=== PATIENT | male | born 1940 | race Caucasian/White ===

== ENCOUNTER 2020-11-14 11:09 | Inpatient (IN) | payer MEDICARE ==
[~2020-11-14] VITALS: Ht 170 cm; Wt 80.2 kg
[~2020-11-14 11:09] MED LIST: ACET-2 PO; ACETAMINOPHEN 325 MG TABLET PO PRN; ALPRAZolam 0.25 MG (XANAX) TAB PO PRN; AMIO200T6 PO; ASCO-262 PO; ASPI-1238 PO; ATOR40TA70 PO; BIMA2.5D4 OU; BISACODYL 10 MG SUPP (DULCOLAX) PR PRN; CALCIUM CARBONATE 500 MG (TUMS) TAB.CHEW PO PRN; CHOL100048 PO; CYCL10TA9 PO; DOCU100T2 PO; DOCUSATE SODIUM 100 MG (COLACE) CAP PO PRN; FLEET ENEMA ADULT 1 EA BTL PR PRN; LACTULOSE SYRUP 10GM/15ML (ENULOSE) 30ML UDC PO PRN; LEVO75TA6 PO; LOPERAMIDE 2 MG (IMODIUM) TABLET PO PRN; METF-397 PO; MTP25TSR PO; ONDA4TAB11 PO; ONDANSETRON 4 MG (ZOFRAN) ORAL DISSOLVE TAB PO PRN; PANT40TA52 PO; POTA-53 PO; SACU1TAB7 PO; SEMA0.25 SQ; SERT-413 PO; SPIR25TA5 PO; TRAM50TA3 PO; diphenhydrAMINE 25 MG TAB (BENADRYL) PO PRN; guaiFENesin/CODEINE (ROBITUSSIN AC) 10ML UDC PO PRN
[2020-11-14] MEDS ORDERED: SEMA0.25 SQ (11:34)
[2020-11-14 13:20] VITALS: BP 139/67
--- NOTE | 2020-11-14 14:59 | PM&R Post Admission Assessment ---
PM&R Date of Visit: November 14, 2020 Time of Visit: 15:00 History of Present Illness CC: Debility following colon cancer surgery HPI: This is an 80yoWM clinic patient of Dr P[facility] and Dr Horta Cardiology at who presents from following colon cancer surgery on 11/08/20. He has a long hx of cardiac issues including PPM and AF and CHF so Cardiology will be consulted. He has had urinary retention requiring adkins cath to be replaced so Dr Ibarra will be consulted. Currently he is doing better since a nap after arrival. I have reviewed records. 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 PLOF is independent. He is for 53 years. Assessment: Assessment: 80M w/ HFrEF (EF 40%), A.fib, SSS (pacemaker) HTN, DM, CAD, pHTN, newly diagnosted rectal cancer s/p robot assisted lap LAR (11/08) Past Ceddtbc-Orgmip-Yixbdb Hx Past Med/Social Hx: Reviewed Nursing Past Med/Soc Hx, Reviewed and Corrections made Patient Social History Marrital Status: Employed/Student: retired Alcohol Use: Denies Use Smoking Status: Never a Smoker Past Medical History Surgeries: Pacemaker Respiratory: Pneumonia Cardiac: Atrial Fibrillation, Cardiomyopathy, Chronic Edema/Swelling, Coronary Artery Disease, High Cholesterol, Hypertension Genitourinary: Benign Prostatic Hyperpl Musculoskeletal: Arthritis Endocrine: Hypothyroidsim, Diabetes, Non-Insulin dep Cancer: Colon Did You Recieve Any Treatments: Yes What Type of Treatment Did You: Surgical Intervention PM&R Allergy/Meds/Data Review Allergies Coded Allergies: lisinopril (Verified Allergy, Unknown, 11/14/20) zolpidem (Verified Allergy, Unknown, 11/14/20) Home Medications Scheduled Amiodarone HCl (Amiodarone HCl), 100 MG PO MO,E,WE,KEITH, (Reported) Amiodarone HCl (Amiodarone HCl), 200 MG PO SUN,FRI,SAT, (Reported) Ascorbate Calcium (Vitamin C), 500 MG PO DAILY, (Reported) Aspirin (Aspirin EC), 81 MG PO HS W/FOOD, (Reported) Atorvastatin Calcium (Atorvastatin Calcium), 20 MG PO DAILY, (Reported) Bimatoprost (Lumigan), 1 DROP OU HS, (Reported) Cholecalciferol (Vitamin D3) (Vitamin D3), 25 MCG PO DAILY, (Reported) Cyclobenzaprine HCl (Cyclobenzaprine HCl), 10 MG PO BID, (Reported) Docusate Sodium (Docusate Sodium), 100 MG PO BID, (Reported) Levothyroxine Sodium (Levothyroxine Sodium), 75 MCG PO DAILY, (Reported) Metformin HCl (Metformin HCl), 500 MG PO BID, (Reported) Metoprolol Succinate (Metoprolol Succinate), 12.5 MG PO HS, (Reported) Pantoprazole Sodium (Pantoprazole Sodium), 40 MG PO BID, (Reported) Potassium Chloride (K-Tab ER), 20 MEQ PO DAILY W/MEAL, (Reported) Sacubitril/Valsartan (Entresto 49 mg-51 mg Tablet), 1 TAB PO DAILY, (Reported) Sacubitril/Valsartan (Entresto 49 mg-51 mg Tablet), 2 TAB PO 1800, (Reported) Semaglutide (Ozempic), 0.25 MG SQ WEEKLY, (Reported) Sertraline HCl (Sertraline HCl), 50 MG PO HS, (Reported) Spironolactone (Spironolactone), 25 MG PO DAILY W/FOOD, (Reported) Scheduled PRN Acetaminophen/Diphenhydramine (Acetaminophen Pm Geltab), 1 EACH PO HS PRN for SLEEP, (Reported) Ondansetron (Ondansetron Odt), 4 MG PO Q4H PRN for NAUSEA/VOMITING-1ST LINE, (Reported) Tramadol HCl (Tramadol HCl), 50 MG PO Q6H PRN for PAIN-MODERATE (5-7), (Reported) Current Medications Current Medications Reviewed Review of Systems Constitutional: see HPI, malaise, weakness EENTM: no symptoms reported Respiratory: no symptoms reported Cardiovascular: no symptoms reported Gastrointestinal: abdominal pain, loss of appetite Genitourinary: other (retention) Musculoskeletal: back pain Skin: no symptoms reported Psychiatric/Neurological: Depressed All Other Systems Reviewed Negative Unless Noted: Yes Physical Exam Physical Exam Vital Signs Capillary Refill : Height, Weight, BMI Height: '" Weight: lbs. oz. kg; BMI Method: General Appearance: No Apparent Distress, WD/WN, Chronically ill, Obese Eyes: Bilateral Eye Normal Inspection, Bilateral Eye PERRL HEENT: PERRL/EOMI, Normal ENT Inspection, Pharynx Normal Neck: Full Range of Motion, Normal Inspection, Non Tender, Supple, Carotid Bruit Respiratory: Chest Non Tender, Lungs Clear, Normal Breath Sounds, No Accessory Muscle Use, No Respiratory Distress Cardiovascular: Regular Rate, Rhythm, No Edema, No Gallop, No JVD, No Murmur, Normal Peripheral Pulses Gastrointestinal: Normal Bowel Sounds, No Organomegaly, No Pulsatile Mass, Soft, Tenderness Back: Normal Inspection, No CVA Tenderness, No Vertebral Tenderness Extremity: Normal Capillary Refill, Normal Inspection, Normal Range of Motion, Non Tender, No Calf Tenderness, No Pedal Edema Neurologic/Psychiatric: Alert, Oriented x3, No Motor/Sensory Deficits, 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 as 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, Abnormal Gait, Depressed Affect, Motor Weakness (generalized) Skin: Normal Color, Warm/Dry Lymphatic: No Adenopathy PM&R Medical Assessment & Plan REHAB/MEDICAL ASSESSMENT AND PLAN: REHAB IMPAIRMENT GROUP: Debility ETIOLOGIC DIAGNOSIS: Debility The comorbidities that impact the patients function and/or functional outcome by: recent colon cancer dx, CHF, AF, PPM, advanced age REHAB PLAN: The patient is being admitted to our comprehensive inpatient rehabilitation facility and can tolerate the intensity of service consisting of at least: 180 minutes of therapy a day, 5 out of 7 days a week Rehab treatment will consist of: PT OT will help patient regain function of severe debility in order to ambulate with AD and increase ADL independence in order to return home The patient/family has a good understanding of our discharge process and will benefit from an interdisciplinary inpatient rehabilitation program. The patient has potential to make improvement and is in need of at least two of the following multidisciplinary therapies including but not limited to physical, occupational, speech, and prosthetics and orthotics. Additionally the patient will need services from respiratory, nutritional services, wound care, psychology, etc. (Customize this to each patient). Given the patients complex condition and risk of further medical complications, rehabilitation services cannot be safely or effectively provided at a lower level of care such as a snf facility. BARRIERS TO DISCHARGE: Advanced age ESTIMATED LOS: 10 days DISPOSITION: Home RELEVANT CHANGES SINCE PREADMISSION SCREENING: I have compared the patients medical and functional status at the time of the preadmission screening and there are: no changes PROGNOSIS: Good REHABILITATION GOALS: 1. PT OT will help patient regain function of severe debility in order to ambulate with AD and increase ADL independence in order to return home All the above goals were reviewed with the patient and he/she is in agreement. By signing this document, I acknowledge that I have personally performed a full physical examination on this patient within 24 hours of admission to this inpatient rehabilitation facility and have determined the patient to be able to tolerate the above course of treatment at an intensive level for a reasonable period of time. I will be completing a detailed individualized Plan of Care for this patient by day #4 of the patients stay based upon the Preadmission Screen, the Post-Admission Evaluation, and the therapy evaluations. Admission Dx/Comorbidities: (1) Colon cancer ICD Codes: C18.9 - Malignant neoplasm of colon, unspecified (2) Pacemaker ICD Codes: Z95.0 - Presence of cardiac pacemaker (3) CAD (coronary artery disease) ICD Codes: I25.10 - Atherosclerotic heart disease of [place] coronary artery without angina pectoris (4) A-fib ICD Codes: I48.91 - Unspecified atrial fibrillation (5) CHF (congestive heart failure) ICD Codes: I50.9 - Heart failure, unspecified Assessment/Plan Assessment and Plan Assess & Plan/Chief Complaint Assessment: Debility Colon cancer s/p resection 11/08/20 Urinary retention adkins cath in place CHF AF PPM HTN HLP DM Hypothyroidism Plan: IRF protocol Home meds Pain control Urology consult RIO HAWTHORNE DO November 14, 2020 14:59
[2020-11-14] MEDS ORDERED: NON-FORMULARY MEDICATION 1 EA EA (Potassium Chloride (K-Tab ER) 20 MEQ) PO SCH (15:00)
[2020-11-14] MEDS ORDERED: NON-FORMULARY MEDICATION 1 EA EA (Semaglutide (Ozempic) 0.25 MG) SQ SCH (15:00)
[2020-11-14] MEDS ORDERED: ONDANSETRON 4 MG (ZOFRAN) ORAL DISSOLVE TAB PO PRN (15:00)
--- NOTE | 2020-11-14 15:14 | Occupational Therapy Eval ---
OT Evaluation-General/PLF Medical Diagnosis Admission Date November 14, 2020 at 13:30 Medical Diagnosis: Colon resection/Colon CA Onset Date: November 08, 2020 Therapy Diagnosis Therapy Diagnosis: Weakness, Decreased ADL skills Precautions Precautions/Isolations: Fall Prevention, Standard Precautions, Pressure Ulcer Weight Bear Status Weight Bearing Restriction: Weight Bearing/Tolerated Referral Physician: Dr. Askew Referral Reason: Activity Tolerance, Self Care, Evaluation/Treatment, Strengthening/ROM Medical History Pertinent Medical History: Atrial Fib, CAD, HTN Additional Medical History Chronic systolic heart failure, HLD Current History Pt. diagnosed with rectal CA. Underwent colon resection with colostomy. Reviewed History: Yes Social History Home: Single Level Current Living Status: Spouse Entry Into Home: Stairs With Railing Steps Into Home: 2 ADL-Prior Level of Function SCALE: Activities may be completed with or without assistive devices. 8-Pmmofomcgr-hfqcrbd completes the activity by him/herself with no assistance from a helper. 5-Set-up or Clean-up Assistance-helper sets up or cleans up; patient completes activity. [place] assists only prior to or following the activity. 4-Supervision or Touching Assistance-helper provides verbal cues and/or touching/steadying and/or contact guard assistance as patient completes activity. Assistance may be provided throughout the activity or intermittently. 3-Partial/Moderate Assistance-helper does LESS THAN HALF the effort. [place] lifts, holds or supports trunk or limbs, but provides less than half the effort. 2-Substantial/Maximal Assistance-helper does MORE THAN HALF the effort. [place] lifts or holds trunk or limbs and provides more than half the effort. 6-[place]-cgkmsw does ALL the effort. Patient does none of the effort to complete the activity. Or, the assistance of 2 or more helpers is required for the patient to complete the activity. If activity was not attempted, code reason: 7-Patient Refused. 9-Not Applicable-not attempted and the patient did not perform the activity before the current illness, exacerbation or injury. 10-Not Attempted due to Environmental Limitations-(lack of equipment, weather restraints, etc.). 88-Not Attempted due to Medical Conditions or Safety Concerns. ADL PLOF Comments Pt. states that he was independent with daily tasks prior to this hospitalization. He did not use a walker even though he owns one. 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 Appearance Pt. up in wheelchair. Agrees to work with therapy. Mental Status/Objective Patient Orientation: Person Current Upper Extremity ROM Limited in left shoulder. Pt. is able to flex right shoulder WFL. ADL-Treatment Eating (QC): 4 (SBA and cues to sequence. Pt. verbalizes that he has no appetite.) Oral Hygiene (QC): 88 (Pt. already completed.) Shower/Bathe Self (QC): 88 (Already completed.) Upper Body Dressing (QC): 88 Lower Body Dressing (QC): 88 On/Off Footwear (QC): 2 (Max assist overall with shoes and socks.) Toileting Hygiene (QC): 1 (Dependent assistance with catheter and colostomy.) Other Treatments Pt. seen this date for evaluation with PT for co-treatment due to poor endurance overall. Pt. able to stand with CGA, but does fatigue during treatment, the more he ambulates. Please see PT note for distance ambulated. Pt. attempts to doff/don socks and shoes. Pt. able to doff shoes with effort, and is able to doff socks with max effort and increased time. Max assist to don them. OT introduces AE. As treatment progresses, pt. becomes more shaky and has difficulty following cues. Forgets his catheter while ambulating and transferring. BP fine, (please see nursing notes.) Pt. transferred back to bed at end of session with CGA/min assist. Pt. immediately falls asleep. All needs are met. Education OT Patient Education: Correct positioning, Modified ADL techniques, Progress toward Goal/Update tx plan, Purpose of tx/functional activities, Reviewed precautions, Rehab process, Transfer techniques Teaching Recipient: Patient Teaching Methods: Demonstration, Discussion Response to Teaching: Verbalize Understanding, Return Demonstration, Reinforcement Needed OT Short Term Goals Short Term Goals Time Frame: November 21, 2020 Eatin Oral hygiene: 4 Toileting hygiene: 3 Shower/bathe self: 3 Upper body dressin Lower body dressin Putting on/taking off footwear: 3 OT Customer Service Advocate Goals Mcfp Goals Time Frame: Nov 28, 2020 Eating (QC): 6 Oral Hygiene (QC): 5 Toileting Hygiene (QC): 6 Shower/Bathe Self (QC): 4 Upper Body Dressing (QC): 5 Lower Body Dressing (QC): 4 On/Off Footwear (QC): 4 Additional Goals: 1-Demonstrate ADL Tasks, 2-Verbalize Understanding, 3- ImproveStrength/Misha 1=Demonstrate adherence to instructed precautions during ADL tasks. 2=Patient will verbalize/demonstrate understanding of assistive devices/modifications for ADL. 3=Patient will improve strength/tolerance for activity to enable patient to perform ADL's. OT Education/Plan Problem List/Assessment Assessment: Decreased Activ Tolerance, Decreased UE Strength, Dependent Transfers, Impaired Bed Mobility, Impaired Cognition, Impaired Funct Balance, Impaired I ADL's, Impaired Self-Care Skills, Restricted Funct UE ROM Discharge Recommendations Plan/Recommendations: Continue POC Therapy Discharge Recommendati: Home & Family, Post Acute OT Treatment Plan/Plan of Care Treatment,Training & Education: Yes Patient would benefit from OT for education, treatment and training to promote independence in ADL's, mobility, safety and/or upper extremity function for ADL's. Plan of Care: ADL Retraining, Functional Mobility, Group Exercise/Act as Ind, UE Funct Exercise/Act, UE Neuromus Re-Ed/Coord Treatment Duration: Nov 28, 2020 Frequency: At least 5 of 7 days/Wk (IRF) Estimated Hrs Per Day: 1.5 hours per day Agreement: Yes Rehab Potential: Good Time/GCodes Start Time: 13:40 Stop Time: 15:10 Total Time Billed (hr/min): 90 Billed Treatment Time 3386-2280- 1, EVH x 10minutes [id number]- ADL x 30minutes, FA x 50minutes- Co-treatment with PT ALLEY EMERY OT November 14, 2020 15:14
--- NOTE | 2020-11-14 15:37 | Physical Therapy Evaluation ---
PT Evaluation-General Medical Diagnosis Admission Date November 14, 2020 at 13:30 Medical Diagnosis: Colon resection/Colon CA Onset Date: November 08, 2020 Therapy Diagnosis Therapy Diagnosis: impaired mobility, strength, endurance Precautions Precautions/Isolations: Fall Prevention, Standard Precautions, Pressure Ulcer Referral Physician: Dr. Askew Reason for Referral: Evaluation/Treatment Medical History Pertinent Medical History: Atrial Fib, CAD, HTN Reviewed History: Yes Social History Home: Single Level Current Living Status: Spouse Entry Into Home: Stairs With Railing PT Steps Into Home: 2 Prior Prior Level of Function SCALE: Activities may be completed with or without assistive devices. 2-Wstshpvstt-reopcbi completes the activity by him/herself with no assistance from a helper. 5-Set-up or Clean-up Assistance-helper sets up or cleans up; patient completes activity. [place] assists only prior to or following the activity. 4-Supervision or Touching Assistance-helper provides verbal cues and/or touching/steadying and/or contact guard assistance as patient completes activity. Assistance may be provided throughout the activity or intermittently. 3-Partial/Moderate Assistance-helper does LESS THAN HALF the effort. [place] lifts, holds or supports trunk or limbs, but provides less than half the effort. 2-Substantial/Maximal Assistance-helper does MORE THAN HALF the effort. [place] lifts or holds trunk or limbs and provides more than half the effort. 4-Gizqgybdh-hwlwye does ALL the effort. Patient does none of the effort to complete the activity. Or, the assistance of 2 or more helpers is required for the patient to complete the activity. If activity was not attempted, code reason: 7-Patient Refused. 9-Not Applicable-not attempted and the patient did not perform the activity before the current illness, exacerbation or injury. 10-Not Attempted due to Environmental Limitations-(lack of equipment, weather restraints, etc.). 88-Not Attempted due to Medical Conditions or Safety Concerns. Bed Mobility: 6 Transfers (B,C,W/C): 6 Gait: 6 Stairs: 6 Indoor Mobility (Ambulation): Independent Stairs: Independent Prior Devices Use: Walker PT Evaluation-Current Subjective Patient comes by family transport, agrees to PT, has no complaints of pain. Pt/Family Goals to be independent at home Objective Patient Orientation: Person, Place, Situation Attachments: Colostomy/Ileostomy ROM/Strength ROM Lower Extremities WNL Strength Lower Extremities LLE (hip flexion 4/5, knee flexion 4/5, knee extension 4/5, dorsiflexion 4/5), RLE (hip flexion 4/5, knee flexion 4/5, knee extension 4/5, dorsiflexion 4/5) Sensory Vision: Wears Glasses Hearing: Functional Sensation Right Lower Extremit: Intact Sensation Left Lower Extremity: Intact Transfers Roll Left & Right (QC): 6 Sit to Lying (QC): 3 Lying to Sitting/Side of Bed(Q: 3 Sit to Stand (QC): 3 Chair/Fpk-qe-Kmqeu Xfer(QC): 3 Toilet Transfer (QC): 3 Car Transfer (QC): 3 Patient performs bed mobility with independence, supine <-> sit mod assist, sit <-> stand min assist, transfers min assist, car transfer mod assist. Patient needs cues for hand placement and positioning with every transfer. During the car transfer patient was almost frozen in place, had a very difficult time seemingly to initiate movement Gait Does the Patient Walk?: Yes Mode of Locomotion: Walk Anticipated Mode of Locomotion: Walk Walk 10 feet (QC): 3 Walk 50 ft with 2 Turns(QC): 3 Walk 150 ft (QC): 88 Walking 10ft/uneven surface-QC: 3 Distance: 50'x2, 20' Gait Assistive Device: FWW Comments/Gait Description Patient can ambulate 50' with a rolling walker with min assist (including 50' with at least 2 turns of 90 degrees but needs mod assist to ambulate 10' over an uneven surface). Patient often has a festinating gait, loses balance backward when ambulating over the uneven surface, fatigues quickly, very narrow BC Wheelchair Training Does the Pt Use a Wheelchair?: No Wheel 50 ft with 2 turns (QC): 9 Wheel 150 ft (QC): 9 Stairs 1 Step (curb) (QC): 3 4 Steps (QC): 88 12 Steps (QC): 88 Walking Assistive Device: Walker Patient can go up and down 1 step using a rolling walker with min assist, patient tends to lose balance backward the whole time he is on the step and then regains it once he steps off and takes a couple of steps. Balance Sitting Static: Normal Sitting Dynamic: Normal Standing Static: Fair Standing Dynamic: Fair Picking up an Object (QC): 88 Treatment PT performed bed mobility and transfer training, ambulation, balance and positioning assistance during ADL's, OT worked on ADL's and UE positioning and safety during activity. Assessment/Needs Patient in bed post tx with nurse call, phone, tray, all needs met. Patient needs min assist with transfers and ambulation but more assist with balance during more difficult tasks. Rehab Potential: Fair PT Short Term Goals Short Term Goals Time Frame: November 21, 2020 Roll Left & Right: 6 Sit to lyin Lying to sitting on side of be: 3 Sit to stand: 4 Chair/ina-xz-ajlgs transfer: 4 Walk 10 feet: 4 Walk 50 feet with two turns: 4 Walk 150 feet: 4 PT Author'S Agent Goals Shelter Goals PT Author'S Agent Goals Time Frame: Dec 05, 2020 Roll Left & Right (QC): 6 Sit to Lying (QC): 6 Lying-Sitting on Side/Bed(QC): 6 Sit to Stand (QC): 5 Chair/Ixm-cp-Skwid Xfer(QC): 5 Toilet Transfer (QC): 5 Car Transfer (QC): 4 Does the Patient Walk: Yes Walk 10 feet (QC): 5 Walk 50ft with 2 Turns (QC): 5 Walk 150 ft (QC): 5 Walking 10ft on Uneven Surface: 4 1 Step (curb) (QC): 4 4 Steps (QC): 4 12 Steps (QC): 88 Picking up an Object (QC): 4 Wheel 50 feet with 2 turns (QC: 9 Wheel 150 feet: 9 PT Plan Problem List Problem List: Activity Tolerance, Functional Strength, Safety, Balance, Gait, Transfer, Bed Mobility, ROM Treatment/Plan Treatment Plan: Continue Plan of Care Treatment Plan: Bed Mobility, Education, Functional Activity Misha, Functional Strength, Group Therapy, Gait, Safety, Therapeutic Exercise, Transfers Treatment Duration: Dec 05, 2020 Frequency: At least 5 of 7 days/Wk (IRF) Estimated Hrs Per Day: 1.5 hours per day Patient and/or Family Agrees t: Yes Safety Risks/Education Patient Education: Gait Training, Transfer Techniques, Steps, Correct Positioning, Safety Issues Teaching Recipient: Patient Teaching Methods: Demonstration, Discussion Response to Teaching: Reinforcement Needed Discharge Recommendations Plan Patient will perform bed mobility and transfer training, balance and endurance training ,functional strengthening, stair training, gait training, and edu cation, to improve functional mobility and independence at home. Therapy Discharge Recommendati: Scheduled Assistance, Home & Family, Post Acute PT Time/GCodes Time In: 1330 Time Out: 1510 Total Billed Treatment Time: 90 Total Billed Treatment 1 visit EVM 10' FA 80' PT eval from [id number], OT eval from [id number], co-treat from [id number] VIRGEN DAVIS PT November 14, 2020 15:37
[2020-11-14] MEDS: DOCUSATE SODIUM 100 MG (COLACE) CAP PO SCH ×2 (17:17→20:44)
[2020-11-14] MEDS: polyethylene glycoL POWDER 17 GM (MIRALAX) PACK PO SCH ×2 (17:18→20:44)
[2020-11-14] MEDS: SENNA W/DOCUSATE (SENOKOT S) TABLET PO SCH ×2 (17:18→20:44)
[2020-11-14] MEDS: metFORMIN 500 MG (GLUCOPHAGE) TAB PO SCH (17:40)
[2020-11-14] MEDS: KCL 20 MEQ TAB (K-DUR) PO SCH (17:40)
[2020-11-14] MEDS ORDERED: VALSARTAN PO SCH (18:00)
[2020-11-14] MEDS ORDERED: [UNRECOGNIZED DRUG - OTHER] PO SCH (18:00)
[2020-11-14] MEDS ORDERED: SACUBITRIL PO SCH (18:00)
[2020-11-14] MEDS: SACUBITRIL/VALSARTAN 24/26 MG (ENTRESTO) TABLET PO SCH (18:33)
--- NOTE | 2020-11-14 18:48 | Consultation-Cardiology ---
HPI-Cardiology Cardiology Consultation: Date of Consultation 11/14/20 Time Seen by a Provider: 18:00 Date of Admission Attending Physician Katt Askew DO Admitting Physician Nicola Pace DO Consulting Physician ARSENIO BROOKE MD, MA, FACP, FACC, [facility] [place], [facility] Physician requesting consult: Dr Askew HPI: Chief Complaint: Reason for consultation: Pt has cardiac history HPI 80 yo man who has had robot-assisted anterior resection of rectum and colon for rectal cancer and who has been admitted by Dr Askew to her service for rehab. She has asked to see him because of a h/o cardiac problems. Pt denies any cp or palp or syncope or shortness of breath or leg swelling. Reports gen malaise and weakness. Denies focal weakness. Denies nausea or vomiting Review of Systems-Cardiology Review of Systems Constitutional: As described under HPI Eyes: No vision change Ears/Nose/Throat: No ear discharge, No nasal drainage, No recent hearing loss Respiratory: As described under HPI Cardiovascular: As described under HPI Gastrointestinal: As described under HPI Genitourinary: No dysuria, No hematuria, No urine frequency changes Skin: No rash, No ulcerations Psychiatric/Neurological: No seizure, No focal weakness, No syncope Hematologic: No bleeding abnormalities NYQ-Clemrz-Vlpasb Hx Patient Social History Have you traveled recently?: No Alcohol Use?: No Pt feels they are or have been: No Past Medical History PMH As described under Assessment. Family Medical History Family Medical History: He does not report fam h/o early CAD or SCD Allergies and Home Medications Allergies Coded Allergies: lisinopril (Verified Allergy, Unknown, 11/14/20) zolpidem (Verified Allergy, Unknown, 11/14/20) Home Medications Acetaminophen/Diphenhydramine 1 Each Tablet, 1 EACH PO HS PRN for SLEEP, (Reported) Last Action: Converted Amiodarone HCl 200 Mg Tablet, 100 MG PO MO,THU,,KEITH, (Reported) TAKE WITH FOOD TAKES OF A 200MG TAB Last Action: Reviewed Amiodarone HCl 200 Mg Tablet, 200 MG PO SUN,FRI,SAT, (Reported) TAKE WITH FOOD Last Action: Continued Ascorbate Calcium 500 Mg Tablet, 500 MG PO DAILY, (Reported) Last Action: Converted Aspirin 81 Mg Tablet., 81 MG PO HS W/FOOD, (Reported) Last Action: Continued Atorvastatin Calcium 40 Mg Tablet, 20 MG PO DAILY, (Reported) TAKES OF A 40MG TAB Last Action: Continued Bimatoprost 2.5 Ml Drops, 1 DROP OU HS, (Reported) Last Action: Converted Cholecalciferol (Vitamin D3) 25 Mcg Capsule, 25 MCG PO DAILY, (Reported) Last Action: Converted Cyclobenzaprine HCl 10 Mg Tablet, 10 MG PO BID, (Reported) Last Action: Continued Docusate Sodium 100 Mg Tablet, 100 MG PO BID, (Reported) Last Action: Converted Levothyroxine Sodium 75 Mcg Tablet, 75 MCG PO DAILY, (Reported) Last Action: Continued Metformin HCl 500 Mg Tablet, 500 MG PO BID, (Reported) Last Action: Continued Metoprolol Succinate 25 Mg Tab.er.24h, 12.5 MG PO HS, (Reported) TAKES OF A 25MG HOLD FOR SYSTOLIC BLOOD PRESSURE LESS THAN 90 Last Action: Continued Ondansetron 4 Mg Tab.rapdis, 4 MG PO Q4H PRN for NAUSEA/VOMITING-1ST LINE, (Reported) Last Action: Continued Pantoprazole Sodium 40 Mg Tablet.dr, 40 MG PO BID, (Reported) Last Action: Continued Potassium Chloride 20 Meq Tablet.er, 20 MEQ PO DAILY W/MEAL, (Reported) Last Action: Converted Sacubitril/Valsartan 1 Each Tablet, 1 TAB PO DAILY, (Reported) Last Action: Converted Sacubitril/Valsartan 1 Each Tablet, 2 TAB PO 1800, (Reported) TAKES 2 (49/51MG) TABS Last Action: Converted Semaglutide 0.25 Mg/0.2 Ml Pen.injctr, 0.25 MG SQ WEEKLY, (Reported) Last Action: Converted Sertraline HCl 50 Mg Tablet, 50 MG PO HS, (Reported) Last Action: Continued Spironolactone 25 Mg Tablet, 25 MG PO DAILY W/FOOD, (Reported) Last Action: Continued Tramadol HCl 50 Mg Tablet, 50 MG PO Q6H PRN for PAIN-MODERATE (5-7), (Reported) Last Action: Continued Patient Home Medication List Home Medication List Reviewed: Yes Physical Exam-Cardiology Physical Exam Vital Signs/I&O 11/14/20 11/14/20 13:20 16:05 Temp 36.4 Pulse 64 Resp 18 B/P (MAP) 139/67 (91) Pulse Ox 97 98 O2 Delivery Room Air Capillary Refill : Constitutional: AAO x 3, well-developed, well-nourished HEENT: EOMI, hearing is well preserved; No xanthelasmas are seen Neck: carotid pulses are 2 + bilaterally Respiratory: No accessory muscle use; other (good bilateral air entry) Cardiovascular: regular rate-rhythm, S1 and S2 Gastrointestinal: No tender; audible bowel sounds, other (colostomy present to the L of the umbilicus) Extremities: No clubbing, No cyanosis, No significant edema Neurologic/Psychiatric: oriented x 3, other (moves all limbs equally) Skin: No rash on exposed areas, No ulcerations on exposed areas Data Review Labs Laboratory Tests 11/14/20 16:49: Glucometer 131H A/P-Cardiology Assessment/Admission Diagnosis S/p robot-assisted anterior resection for rectal CA (early October 2020 at [facility]) SSS - s/p pacemaker, managed by his third rigger Dr Kam in - treated chronically with amiodarone (apparently for maintenance of sinus rhythm) - stroke prophylaxis has only been with ASA (per his third rigger, according to the patient) CAD - h/o a single cor stent in or around 2014 (details unknown to pt) DM II HL HTN H/o cardiomyopathy (details unknown to pt) - his records from [facility] state an EF of 40% Discussion and Recomendations * Tele for now * Monitor labs * Echo * Continue ASA and amio and sacubitril/valsartan ARSENIO BROOKE MD FACP [facility] November 14, 2020 18:48
[2020-11-14 20:26] VITALS: BP 126/62
[2020-11-14] MEDS: SERTRALINE 50 MG (ZOLOFT) TABLET PO SCH (20:32)
[2020-11-14] MEDS: CYCLOBENZAPRINE 10 MG (FLEXERIL) TAB PO SCH (20:32)
[2020-11-14] MEDS: PANTOPRAZOLE 40 MG (PROTONIX) TAB PO SCH (20:32)
[2020-11-14] MEDS: LATANOPROST 0.005% (XALATAN) OPHTH SOLN 2.5 ML OU SCH (20:41)
[2020-11-14] MEDS: ASPIRIN E.C. 81 MG (ECOTRIN) TAB PO SCH (20:44)
[2020-11-14] MEDS ORDERED: NON-FORMULARY MEDICATION 1 EA EA (Docusate Sodium 100 MG) PO SCH (21:00)
[2020-11-14] MEDS ORDERED: NON-FORMULARY MEDICATION 1 EA EA (Bimatoprost (Lumigan) 1 DROP) OU SCH (21:00)
[2020-11-14] MEDS ORDERED: RX-CYCLOBENZAPRINE 10 MG (FLEXERIL) TAB PPK#3 PO SCH (21:00)
[2020-11-15] MEDS: LEVOTHYROXINE 75 MCG (LEVOTHROID) TABLET PO SCH (05:24)
[2020-11-15 05:44] LABS: BASOPHILS % (AUTO) 0 % (0-10); EOSINOPHILS # (AUTO) 0.3 10^3/uL (0.0-0.3); EOSINOPHILS % (AUTO) 3 % (0-10); HEMATOCRIT 35 % (40-54); HEMOGLOBIN 11.1 g/dL (13.3-17.7); LYMPHOCYTES # (AUTO) 0.6 10^3/uL (1.0-4.0); LYMPHOCYTES % (AUTO) 7 % (12-44); MEAN CORPUSCULAR HEMOGLOBIN 28 pg (25-34); MEAN CORPUSCULAR HGB CONC 32 g/dL (32-36); MEAN CORPUSCULAR VOLUME 86 fL (80-99); MEAN PLATELET VOLUME 9.1 fL (9.0-12.2); MONOCYTES # (AUTO) 0.9 10^3/uL (0.0-1.0); MONOCYTES % (AUTO) 11 % (0-12); NEUTROPHILS # (AUTO) 6.3 10^3/uL (1.8-7.8); NEUTROPHILS % (AUTO) 77 % (42-75); PLATELET COUNT 312 10^3/uL (130-400); WHITE BLOOD COUNT 8.2 10^3/uL (4.3-11.0)
[2020-11-15 06:05] LABS: CHLORIDE 103 MMOL/L (98-107); POTASSIUM 4.1 MMOL/L (3.6-5.0); SODIUM 137 MMOL/L (135-145)
[2020-11-15 06:06] LABS: CALCIUM 8.9 MG/DL (8.5-10.1)
[2020-11-15 06:07] LABS: GLUCOSE 131 MG/DL (70-105); TOTAL PROTEIN 6.1 GM/DL (6.4-8.2)
[2020-11-15 06:08] LABS: CARBON DIOXIDE 27 MMOL/L (21-32)
[2020-11-15 06:09] LABS: BILIRUBIN,TOTAL 0.4 MG/DL (0.1-1.0)
[2020-11-15 06:10] LABS: ALKALINE PHOSPHATASE 31 U/L (40-136)
[2020-11-15 06:11] LABS: CREATININE SERUM 0.85 MG/DL (0.60-1.30); GFR ESTIMATED > 60
[2020-11-15 06:12] LABS: BUN/CREATININE RATIO 15
[2020-11-15 06:14] LABS: ALANINE AMINOTRANSFERASE 33 U/L (0-55)
[2020-11-15 06:16] LABS: BAND NEUTROPHILS 1 %; EOSINOPHILS % (MANUAL) 2 %; LYMPHOCYTES % (MANUAL) 7 %; MONOCYTES % (MANUAL) 8 %; NEUTROPHILS % (MANUAL) 82 %; RBC MORPH NORMAL
--- NOTE | 2020-11-15 06:21 | PM&R Progress Note ---
Subjective HPI/CC On Admission Date Seen by Provider: November 15, 2020 Time Seen by Provider: 10:00 Subjective/Events-last exam 11/15/20: Will hold Flexeril because it makes him drowsy Echocardiogram will be done today Pt doing very well and walking around pretty well Incision looks good Review of Systems General: Fatigue, Malaise Gastrointestinal: Abdominal Pain Neurological: Weakness Objective Exam Vital Signs Vital Signs Date Time Temp Pulse Resp B/P (MAP) Pulse Ox O2 Delivery O2 Flow Rate FiO2 11/15/20 20:32 Room Air 11/15/20 19:00 60 11/15/20 08:00 37.0 18 131/62 (85) 92 Capillary Refill : General Appearance: No Apparent Distress, WD/WN, Chronically ill, Obese HEENT: PERRL/EOMI, Normal ENT Inspection, Pharynx Normal Neck: Full Range of Motion, Normal Inspection, Non Tender, Supple, Carotid Bruit Respiratory: Chest Non Tender, Lungs Clear, Normal Breath Sounds, No Accessory Muscle Use, No Respiratory Distress Cardiovascular: Regular Rate, Rhythm, No Edema, No Gallop, No JVD, No Murmur, Normal Peripheral Pulses Gastrointestinal: Normal Bowel Sounds, No Organomegaly, No Pulsatile Mass, Soft, Tenderness Back: Normal Inspection, No CVA Tenderness, No Vertebral Tenderness Extremity: Normal Capillary Refill, Normal Inspection, Normal Range of Motion, Non Tender, No Calf Tenderness, No Pedal Edema Neurologic/Psychiatric: Alert, Oriented x3, No Motor/Sensory Deficits, carpenter mate II- XII Norm as Tested, Abnormal Gait, Depressed Affect, Motor Weakness (generalized) Skin: Normal Color, Warm/Dry Lymphatic: No Adenopathy Results/Procedures Lab Laboratory Tests 11/15/20 05:16 Patient resulted labs reviewed. FIM Transfers Therapy Code Descriptions/Definitions Functional [place] Measure: 0=Not Assessed/NA 4=Minimal Assistance 1=Total Assistance 5=Supervision or Setup 2=Maximal Assistance 6=Modified [place] 3=Moderate Assistance 7=Complete IndependenceSCALE: Activities may be completed with or without assistive devices. 6-[place]-jujxtpu completes the activity by him/herself with no assistance from a helper. 5-Set-up or Clean-up Assistance-helper sets up or cleans up; patient completes activity. [place] assists only prior to or following the activity. 4-Supervision or Touching Assistance-helper provides verbal cues and/or touching/steadying and/or contact guard assistance as patient completes activity. Assistance may be provided throughout the activity or intermittently. 3-Partial/Moderate Assistance-helper does LESS THAN HALF the effort. [place] lifts, holds or supports trunk or limbs, but provides less than half the effort. 2-Substantial/Maximal Assistance-helper does MORE THAN HALF the effort. [place] lifts or holds trunk or limbs and provides more than half the effort. 9-Sghbmbuvy-oavgof does ALL the effort. Patient does none of the effort to complete the activity. Or, the assistance of 2 or more helpers is required for the patient to complete the activity. If activity was not attempted, code reason: 7-Patient Refused. 9-Not Applicable-not attempted and the patient did not perform the activity before the current illness, exacerbation or injury. 10-Not Attempted due to Environmental Limitations-(lack of equipment, weather restraints, etc.). 88-Not Attempted due to Medical Conditions or Safety Concerns. Roll Left to Right (QC): 6 Sit to Lying (QC): 3 Sit to Stand (QC): 3 Chair/Fyv-um-Pcbyf Xfer(QC): 3 Car Transfer (QC): 3 Gait Training Does the Patient Walk?: Yes Walk 10 feet (QC): 3 Walk 50 ft with 2 Turns(QC): 3 Walk 150 ft (QC): 88 Walking 10ft/uneven surface-QC: 3 Gait Assistive Device: FWW Wheelchair Training Does the Pt Use a Wheelchair?: No Wheel 50 ft with 2 turns (QC): 9 Wheel 150 ft (QC): 9 Stair Training 1 Step (curb) (QC): 3 4 Steps (QC): 88 12 Steps (QC): 88 Balance Picking up an Object (QC): 88 ADL-Treatment Eating (QC): 4 (SBA and cues to sequence. Pt. verbalizes that he has no appetite.) Oral Hygiene (QC): 88 (Pt. already completed.) Shower/Bathe Self (QC): 88 (Already completed.) Upper Body Dressing (QC): 88 Lower Body Dressing (QC): 88 On/Off Footwear (QC): 2 (Max assist overall with shoes and socks.) Toileting Hygiene (QC): 1 (Dependent assistance with catheter and colostomy.) Assessment/Plan Assessment and Plan Assess & Plan/Chief Complaint Assessment: Debility Colon cancer s/p resection 11/08/20 Urinary retention adkins cath in place CHF AF PPM HTN HLP DM Hypothyroidism Plan: IRF protocol Home meds Pain control Urology consult 11/15/20: Dr Ibarra appreciated Sleeps a lot (1) Colon cancer (2) Pacemaker (3) CAD (coronary artery disease) (4) A-fib (5) CHF (congestive heart failure) RIO HAWTHORNE DO November 15, 2020 06:21
[2020-11-15 08:00] VITALS: BP 131/62
[2020-11-15] MEDS ORDERED: AMIODARONE 200 MG (CORDARONE) TAB PO SCH (08:00)
--- NOTE | 2020-11-15 08:59 | Physical Therapy Daily Note ---
PT Daily Note-Current Subjective Patient in bed pre tx, agrees to PT, has no complaints of pain. Will be co- treating with OT for part of tx due to poor patient mobility, strength, endurance, safety and reduce risk of falls, coordinate UE and LE during activity. Appearance Patient in recliner post tx with nurse call, phone, tray, all needs met, will continue with OT Mental Status Patient Orientation: Person, Place, Situation Attachments: [place] Catheter Transfers SCALE: Activities may be completed with or without assistive devices. 6-Ldnwedcvji-hqyewtd completes the activity by him/herself with no assistance from a helper. 5-Set-up or Clean-up Assistance-helper sets up or cleans up; patient completes activity. [place] assists only prior to or following the activity. 4-Supervision or Touching Assistance-helper provides verbal cues and/or touching/steadying and/or contact guard assistance as patient completes activity. Assistance may be provided throughout the activity or intermittently. 3-Partial/Moderate Assistance-helper does LESS THAN HALF the effort. [place] lifts, holds or supports trunk or limbs, but provides less than half the effort. 2-Substantial/Maximal Assistance-helper does MORE THAN HALF the effort. [place] lifts or holds trunk or limbs and provides more than half the effort. 1-Anhjywrsr-ogprol does ALL the effort. Patient does none of the effort to complete the activity. Or, the assistance of 2 or more helpers is required for the patient to complete the activity. If activity was not attempted, code reason: 7-Patient Refused. 9-Not Applicable-not attempted and the patient did not perform the activity before the current illness, exacerbation or injury. 10-Not Attempted due to Environmental Limitations-(lack of equipment, weather restraints, etc.). 88-Not Attempted due to Medical Conditions or Safety Concerns. Roll Left & Right (QC): 6 Lying to Sitting/Side of Bed(Q: 4 Sit to Stand (QC): 4 Chair/Ehy-cq-Twput Xfer(QC): 4 Gait Training Distance: 150'x2 Walk 10 feet (QC): 4 Walk 50 ft with 2 Turns(QC): 4 Walk 150 ft (QC): 4 Gait Persons Needed: 1 Gait Assistive Device: FWW CGA, occasional standing rest breaks, slow ambulation Exercises Standing: Hip Abduction, Heel/toe raises, Marching, Mini squats Standing Reps: 15 LAQ alternating for 5 min, also co-treating exercise standing working on LE endurance while performing UE strengthening and reaching activity. Treatments PT worked on bed mobility and transfers, ambulation, LE strengthening, OT worked on UE strengthening and reaching, UE positioning and safety during activity Assessment Current Status: Fair Progress less festinating gait PT Short Term Goals Short Term Goals Time Frame: November 21, 2020 Roll Left & Right: 6 Sit to lyin Lying to sitting on side of be: 3 Sit to stand: 4 Chair/mmf-br-cqaxb transfer: 4 Walk 10 feet: 4 Walk 50 feet with two turns: 4 Walk 150 feet: 4 PT Chcf Goals Chcf Goals PT Speech Language Specialist Goals Time Frame: Dec 05, 2020 Roll Left & Right (QC): 6 Sit to Lying (QC): 6 Lying-Sitting on Side/Bed(QC): 6 Sit to Stand (QC): 5 Chair/Ihp-hk-Zqrck Xfer(QC): 5 Toilet Transfer (QC): 5 Car Transfer (QC): 4 Does the Patient Walk: Yes Walk 10 feet (QC): 5 Walk 50ft with 2 Turns (QC): 5 Walk 150 ft (QC): 5 Walking 10ft on Uneven Surface: 4 1 Step (curb) (QC): 4 4 Steps (QC): 4 12 Steps (QC): 88 Picking up an Object (QC): 4 Wheel 50 feet with 2 turns (QC: 9 Wheel 150 feet: 9 PT Plan Problem List Problem List: Activity Tolerance, Functional Strength, Safety, Balance, Gait, Transfer, Bed Mobility, ROM Treatment/Plan Treatment Plan: Continue Plan of Care Treatment Plan: Bed Mobility, Education, Functional Activity Misha, Functional Strength, Group Therapy, Gait, Safety, Therapeutic Exercise, Transfers Treatment Duration: Dec 05, 2020 Frequency: At least 5 of 7 days/Wk (IRF) Estimated Hrs Per Day: 1.5 hours per day Patient and/or Family Agrees t: Yes Safety Risks/Education Patient Education: Gait Training, Transfer Techniques, Correct Positioning, Safety Issues Teaching Recipient: Patient Teaching Methods: Demonstration, Discussion Response to Teaching: Reinforcement Needed Time/GCodes Time In: 0800 Time Out: 0900 Total Billed Treatment Time: 60 Total Billed Treatment 1 visit EX 30' FA 30' co-treat with OT from [id number] VIRGEN DAVIS PT November 15, 2020 08:59
[2020-11-15] MEDS ORDERED: NON-FORMULARY MEDICATION 1 EA EA (Ascorbate Calcium (Vitamin C) 500 MG) PO SCH (09:00)
[2020-11-15] MEDS ORDERED: NON-FORMULARY MEDICATION 1 EA EA (Sacubitril/Valsartan (Entresto 49 mg-51 mg Tablet) 1 TAB PO SCH (09:00)
[2020-11-15] MEDS ORDERED: NON-FORMULARY MEDICATION 1 EA EA (Cholecalciferol (Vitamin D3) (Vitamin D3) 25 MCG) PO SCH (09:00)
[2020-11-15] MEDS: ASCORBIC ACID (VIT C) 500 MG TABLET PO SCH (09:04)
[2020-11-15] MEDS: CYCLOBENZAPRINE 10 MG (FLEXERIL) TAB PO SCH (09:04)
[2020-11-15] MEDS: SPIRONOLACTONE 25 MG (ALDACTONE) TAB PO SCH (09:04)
[2020-11-15] MEDS: VITAMIN D3 25 MCG (1,000 UNITS) TABLET PO SCH (09:04)
[2020-11-15] MEDS: SENNA W/DOCUSATE (SENOKOT S) TABLET PO SCH ×2 (09:04→20:22)
[2020-11-15] MEDS: SACUBITRIL/VALSARTAN 24/26 MG (ENTRESTO) TABLET PO SCH ×2 (09:05→17:39)
[2020-11-15] MEDS: PANTOPRAZOLE 40 MG (PROTONIX) TAB PO SCH ×2 (09:05→20:37)
[2020-11-15] MEDS: metFORMIN 500 MG (GLUCOPHAGE) TAB PO SCH ×2 (09:05→17:37)
[2020-11-15] MEDS: DOCUSATE SODIUM 100 MG (COLACE) CAP PO SCH ×4 (09:06→20:37)
[2020-11-15] MEDS: polyethylene glycoL POWDER 17 GM (MIRALAX) PACK PO SCH ×2 (09:06→19:31)
--- NOTE | 2020-11-15 09:17 | Progress Note - Cardiology ---
Cardiology SOAP Progress Note Objective: I&O/Vital Signs 11/19/20 11/19/20 11/19/20 11/19/20 01:00 06:48 08:15 09:00 Temp 36.8 Pulse 62 63 63 Resp 18 B/P (MAP) 138/63 (88) Pulse Ox 95 O2 Delivery Nasal Cannula Nasal Cannula O2 Flow Rate 2.00 2.00 11/19/20 10:22 O2 Flow Rate 2.00 Constitutional: AAO x 3, well-developed, well-nourished Respiratory: No accessory muscle use; other (good bilateral air entry) Cardiovascular: regular rate-rhythm, S1 and S2 Gastrointestional: No tender; audible bowel sounds, other (colostomy present to the L of the umbilicus) Extremities: No clubbing, No cyanosis, No significant edema Neurologic/Psychiatric: oriented x 3, other (moves all limbs equally) Skin: No rash on exposed areas, No ulcerations on exposed areas Results/Procedures: Labs Laboratory Tests 11/18/20 15:24: Glucometer 123H 11/18/20 20:12: Glucometer 129H 11/19/20 05:30: White Blood Count 10.9, Red Blood Count 3.97L, Hemoglobin 10.8L, Hematocrit 35L, Mean Corpuscular Volume 87, Mean Corpuscular Hemoglobin 27, Mean Corpuscular Hemoglobin Concent 31L, Red Cell Distribution Width 14.8H, Platelet Count 478H, Mean Platelet Volume 8.8L, Immature Granulocyte % (Auto) 1, Neutrophils (%) (Auto) 82H, Lymphocytes (%) (Auto) 6L, Monocytes (%) (Auto) 7, Eosinophils (%) (Auto) 4, Basophils (%) (Auto) 1, Neutrophils # (Auto) 8.9H, Lymphocytes # (Auto) 0.6L, Monocytes # (Auto) 0.8, Eosinophils # (Auto) 0.4H, Basophils # (Auto) 0.1, Immature Granulocyte # (Auto) 0.2H, Sodium Level 139, Potassium Level 4.5, Chloride Level 107, Carbon Dioxide Level 24, Anion Gap 8, Blood Urea Nitrogen 11, Creatinine 0.84, Estimat Glomerular Filtration Rate > 60, BUN/Creatinine Ratio 13, Glucose Level 129H, Calcium Level 8.5, Corrected Calciu m 9.4, Total Bilirubin 0.3, Aspartate Amino Transf (AST/SGOT) 29, Alanine Aminotransferase (ALT/SGPT) 40, Alkaline Phosphatase 40, B-Type Natriuretic Peptide 42.8, Total Protein 5.9L, Albumin 2.9L 11/19/20 11:04: Glucometer 120H Microbiology 11/17/20 Blood Culture - Preliminary, Resulted No growth A/P: Assessment: S/p robot-assisted anterior resection for rectal CA (early October 2020 at [facility]) SSS - s/p pacemaker, managed by his rod hanger Dr Kam in - treated chronically with amiodarone (apparently for maintenance of sinus r hythm) - stroke prophylaxis has only been with ASA (per his rod hanger, according to the patient) CAD - h/o a single cor stent in or around 2014 (details unknown to pt) DM II HL HTN H/o cardiomyopathy (details unknown to pt) - his records from [facility] state an EF of 40% Plan: * Continue tele * Monitor labs * Echo today * Continue ASA and amio and sacubitril/valsartan * Request records from [facility] JOSE GONZALEZ November 15, 2020 09:17
--- NOTE | 2020-11-15 09:47 | Physical Therapy Daily Note ---
PT Daily Note-Current Subjective Patient in restroom pre tx, agrees to PT, has no complaints of pain. Will continue to co-treat with OT for ADL's due to poor patient endurance, strength, mobility, safety and reduce risk of falls, coordinate UE and LE during activity Appearance Patient in room post tx to continue for a while with OT. Mental Status Patient Orientation: Person, Place, Situation Transfers SCALE: Activities may be completed with or without assistive devices. 6-Ykrpbpdhdu-pisdrxq completes the activity by him/herself with no assistance from a helper. 5-Set-up or Clean-up Assistance-helper sets up or cleans up; patient completes activity. [place] assists only prior to or following the activity. 4-Supervision or Touching Assistance-helper provides verbal cues and/or touching/steadying and/or contact guard assistance as patient completes activity. Assistance may be provided throughout the activity or intermittently. 3-Partial/Moderate Assistance-helper does LESS THAN HALF the effort. [place] li fts, holds or supports trunk or limbs, but provides less than half the effort. 2-Substantial/Maximal Assistance-helper does MORE THAN HALF the effort. [place] lifts or holds trunk or limbs and provides more than half the effort. 4-Xcxzacolr-rftmdn does ALL the effort. Patient does none of the effort to complete the activity. Or, the assistance of 2 or more helpers is required for the patient to complete the activity. If activity was not attempted, code reason: 7-Patient Refused. 9-Not Applicable-not attempted and the patient did not perform the activity before the current illness, exacerbation or injury. 10-Not Attempted due to Environmental Limitations-(lack of equipment, weather restraints, etc.). 88-Not Attempted due to Medical Conditions or Safety Concerns. Treatments Patient in restroom for bathing and dressing and ADL's. PT worked on standing balance and endurance and safety positioning, cues for positioning, OT worked on ADL's. Assessment Current Status: Fair Progress Patient very fatigued after tx. PT Short Term Goals Short Term Goals Time Frame: November 21, 2020 Roll Left & Right: 6 Sit to lyin Lying to sitting on side of be: 3 Sit to stand: 4 Chair/ugq-zl-ovyfc transfer: 4 Walk 10 feet: 4 Walk 50 feet with two turns: 4 Walk 150 feet: 4 PT Alf Goals Non Destructive Evaluation Specialist Goals PT Non Destructive Evaluation Specialist Goals Time Frame: Dec 05, 2020 Roll Left & Right (QC): 6 Sit to Lying (QC): 6 Lying-Sitting on Side/Bed(QC): 6 Sit to Stand (QC): 5 Chair/Lzk-cp-Zzzqb Xfer(QC): 5 Toilet Transfer (QC): 5 Car Transfer (QC): 4 Does the Patient Walk: Yes Walk 10 feet (QC): 5 Walk 50ft with 2 Turns (QC): 5 Walk 150 ft (QC): 5 Walking 10ft on Uneven Surface: 4 1 Step (curb) (QC): 4 4 Steps (QC): 4 12 Steps (QC): 88 Picking up an Object (QC): 4 Wheel 50 feet with 2 turns (QC: 9 Wheel 150 feet: 9 PT Plan Problem List Problem List: Activity Tolerance, Functional Strength, Safety, Balance, Gait, Transfer, Bed Mobility, ROM Treatment/Plan Treatment Plan: Continue Plan of Care Treatment Plan: Bed Mobility, Education, Functional Activity Misha, Functional Strength, Group Therapy, Gait, Safety, Therapeutic Exercise, Transfers Treatment Duration: Dec 05, 2020 Frequency: At least 5 of 7 days/Wk (IRF) Estimated Hrs Per Day: 1.5 hours per day Patient and/or Family Agrees t: Yes Safety Risks/Education Patient Education: Transfer Techniques, Correct Positioning, Safety Issues Teaching Recipient: Patient Teaching Methods: Demonstration, Discussion Response to Teaching: Reinforcement Needed Time/GCodes Time In: 0900 Time Out: 929 Total Billed Treatment Time: 30 Total Billed Treatment 1 visit FA 30' co-treated with OT for 30' VIRGEN DAVIS PT November 15, 2020 09:47
--- NOTE | 2020-11-15 10:00 | Occupational Ther Daily Note ---
OT Current Status-Daily Note Subjective Pt alert, working with PT in therapy gym. Co-treat with PT([id number]), skills of 2 clinicians required due to poor patient endurance, strength, mobility, safety and reduce risk of falls. Pt c/o fatigue and overall pain. Nrsg in room to give meds. Mental Status/Objective Patient Orientation: Person, Place, Time, Situation Attachments: Colostomy/Ileostomy, Horton Catheter, IV ADL-Treatment Pt agrees to sponge bath. Pt fatigues quickly and requires multiple and lengthy recovery break. Pt will fall asleep during tasks. Pt requires cues to stay awake and complete sponge bath. Pt able to complete upper body dressing and bathing by self after set up. SBA in standing to cleanse buttocks and angeline area, SBA to hike pants over hips. Pt sits to doff lower body clothing and footwear by self, increased time. Pt requires assist to thread feet into pants due to Horton catheter and assist to don socks/shoes. Pt introduced to lower body dressing equipment. Pt verbalized understanding though did not attempt due to fatigue. Pt able to go from sitting EOB to supine independent. After therapy, pt lying in bed with call light/phone in reach. All needs met in room. Therapy Code Descriptions/Definitions Functional Scott Measure: 0=Not Assessed/NA 4=Minimal Assistance 1=Total Assistance 5=Supervision or Setup 2=Maximal Assistance 6=Modified Scott 3=Moderate Assistance 7=Complete IndependenceSCALE: Activities may be completed with or without assistive devices. 3-Qzusvxfnio-tpgmqet completes the activity by him/herself with no assistance from a helper. 5-Set-up or Clean-up Assistance-helper sets up or cleans up; patient completes activity. [place] assists only prior to or following the activity. 4-Supervision or Touching Assistance-helper provides verbal cues and/or touching/steadying and/or contact guard assistance as patient completes activity. Assistance may be provided throughout the activity or intermittently. 3-Partial/Moderate Assistance-helper does LESS THAN HALF the effort. [place] lifts, holds or supports trunk or limbs, but provides less than half the effort. 2-Substantial/Maximal Assistance-helper does MORE THAN HALF the effort. [place] lifts or holds trunk or limbs and provides more than half the effort. 3-Socaevhez-xiihak does ALL the effort. Patient does none of the effort to complete the activity. Or, the assistance of 2 or more helpers is required for the patient to complete the activity. If activity was not attempted, code reason: 7-Patient Refused. 9-Not Applicable-not attempted and the patient did not perform the activity before the current illness, exacerbation or injury. 10-Not Attempted due to Environmental Limitations-(lack of equipment, weather restraints, etc.). 88-Not Attempted due to Medical Conditions or Safety Concerns. Oral Hygiene (QC): 4 (SBA in standing while pt completed oral care by self.) Shower/Bathe Self (QC): 4 Upper Body Dressing (QC): 5 Lower Body Dressing (QC): 3 On/Off Footwear: 3 Other Treatment PT focusing on transfers, standing endurance and ambulation while OT focusing on B UE strengthening in standing for endurance, functional transfers and ADLs. Pt able to stand for short periods of time in parallel bars to reach, grasp and place items against gravity and fine motor resistance. Pt required multiple and lengthy recovery breaks. See PT notes for ambulation progress. OT Short Term Goals Short Term Goals Time Frame: November 21, 2020 Eatin Oral hygiene: 4 Toileting hygiene: 3 Shower/bathe self: 3 Upper body dressin Lower body dressin Putting on/taking off footwear: 3 OT Long-Term Goals Long-Term Goals Time Frame: Nov 28, 2020 Eating (QC): 6 Oral Hygiene (QC): 5 Toileting Hygiene (QC): 6 Shower/Bathe Self (QC): 4 Upper Body Dressing (QC): 5 Lower Body Dressing (QC): 4 On/Off Footwear (QC): 4 Additional Goals: 1-Demonstrate ADL Tasks, 2-Verbalize Understanding, 3- ImproveStrength/Misha 1=Demonstrate adherence to instructed precautions during ADL tasks. 2=Patient will verbalize/demonstrate understanding of assistive d evices/modifications for ADL. 3=Patient will improve strength/tolerance for activity to enable patient to perform ADL's. OT Education/Plan Problem List/Assessment Assessment: Decreased Activ Tolerance, Decreased UE Strength, Impaired Self- Care Skills Discharge Recommendations Plan/Recommendations: Continue POC Treatment Plan/Plan of Care Patient would benefit from OT for education, treatment and training to promote independence in ADL's, mobility, safety and/or upper extremity function for ADL's. Plan of Care: ADL Retraining, Functional Mobility, Group Exercise/Act as Ind, UE Funct Exercise/Act, UE Neuromus Re-Ed/Coord Treatment Duration: Nov 28, 2020 Frequency: At least 5 of 7 days/Wk (IRF) Estimated Hrs Per Day: 1.5 hours per day Agreement: Yes Rehab Potential: Fair Time/GCodes Start Time: 08:30 Stop Time: 10:00 Total Time Billed (hr/min): 90 Billed Treatment Time 1 visit-ADL 4 (60 min) FA 2 (30 min) co-treat with PT [id number], individual [id number] ELKIN ESTRADA November 15, 2020 09:59
--- NOTE | 2020-11-15 13:19 | ST Cognitive Linguistic Eval ---
Speech Evaluation-General Medical Diagnosis Colon resection/Colon CA Onset Date: November 08, 2020 Therapy Diagnosis Therapy Diagnosis: Cognitive-communication Referral Referring Physician: Dr. Askew Medical History Pertinent Medical History: Atrial Fib, CAD, HTN Reviewed History: Yes Social History Current Living Status: Spouse Speech PLF-Current Status Prior Level of Function Patient lives in his own home with his . They have four children who are very involved with assisting with daily needs. Subjective Patient was pleasant and cooperative with the cognitive assessment. Language Eval: Auditory Comprehends Simple Yes/No Ques: Functional Indent/Objects Multiple Frias: Functional Ident/Pics in Multiple Frias: Functional Follows 1-Step Commands: Functional Follows Complex Directions: Functional Follows General Conversations: Functional Language Eval: Verbal Language Completes Spontaneous Greeting: Functional Produces Auto, Serial Info: Functional Imitates Simple Words/Phrases: Functional Word Finding: Functional Requests Basic Needs: Functional States Basic Personal Info: Functional Expresses Complex Ideas: Functional Objective Cognitive Domain Attention: WNL Memory: WNL Problem Solving: Functional Executive Functions: WNL Visuospatial Skills: WNL Composite Severity Rating: WNL Clock Drawing Severity Rating: Mild Objective Formal/Standardized Tests [facility] Mental Status ([facility]) Results 27/30, within normal range of function Oral Motor/Speech Production Within Normal Limits Impression Patient is a pleasant 80 y/o man who was admitted to the ARU s/p colon resection/colon CA. The patient was given the SLUMS at bedside with a score of 27/30 obtained. This score is within the normal range of function and does not indicate the need for further ST services. Speech Patient Assess Expression of Ideas/Wants: Expression (4) Understanding Verbal Content: Understands (4) Brief Interview-Mental Status: Yes Repetition of Three Words: Three (3) Temporal Orientation: Year: Correct (3) Temporal Orientation: Month: Accurate within 5 days(2) Temporal Orientation: Day: Correct (1) Recall : Wear to say "Sock": Yes, no cue required (2) Recall : Color: Yes, after cueing (1) Recall : Bed: Yes, no cue required (2) Memory/Recall Ability: Current season, That he or she is in a hsp/hsp unit Speech-Plan Patient/Family Goals Patient/Family Goals: Patient plans on returning to his home where he lives with his . He has four children who are involved with his care and daily needs. Treatment Plan Speech Therapy Treatment Plan: Discontinue ST Treatment Duration: November 15, 2020 Frequency: 1 time per week Estimated Hrs Per Day: .5 hour per day Rehab Potential: Fair Barriers to Learning: None identified Pt/Family Agrees to Plan: Yes Safety Risks/Education Teaching Recipient: Patient Teaching Methods: Discussion Response to Teaching: Verbalize Understanding Education Topics Provided: Safety within his room and communication of wants/needs Time Speech Therapy Time In: 12:45 Speech Therapy Time Out: 15:15 Total Billed Time: 30 Billed Treatment Time 1, SPSNDCOMP ALPHONSE Parker November 15, 2020 13:18
[2020-11-15] MEDS: KCL 20 MEQ TAB (K-DUR) PO SCH (17:38)
[2020-11-15] MEDS: TAMSULOSIN 0.4 MG (FLOMAX) CAP PO SCH (17:50)
[2020-11-15 20:30] VITALS: BP 131/60
[2020-11-15] MEDS: ASPIRIN E.C. 81 MG (ECOTRIN) TAB PO SCH (20:36)
[2020-11-15] MEDS: SERTRALINE 50 MG (ZOLOFT) TABLET PO SCH (20:37)
[2020-11-15] MEDS: LATANOPROST 0.005% (XALATAN) OPHTH SOLN 2.5 ML OU SCH (20:39)
[2020-11-16] MEDS: LEVOTHYROXINE 75 MCG (LEVOTHROID) TABLET PO SCH (05:36)
--- NOTE | 2020-11-16 05:50 | Individualized Plan of Care ---
Individualized Plan of Care Rehab Nursing IPOC Order Admission Date November 14, 2020 at 13:30 Current Orders Orders Admission Order(Inpt,Obs,Sdc) (11/14/20 05:50) Vital Signs: Per Unit Policy ( ,16,00 (11/14/20 05:50) Don Carlyjulio (11/14/20 05:50) Sequential Compression Device .admit (11/14/20 05:50) School Childcare Attendant-Inpt Rehab Con (11/14/20 05:50) Rehab Nursing Orders-Ipoc (11/14/20 05:50) Physical Therapy Rehab Orders (11/14/20 05:50) Occupational Therapy Rehab Ord (11/14/20 05:50) Speech Therapy Rehab Orders (11/14/20 05:50) Cbc With Automated Diff (11/15/20 06:00) Comprehensive Metabolic Panel (11/15/20 06:00) Precautions (Aru) (11/14/20 05:50) Rehab-Intensity Of Therapy (11/14/20 05:50) Initiate Admission Nursing Pro .admission (11/14/20 05:50) Acetaminophen Tablet/Caplet (Tylenol T (11/14/20 06:00) Alprazolam Tablet (Xanax Tablet) (11/14/20 06:00) Calcium Carbonate Chew Tablet (Antacid C (11/14/20 06:00) Diphenhydramine Tablet (Benadryl Tablet) (11/14/20 06:00) Docusate Sodium Capsule (Colace Capsule) (11/14/20 09:00) Docusate Sodium Capsule (Colace Capsule) (11/14/20 06:00) Bisacodyl Suppository (Dulcolax Supposit (11/14/20 06:00) Lactulose Oral Solution (Enulose Oral So (11/14/20 06:00) Na Phos/Na Biphos Enema (Fleet Enema Richard (11/14/20 06:00) Guaifenesin/Codeine Syrup (Robitussin Ac (11/14/20 06:00) Loperamide Tablet (Imodium Tablet) (11/14/20 06:00) Melatonin Tablet (Melatonin Tablet) (11/14/20 06:00) Polyethylene Glycol Powder Pkt (Miralax (11/14/20 09:00) Ondansetron Oral Dissolve Tab (Zofran (11/14/20 06:00) Senna S Tablet (Senokot S Tablet) (11/14/20 09:00) Initiate Admission Nursing Pro .admission (11/14/20 05:50) Accucheck Achs ACHS (11/14/20 13:49) General/Regular (11/14/20 Lunch) Patient Education (11/14/20 13:49) Consult Physician (11/14/20 14:19) Transfer - Bed/Room/Location (11/14/20 14:43) Aspirin Enteric Coated Tablet (Ecotrin T (11/14/20 21:00) Atorvastatin Tablet (Lipitor) (11/15/20 09:00) Rx-Cyclobenzaprine Tablet (Rx-Flexeril T (11/14/20 21:00) Levothyroxine Tablet (Synthroid Tablet) (11/15/20 06:30) Metformin Tablet (Glucophage Tablet) (11/14/20 18:00) Metoprolol Succinate (Xl) Tab (Toprol Xl (11/14/20 21:00) Ondansetron Oral Dissolve Tab (Zofran (11/14/20 15:00) Pantoprazole Tablet (Protonix Tablet) (11/14/20 21:00) Sertraline Tablet (Zoloft Tablet) (11/14/20 21:00) Spironolactone Tablet (Aldactone Tablet) (11/15/20 09:00) Rx-Tramadol Hcl (Rx-Ultram) (11/14/20 15:00) (Nf) Acetaminophen/Diphenhydramine (Acet (11/14/20 15:00) (Nf) Ascorbate Calcium (Vitamin C) (11/15/20 09:00) (Nf) Bimatoprost (Lumigan) (11/14/20 21:00) (Nf) Cholecalciferol (Vitamin D3) (Vitam (11/15/20 09:00) (Nf) Docusate Sodium (11/14/20 21:00) (Nf) Potassium Chloride (K-Tab Er) (11/14/20 15:00) (Nf) Sacubitril/Valsartan (Entresto 49 M (11/15/20 09:00) (Nf) Sacubitril/Valsartan (Entresto 49 M (11/14/20 18:00) (Nf) Semaglutide (Ozempic) (11/14/20 15:00) Consult Cardiology (11/14/20 15:02) Atorvastatin Tablet (Lipitor Tablet) (11/15/20 09:00) Ascorbic Acid Tablet (Vitamin C Tablet) (11/15/20 08:00) Cholecalciferol Capsule/Tablet (Vitamin (11/15/20 09:00) Potassium Chloride (Tablet) (K Dur Table (11/14/20 17:00) Tramadol Tablet (Ultram Tablet) (11/14/20 15:30) Cyclobenzaprine Tablet (Flexeril Tablet) (11/14/20 21:00) Amiodarone Tablet (Cordarone Tablet) (11/15/20 08:00) Amiodarone Tablet (Cordarone Tablet) (11/16/20 08:00) Acetaminophen Tablet (Tylenol Tablet) (11/14/20 15:45) Diphenhydramine Tablet (Benadryl Tablet) (11/14/20 15:45) Patient Visit (11/14/20 ) Pt Eval Moderate Complexity (11/14/20 ) Functional Activities, Ea 15 (11/14/20 ) Sacubitril/Valsartan 24/26 Mg (Entresto (11/14/20 18:00) Sacubitril/Valsartan 24/26 Mg (Entresto (11/15/20 09:00) Latanoprost 0.005% Ophth Soln (Xalatan 0 (11/14/20 21:00) Telemetry (11/14/20 18:20) Telemetry Nursing Assessment ( (11/14/20 18:20) Echo W Doppler/Color Flow (11/15/20 06:00) Ekg Tracing (11/15/20 06:00) Manual Differential (11/15/20 05:16) Obtain Records From (Order) (11/15/20 08:47) Cyclobenzaprine Tablet (Flexeril Tablet) (11/15/20 10:15) Tamsulosin Capsule (Flomax Capsule) (11/15/20 18:00) Patient Visit (11/15/20 ) Speech Sound Lang Comp (11/15/20 ) Patient Visit (11/15/20 ) Functional Activities, Ea 15 (11/15/20 ) Exercise Therap, Ea 15 Min (11/15/20 ) Patient Visit (11/16/20 ) Exercise Therap, Ea 15 Min (11/16/20 ) Functional Activities, Ea 15 (11/16/20 ) Patient Visit (11/16/20 ) Rehab Nursing Orders: Ongoing Assess. of Cognitive Status, Ongoing Assess. of Function Status, Bladder Management, Bladder Scan, Bladder Training, Bowel Management, Bowel Training, Disease Management & Educaiton, DVT Prophylaxis, Fall Prevention, Fluid/Electrolyte/Nutrition Mgmt, Infection Prevention, Medication Management & Education, Management of Risks & Complications, Management of Skin Intergrity, Nutrition Management, Pain Management, Anh ent/Family Support, Safety Management Intensity of Therapy to be met Patient to be seen: Min.3h per day/5 of 7d PT IPOC Problem List: Activity Tolerance, Functional Strength, Safety, Balance, Gait, Transfer, Bed Mobility, ROM Treatment Plan: Continue Plan of Care Bed Mobility, Education, Functional Activity Misha, Functional Strength, Group Therapy, Gait, Safety, Therapeutic Exercise, Transfers Treatment Duration: Dec 05, 2020 Frequency: At least 5 of 7 days/Wk (IRF) Estimated Hrs Per Day: 1.5 hours per day OT IPOC Problems: Decreased Activ Tolerance, Decreased UE Strength, Impaired Self-Care Skills OT Treatment, Training and Edu: Yes Plan of Care: ADL Retraining, Functional Mobility, Group Exercise/Act as Ind, UE Funct Exercise/Act, UE Neuromus Re-Ed/Coord Treatment Duration: Nov 28, 2020 Frequency: At least 5 of 7 days/Wk (IRF) Estimated Hrs Per Day: 1.[address] IPOC Speech Therapy Treatment Plan: Discontinue ST Treatment Duration: November 15, 2020 Frequency: 1 time per week Estimated Hrs Per Day: .5 hour per day School Childcare Attendant/Case Mgmt School Childcare Attendant/Case Managemen: Discharge Planning Dietitian/Enterprise Architect Manager Dietitian/Enterprise Architect Manager to monitor nutritional status and make changes and/or recommendations as needed and work with speech pathology on dietary upgrades as the occur. Physician IPOC Medical Issues being managed closely and that require the 24 hour availability of a physician: Recent colon cancer resection surgery and advanced age will increase risk for declined status and will be monitored closely Medical Issues: Bowel/Bladder Function, DVT Prophylaxis, Falls Precautions, Fluid/Electrolyte/Nutrition Balance, Infection Protection, Pain Management Brief Synthesis of Preadmission Screen, Post-Admission Evaluation, and Therapy Evaluations: PT OT will focus on regaining safe ambulation with fall risk prevention along with increasing ADL independence Medical Prognosis: Fair Anticipated Length of Stay: 7 days RIO HAWTHORNE DO November 16, 2020 05:50
--- NOTE | 2020-11-16 05:50 | PM&R Progress Note ---
Subjective HPI/CC On Admission Date Seen by Provider: November 16, 2020 Time Seen by Provider: 11:00 Subjective/Events-last exam 11/16/20: Pt doing pretty well A little bit woozy today and BP systolic was 100 Will reach out to cardiology for BP medication changes Eating and drinking well Zofran given for nausea 11/15/20: Will hold Flexeril because it makes him drowsy Echocardiogram will be done today Pt doing very well and walking around pretty well Incision looks good Review of Systems General: Fatigue, Malaise Objective Exam Vital Signs Vital Signs Date Time Temp Pulse Resp B/P (MAP) Pulse Ox O2 Delivery O2 Flow Rate FiO2 11/17/20 01:00 64 11/16/20 22:08 2.00 11/16/20 20:15 Room Air 11/16/20 20:00 36.7 16 126/60 (82) 94 Capillary Refill : General Appearance: No Apparent Distress, WD/WN, Chronically ill, Obese HEENT: PERRL/EOMI, Normal ENT Inspection, Pharynx Normal Neck: Full Range of Motion, Normal Inspection, Non Tender, Supple, Carotid Bruit Respiratory: Chest Non Tender, Lungs Clear, Normal Breath Sounds, No Accessory Muscle Use, No Respiratory Distress Cardiovascular: Regular Rate, Rhythm, No Edema, No Gallop, No JVD, No Murmur, Normal Peripheral Pulses Gastrointestinal: Normal Bowel Sounds, No Organomegaly, No Pulsatile Mass, Soft, Tenderness Back: Normal Inspection, No CVA Tenderness, No Vertebral Tenderness Extremity: Normal Capillary Refill, Normal Inspection, Normal Range of Motion, Non Tender, No Calf Tenderness, No Pedal Edema Neurologic/Psychiatric: Alert, Oriented x3, No Motor/Sensory Deficits, medical leader II- XII Norm as 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 FIM Transfers Therapy Code Descriptions/Definitions Functional [place] Measure: 0=Not Assessed/NA 4=Minimal Assistance 1=Total Assistance 5=Supervision or Setup 2=Maximal Assistance 6=Modified [place] 3=Moderate Assistance 7=Complete IndependenceSCALE: Activities may be completed with or without assistive devices. 7-Vdzelmaqga-emkyeju completes the activity by him/herself with no assistance from a helper. 5-Set-up or Clean-up Assistance-helper sets up or cleans up; patient completes activity. [place] assists only prior to or following the activity. 4-Supervision or Touching Assistance-helper provides verbal cues and/or touching/steadying and/or contact guard assistance as patient completes activity. Assistance may be provided throughout the activity or intermittently. 3-Partial/Moderate Assistance-helper does LESS THAN HALF the effort. [place] lifts, holds or supports trunk or limbs, but provides less than half the effort. 2-Substantial/Maximal Assistance-helper does MORE THAN HALF the effort. [place] lifts or holds trunk or limbs and provides more than half the effort. 0-Cwwzyjubz-ycezih does ALL the effort. Patient does none of the effort to complete the activity. Or, the assistance of 2 or more helpers is required for the patient to complete the activity. If activity was not attempted, code reason: 7-Patient Refused. 9-Not Applicable-not attempted and the patient did not perform the activity before the current illness, exacerbation or injury. 10-Not Attempted due to Environmental Limitations-(lack of equipment, weather restraints, etc.). 88-Not Attempted due to Medical Conditions or Safety Concerns. Roll Left to Right (QC): 6 Sit to Lying (QC): 3 Sit to Stand (QC): 4 Chair/Rhf-rv-Uuocw Xfer(QC): 4 Car Transfer (QC): 3 Gait Training Does the Patient Walk?: Yes Distance: 150'x2 Walk 10 feet (QC): 4 Walk 50 ft with 2 Turns(QC): 4 Walk 150 ft (QC): 4 Walking 10ft/uneven surface-QC: 3 Gait Persons Needed: 1 Gait Assistive Device: FWW Wheelchair Training Does the Pt Use a Wheelchair?: No Wheel 50 ft with 2 turns (QC): 9 Wheel 150 ft (QC): 9 Stair Training 1 Step (curb) (QC): 3 4 Steps (QC): 88 12 Steps (QC): 88 Balance Picking up an Object (QC): 88 ADL-Treatment Eating (QC): 4 (SBA and cues to sequence. Pt. verbalizes that he has no appetite.) Oral Hygiene (QC): 4 (SBA in standing while pt completed oral care by self.) Shower/Bathe Self (QC): 4 Upper Body Dressing (QC): 5 Lower Body Dressing (QC): 3 On/Off Footwear (QC): 3 Toileting Hygiene (QC): 1 (Dependent assistance with catheter and colostomy.) Assessment/Plan Assessment and Plan Assess & Plan/Chief Complaint Assessment: Debility Colon cancer s/p resection 11/08/20 Urinary retention adkins cath in place CHF AF PPM HTN HLP DM Hypothyroidism Plan: IRF protocol Home meds Pain control Urology consult 11/15/20: Dr Ibarra appreciated Sleeps a lot 11/16/20: Cath DC Thursday for trial Sleeps a lot (1) Colon cancer (2) Pacemaker (3) CAD (coronary artery disease) (4) A-fib (5) CHF (congestive heart failure) RIO HAWTHORNE DO November 16, 2020 05:50
[2020-11-16 08:06] VITALS: BP 100/50
[2020-11-16] MEDS: polyethylene glycoL POWDER 17 GM (MIRALAX) PACK PO SCH ×2 (08:18→21:00)
[2020-11-16] MEDS: SACUBITRIL/VALSARTAN 24/26 MG (ENTRESTO) TABLET PO SCH ×2 (09:17→17:41)
[2020-11-16] MEDS: VITAMIN D3 25 MCG (1,000 UNITS) TABLET PO SCH (09:17)
[2020-11-16] MEDS: metFORMIN 500 MG (GLUCOPHAGE) TAB PO SCH ×2 (09:18→17:41)
[2020-11-16] MEDS: SENNA W/DOCUSATE (SENOKOT S) TABLET PO SCH ×2 (09:18→21:01)
[2020-11-16] MEDS: ASCORBIC ACID (VIT C) 500 MG TABLET PO SCH (09:18)
[2020-11-16] MEDS: AMIODARONE 200 MG (CORDARONE) TAB PO SCH ×2 (09:18→10:18)
[2020-11-16] MEDS: PANTOPRAZOLE 40 MG (PROTONIX) TAB PO SCH ×2 (09:18→21:01)
[2020-11-16] MEDS: SPIRONOLACTONE 25 MG (ALDACTONE) TAB PO SCH ×2 (09:18→10:18)
[2020-11-16] MEDS: DOCUSATE SODIUM 100 MG (COLACE) CAP PO SCH ×2 (09:18→21:02)
--- NOTE | 2020-11-16 09:55 | Physical Therapy Daily Note ---
PT Daily Note-Current Subjective Patient in recliner pre tx, agrees to PT, has no complaints of pain. Appearance Patient in recliner post tx with nurse call, phone, tray, all needs met. Mental Status Patient Orientation: Person, Place, Situation Attachments: Horton Catheter Transfers SCALE: Activities may be completed with or without assistive devices. 8-Dxawitasby-cnqrzqv completes the activity by him/herself with no assistance from a helper. 5-Set-up or Clean-up Assistance-helper sets up or cleans up; patient completes activity. [place] assists only prior to or following the activity. 4-Supervision or Touching Assistance-helper provides verbal cues and/or touching/steadying and/or contact guard assistance as patient completes activity. Assistance may be provided throughout the activity or intermittently. 3-Partial/Moderate Assistance-helper does LESS THAN HALF the effort. [place] lifts, holds or supports trunk or limbs, but provides less than half the effort. 2-Substantial/Maximal Assistance-helper does MORE THAN HALF the effort. [place] lifts or holds trunk or limbs and provides more than half the effort. 1-Gxnhmcjhx-wqxwkv does ALL the effort. Patient does none of the effort to complete the activity. Or, the assistance of 2 or more helpers is required for the patient to complete the activity. If activity was not attempted, code reason: 7-Patient Refused. 9-Not Applicable-not attempted and the patient did not perform the activity before the current illness, exacerbation or injury. 10-Not Attempted due to Environmental Limitations-(lack of equipment, weather restraints, etc.). 88-Not Attempted due to Medical Conditions or Safety Concerns. Sit to Stand (QC): 3 Chair/Jkr-cg-Ixnxq Xfer(QC): 3 Patient needs occasional cues for hand placement and safety, min assist for balance, patient can be retropulsive when turning to sit Gait Training Distance: 120'x2 Walk 10 feet (QC): 3 Walk 50 ft with 2 Turns(QC): 3 Gait Persons Needed: 1 Gait Assistive Device: FWW retropulsive, patient loses balance backward and often needs assist pushing the walker forward at the same time and pushing his trunk forward to maintain balance, patient takes frequent standing rest breaks, festinating gait Exercises Standing: Hip Abduction, Heel/toe raises, Marching, Mini squats Standing Reps: 15 LAQ alternating for 5 min NuStep Minutes: 15 (frequent rest breaks) NuStep Workload: 4 Treatments transfers, ambulation, functional strengthening Assessment Current Status: Poor Progress Patient seemed clear mentally at the beginning of tx, seemed to decline at treatment went on, patient has movement similar to Parkinson's, retropulsive with turning to sit and ambulation, high fall risk PT Short Term Goals Short Term Goals Time Frame: November 21, 2020 Roll Left & Right: 6 Sit to lyin Lying to sitting on side of be: 3 Sit to stand: 4 Chair/rlk-qq-mypfc transfer: 4 Walk 10 feet: 4 Walk 50 feet with two turns: 4 Walk 150 feet: 4 PT Bowling Ball Engraver Goals Jail Goals PT Bowling Ball Engraver Goals Time Frame: Dec 05, 2020 Roll Left & Right (QC): 6 Sit to Lying (QC): 6 Lying-Sitting on Side/Bed(QC): 6 Sit to Stand (QC): 5 Chair/Zje-af-Omjbm Xfer(QC): 5 Toilet Transfer (QC): 5 Car Transfer (QC): 4 Does the Patient Walk: Yes Walk 10 feet (QC): 5 Walk 50ft with 2 Turns (QC): 5 Walk 150 ft (QC): 5 Walking 10ft on Uneven Surface: 4 1 Step (curb) (QC): 4 4 Steps (QC): 4 12 Steps (QC): 88 Picking up an Object (QC): 4 Wheel 50 feet with 2 turns (QC: 9 Wheel 150 feet: 9 PT Plan Problem List Problem List: Activity Tolerance, Functional Strength, Safety, Balance, Gait, Transfer, Bed Mobility, ROM Treatment/Plan Treatment Plan: Continue Plan of Care Treatment Plan: Bed Mobility, Education, Functional Activity Misha, Functional Strength, Group Therapy, Gait, Safety, Therapeutic Exercise, Transfers Treatment Duration: Dec 05, 2020 Frequency: At least 5 of 7 days/Wk (IRF) Estimated Hrs Per Day: 1.5 hours per day Patient and/or Family Agrees t: Yes Safety Risks/Education Patient Education: Gait Training, Transfer Techniques, Correct Positioning, Safety Issues Teaching Recipient: Patient Teaching Methods: Demonstration, Discussion Response to Teaching: Reinforcement Needed Time/GCodes Time In: 0900 Time Out: 1000 Total Billed Treatment Time: 60 Total Billed Treatment 1 visit EX 30' FA 30' VIRGEN DAVIS PT November 16, 2020 09:55
--- NOTE | 2020-11-16 12:38 | Occupational Ther Daily Note ---
OT Current Status-Daily Note Subjective Pt alert, lying in bed. Pt agrees to therapy. No c/o pain at this time. During session, pt fatigued quickly and was dizzy. Reported to nrsg, BP 100/60. Dizziness from orthostatic BP Mental Status/Objective Patient Orientation: Person, Place, Time, Situation Attachments: Colostomy/Ileostomy, Horton Catheter ADL-Treatment Initially pt wanted shower. Pt became dizzy and quickly fatigued while ambulating to shower. Pt sat and recovered from dizziness. Pt wanting to complete sponge bath instead. Pt required verbal cues to initiate bathing at sink. Due to weakness assist to doff shirt then adjusted shirt when donning. Pt bathed upper body by self. Pt pulled to stand and manipulated clothing over hips and cleansed buttocks/angeline area with CGA for safety. Sitting at sink, completed oral care independently. Due to fatigue, assist to thread feet out of and into pant legs then assist to don/doff shoes. Pt took increased time to complete all tasks due to increased fatigue. After session, pt sitting in recliner with call light/phone in reach. All needs met in room. Therapy Code Descriptions/Definitions Functional [place] Measure: 0=Not Assessed/NA 4=Minimal Assistance 1=Total Assistance 5=Supervision or Setup 2=Maximal Assistance 6=Modified [place] 3=Moderate Assistance 7=Complete IndependenceSCALE: Activities may be completed with or without assistive devices. 1-Coiyuadfcp-gqqlqhz completes the activity by him/herself with no assistance from a helper. 5-Set-up or Clean-up Assistance-helper sets up or cleans up; patient completes activity. [place] assists only prior to or following the activity. 4-Supervision or Touching Assistance-helper provides verbal cues and/or touching/steadying and/or contact guard assistance as patient completes activity. Assistance may be provided throughout the activity or intermittently. 3-Partial/Moderate Assistance-helper does LESS THAN HALF the effort. [place] lifts, holds or supports trunk or limbs, but provides less than half the effort. 2-Substantial/Maximal Assistance-helper does MORE THAN HALF the effort. [place] lifts or holds trunk or limbs and provides more than half the effort. 2-Glvyuhkhf-muiafl does ALL the effort. Patient does none of the effort to complete the activity. Or, the assistance of 2 or more helpers is required for the patient to complete the activity. If activity was not attempted, code reason: 7-Patient Refused. 9-Not Applicable-not attempted and the patient did not perform the activity before the current illness, exacerbation or injury. 10-Not Attempted due to Environmental Limitations-(lack of equipment, weather restraints, etc.). 88-Not Attempted due to Medical Conditions or Safety Concerns. Eating (QC): 6 Oral Hygiene (QC): 6 Shower/Bathe Self (QC): 2 Upper Body Dressing (QC): 3 Lower Body Dressing (QC): 2 On/Off Footwear: 2 OT Short Term Goals Short Term Goals Time Frame: November 21, 2020 Eatin Oral hygiene: 4 Toileting hygiene: 3 Shower/bathe self: 3 Upper body dressin Lower body dressin Putting on/taking off footwear: 3 OT Asset Protection Assistant Goals Asset Protection Assistant Goals Time Frame: Nov 28, 2020 Eating (QC): 6 Oral Hygiene (QC): 5 Toileting Hygiene (QC): 6 Shower/Bathe Self (QC): 4 Upper Body Dressing (QC): 5 Lower Body Dressing (QC): 4 On/Off Footwear (QC): 4 Additional Goals: 1-Demonstrate ADL Tasks, 2-Verbalize Understanding, 3- ImproveStrength/Misha 1=Demonstrate adherence to instructed precautions during ADL tasks. 2=Patient will verbalize/demonstrate understanding of assistive devices/modifications for ADL. 3=Patient will improve strength/tolerance for activity to enable patient to perform ADL's. OT Education/Plan Problem List/Assessment Assessment: Decreased Activ Tolerance, Decreased UE Strength, Impaired Bed Mobility, Impaired Funct Balance, Impaired Self-Care Skills, Restricted Funct UE ROM Discharge Recommendations Plan/Recommendations: Continue POC Treatment Plan/Plan of Care Patient would benefit from OT for education, treatment and training to promote independence in ADL's, mobility, safety and/or upper extremity function for ADL's. Plan of Care: ADL Retraining, Functional Mobility, Group Exercise/Act as Ind, UE Funct Exercise/Act, UE Neuromus Re-Ed/Coord Treatment Duration: Nov 28, 2020 Frequency: At least 5 of 7 days/Wk (IRF) Estimated Hrs Per Day: 1.5 hours per day Agreement: Yes Rehab Potential: Fair Time/GCodes Start Time: 07:00 Stop Time: 08:30 Total Time Billed (hr/min): 90 Billed Treatment Time 1 visit-ADL 6 (90 min) ELKIN ESTRADA November 16, 2020 12:38
--- NOTE | 2020-11-16 12:50 | CONSULTATION REPORT ---
DATE OF SERVICE: 11/16/2020 ATTENDING PHYSICIAN: Dr. Askew. SUMMARY: An 80-year-old white man recovering from surgery in the rehabilitation unit came from [facility] postoperative after he failed trial of voiding and a catheter was left indwelling. The patient used to see Dr. Day a long time ago for yearly exam or prostate. He has no voiding symptoms. He is on no medication and had no surgery on his prostate. I started him yesterday on Flomax 0.4 mg daily. IMPRESSION: Urinary retention, benign prostatic hyperplasia and/or neurogenic bladder. PLAN: We will give at least 3 days on the Flomax and probably on Thursday, we will give him a trial of voiding and manage accordingly. Plan was fully explained to the patient and his questions were answered. Job ID: [id number] DocumentID: [id number] Dictated Date: 11/16/2020 12:42:14 Child And Family Services Worker Date: 11/16/2020 12:50:03 Dictated By: DAVID VANG MD
--- NOTE | 2020-11-16 14:27 | Therapy Group Daily Note ---
Therapy Daily Group Note Patient Education Topic Home Safety, Exercises, Other List Below (ARU expectations/description) Exercises LE Seated Exercise, UE Exercise Session Ratio (pt:therapist): 4:1 Goal of Session: Education on ARU Expectations, Home Safety Strategies, UE/LE Strengthing Goal Met for this Session: Yes Pt Benefit of Group: Contributions to Others, F/U Use of Strategies @Home, Increased Functional Safety, Increased Functional Strength, Improved Cognition, Recognition of Peers, Socialization Other/Notes Using FWW pt ambulated to OT/PT group. Group consisted of introductions (name,place living, earned first dollar?), socialization, seated B UE/LE exercises, educational topics of ARU description/expectations, benefits of exercise and home safety. Pt introduced self appropriately and actively listened to peers. Pt participated in group and gave own personal stories that corresponded with educational topics to acknowledge understanding. Pt left grou p early for colostomy education. Pt sitting in recliner with call light/phone in reach. Nrsg in room. Start Time: 13:00 Stop Time: 14:00 Total Billed Treatment Time: 60 Total Billed Treatment 1-GRP ELKIN ESTRADA November 16, 2020 14:27
[2020-11-16] MEDS: KCL 20 MEQ TAB (K-DUR) PO SCH (17:41)
[2020-11-16] MEDS: TAMSULOSIN 0.4 MG (FLOMAX) CAP PO SCH (17:41)
[2020-11-16 20:00] VITALS: BP 126/60
[2020-11-16] MEDS: ASPIRIN E.C. 81 MG (ECOTRIN) TAB PO SCH (21:01)
[2020-11-16] MEDS: LATANOPROST 0.005% (XALATAN) OPHTH SOLN 2.5 ML OU SCH (21:36)
[2020-11-16] MEDS: SERTRALINE 50 MG (ZOLOFT) TABLET PO SCH (21:37)
[2020-11-17 06:15] VITALS: BP 132/60
[2020-11-17] MEDS: LEVOTHYROXINE 75 MCG (LEVOTHROID) TABLET PO SCH (06:18)
--- NOTE | 2020-11-17 06:46 | PM&R Progress Note ---
Subjective HPI/CC On Admission Date Seen by Provider: November 17, 2020 Time Seen by Provider: 11:00 Subjective/Events-last exam 11/17/20: Patient doing well Hallucinated last night prompting septic w/u today and all was normal Met his and daughter at bedside today They report he had this issue at and I explained delirium and hospital stays can cause that Zyprexa ordered to try tonight Walked with PT and did well 11/16/20: Pt doing pretty well A little bit woozy today and BP systolic was 100 Will reach out to cardiology for BP medication changes Eating and drinking well Zofran given for nausea 11/15/20: Will hold Flexeril because it makes him drowsy Echocardiogram will be done today Pt doing very well and walking around pretty well Incision looks good Review of Systems General: Fatigue, Malaise Gastrointestinal: Abdominal Pain Neurological: Confusion Focused Exam Lactate Level 11/17/20 07:07: Lactic Acid Level 1.13 Objective Exam Vital Signs Vital Signs Date Time Temp Pulse Resp B/P (MAP) Pulse Ox O2 Delivery O2 Flow Rate FiO2 11/18/20 01:00 60 11/17/20 20:15 37.2 18 135/63 (87) 95 Nasal Cannula 2.00 Capillary Refill : General Appearance: No Apparent Distress, WD/WN, Chronically ill, Obese HEENT: PERRL/EOMI, Normal ENT Inspection, Pharynx Normal Neck: Full Range of Motion, Normal Inspection, Non Tender, Supple, Carotid Bruit Respiratory: Chest Non Tender, Lungs Clear, Normal Breath Sounds, No Accessory Muscle Use, No Respiratory Distress Cardiovascular: Regular Rate, Rhythm, No Edema, No Gallop, No JVD, No Murmur, Normal Peripheral Pulses Gastrointestinal: Normal Bowel Sounds, No Organomegaly, No Pulsatile Mass, Soft, Tenderness Back: Normal Inspection, No CVA Tenderness, No Vertebral Tenderness Extremity: Normal Capillary Refill, Normal Inspection, Normal Range of Motion, Non Tender, No Calf Tenderness, No Pedal Edema Neurologic/Psychiatric: Alert, Oriented x3, No Motor/Sensory Deficits, textile machine mechanic II- XII Norm as Tested, Abnormal Gait, Depressed Affect, Motor Weakness (generalized) Skin: Normal Color, Warm/Dry Lymphatic: No Adenopathy Results/Procedures Lab Laboratory Tests 11/17/20 07:07 Patient resulted labs reviewed. FIM Transfers Therapy Code Descriptions/Definitions Functional [place] Measure: 0=Not Assessed/NA 4=Minimal Assistance 1=Total Assistance 5=Supervision or Setup 2=Maximal Assistance 6=Modified [place] 3=Moderate Assistance 7=Complete IndependenceSCALE: Activities may be completed with or without assistive devices. 0-Qnrmjbysjb-vmwydwq completes the activity by him/herself with no assistance from a helper. 5-Set-up or Clean-up Assistance-helper sets up or cleans up; patient completes activity. [place] assists only prior to or following the activity. 4-Supervision or Touching Assistance-helper provides verbal cues and/or touching/steadying and/or contact guard assistance as patient completes activity. Assistance may be provided throughout the activity or intermittently. 3-Partial/Moderate Assistance-helper does LESS THAN HALF the effort. [place] lifts, holds or supports trunk or limbs, but provides less than half the effort. 2-Substantial/Maximal Assistance-helper does MORE THAN HALF the effort. [place] lifts or holds trunk or limbs and provides more than half the effort. 8-Ddwkebjgs-nzfydj does ALL the effort. Patient does none of the effort to complete the activity. Or, the assistance of 2 or more helpers is required for the patient to complete the activity. If activity was not attempted, code reason: 7-Patient Refused. 9-Not Applicable-not attempted and the patient did not perform the activity before the current illness, exacerbation or injury. 10-Not Attempted due to Environmental Limitations-(lack of equipment, weather restraints, etc.). 88-Not Attempted due to Medical Conditions or Safety Concerns. Roll Left to Right (QC): 6 Sit to Lying (QC): 3 Sit to Stand (QC): 3 Chair/Jmn-gd-Hyjcc Xfer(QC): 3 Car Transfer (QC): 3 Gait Training Does the Patient Walk?: Yes Distance: 120'x2 Walk 10 feet (QC): 3 Walk 50 ft with 2 Turns(QC): 3 Walk 150 ft (QC): 4 Walking 10ft/uneven surface-QC: 3 Gait Persons Needed: 1 Gait Assistive Device: FWW Wheelchair Training Does the Pt Use a Wheelchair?: No Wheel 50 ft with 2 turns (QC): 9 Wheel 150 ft (QC): 9 Stair Training 1 Step (curb) (QC): 3 4 Steps (QC): 88 12 Steps (QC): 88 Balance Picking up an Object (QC): 88 ADL-Treatment Eating (QC): 6 Oral Hygiene (QC): 6 Shower/Bathe Self (QC): 2 Upper Body Dressing (QC): 3 Lower Body Dressing (QC): 2 On/Off Footwear (QC): 2 Toileting Hygiene (QC): 1 (Dependent assistance with catheter and colostomy.) Assessment/Plan Assessment and Plan Assess & Plan/Chief Complaint Assessment: Debility Colon cancer s/p resection 11/08/20 Urinary retention adkins cath in place CHF AF PPM HTN HLP DM Hypothyroidism Delirium with hallucinations 11/16/20 night Plan: IRF protocol Home meds Pain control Urology consult 11/15/20: Dr Ibarra appreciated Sleeps a lot 11/16/20: Cath DC Thursday for trial Sleeps a lot 11/17/20: Hallucinations noted Septic w/u negative (1) Colon cancer (2) Pacemaker (3) CAD (coronary artery disease) (4) A-fib (5) CHF (congestive heart failure) RIO HAWTHORNE DO November 17, 2020 06:46
[2020-11-17 07:17] VITALS: BP 126/62
[2020-11-17 07:27] LABS: BASOPHILS # (AUTO) 0.1 10^3/uL (0.0-0.1); BASOPHILS % (AUTO) 1 % (0-10); EOSINOPHILS # (AUTO) 0.3 10^3/uL (0.0-0.3); EOSINOPHILS % (AUTO) 3 % (0-10); HEMATOCRIT 37 % (40-54); HEMOGLOBIN 11.6 g/dL (13.3-17.7); LYMPHOCYTES # (AUTO) 0.6 10^3/uL (1.0-4.0); LYMPHOCYTES % (AUTO) 7 % (12-44); MEAN CORPUSCULAR HEMOGLOBIN 28 pg (25-34); MEAN CORPUSCULAR HGB CONC 32 g/dL (32-36); MEAN CORPUSCULAR VOLUME 87 fL (80-99); MEAN PLATELET VOLUME 8.9 fL (9.0-12.2); MONOCYTES # (AUTO) 0.8 10^3/uL (0.0-1.0); MONOCYTES % (AUTO) 8 % (0-12); NEUTROPHILS # (AUTO) 7.6 10^3/uL (1.8-7.8); NEUTROPHILS % (AUTO) 80 % (42-75); PLATELET COUNT 416 10^3/uL (130-400); WHITE BLOOD COUNT 9.5 10^3/uL (4.3-11.0)
[2020-11-17 08:02] LABS: ALBUMIN 3.2 GM/DL (3.2-4.5); CHLORIDE 102 MMOL/L (98-107); POTASSIUM 4.4 MMOL/L (3.6-5.0); SODIUM 138 MMOL/L (135-145)
[2020-11-17 08:03] LABS: CALCIUM 9.5 MG/DL (8.5-10.1)
[2020-11-17 08:04] LABS: GLUCOSE 129 MG/DL (70-105)
[2020-11-17 08:05] LABS: TOTAL PROTEIN 6.4 GM/DL (6.4-8.2)
[2020-11-17 08:06] LABS: BILIRUBIN,TOTAL 0.4 MG/DL (0.1-1.0); CARBON DIOXIDE 27 MMOL/L (21-32)
[2020-11-17 08:08] LABS: ALKALINE PHOSPHATASE 45 U/L (40-136); CREATININE SERUM 1.04 MG/DL (0.60-1.30); GFR ESTIMATED > 60
[2020-11-17 08:09] LABS: BUN/CREATININE RATIO 12
[2020-11-17 08:11] LABS: ALANINE AMINOTRANSFERASE 52 U/L (0-55)
[2020-11-17] MEDS: ASCORBIC ACID (VIT C) 500 MG TABLET PO SCH (08:45)
[2020-11-17] MEDS: VITAMIN D3 25 MCG (1,000 UNITS) TABLET PO SCH (08:47)
[2020-11-17] MEDS: SACUBITRIL/VALSARTAN 24/26 MG (ENTRESTO) TABLET PO SCH ×2 (08:47→18:00)
[2020-11-17] MEDS: metFORMIN 500 MG (GLUCOPHAGE) TAB PO SCH ×2 (08:47→18:00)
[2020-11-17] MEDS: DOCUSATE SODIUM 100 MG (COLACE) CAP PO SCH ×2 (08:48→21:13)
[2020-11-17] MEDS: PANTOPRAZOLE 40 MG (PROTONIX) TAB PO SCH ×2 (08:48→21:14)
[2020-11-17] MEDS: SENNA W/DOCUSATE (SENOKOT S) TABLET PO SCH ×2 (08:48→21:13)
[2020-11-17] MEDS: polyethylene glycoL POWDER 17 GM (MIRALAX) PACK PO SCH ×2 (08:54→21:15)
--- NOTE | 2020-11-17 08:55 | Diagnostic Imaging Report ---
EXAMINATION: Chest radiograph, portable AP view. DATE: 11/17/2020 7:08 AM INDICATION: 80-year-old male, fever. COMPARISON: None. FINDINGS: There is a left-sided cardiac assist device with leads. Heart size and mediastinal contours are unremarkable. There is no identified pneumothorax. There are streaky opacities in the right lung base. There are streaky left perihilar opacities. IMPRESSION: 1. Streaky opacities in the right lung base and streaky left perihilar opacities which may relate to atelectasis and/or infiltrate. Edema would also be considered. Dictated by: Dictated on workstation # [id number]
--- NOTE | 2020-11-17 10:56 | Physical Therapy Daily Note ---
PT Daily Note-Current Subjective Patient agrees to PT. Mental Status Patient Orientation: Normal For Age Attachments: Oxygen, Horton Catheter Transfers SCALE: Activities may be completed with or without assistive devices. 8-Ixmqalrngy-lcnwlsa completes the activity by him/herself with no assistance from a helper. 5-Set-up or Clean-up Assistance-helper sets up or cleans up; patient completes activity. [place] assists only prior to or following the activity. 4-Supervision or Touching Assistance-helper provides verbal cues and/or touching/steadying and/or contact guard assistance as patient completes activity. Assistance may be provided throughout the activity or intermittently. 3-Partial/Moderate Assistance-helper does LESS THAN HALF the effort. [place] l ifts, holds or supports trunk or limbs, but provides less than half the effort. 2-Substantial/Maximal Assistance-helper does MORE THAN HALF the effort. [place] lifts or holds trunk or limbs and provides more than half the effort. 1-Dvnwdsdwm-vqftrv does ALL the effort. Patient does none of the effort to complete the activity. Or, the assistance of 2 or more helpers is required for t he patient to complete the activity. If activity was not attempted, code reason: 7-Patient Refused. 9-Not Applicable-not attempted and the patient did not perform the activity before the current illness, exacerbation or injury. 10-Not Attempted due to Environmental Limitations-(lack of equipment, weather restraints, etc.). 88-Not Attempted due to Medical Conditions or Safety Concerns. Sit to Stand (QC): 3 Chair/Gum-ir-Jiobd Xfer(QC): 3 (retropulsive to perform sit from stand to chair) Gait Training Does the Patient Walk?: Yes Distance: 150' x 1/75' x 2 Walk 10 feet (QC): 3 Walk 50 ft with 2 Turns(QC): 3 Walk 150 ft (QC): 3 Gait Assistive Device: FWW shuffle gait sequence/VC for body placement in FWW Assessment Patient displays retropulsion with stand to sit transfers. VC's to perform this task safely. PT Short Term Goals Short Term Goals Time Frame: November 21, 2020 Roll Left & Right: 6 Sit to lyin Lying to sitting on side of be: 3 Sit to stand: 4 Chair/hda-ou-pcbrn transfer: 4 Walk 10 feet: 4 Walk 50 feet with two turns: 4 Walk 150 feet: 4 PT Straw Hat Machine Operator Goals Straw Hat Machine Operator Goals PT Straw Hat Machine Operator Goals Time Frame: Dec 05, 2020 Roll Left & Right (QC): 6 Sit to Lying (QC): 6 Lying-Sitting on Side/Bed(QC): 6 Sit to Stand (QC): 5 Chair/Pxn-uz-Amnet Xfer(QC): 5 Toilet Transfer (QC): 5 Car Transfer (QC): 4 Does the Patient Walk: Yes Walk 10 feet (QC): 5 Walk 50ft with 2 Turns (QC): 5 Walk 150 ft (QC): 5 Walking 10ft on Uneven Surface: 4 1 Step (curb) (QC): 4 4 Steps (QC): 4 12 Steps (QC): 88 Picking up an Object (QC): 4 Wheel 50 feet with 2 turns (QC: 9 Wheel 150 feet: 9 PT Plan Treatment/Plan Treatment Plan: Continue Plan of Care Treatment Plan: Bed Mobility, Education, Functional Activity Misha, Functional Strength, Group Therapy, Gait, Safety, Therapeutic Exercise, Transfers Treatment Duration: Dec 05, 2020 Frequency: At least 5 of 7 days/Wk (IRF) Estimated Hrs Per Day: 1.5 hours per day Patient and/or Family Agrees t: Yes Time/GCodes Time In: 1035 Time Out: 1050 Total Billed Treatment Time: 15 Total Billed Treatment 1 visit GT 15 min STANTON AGUIRRE PT November 17, 2020 10:56
[2020-11-17 14:11] LABS: BILIRUBIN,URINE NEGATIVE (NEGATIVE); CLARITY,URINE SL CLOUDY; COLOR,URINE YELLOW; GLUCOSE, URINE (UA) NEGATIVE (NEGATIVE); KETONES,URINE NEGATIVE (NEGATIVE); LEUKOCYTE ESTERASE ,URINE TRACE (NEGATIVE); NITRITE,URINE NEGATIVE (NEGATIVE); PH,URINE 5.5 (5-9); PROTEIN,URINE 1+ (NEGATIVE)
[2020-11-17 14:29] LABS: BACTERIA,URINE FEW /HPF; HYALINE CASTS, URINE 0-2 /LPF; SQUAMOUS EPITHELIAL CELL,UR RARE /HPF
[2020-11-17] MEDS: KCL 20 MEQ TAB (K-DUR) PO SCH (17:56)
[2020-11-17 17:58] VITALS: BP 138/59
[2020-11-17] MEDS: TAMSULOSIN 0.4 MG (FLOMAX) CAP PO SCH (18:04)
[2020-11-17 20:15] VITALS: BP 135/63
[2020-11-17] MEDS ORDERED: OLANZapine 2.5 MG (ZyPREXA) TAB PO SCH (21:00)
[2020-11-17] MEDS: LATANOPROST 0.005% (XALATAN) OPHTH SOLN 2.5 ML OU SCH (21:12)
[2020-11-17] MEDS: SERTRALINE 50 MG (ZOLOFT) TABLET PO SCH (21:13)
[2020-11-17] MEDS: MELATONIN 3 MG TABLET PO PRN (21:13)
[2020-11-17] MEDS: ASPIRIN E.C. 81 MG (ECOTRIN) TAB PO SCH (21:13)
[2020-11-18] VITALS (9 sets, daily range): BP systolic 110–131; BP diastolic 56–64
[2020-11-18] MEDS: LEVOTHYROXINE 75 MCG (LEVOTHROID) TABLET PO SCH (06:08)
--- NOTE | 2020-11-18 06:38 | PM&R Progress Note ---
Subjective HPI/CC On Admission Date Seen by Provider: November 18, 2020 Time Seen by Provider: 11:00 Subjective/Events-last exam 11/18/20: Had an episode last evening he had gotten out of bed with all 4 rails up and was at the sink Nickoricky MIRNA due to lethargy today Confused at night Ate bfast Labs ok again after did septic w/u 11/17/20: Patient doing well Hallucinated last night prompting septic w/u today and all was normal Met his and daughter at bedside today They report he had this issue at and I explained delirium and hospital stays can cause that Esau ordered to try tonight Walked with PT and did well 11/16/20: Pt doing pretty well A little bit woozy today and BP systolic was 100 Will reach out to cardiology for BP medication changes Eating and drinking well Zofran given for nausea 11/15/20: Will hold Flexeril because it makes him drowsy Echocardiogram will be done today Pt doing very well and walking around pretty well Incision looks good Review of Systems General: Fatigue, Malaise Neurological: Weakness, Confusion Focused Exam Lactate Level 11/17/20 07:07: Lactic Acid Level 1.13 11/18/20 11:45: Lactic Acid Level 1.35 Objective Exam Vital Signs Vital Signs Date Time Temp Pulse Resp B/P (MAP) Pulse Ox O2 Delivery O2 Flow Rate FiO2 11/18/20 19:37 36.6 63 18 117/58 (77) 96 Nasal Cannula 2.00 Capillary Refill : General Appearance: No Apparent Distress, WD/WN, Chronically ill, Obese HEENT: PERRL/EOMI, Normal ENT Inspection, Pharynx Normal Neck: Full Range of Motion, Normal Inspection, Non Tender, Supple, Carotid Bruit Respiratory: Chest Non Tender, Lungs Clear, Normal Breath Sounds, No Accessory Muscle Use, No Respiratory Distress Cardiovascular: Regular Rate, Rhythm, No Edema, No Gallop, No JVD, No Murmur, Normal Peripheral Pulses Gastrointestinal: Normal Bowel Sounds, No Organomegaly, No Pulsatile Mass, Soft, Tenderness Back: Normal Inspection, No CVA Tenderness, No Vertebral Tenderness Extremity: Normal Capillary Refill, Normal Inspection, Normal Range of Motion, Non Tender, No Calf Tenderness, No Pedal Edema Neurologic/Psychiatric: Alert, Oriented x3, No Motor/Sensory Deficits, circulating process inspector II-X II Norm as Tested, Abnormal Gait, Depressed Affect, Motor Weakness (generalized) Skin: Normal Color, Warm/Dry Lymphatic: No Adenopathy Results/Procedures Lab Laboratory Tests 11/18/20 11:45 Patient resulted labs reviewed. FIM Transfers Therapy Code Descriptions/Definitions Functional [place] Measure: 0=Not Assessed/NA 4=Minimal Assistance 1=Total Assistance 5=Supervision or Setup 2=Maximal Assistance 6=Modified [place] 3=Moderate Assistance 7=Complete IndependenceSCALE: Activities may be completed with or without assistive devices. 4-Xsuziyihdl-cfvufvx completes the activity by him/herself with no assistance from a helper. 5-Set-up or Clean-up Assistance-helper sets up or cleans up; patient completes activity. [place] assists only prior to or following the activity. 4-Supervision or Touching Assistance-helper provides verbal cues and/or touching/steadying and/or contact guard assistance as patient completes activity. Assistance may be provided throughout the activity or intermittently. 3-Partial/Moderate Assistance-helper does LESS THAN HALF the effort. [place] lifts, holds or supports trunk or limbs, but provides less than half the effort. 2-Substantial/Maximal Assistance-helper does MORE THAN HALF the effort. [place] lifts or holds trunk or limbs and provides more than half the effort. 2-Iuubgjxfq-baxjdt does ALL the effort. Patient does none of the effort to complete the activity. Or, the assistance of 2 or more helpers is required for the patient to complete the activity. If activity was not attempted, code reason: 7-Patient Refused. 9-Not Applicable-not attempted and the patient did not perform the activity before the current illness, exacerbation or injury. 10-Not Attempted due to Environmental Limitations-(lack of equipment, weather restraints, etc.). 88-Not Attempted due to Medical Conditions or Safety Concerns. Roll Left to Right (QC): 6 Sit to Lying (QC): 3 Sit to Stand (QC): 3 Chair/Yux-wo-Bqjap Xfer(QC): 3 (retropulsive to perform sit from stand to chair) Car Transfer (QC): 3 Gait Training Does the Patient Walk?: Yes Distance: 150' x 1/75' x 2 Walk 10 feet (QC): 3 Walk 50 ft with 2 Turns(QC): 3 Walk 150 ft (QC): 3 Walking 10ft/uneven surface-QC: 3 Gait Persons Needed: 1 Gait Assistive Device: FWW Wheelchair Training Does the Pt Use a Wheelchair?: No Wheel 50 ft with 2 turns (QC): 9 Wheel 150 ft (QC): 9 Stair Training 1 Step (curb) (QC): 3 4 Steps (QC): 88 12 Steps (QC): 88 Balance Picking up an Object (QC): 88 ADL-Treatment Eating (QC): 6 Oral Hygiene (QC): 6 Shower/Bathe Self (QC): 2 Upper Body Dressing (QC): 3 Lower Body Dressing (QC): 2 On/Off Footwear (QC): 2 Toileting Hygiene (QC): 1 (Dependent assistance with catheter and colostomy.) Assessment/Plan Assessment and Plan Assess & Plan/Chief Complaint Assessment: Debility Colon cancer s/p resection 11/08/20 Urinary retention adkins cath in place CHF AF PPM HTN HLP DM Hypothyroidism Delirium with hallucinations 11/16/20 night Plan: IRF protocol Home meds Pain control Urology consult 11/15/20: Dr Ibarra appreciated Sleeps a lot 11/16/20: Cath DC Thursday for trial Sleeps a lot 11/17/20: Hallucinations noted Septic w/u negative 11/18/20: Another septic w/u was negative Patient lethargic and definitely has cognitive issues (1) Colon cancer (2) Pacemaker (3) CAD (coronary artery disease) (4) A-fib (5) CHF (congestive heart failure) RIO HAWTHORNE DO November 18, 2020 06:38
[2020-11-18] MEDS: VITAMIN D3 25 MCG (1,000 UNITS) TABLET PO SCH (09:57)
[2020-11-18] MEDS: SACUBITRIL/VALSARTAN 24/26 MG (ENTRESTO) TABLET PO SCH ×2 (09:57→18:14)
[2020-11-18] MEDS: SENNA W/DOCUSATE (SENOKOT S) TABLET PO SCH ×2 (09:57→21:46)
[2020-11-18] MEDS: ASCORBIC ACID (VIT C) 500 MG TABLET PO SCH (09:57)
[2020-11-18] MEDS: metFORMIN 500 MG (GLUCOPHAGE) TAB PO SCH ×2 (09:57→18:13)
[2020-11-18] MEDS: PANTOPRAZOLE 40 MG (PROTONIX) TAB PO SCH ×2 (09:57→21:46)
[2020-11-18] MEDS: polyethylene glycoL POWDER 17 GM (MIRALAX) PACK PO SCH ×2 (09:58→21:45)
[2020-11-18] MEDS: DOCUSATE SODIUM 100 MG (COLACE) CAP PO SCH ×2 (09:58→21:46)
[2020-11-18] MEDS ORDERED: NS IV 1000 ML 1,000 ML ONE (10:44)
[2020-11-18] MEDS: NS IV 1000 ML 1,000 ML IV SCH ×2 (10:59→18:36)
[2020-11-18 11:55] LABS: BASOPHILS # (AUTO) 0.1 10^3/uL (0.0-0.1); BASOPHILS % (AUTO) 1 % (0-10); EOSINOPHILS # (AUTO) 0.3 10^3/uL (0.0-0.3); EOSINOPHILS % (AUTO) 3 % (0-10); HEMATOCRIT 33 % (40-54); HEMOGLOBIN 10.4 g/dL (13.3-17.7); LYMPHOCYTES # (AUTO) 0.7 10^3/uL (1.0-4.0); LYMPHOCYTES % (AUTO) 7 % (12-44); MEAN CORPUSCULAR HEMOGLOBIN 28 pg (25-34); MEAN CORPUSCULAR HGB CONC 31 g/dL (32-36); MEAN CORPUSCULAR VOLUME 88 fL (80-99); MONOCYTES # (AUTO) 0.8 10^3/uL (0.0-1.0); MONOCYTES % (AUTO) 8 % (0-12); NEUTROPHILS # (AUTO) 7.8 10^3/uL (1.8-7.8); NEUTROPHILS % (AUTO) 79 % (42-75); PLATELET COUNT 443 10^3/uL (130-400)
[2020-11-18 12:04] LABS: ALBUMIN 2.9 GM/DL (3.2-4.5); CHLORIDE 103 MMOL/L (98-107); POTASSIUM 4.5 MMOL/L (3.6-5.0); SODIUM 139 MMOL/L (135-145)
[2020-11-18 12:05] LABS: CALCIUM 8.9 MG/DL (8.5-10.1)
[2020-11-18 12:06] LABS: GLUCOSE 136 MG/DL (70-105); TOTAL PROTEIN 5.7 GM/DL (6.4-8.2)
[2020-11-18 12:07] LABS: CARBON DIOXIDE 26 MMOL/L (21-32)
[2020-11-18 12:08] LABS: BILIRUBIN,TOTAL 0.3 MG/DL (0.1-1.0)
[2020-11-18 12:10] LABS: ALKALINE PHOSPHATASE 40 U/L (40-136); CREATININE SERUM 0.98 MG/DL (0.60-1.30); GFR ESTIMATED > 60
[2020-11-18 12:11] LABS: BUN/CREATININE RATIO 13
[2020-11-18 12:13] LABS: ALANINE AMINOTRANSFERASE 45 U/L (0-55)
[2020-11-18] MEDS: TAMSULOSIN 0.4 MG (FLOMAX) CAP PO SCH (18:13)
[2020-11-18] MEDS: KCL 20 MEQ TAB (K-DUR) PO SCH (18:13)
[2020-11-18] MEDS: MELATONIN 3 MG TABLET PO PRN (21:46)
[2020-11-18] MEDS: ASPIRIN E.C. 81 MG (ECOTRIN) TAB PO SCH (21:46)
[2020-11-18] MEDS: SERTRALINE 50 MG (ZOLOFT) TABLET PO SCH (21:47)
[2020-11-18] MEDS: LATANOPROST 0.005% (XALATAN) OPHTH SOLN 2.5 ML OU SCH (21:50)
[2020-11-19] MEDS: NS IV 1000 ML 1,000 ML IV SCH ×2 (01:20→08:25)
[2020-11-19 05:48] LABS: BASOPHILS # (AUTO) 0.1 10^3/uL (0.0-0.1); BASOPHILS % (AUTO) 1 % (0-10); EOSINOPHILS # (AUTO) 0.4 10^3/uL (0.0-0.3); EOSINOPHILS % (AUTO) 4 % (0-10); HEMATOCRIT 35 % (40-54); HEMOGLOBIN 10.8 g/dL (13.3-17.7); LYMPHOCYTES # (AUTO) 0.6 10^3/uL (1.0-4.0); LYMPHOCYTES % (AUTO) 6 % (12-44); MEAN CORPUSCULAR HEMOGLOBIN 27 pg (25-34); MEAN CORPUSCULAR HGB CONC 31 g/dL (32-36); MEAN CORPUSCULAR VOLUME 87 fL (80-99); MEAN PLATELET VOLUME 8.8 fL (9.0-12.2); MONOCYTES # (AUTO) 0.8 10^3/uL (0.0-1.0); MONOCYTES % (AUTO) 7 % (0-12); NEUTROPHILS # (AUTO) 8.9 10^3/uL (1.8-7.8); NEUTROPHILS % (AUTO) 82 % (42-75); PLATELET COUNT 478 10^3/uL (130-400); WHITE BLOOD COUNT 10.9 10^3/uL (4.3-11.0)
[2020-11-19 06:08] LABS: ALANINE AMINOTRANSFERASE 40 U/L (0-55); ALBUMIN 2.9 GM/DL (3.2-4.5); ALKALINE PHOSPHATASE 40 U/L (40-136); BILIRUBIN,TOTAL 0.3 MG/DL (0.1-1.0); BUN/CREATININE RATIO 13; CALCIUM 8.5 MG/DL (8.5-10.1); CARBON DIOXIDE 24 MMOL/L (21-32); CHLORIDE 107 MMOL/L (98-107); CREATININE SERUM 0.84 MG/DL (0.60-1.30); GFR ESTIMATED > 60; GLUCOSE 129 MG/DL (70-105); POTASSIUM 4.5 MMOL/L (3.6-5.0); SODIUM 139 MMOL/L (135-145); TOTAL PROTEIN 5.9 GM/DL (6.4-8.2)
[2020-11-19] MEDS: LEVOTHYROXINE 75 MCG (LEVOTHROID) TABLET PO SCH (06:20)
--- NOTE | 2020-11-19 07:29 | Occupational Ther Daily Note ---
OT Current Status-Daily Note Subjective Pt alert, lying in bed. Pt wanted to sit up for breakfast, see note below for description. Pt c/o fatigue and pain with catheter when moving. Mental Status/Objective Patient Orientation: Person Attachments: Colostomy/Ileostomy, [place] Catheter, IV, Oxygen ADL-Treatment 1st session([id number]): Pt wanted to sit up for breakfast. Pt able to roll toward L side by self with verbal cues to initiate. Pt attempted to push to sit EOB, c/o pain at catheter site. Checked catheter if pulling, anchor in place with slack from penis to anchor. Reported to nrsg. Pt laid back down in bed, with bed in Trendelenburg position pt able to push with B LE to scoot self up in bed. Bed positioned and tray placed for pt to eat breakfast. Pt able to com plete all set up and use regular utensils to eat. Call light/phone in reach. All needs met in room. 2nd session([id number]): Pt much improved from last time ROBERTSON saw pt last Thursday. Pt able to ambulate from recliner to shower using FWW with CGA for saf ety. Transferred into shower with vc and CGA for safety. Sitting on shower bench, pt able to complete bathing using grabbars and hand held shower with SBA for safety and vc to rinse thoroughly. Pt sat in chair to complete upper body dressing by self after set up. After set up for lower body dressing, pt able to complete with SBA for safety. Pt educated on using sock aide to don socks, min A and vc's. Pt educated on LH shoehorn to assist to don shoes by self. Pt sat at sink to complete oral care by self. After session, pt sitting in recliner with call light/phone in reach. Nrsg and family in room. All needs met. Therapy Code Descriptions/Definitions Functional [place] Measure: 0=Not Assessed/NA 4=Minimal Assistance 1=Total Assistance 5=Supervision or Setup 2=Maximal Assistance 6=Modified [place] 3=Moderate Assistance 7=Complete IndependenceSCALE: Activities may be completed with or without assistive devices. 5-Phzcwhwhyk-jepsizz completes the activity by him/herself with no assistance from a helper. 5-Set-up or Clean-up Assistance-helper sets up or cleans up; patient completes activity. [place] assists only prior to or following the activity. 4-Supervision or Touching Assistance-helper provides verbal cues and/or touching/steadying and/or contact guard assistance as patient completes activity. Assistance may be provided throughout the activity or intermittently. 3-Partial/Moderate Assistance-helper does LESS THAN HALF the effort. [place] lifts, holds or supports trunk or limbs, but provides less than half the effort. 2-Substantial/Maximal Assistance-helper does MORE THAN HALF the effort. [place] lifts or holds trunk or limbs and provides more than half the effort. 3-Lkvzlnxkt-fyghyy does ALL the effort. Patient does none of the effort to complete the activity. Or, the assistance of 2 or more helpers is required for the patient to complete the activity. If activity was not attempted, code reason: 7-Patient Refused. 9-Not Applicable-not attempted and the patient did not perform the activity before the current illness, exacerbation or injury. 10-Not Attempted due to Environmental Limitations-(lack of equipment, weather restraints, etc.). 88-Not Attempted due to Medical Conditions or Safety Concerns. Eating (QC): 6 Oral Hygiene (QC): 6 Shower/Bathe Self (QC): 4 Upper Body Dressing (QC): 5 Lower Body Dressing (QC): 4 On/Off Footwear: 3 OT Short Term Goals Short Term Goals Time Frame: November 21, 2020 Eatin Oral hygiene: 4 Toileting hygiene: 3 Shower/bathe self: 3 Upper body dressin Lower body dressin Putting on/taking off footwear: 3 OT Fpc Goals Fpc Goals Time Frame: Nov 28, 2020 Eating (QC): 6 Oral Hygiene (QC): 5 Toileting Hygiene (QC): 6 Shower/Bathe Self (QC): 4 Upper Body Dressing (QC): 5 Lower Body Dressing (QC): 4 On/Off Footwear (QC): 4 Additional Goals: 1-Demonstrate ADL Tasks, 2-Verbalize Understanding, 3-ImproveStrength/Misah 1=Demonstrate adherence to instructed precautions during ADL tasks. 2=Patient will verbalize/demonstrate understanding of assistive devices/modifications for ADL. 3=Patient will improve strength/tolerance for activity to enable patient to perform ADL's. OT Education/Plan Problem List/Assessment Assessment: Decreased Activ Tolerance, Decreased Safety Aware, Decreased UE Strength, Impaired Funct Balance, Impaired Self-Care Skills Discharge Recommendations Plan/Recommendations: Continue POC Treatment Plan/Plan of Care Patient would benefit from OT for education, treatment and training to promote independence in ADL's, mobility, safety and/or upper extremity function for ADL's. Plan of Care: ADL Retraining, Functional Mobility, Group Exercise/Act as Ind, UE Funct Exercise/Act, UE Neuromus Re-Ed/Coord Treatment Duration: Nov 28, 2020 Frequency: At least 5 of 7 days/Wk (IRF) Estimated Hrs Per Day: 1.5 hours per day Agreement: Yes Rehab Potential: Fair Time/GCodes Start Time: 07:00 (1100) Stop Time: 07:30 (1200) Total Time Billed (hr/min): 90 Billed Treatment Time 1 visit([id number]): ADL 2 (30 min) 1 visit([id number]): ADL 4 (60 min) ELKIN ESTRADA November 19, 2020 07:29
--- NOTE | 2020-11-19 07:43 | PM&R Progress Note ---
Subjective HPI/CC On Admission Date Seen by Provider: November 19, 2020 Time Seen by Provider: 09:00 Subjective/Events-last exam 11/19/20: Pt doing pretty well Oxygen maintained at 2 liters right now Walking pretty well Will heplock IV fluid and DC the catheter since the catheter was causing pain anyway Appreciate urology 11/18/20: Had an episode last evening he had gotten out of bed with all 4 rails up and was at the sink Zyprexa DC due to lethargy today Confused at night Ate bfast Labs ok again after did septic w/u 11/17/20: Patient doing well Hallucinated last night prompting septic w/u today and all was normal Met his and daughter at bedside today They report he had this issue at and I explained delirium and hospital stays can cause that Esau ordered to try tonight Walked with PT and did well 11/16/20: Pt doing pretty well A little bit woozy today and BP systolic was 100 Will reach out to cardiology for BP medication changes Eating and drinking well Zofran given for nausea 11/15/20: Will hold Flexeril because it makes him drowsy Echocardiogram will be done today Pt doing very well and walking around pretty well Incision looks good Review of Systems General: Fatigue, Malaise Pulmonary: Dyspnea Neurological: Confusion Focused Exam Lactate Level 11/17/20 07:07: Lactic Acid Level 1.13 11/18/20 11:45: Lactic Acid Level 1.35 Objective Exam Vital Signs Vital Signs Date Time Temp Pulse Resp B/P (MAP) Pulse Ox O2 Delivery O2 Flow Rate FiO2 11/19/20 21:02 Nasal Cannula 2.00 11/19/20 20:00 37.0 86 16 107/54 (71) 95 Capillary Refill : General Appearance: No Apparent Distress, WD/WN, Chronically ill, Obese HEENT: PERRL/EOMI, Normal ENT Inspection, Pharynx Normal Neck: Full Range of Motion, Normal Inspection, Non Tender, Supple, Carotid Bruit Respiratory: Chest Non Tender, Lungs Clear, Normal Breath Sounds, No Accessory Muscle Use, No Respiratory Distress Cardiovascular: Regular Rate, Rhythm, No Edema, No Gallop, No JVD, No Murmur, Normal Peripheral Pulses Gastrointestinal: Normal Bowel Sounds, No Organomegaly, No Pulsatile Mass, Soft, Tenderness Back: Normal Inspection, No CVA Tenderness, No Vertebral Tenderness Extremity: Normal Capillary Refill, Normal Inspection, Normal Range of Motion, Non Tender, No Calf Tenderness, No Pedal Edema Neurologic/Psychiatric: Alert, Oriented x3, No Motor/Sensory Deficits, parquetry floor layer II- XII Norm as Tested, Abnormal Gait, Depressed Affect, Motor Weakness (generalized) Skin: Normal Color, Warm/Dry Lymphatic: No Adenopathy Results/Procedures Lab Laboratory Tests 11/19/20 05:30 Patient resulted labs reviewed. FIM Transfers Therapy Code Descriptions/Definitions Functional [place] Measure: 0=Not Assessed/NA 4=Minimal Assistance 1=Total Assistance 5=Supervision or Setup 2=Maximal Assistance 6=Modified [place] 3=Moderate Assistance 7=Complete IndependenceSCALE: Activities may be completed with or without assistive devices. 4-Djtgnfyqov-vblinro completes the activity by him/herself with no assistance from a helper. 5-Set-up or Clean-up Assistance-helper sets up or cleans up; patient completes activity. [place] assists only prior to or following the activity. 4-Supervision or Touching Assistance-helper provides verbal cues and/or touching/steadying and/or contact guard assistance as patient completes activity. Assistance may be provided throughout the activity or intermittently. 3-Partial/Moderate Assistance-helper does LESS THAN HALF the effort. [place] lifts, holds or supports trunk or limbs, but provides less than half the effort. 2-Substantial/Maximal Assistance-helper does MORE THAN HALF the effort. [place] lifts or holds trunk or limbs and provides more than half the effort. 3-Jbdrsueui-vjpnsx does ALL the effort. Patient does none of the effort to complete the activity. Or, the assistance of 2 or more helpers is required for the patient to complete the activity. If activity was not attempted, code reason: 7-Patient Refused. 9-Not Applicable-not attempted and the patient did not perform the activity before the current illness, exacerbation or injury. 10-Not Attempted due to Environmental Limitations-(lack of equipment, weather restraints, etc.). 88-Not Attempted due to Medical Conditions or Safety Concerns. Roll Left to Right (QC): 6 Sit to Lying (QC): 3 Sit to Stand (QC): 3 Chair/Ksb-tl-Ypssn Xfer(QC): 3 (retropulsive to perform sit from stand to chair) Car Transfer (QC): 3 Gait Training Does the Patient Walk?: Yes Distance: 150' x 1/75' x 2 Walk 10 feet (QC): 3 Walk 50 ft with 2 Turns(QC): 3 Walk 150 ft (QC): 3 Walking 10ft/uneven surface-QC: 3 Gait Persons Needed: 1 Gait Assistive Device: FWW Wheelchair Training Does the Pt Use a Wheelchair?: No Wheel 50 ft with 2 turns (QC): 9 Wheel 150 ft (QC): 9 Stair Training 1 Step (curb) (QC): 3 4 Steps (QC): 88 12 Steps (QC): 88 Balance Picking up an Object (QC): 88 ADL-Treatment Eating (QC): 6 Oral Hygiene (QC): 6 Shower/Bathe Self (QC): 2 Upper Body Dressing (QC): 3 Lower Body Dressing (QC): 2 On/Off Footwear (QC): 2 Toileting Hygiene (QC): 1 (Dependent assistance with catheter and colostomy.) Assessment/Plan Assessment and Plan Assess & Plan/Chief Complaint Assessment: Debility Colon cancer s/p resection 11/08/20 Urinary retention adkins cath in place CHF AF PPM HTN HLP DM Hypothyroidism Delirium with hallucinations 11/16/20 night Plan: IRF protocol Home meds Pain control Urology consult 11/15/20: Dr Ibarra appreciated Sleeps a lot 11/16/20: Cath DC Thursday for trial Sleeps a lot 11/17/20: Hallucinations noted Septic w/u negative 11/18/20: Another septic w/u was negative Patient lethargic and definitely has cognitive issues 11/19/20: Improved status Cognition issue is noted (1) Colon cancer (2) Pacemaker (3) CAD (coronary artery disease) (4) A-fib (5) CHF (congestive heart failure) RIO HAWTHORNE DO November 19, 2020 07:43
[2020-11-19 08:15] VITALS: BP 138/63
[2020-11-19] MEDS: SACUBITRIL/VALSARTAN 24/26 MG (ENTRESTO) TABLET PO SCH ×2 (08:17→17:13)
[2020-11-19] MEDS: metFORMIN 500 MG (GLUCOPHAGE) TAB PO SCH ×2 (08:17→17:11)
[2020-11-19] MEDS: VITAMIN D3 25 MCG (1,000 UNITS) TABLET PO SCH (08:17)
[2020-11-19] MEDS: PANTOPRAZOLE 40 MG (PROTONIX) TAB PO SCH ×2 (08:18→21:00)
[2020-11-19] MEDS: SENNA W/DOCUSATE (SENOKOT S) TABLET PO SCH ×2 (08:18→20:55)
[2020-11-19] MEDS: polyethylene glycoL POWDER 17 GM (MIRALAX) PACK PO SCH ×2 (08:18→20:55)
[2020-11-19] MEDS: DOCUSATE SODIUM 100 MG (COLACE) CAP PO SCH ×2 (08:18→20:55)
[2020-11-19] MEDS: ASCORBIC ACID (VIT C) 500 MG TABLET PO SCH (08:21)
--- NOTE | 2020-11-19 09:14 | Progress Note - Urology ---
Progress Note-Urology Progress Notes/Assess & Plan Progress/Assessment & Plan TOV TODAY Final Diagnosis RETENTION DAVID VANG MD November 19, 2020 09:14
--- NOTE | 2020-11-19 09:57 | Physical Therapy Daily Note ---
PT Daily Note-Current Subjective Patient in bed pre tx, agrees to PT, has mild low back pain. Appearance Patient in recliner post tx with nurse call, phone, tray, all needs met, chair alarm on, family in room. Mental Status Patient Orientation: Person, Place, Situation Attachments: Oxygen, IV Transfers SCALE: Activities may be completed with or without assistive devices. 9-Bipiaymzsg-xhcmhmy completes the activity by him/herself with no assistance from a helper. 5-Set-up or Clean-up Assistance-helper sets up or cleans up; patient completes activity. [place] assists only prior to or following the activity. 4-Supervision or Touching Assistance-helper provides verbal cues and/or touching/steadying and/or contact guard assistance as patient completes activity. Assistance may be provided throughout the activity or intermittently. 3-Partial/Moderate Assistance-helper does LESS THAN HALF the effort. [place] lifts, holds or supports trunk or limbs, but provides less than half the effort. 2-Substantial/Maximal Assistance-helper does MORE THAN HALF the effort. [place] lifts or holds trunk or limbs and provides more than half the effort. 4-Vrqlbcrjv-oqtmgb does ALL the effort. Patient does none of the effort to complete the activity. Or, the assistance of 2 or more helpers is required for the patient to complete the activity. If activity was not attempted, code reason: 7-Patient Refused. 9-Not Applicable-not attempted and the patient did not perform the activity before the current illness, exacerbation or injury. 10-Not Attempted due to Environmental Limitations-(lack of equipment, weather restraints, etc.). 88-Not Attempted due to Medical Conditions or Safety Concerns. Roll Left & Right (QC): 6 Lying to Sitting/Side of Bed(Q: 3 Sit to Stand (QC): 4 Chair/Kou-vd-Xjhzg Xfer(QC): 4 cues for hand placement with almost every sit <-> stand Gait Training Distance: 150', 120' Walk 10 feet (QC): 4 Walk 50 ft with 2 Turns(QC): 4 Walk 150 ft (QC): 4 Gait Persons Needed: 1 Gait Assistive Device: FWW CGA, slow ambulation, has slightly unsteady moments but no assist to maintain balance, patient had some retropulsion with standing and ambulating last week but today he did not Exercises Standing: Hip Abduction, Heel/toe raises, Marching, Mini squats, Step-ups (x10 each side) Standing Reps: 20 NuStep Minutes: 15 NuStep Workload: 4 Treatments bed mobility and transfers, ambulation, LE exercise Assessment Current Status: Fair Progress improved balance PT Short Term Goals Short Term Goals Time Frame: November 21, 2020 Roll Left & Right: 6 Sit to lyin Lying to sitting on side of be: 3 Sit to stand: 4 Chair/qao-cg-cdxij transfer: 4 Walk 10 feet: 4 Walk 50 feet with two turns: 4 Walk 150 feet: 4 PT Retirement Goals Hat Brim And Crown Laminating Operator Goals PT Retirement Goals Time Frame: Dec 05, 2020 Roll Left & Right (QC): 6 Sit to Lying (QC): 6 Lying-Sitting on Side/Bed(QC): 6 Sit to Stand (QC): 5 Chair/Zwu-pv-Vbovk Xfer(QC): 5 Toilet Transfer (QC): 5 Car Transfer (QC): 4 Does the Patient Walk: Yes Walk 10 feet (QC): 5 Walk 50ft with 2 Turns (QC): 5 Walk 150 ft (QC): 5 Walking 10ft on Uneven Surface: 4 1 Step (curb) (QC): 4 4 Steps (QC): 4 12 Steps (QC): 88 Picking up an Object (QC): 4 Wheel 50 feet with 2 turns (QC: 9 Wheel 150 feet: 9 PT Plan Problem List Problem List: Activity Tolerance, Functional Strength, Safety, Balance, Gait, Transfer, Bed Mobility, ROM Treatment/Plan Treatment Plan: Continue Plan of Care Treatment Plan: Bed Mobility, Education, Functional Activity Misha, Functional Strength, Group Therapy, Gait, Safety, Therapeutic Exercise, Transfers Treatment Duration: Dec 05, 2020 Frequency: At least 5 of 7 days/Wk (IRF) Estimated Hrs Per Day: 1.5 hours per day Patient and/or Family Agrees t: Yes Safety Risks/Education Patient Education: Gait Training, Transfer Techniques, Correct Positioning, Safety Issues Teaching Recipient: Patient Teaching Methods: Demonstration, Discussion Response to Teaching: Reinforcement Needed Time/GCodes Time In: 0900 Time Out: 1000 Total Billed Treatment Time: 60 Total Billed Treatment 1 visit EX 30' FA 30' VIRGEN DAVIS PT November 19, 2020 09:57
--- NOTE | 2020-11-19 12:13 | Progress Note - Cardiology ---
Cardiology SOAP Progress Note Subjective: Up working with PT No c/o Objective: I&O/Vital Signs 11/20/20 11/20/20 11/20/20 06:49 08:00 09:00 Temp 35.4 Pulse 71 Resp 14 B/P (MAP) 107/56 (73) Pulse Ox 99 O2 Delivery Nasal Cannula Nasal Cannula O2 Flow Rate 2.00 2.00 2.00 11/20/20 00:00 Intake Total 400 ml Output Total 900 ml Balance -500 ml Constitutional: AAO x 3, well-developed, well-nourished Respiratory: No accessory muscle use; other (good bilateral air entry) Cardiovascular: regular rate-rhythm, S1 and S2 Gastrointestional: No tender; audible bowel sounds, other (colostomy present to the L of the umbilicus) Extremities: No clubbing, No cyanosis, No significant edema Neurologic/Psychiatric: oriented x 3, other (moves all limbs equally) Skin: No rash on exposed areas, No ulcerations on exposed areas Results/Procedures: Labs Laboratory Tests 11/19/20 11:04: Glucometer 120H 11/19/20 15:50: Glucometer 114H 11/19/20 20:28: Glucometer 118H 11/20/20 05:24: Glucometer 100 Microbiology 11/17/20 Blood Culture - Preliminary, Resulted No growth A/P: Assessment: S/p robot-assisted anterior resection for rectal CA (early October 2020 at [facility]) SSS - s/p pacemaker, managed by his low raw sugar cutter Dr Kam in - treated chronically with amiodarone (apparently for maintenance of sinus rhythm) - stroke prophylaxis has only been with ASA (per his low raw sugar cutter, according to the patient) CAD - h/o a single cor stent in or around 2014 (details unknown to pt) DM II HL HTN H/o cardiomyopathy (details unknown to pt) - his records from [facility] state an EF of 40% Plan: * D/C tele * Monitor labs * Echo today * Continue current medication regimen * Request records from [facility] - waiting on records JOSE GONZALEZ November 19, 2020 12:13
--- NOTE | 2020-11-19 13:38 | Physical Therapy Daily Note ---
PT Daily Note-Current Subjective Patient in recliner pre tx, agrees to PT, voices no complaints of pain. Appearance Patient in bed post tx with nurse call, phone, tray, all needs met, bed alarm on. Mental Status Patient Orientation: Person, Place, Situation Attachments: Oxygen Transfers SCALE: Activities may be completed with or without assistive devices. 0-Gsdbzutfqz-iakdikm completes the activity by him/herself with no assistance from a helper. 5-Set-up or Clean-up Assistance-helper sets up or cleans up; patient completes activity. [place] assists only prior to or following the activity. 4-Supervision or Touching Assistance-helper provides verbal cues and/or touching/steadying and/or contact guard assistance as patient completes activ ity. Assistance may be provided throughout the activity or intermittently. 3-Partial/Moderate Assistance-helper does LESS THAN HALF the effort. [place] lifts, holds or supports trunk or limbs, but provides less than half the effort. 2-Substantial/Maximal Assistance-helper does MORE THAN HALF the effort. [place] lifts or holds trunk or limbs and provides more than half the effort. 8-Fjooxlfao-icpfqg does ALL the effort. Patient does none of the effort to complete the activity. Or, the assistance of 2 or more helpers is required for the patient to complete the activity. If activity was not attempted, code reason: 7-Patient Refused. 9-Not Applicable-not attempted and the patient did not perform the activity before the current illness, exacerbation or injury. 10-Not Attempted due to Environmental Limitations-(lack of equipment, weather restraints, etc.). 88-Not Attempted due to Medical Conditions or Safety Concerns. Roll Left & Right (QC): 6 Sit to Lying (QC): 6 Sit to Stand (QC): 4 Chair/Wzw-hx-Atkaa Xfer(QC): 4 CGA with sit to stand and transfers, cues for hand placement and safety Gait Training Distance: 150', 120' Walk 10 feet (QC): 4 Walk 50 ft with 2 Turns(QC): 4 Walk 150 ft (QC): 4 Gait Persons Needed: 1 Gait Assistive Device: FWW CGA, no retropulsion, steadier ambulation, slow Stair Training Stair Training: Handrails/: 2 handrails #of Steps: 4 1 Step (curb) (QC): 4 4 Steps (QC): 4 Stairs: Pattern: Step to CGA, cues for safety Exercises LAQ alternating for 5 min with 2# ankle weights Treatments bed mobility and transfers, ambulation, stair training, functional strengthening Assessment Current Status: Fair Progress improving general mobility PT Short Term Goals Short Term Goals Time Frame: November 21, 2020 Roll Left & Right: 6 Sit to lyin Lying to sitting on side of be: 3 Sit to stand: 4 Chair/bet-ds-apwic transfer: 4 Walk 10 feet: 4 Walk 50 feet with two turns: 4 Walk 150 feet: 4 PT Frame Trimmer Goals Frame Trimmer Goals PT Frame Trimmer Goals Time Frame: Dec 05, 2020 Roll Left & Right (QC): 6 Sit to Lying (QC): 6 Lying-Sitting on Side/Bed(QC): 6 Sit to Stand (QC): 5 Chair/Xsk-xh-Gqzph Xfer(QC): 5 Toilet Transfer (QC): 5 Car Transfer (QC): 4 Does the Patient Walk: Yes Walk 10 feet (QC): 5 Walk 50ft with 2 Turns (QC): 5 Walk 150 ft (QC): 5 Walking 10ft on Uneven Surface: 4 1 Step (curb) (QC): 4 4 Steps (QC): 4 12 Steps (QC): 88 Picking up an Object (QC): 4 Wheel 50 feet with 2 turns (QC: 9 Wheel 150 feet: 9 PT Plan Problem List Problem List: Activity Tolerance, Functional Strength, Safety, Balance, Gait, Transfer, Bed Mobility, ROM Treatment/Plan Treatment Plan: Continue Plan of Care Treatment Plan: Bed Mobility, Education, Functional Activity Misha, Functional Strength, Group Therapy, Gait, Safety, Therapeutic Exercise, Transfers Treatment Duration: Dec 05, 2020 Frequency: At least 5 of 7 days/Wk (IRF) Estimated Hrs Per Day: 1.5 hours per day Patient and/or Family Agrees t: Yes Safety Risks/Education Patient Education: Gait Training, Transfer Techniques, Steps, Correct Posit ioning, Safety Issues Teaching Recipient: Patient Teaching Methods: Demonstration, Discussion Response to Teaching: Reinforcement Needed Time/GCodes Time In: 1300 Time Out: 1330 Total Billed Treatment Time: 30 Total Billed Treatment 1 visit FA 30' VIRGEN DAVIS PT November 19, 2020 13:38
--- NOTE | 2020-11-19 16:27 | Progress Note - Cardiology ---
Cardiology SOAP Progress Note Subjective: No cp or palp or syncope or shortness of breath No n/v/d Gen malaise present Objective: I&O/Vital Signs 11/19/20 11/19/20 11/19/20 11/19/20 06:48 08:15 09:00 10:22 Temp 36.8 Pulse 63 63 Resp 18 B/P (MAP) 138/63 (88) Pulse Ox 95 O2 Delivery Nasal Cannula Nasal Cannula O2 Flow Rate 2.00 2.00 2.00 Constitutional: AAO x 3, well-developed, well-nourished Respiratory: No accessory muscle use; other (good bilateral air entry) Cardiovascular: regular rate-rhythm, S1 and S2 Gastrointestional: No tender; audible bowel sounds, other (colostomy present to the L of the umbilicus) Extremities: No clubbing, No cyanosis, No significant edema Neurologic/Psychiatric: oriented x 3, other (moves all limbs equally) Skin: No rash on exposed areas, No ulcerations on exposed areas Results/Procedures: Labs Laboratory Tests 11/18/20 20:12: Glucometer 129H 11/19/20 05:30: White Blood Count 10.9, Red Blood Count 3.97L, Hemoglobin 10.8L, Hematocrit 35L, Mean Corpuscular Volume 87, Mean Corpuscular Hemoglobin 27, Mean Corpuscular Hemoglobin Concent 31L, Red Cell Distribution Width 14.8H, Platelet Count 478H, Mean Platelet Volume 8.8L, Immature Granulocyte % (Auto) 1, Neutrophils (%) (Auto) 82H, Lymphocytes (%) (Auto) 6L, Monocytes (%) (Auto) 7, Eosinophils (%) (Auto) 4, Basophils (%) (Auto) 1, Neutrophils # (Auto) 8.9H, Lymphocytes # (Auto) 0.6L, Monocytes # (Auto) 0.8, Eosinophils # (Auto) 0.4H, Basophils # (Auto) 0.1, Immature Granulocyte # (Auto) 0.2H, Sodium Level 139, Potassium Level 4.5, Chloride Level 107, Carbon Dioxide Level 24, Anion Gap 8, Blood Urea Nitrogen 11, Creatinine 0.84, Estimat Glomerular Filtration Rate > 60, BUN/Creatinine Ratio 13, Glucose Level 129H, Calcium Level 8.5, Corrected Calcium 9.4, Total Bilirubin 0.3, Aspartate Amino Transf (AST/SGOT) 29, Alanine Aminotransferase (ALT/SGPT) 40, Alkaline Phosphatase 40, B-Type Natriuretic Peptide 42.8, Total Protein 5.9L, Albumin 2.9L 11/19/20 11:04: Glucometer 120H 11/19/20 15:50: Glucometer 114H Microbiology 11/17/20 Blood Culture - Preliminary, Resulted No growth Laboratory Tests 11/18/20 11:45 11/19/20 05:30 A/P: Assessment: S/p robot-assisted anterior resection for rectal CA (early October 2020 at [facility]) SSS - s/p pacemaker, managed by his drafting clerk Dr Kam in - treated chronically with amiodarone (apparently for maintenance of sinus rhythm) - stroke prophylaxis has only been with ASA (per his drafting clerk, according to the patient) CAD - h/o a single cor stent in or around 2014 (details unknown to pt) DM II HL HTN H/o cardiomyopathy (details unknown to pt) - his records from [facility] state an EF of 40% Plan: * D/C tele * Monitor labs * Requested records from [facility] - still waiting on records ARSENIO BROOKE MD FACP [facility] November 19, 2020 16:27
[2020-11-19] MEDS: KCL 20 MEQ TAB (K-DUR) PO SCH (17:11)
[2020-11-19] MEDS: TAMSULOSIN 0.4 MG (FLOMAX) CAP PO SCH (17:11)
[2020-11-19 17:13] VITALS: BP 116/58
[2020-11-19] MEDS ORDERED: LIDOCAINE UROJET 2% GEL 10 ML PKG ONE ×2 (17:59→20:32)
[2020-11-19 20:00] VITALS: BP 107/54
[2020-11-19] MEDS ORDERED: LIDOCAINE UROJET 2% GEL 10 ML PKG TOP ONE (20:45)
[2020-11-19] MEDS: LATANOPROST 0.005% (XALATAN) OPHTH SOLN 2.5 ML OU SCH (20:59)
[2020-11-19] MEDS: SERTRALINE 50 MG (ZOLOFT) TABLET PO SCH (21:00)
[2020-11-19] MEDS: ACETAMINOPHEN 500 MG TAB (TYLENOL) PO PRN (21:01)
[2020-11-19] MEDS: diphenhydrAMINE 25 MG TAB (BENADRYL) PO PRN (21:01)
[2020-11-19] MEDS: ASPIRIN E.C. 81 MG (ECOTRIN) TAB PO SCH (21:03)
[2020-11-20] MEDS ORDERED: LIDOCAINE UROJET 2% GEL 10 ML PKG TOP ONE (05:00)
[2020-11-20] MEDS: LEVOTHYROXINE 75 MCG (LEVOTHROID) TABLET PO SCH (06:51)
--- NOTE | 2020-11-20 07:13 | Occupational Ther Daily Note ---
OT Current Status-Daily Note Subjective Pt alert, lying in bed. Pt agrees to therapy. No c/o pain at this time. Pt states that he is feeling better today. Mental Status/Objective Patient Orientation: Person, Place, Time, Situation Attachments: Colostomy/Ileostomy, IV, Oxygen (2L) ADL-Treatment 1st session([id number]): Supine to sitting EOB mod I with HOB raised and using bed rails. Pt able to scoot self to place feet on bed. After set up, pt able to thread pants over feet by self with increased time then CGA in standing while pt hiked pants over hips. Pt able to place feet into shoes, assist to slide heels in shoes. Pt then transferred into recliner with CGA for safety. Pt then was able to complete own meal set up and use regular utensils to eat. After therapy, pt sitting in recliner with call light/phone in reach. Safety measures in place. 2nd session([id number]): Supine to sitting EOB mod I with HOB raised. Pt ambulated using FWW to bathroom and transferred to toilet with close SBA. Educated pt on transfers with O2 tubing. SBA to manipulate clothing. Pt sat at sink to complete oral care and grooming. Therapy Code Descriptions/Definitions Functional [place] Measure: 0=Not Assessed/NA 4=Minimal Assistance 1=Total Assistance 5=Supervision or Setup 2=Maximal Assistance 6=Modified [place] 3=Moderate Assistance 7=Complete IndependenceSCALE: Activities may be completed with or without assistive devices. 2-Uitdfwuxwx-fbrzcqf completes the activity by him/herself with no assistance from a helper. 5-Set-up or Clean-up Assistance-helper sets up or cleans up; patient completes activity. [place] assists only prior to or following the activity. 4-Supervision or Touching Assistance-helper provides verbal cues and/or touching/steadying and/or contact guard assistance as patient completes a ctivity. Assistance may be provided throughout the activity or intermittently. 3-Partial/Moderate Assistance-helper does LESS THAN HALF the effort. [place] lifts, holds or supports trunk or limbs, but provides less than half the effort. 2-Substantial/Maximal Assistance-helper does MORE THAN HALF the effort. [place] lifts or holds trunk or limbs and provides more than half the effort. 0-Efjscufct-ikeona does ALL the effort. Patient does none of the effort to complete the activity. Or, the assistance of 2 or more helpers is required for the patient to complete the activity. If activity was not attempted, code reason: 7-Patient Refused. 9-Not Applicable-not attempted and the patient did not perform the activity before the current illness, exacerbation or injury. 10-Not Attempted due to Environmental Limitations-(lack of equipment, weather restraints, etc.). 88-Not Attempted due to Medical Conditions or Safety Concerns. Eating (QC): 6 Oral Hygiene (QC): 6 Lower Body Dressing (QC): 4 On/Off Footwear: 4 Toileting Hygiene (QC): 4 Toilet Transfer (QC): 4 Other Treatment Pt ambulated using FWW to therapy gym with CGA for safety. Pt completed 10 nut/bolt activity(2x's and one recovery break) in standing to increase B UE strength, dexterity and activity tolerance. Pt ambulated back to room using FWW. After session, pt sitting in recliner with call light/phone in reach. All needs met in room. OT Short Term Goals Short Term Goals Time Frame: November 21, 2020 Eatin Oral hygiene: 4 Toileting hygiene: 3 Shower/bathe self: 3 Upper body dressin Lower body dressin Putting on/taking off footwear: 3 OT Jail Goals Production Weigher Goals Time Frame: Nov 28, 2020 Eating (QC): 6 Oral Hygiene (QC): 5 Toileting Hygiene (QC): 6 Shower/Bathe Self (QC): 4 Upper Body Dressing (QC): 5 Lower Body Dressing (QC): 4 On/Off Footwear (QC): 4 Additional Goals: 1-Demonstrate ADL Tasks, 2-Verbalize Understanding, 3- ImproveStrength/Misha 1=Demonstrate adherence to instructed precautions during ADL tasks. 2=Patient will verbalize/demonstrate understanding of assistive devices/modifications for ADL. 3=Patient will improve strength/tolerance for activity to enable patient to perform ADL's. OT Education/Plan Problem List/Assessment Assessment: Decreased Activ Tolerance, Impaired Funct Balance, Impaired Self- Care Skills Discharge Recommendations Plan/Recommendations: Continue POC Treatment Plan/Plan of Care Patient would benefit from OT for education, treatment and training to promote independence in ADL's, mobility, safety and/or upper extremity function for ADL's. Plan of Care: ADL Retraining, Functional Mobility, Group Exercise/Act as Ind, UE Funct Exercise/Act, UE Neuromus Re-Ed/Coord Treatment Duration: Nov 28, 2020 Frequency: At least 5 of 7 days/Wk (IRF) Estimated Hrs Per Day: 1.5 hours per day Agreement: Yes Rehab Potential: Fair Time/GCodes Start Time: 07:00 (11) Stop Time: 07:30 (12) Total Time Billed (hr/min): 90 Billed Treatment Time 1 visit([id number])-ADL 2 (30 min) 1 visit([id number])-ADL 3(45 min) EX 1 (15 min) ELKIN ESTRADA November 20, 2020 07:13
--- NOTE | 2020-11-20 07:39 | Progress Note - Urology ---
Progress Note-Urology Progress Notes/Assess & Plan Progress/Assessment & Plan UNABLE TO VOID ON OWN. TOLERATES FLOMAX WELL. WE WILL INCREASE TO BID. Final Diagnosis URINE RETENTION DAVID VANG MD November 20, 2020 07:39
[2020-11-20 08:00] VITALS: BP 107/56
[2020-11-20] MEDS: TAMSULOSIN 0.4 MG (FLOMAX) CAP PO SCH ×2 (08:35→21:56)
[2020-11-20] MEDS: VITAMIN D3 25 MCG (1,000 UNITS) TABLET PO SCH (08:35)
[2020-11-20] MEDS: SACUBITRIL/VALSARTAN 24/26 MG (ENTRESTO) TABLET PO SCH ×2 (08:35→17:38)
[2020-11-20] MEDS: PANTOPRAZOLE 40 MG (PROTONIX) TAB PO SCH ×2 (08:35→21:57)
[2020-11-20] MEDS: metFORMIN 500 MG (GLUCOPHAGE) TAB PO SCH ×2 (08:35→17:38)
[2020-11-20] MEDS: ASCORBIC ACID (VIT C) 500 MG TABLET PO SCH (08:36)
[2020-11-20] MEDS: DOCUSATE SODIUM 100 MG (COLACE) CAP PO SCH ×3 (08:39→21:57)
[2020-11-20] MEDS: polyethylene glycoL POWDER 17 GM (MIRALAX) PACK PO SCH ×2 (08:39→21:58)
[2020-11-20] MEDS: SENNA W/DOCUSATE (SENOKOT S) TABLET PO SCH ×3 (08:39→22:02)
--- NOTE | 2020-11-20 09:04 | PM&R Progress Note ---
Subjective HPI/CC On Admission Date Seen by Provider: November 20, 2020 Time Seen by Provider: 09:10 Subjective/Events-last exam 11/20/20: Pt doing really well Walking with therapy Maintained on oxygen Eating better overall Not really voiding since catheter was removed and he did require in and out catheter to drain the urine Dr. Ibarra did increase his Flomax to BID Overall seems to be doing okay 11/19/20: Pt doing pretty well Oxygen maintained at 2 liters right now Walking pretty well Will heplock IV fluid and DC the catheter since the catheter was causing pain anyway Appreciate urology 11/18/20: Had an episode last evening he had gotten out of bed with all 4 rails up and was at the sink Zyprexa DC due to lethargy today Confused at night Ate bfast Labs ok again after did septic w/u 11/17/20: Patient doing well Hallucinated last night prompting septic w/u today and all was normal Met his and daughter at bedside today They report he had this issue at and I explained delirium and hospital stays can cause that Zyprexa ordered to try tonight Walked with PT and did well 11/16/20: Pt doing pretty well A little bit woozy today and BP systolic was 100 Will reach out to cardiology for BP medication changes Eating and drinking well Zofran given for nausea 11/15/20: Will hold Flexeril because it makes him drowsy Echocardiogram will be done today Pt doing very well and walking around pretty well Incision looks good Review of Systems General: Fatigue, Malaise Genitourinary: Retention Neurological: Weakness Focused Exam Lactate Level 11/18/20 11:45: Lactic Acid Level 1.35 Objective Exam Vital Signs Vital Signs Date Time Temp Pulse Resp B/P (MAP) Pulse Ox O2 Delivery O2 Flow Rate FiO2 11/20/20 21:50 98 Nasal Cannula 2.00 11/20/20 20:00 37.2 65 16 128/59 (82) Capillary Refill : General Appearance: No Apparent Distress, WD/WN, Chronically ill, Obese HEENT: PERRL/EOMI, Normal ENT Inspection, Pharynx Normal Neck: Full Range of Motion, Normal Inspection, Non Tender, Supple, Carotid Bruit Respiratory: Chest Non Tender, Lungs Clear, Normal Breath Sounds, No Accessory Muscle Use, No Respiratory Distress Cardiovascular: Regular Rate, Rhythm, No Edema, No Gallop, No JVD, No Murmur, Normal Peripheral Pulses Gastrointestinal: Normal Bowel Sounds, No Organomegaly, No Pulsatile Mass, Soft, Tenderness Back: Normal Inspection, No CVA Tenderness, No Vertebral Tenderness Extremity: Normal Capillary Refill, Normal Inspection, Normal Range of Motion, Non Tender, No Calf Tenderness, No Pedal Edema Neurologic/Psychiatric: Alert, Oriented x3, No Motor/Sensory Deficits, wood molder II- XII Norm as 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 FIM Transfers Therapy Code Descriptions/Definitions Functional [place] Measure: 0=Not Assessed/NA 4=Minimal Assistance 1=Total Assistance 5=Supervision or Setup 2=Maximal Assistance 6=Modified [place] 3=Moderate Assistance 7=Complete IndependenceSCALE: Activities may be completed with or without assistive devices. 7-Tvbzarzmwn-jvypowf completes the activity by him/herself with no assistance from a helper. 5-Set-up or Clean-up Assistance-helper sets up or cleans up; patient completes a ctivity. [place] assists only prior to or following the activity. 4-Supervision or Touching Assistance-helper provides verbal cues and/or touching/steadying and/or contact guard assistance as patient completes activity. Assistance may be provided throughout the activity or intermittently. 3-Partial/Moderate Assistance-helper does LESS THAN HALF the effort. [place] lifts, holds or supports trunk or limbs, but provides less than half the effort. 2-Substantial/Maximal Assistance-helper does MORE THAN HALF the effort. [place] lifts or holds trunk or limbs and provides more than half the effort. 6-Ortxniakc-yvihwy does ALL the effort. Patient does none of the effort to complete the activity. Or, the assistance of 2 or more helpers is required for the patient to complete the activity. If activity was not attempted, code reason: 7-Patient Refused. 9-Not Applicable-not attempted and the patient did not perform the activity before the current illness, exacerbation or injury. 10-Not Attempted due to Environmental Limitations-(lack of equipment, weather restraints, etc.). 88-Not Attempted due to Medical Conditions or Safety Concerns. Roll Left to Right (QC): 6 Sit to Lying (QC): 6 Sit to Stand (QC): 4 Chair/Klj-hz-Mymaz Xfer(QC): 4 Car Transfer (QC): 3 Gait Training Does the Patient Walk?: Yes Distance: 150', 120' Walk 10 feet (QC): 4 Walk 50 ft with 2 Turns(QC): 4 Walk 150 ft (QC): 4 Walking 10ft/uneven surface-QC: 3 Gait Persons Needed: 1 Gait Assistive Device: FWW Wheelchair Training Does the Pt Use a Wheelchair?: No Wheel 50 ft with 2 turns (QC): 9 Wheel 150 ft (QC): 9 Stair Training Stair Training: Handrails/: 2 handrails #of Steps: 4 1 Step (curb) (QC): 4 4 Steps (QC): 4 12 Steps (QC): 88 Stairs: Pattern: Step to Balance Picking up an Object (QC): 88 ADL-Treatment Eating (QC): 6 Oral Hygiene (QC): 6 Shower/Bathe Self (QC): 4 Upper Body Dressing (QC): 5 Lower Body Dressing (QC): 4 On/Off Footwear (QC): 4 Toileting Hygiene (QC): 1 (Dependent assistance with catheter and colostomy.) Assessment/Plan Assessment and Plan Assess & Plan/Chief Complaint Assessment: Debility Colon cancer s/p resection 11/08/20 Urinary retention adkins cath in place CHF AF PPM HTN HLP DM Hypothyroidism Delirium with hallucinations 11/16/20 night Plan: IRF protocol Home meds Pain control Urology consult 11/15/20: Dr Ibarra appreciated Sleeps a lot 11/16/20: Cath DC Thursday for trial Sleeps a lot 11/17/20: Hallucinations noted Septic w/u negative 11/18/20: Another septic w/u was negative Patient lethargic and definitely has cognitive issues 11/19/20: Improved status Cognition issue is noted 11/20/20: Urinary retention management Appreciate Dr Ibarra (1) Colon cancer (2) Pacemaker (3) CAD (coronary artery disease) (4) A-fib (5) CHF (congestive heart failure) RIO HAWTHORNE DO November 20, 2020 09:04
--- NOTE | 2020-11-20 09:56 | Physical Therapy Daily Note ---
PT Daily Note-Current Subjective Patient in bed pre tx, agrees to PT, has no complaints of pain. Appearance Patient in recliner post tx with nurse call, phone, tray, chair alarm on. Mental Status Patient Orientation: Person, Place, Situation Attachments: Oxygen Transfers SCALE: Activities may be completed with or without assistive devices. 2-Nzxnafljwt-clizocx completes the activity by him/herself with no assistance from a helper. 5-Set-up or Clean-up Assistance-helper sets up or cleans up; patient completes activity. [place] assists only prior to or following the activity. 4-Supervision or Touching Assistance-helper provides verbal cues and/or touching/steadying and/or contact guard assistance as patient completes activity. Assistance may be provided throughout the activity or intermittently. 3-Partial/Moderate Assistance-helper does LESS THAN HALF the effort. [place] lifts, holds or supports trunk or limbs, but provides less than half the effort. 2-Substantial/Maximal Assistance-helper does MORE THAN HALF the effort. [place] lifts or holds trunk or limbs and provides more than half the effort. 1-Inadlzqyf-qmsqhu does ALL the effort. Patient does none of the effort to complete the activity. Or, the assistance of 2 or more helpers is required for the patient to complete the activity. If activity was not attempted, code reason: 7-Patient Refused. 9-Not Applicable-not attempted and the patient did not perform the activity before the current illness, exacerbation or injury. 10-Not Attempted due to Environmental Limitations-(lack of equipment, weather restraints, etc.). 88-Not Attempted due to Medical Conditions or Safety Concerns. Roll Left & Right (QC): 6 Lying to Sitting/Side of Bed(Q: 6 Sit to Stand (QC): 4 Chair/Bxv-ba-Fgusv Xfer(QC): 4 CGA for sit to stand and transfers, occasional cues for hand placement and safety Gait Training Distance: 150', 120' Walk 10 feet (QC): 4 Walk 50 ft with 2 Turns(QC): 4 Walk 150 ft (QC): 4 Gait Persons Needed: 1 Gait Assistive Device: FWW CGA, slow but steady ambulation Exercises Standing: Hip Abduction, Heel/toe raises, Marching, Mini squats Standing Reps: 20 NuStep Minutes: 15 NuStep Workload: 4 Treatments bed mobility and transfers, ambulation, functional strengthening Assessment Current Status: Fair Progress continued slow improvements in functional mobility PT Short Term Goals Short Term Goals Time Frame: November 21, 2020 Roll Left & Right: 6 Sit to lyin Lying to sitting on side of be: 3 Sit to stand: 4 Chair/ncl-ko-zcdtl transfer: 4 Walk 10 feet: 4 Walk 50 feet with two turns: 4 Walk 150 feet: 4 PT Snf Goals Snf Goals PT Snf Goals Time Frame: Dec 05, 2020 Roll Left & Right (QC): 6 Sit to Lying (QC): 6 Lying-Sitting on Side/Bed(QC): 6 Sit to Stand (QC): 5 Chair/Cqj-qx-Uwwfv Xfer(QC): 5 Toilet Transfer (QC): 5 Car Transfer (QC): 4 Does the Patient Walk: Yes Walk 10 feet (QC): 5 Walk 50ft with 2 Turns (QC): 5 Walk 150 ft (QC): 5 Walking 10ft on Uneven Surface: 4 1 Step (curb) (QC): 4 4 Steps (QC): 4 12 Steps (QC): 88 Picking up an Object (QC): 4 Wheel 50 feet with 2 turns (QC: 9 Wheel 150 feet: 9 PT Plan Problem List Problem List: Activity Tolerance, Functional Strength, Safety, Balance, Gait, Transfer, Bed Mobility, ROM Treatment/Plan Treatment Plan: Continue Plan of Care Treatment Plan: Bed Mobility, Education, Functional Activity Misha, Functional Strength, Group Therapy, Gait, Safety, Therapeutic Exercise, Transfers Treatment Duration: Dec 05, 2020 Frequency: At least 5 of 7 days/Wk (IRF) Estimated Hrs Per Day: 1.5 hours per day Patient and/or Family Agrees t: Yes Safety Risks/Education Patient Education: Gait Training, Transfer Techniques, Correct Positioning, W/C Management, Safety Issues Teaching Recipient: Patient Teaching Methods: Demonstration, Discussion Response to Teaching: Reinforcement Needed Time/GCodes Time In: 0900 Time Out: 1000 Total Billed Treatment Time: 60 Total Billed Treatment 1 visit EX 30' FA 30' VIRGEN DAVIS PT November 20, 2020 09:56
--- NOTE | 2020-11-20 10:02 | Progress Note - Cardiology ---
Cardiology SOAP Progress Note Objective: I&O/Vital Signs 11/20/20 11/21/20 21:50 08:00 Temp 36.6 Pulse 64 Resp 16 B/P (MAP) 109/53 (71) Pulse Ox 98 93 O2 Delivery Nasal Cannula Nasal Cannula O2 Flow Rate 2.00 2.00 11/21/20 00:00 Intake Total 840 ml Output Total 300 ml Balance 540 ml Constitutional: AAO x 3, well-developed, well-nourished Respiratory: No accessory muscle use; other (good bilateral air entry) Cardiovascular: regular rate-rhythm, S1 and S2 Gastrointestional: No tender; audible bowel sounds, other (colostomy present to the L of the umbilicus) Extremities: No clubbing, No cyanosis, No significant edema Neurologic/Psychiatric: oriented x 3, other (moves all limbs equally) Skin: No rash on exposed areas, No ulcerations on exposed areas Results/Procedures: Labs Laboratory Tests 11/20/20 10:43: Glucometer 120H 11/20/20 15:44: Glucometer 109 11/20/20 20:12: Glucometer 118H 11/21/20 05:49: Glucometer 106 Microbiology 11/17/20 Blood Culture - Preliminary, Resulted No growth A/P: Assessment: S/p robot-assisted anterior resection for rectal CA (early October 2020 at [facility]) SSS - s/p pacemaker, managed by his jig and fixture repairer Dr Kam in - treated chronically with amiodarone (apparently for maintenance of sinus rhythm) - stroke prophylaxis has only been with ASA (per his jig and fixture repairer, according to the patient) CAD - h/o a single cor stent in or around 2014 (details unknown to pt) DM II HL HTN H/o cardiomyopathy (details unknown to pt) - his records from [facility] state an EF of 40% Urinary retention - Dr. Ibarra managing Plan: * D/C tele * Monitor labs * Requested records from [facility] - still waiting on records JOSE GONZALEZ November 20, 2020 10:02
[2020-11-20] MEDS ORDERED: LIDOCAINE UROJET 2% GEL 10 ML PKG ONE ×2 (13:56→21:45)
--- NOTE | 2020-11-20 14:19 | Physical Therapy Daily Note ---
PT Daily Note-Current Subjective Patient in bed pre tx, agrees to PT, has no complaints of pain. Appearance Patient in bed post tx with nurse call, phone, tray, all needs met, bed alarm on. Mental Status Patient Orientation: Person, Place, Situation Attachments: Oxygen Transfers SCALE: Activities may be completed with or without assistive devices. 6-Mstbbonoty-bufgzlm completes the activity by him/herself with no assistance from a helper. 5-Set-up or Clean-up Assistance-helper sets up or cleans up; patient completes activity. [place] assists only prior to or following the activity. 4-Supervision or Touching Assistance-helper provides verbal cues and/or touching/steadying and/or contact guard assistance as patient completes activity. Assistance may be provided throughout the activity or intermittently. 3-Partial/Moderate Assistance-helper does LESS THAN HALF the effort. [place] lifts, holds or supports trunk or limbs, but provides less than half the effort. 2-Substantial/Maximal Assistance-helper does MORE THAN HALF the effort. [place] lifts or holds trunk or limbs and provides more than half the effort. 4-Ornsojqna-jktkzp does ALL the effort. Patient does none of the effort to complete the activity. Or, the assistance of 2 or more helpers is required for the patient to complete the activity. If activity was not attempted, code reason: 7-Patient Refused. 9-Not Applicable-not attempted and the patient did not perform the activity before the current illness, exacerbation or injury. 10-Not Attempted due to Environmental Limitations-(lack of equipment, weather restraints, etc.). 88-Not Attempted due to Medical Conditions or Safety Concerns. Roll Left & Right (QC): 6 Sit to Lying (QC): 6 Lying to Sitting/Side of Bed(Q: 6 Sit to Stand (QC): 4 Chair/Cww-pg-Mpczj Xfer(QC): 4 Gait Training Distance: 120'x2 Walk 10 feet (QC): 4 Walk 50 ft with 2 Turns(QC): 4 Gait Persons Needed: 1 Gait Assistive Device: FWW SBA, slow but steady ambulation Exercises Supine Ex: Ankle pumps, Quad Set, Glut sets, Heel Slides, Short Arc Quads, Straight leg raise, Hip abd/add Supine Reps: 20 Treatments bed mobility and transfers, ambulation, LE exercise Assessment Current Status: Fair Progress patient needs a few moments after supine to sit to let his blood pressure adjust before standing PT Short Term Goals Short Term Goals Time Frame: November 21, 2020 Roll Left & Right: 6 Sit to lyin Lying to sitting on side of be: 3 Sit to stand: 4 Chair/roa-ar-zwmuw transfer: 4 Walk 10 feet: 4 Walk 50 feet with two turns: 4 Walk 150 feet: 4 PT P 3 Armament/Ordnance Ima Technician Goals P 3 Armament/Ordnance Ima Technician Goals PT P 3 Armament/Ordnance Ima Technician Goals Time Frame: Dec 05, 2020 Roll Left & Right (QC): 6 Sit to Lying (QC): 6 Lying-Sitting on Side/Bed(QC): 6 Sit to Stand (QC): 5 Chair/Yqo-vv-Fjqdk Xfer(QC): 5 Toilet Transfer (QC): 5 Car Transfer (QC): 4 Does the Patient Walk: Yes Walk 10 feet (QC): 5 Walk 50ft with 2 Turns (QC): 5 Walk 150 ft (QC): 5 Walking 10ft on Uneven Surface: 4 1 Step (curb) (QC): 4 4 Steps (QC): 4 12 Steps (QC): 88 Picking up an Object (QC): 4 Wheel 50 feet with 2 turns (QC: 9 Wheel 150 feet: 9 PT Plan Problem List Problem List: Activity Tolerance, Functional Strength, Safety, Balance, Gait, Transfer, Bed Mobility, ROM Treatment/Plan Treatment Plan: Continue Plan of Care Treatment Plan: Bed Mobility, Education, Functional Activity Misha, Functional Strength, Group Therapy, Gait, Safety, Therapeutic Exercise, Transfers Treatment Duration: Dec 05, 2020 Frequency: At least 5 of 7 days/Wk (IRF) Estimated Hrs Per Day: 1.5 hours per day Patient and/or Family Agrees t: Yes Safety Risks/Education Patient Education: Gait Training, Transfer Techniques, Correct Positioning, Safety Issues Teaching Recipient: Patient Teaching Methods: Demonstration, Discussion Response to Teaching: Reinforcement Needed Time/GCodes Time In: 1330 Time Out: 1400 Total Billed Treatment Time: 30 Total Billed Treatment 1 visit EX 15' GT 15' VIRGEN DAVIS PT November 20, 2020 14:18
--- NOTE | 2020-11-20 14:54 | Progress Note - Cardiology ---
Cardiology SOAP Progress Note Subjective: Gen weakness and malaise are slowly improving No cp or palp or syncope or shortness of breath No n/v/d No swelling Objective: I&O/Vital Signs 11/20/20 11/20/20 11/20/20 06:49 08:00 09:00 Temp 35.4 Pulse 71 Resp 14 B/P (MAP) 107/56 (73) Pulse Ox 99 O2 Delivery Nasal Cannula Nasal Cannula O2 Flow Rate 2.00 2.00 2.00 11/20/20 00:00 Intake Total 400 ml Output Total 900 ml Balance -500 ml Constitutional: AAO x 3, well-developed, well-nourished Respiratory: No accessory muscle use; other (good bilateral air entry) Cardiovascular: regular rate-rhythm, S1 and S2 Gastrointestional: No tender; audible bowel sounds, other (colostomy present to the L of the umbilicus) Extremities: No clubbing, No cyanosis, No significant edema Neurologic/Psychiatric: oriented x 3, other (moves all limbs equally) Skin: No rash on exposed areas, No ulcerations on exposed areas Results/Procedures: Labs Laboratory Tests 11/19/20 15:50: Glucometer 114H 11/19/20 20:28: Glucometer 118H 11/20/20 05:24: Glucometer 100 11/20/20 10:43: Glucometer 120H Microbiology 11/17/20 Blood Culture - Preliminary, Resulted No growth Laboratory Tests 11/19/20 05:30 A/P: Assessment: S/p robot-assisted anterior resection for rectal CA (early October 2020 at [facility]) SSS - s/p pacemaker, managed by his designer writer Dr Kam in - treated chronically with amiodarone (apparently for maintenance of sinus rhyth m) - stroke prophylaxis has only been with ASA (per his designer writer, according to the patient) CAD - h/o a single cor stent in or around 2014 (details unknown to pt) DM II HL HTN H/o cardiomyopathy (details unknown to pt) - his records from [facility] state an EF of 40% Urinary retention - Dr. Ibarra managing Plan: * Monitor labs * Requested records from [facility] - still waiting on records ARSENIO BROOKE MD FACP [facility] November 20, 2020 14:54
[2020-11-20] MEDS: KCL 20 MEQ TAB (K-DUR) PO SCH (16:36)
[2020-11-20 20:00] VITALS: BP 128/59
[2020-11-20] MEDS: LATANOPROST 0.005% (XALATAN) OPHTH SOLN 2.5 ML OU SCH (21:55)
[2020-11-20] MEDS: diphenhydrAMINE 25 MG TAB (BENADRYL) PO PRN (21:56)
[2020-11-20] MEDS: SERTRALINE 50 MG (ZOLOFT) TABLET PO SCH (21:56)
[2020-11-20] MEDS: ACETAMINOPHEN 500 MG TAB (TYLENOL) PO PRN (21:56)
[2020-11-20] MEDS: ASPIRIN E.C. 81 MG (ECOTRIN) TAB PO SCH (22:01)
[2020-11-21] MEDS ORDERED: LIDOCAINE UROJET 2% GEL 10 ML PKG ONE ×2 (04:25→12:43)
[2020-11-21] MEDS ORDERED: LIDOCAINE UROJET 2% GEL 10 ML PKG TOP ONE (04:30)
--- NOTE | 2020-11-21 05:45 | PM&R Progress Note ---
Subjective HPI/CC On Admission Date Seen by Provider: November 21, 2020 Time Seen by Provider: 10:30 Subjective/Events-last exam 11/21/20: Pt very weak and frail, just chronically at baseline Had surgery November 08 but will take a long time for full recovery Worried about his colostomy Stool was finally in the colostomy after a day without it Requiring straight caths at times Urecholine added 11/20/20: Pt doing really well Walking with therapy Maintained on oxygen Eating better overall Not really voiding since catheter was removed and he did require in and out catheter to drain the urine Dr. Ibarra did increase his Flomax to BID Overall seems to be doing okay 11/19/20: Pt doing pretty well Oxygen maintained at 2 liters right now Walking pretty well Will heplock IV fluid and DC the catheter since the catheter was causing pain anyway Appreciate urology 11/18/20: Had an episode last evening he had gotten out of bed with all 4 rails up and was at the sink Zyprexa DC due to lethargy today Confused at night Ate bfast Labs ok again after did septic w/u 11/17/20: Patient doing well Hallucinated last night prompting septic w/u today and all was normal Met his and daughter at bedside today They report he had this issue at and I explained delirium and hospital stays can cause that Zyprexa ordered to try tonight Walked with PT and did well 11/16/20: Pt doing pretty well A little bit woozy today and BP systolic was 100 Will reach out to cardiology for BP medication changes Eating and drinking well Zofran given for nausea 11/15/20: Will hold Flexeril because it makes him drowsy Echocardiogram will be done today Pt doing very well and walking around pretty well Incision looks good Review of Systems General: Fatigue, Malaise Pulmonary: Dyspnea Genitourinary: Retention Neurological: Weakness Focused Exam Lactate Level Objective Exam Vital Signs Vital Signs Date Time Temp Pulse Resp B/P (MAP) Pulse Ox O2 Delivery O2 Flow Rate FiO2 11/21/20 20:15 36.6 74 16 134/64 (87) 97 Nasal Cannula 2.00 Capillary Refill : General Appearance: No Apparent Distress, WD/WN, Chronically ill, Obese HEENT: PERRL/EOMI, Normal ENT Inspection, Pharynx Normal Neck: Full Range of Motion, Normal Inspection, Non Tender, Supple, Carotid Bruit Respiratory: Chest Non Tender, Lungs Clear, Normal Breath Sounds, No Accessory Muscle Use, No Respiratory Distress Cardiovascular: Regular Rate, Rhythm, No Edema, No Gallop, No JVD, No Murmur, Normal Peripheral Pulses Gastrointestinal: Normal Bowel Sounds, No Organomegaly, No Pulsatile Mass, Soft, Tenderness Back: Normal Inspection, No CVA Tenderness, No Vertebral Tenderness Extremity: Normal Capillary Refill, Normal Inspection, Normal Range of Motion, Non Tender, No Calf Tenderness, No Pedal Edema Neurologic/Psychiatric: Alert, Oriented x3, No Motor/Sensory Deficits, emt intermediate II- XII Norm as 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 FIM Transfers Therapy Code Descriptions/Definitions Functional [place] Measure: 0=Not Assessed/NA 4=Minimal Assistance 1=Total Assistance 5=Supervision or Setup 2=Maximal Assistance 6=Modified [place] 3=Moderate Assistance 7=Complete IndependenceSCALE: Activities may be completed with or without assistive devices. 9-Nosbummdnv-kumehbw completes the activity by him/herself with no assistance from a helper. 5-Set-up or Clean-up Assistance-helper sets up or cleans up; patient completes activity. [place] assists only prior to or following the activity. 4-Supervision or Touching Assistance-helper provides verbal cues and/or touching/steadying and/or contact guard assistance as patient completes activity. Assistance may be provided throughout the activity or intermittently. 3-Partial/Moderate Assistance-helper does LESS THAN HALF the effort. [place] lifts, holds or supports trunk or limbs, but provides less than half the effort. 2-Substantial/Maximal Assistance-helper does MORE THAN HALF the effort. [place] lifts or holds trunk or limbs and provides more than half the effort. 5-Vaveuuoab-uldmve does ALL the effort. Patient does none of the effort to complete the activity. Or, the assistance of 2 or more helpers is required for the patient to complete the activity. If activity was not attempted, code reason: 7-Patient Refused. 9-Not Applicable-not attempted and the patient did not perform the activity before the current illness, exacerbation or injury. 10-Not Attempted due to Environmental Limitations-(lack of equipment, weather restraints, etc.). 88-Not Attempted due to Medical Conditions or Safety Concerns. Roll Left to Right (QC): 6 Sit to Lying (QC): 6 Sit to Stand (QC): 4 Chair/Anq-xu-Bygpo Xfer(QC): 4 Car Transfer (QC): 3 Gait Training Does the Patient Walk?: Yes Distance: 120'x2 Walk 10 feet (QC): 4 Walk 50 ft with 2 Turns(QC): 4 Walk 150 ft (QC): 4 Walking 10ft/uneven surface-QC: 3 Gait Persons Needed: 1 Gait Assistive Device: FWW Wheelchair Training Does the Pt Use a Wheelchair?: No Wheel 50 ft with 2 turns (QC): 9 Wheel 150 ft (QC): 9 Type of Wheelchair: N/A Stair Training Stair Training: Handrails/: 2 handrails #of Steps: 4 1 Step (curb) (QC): 4 4 Steps (QC): 4 12 Steps (QC): 88 Stairs: Pattern: Step to Balance Picking up an Object (QC): 88 ADL-Treatment Eating (QC): 6 Oral Hygiene (QC): 6 Shower/Bathe Self (QC): 4 Upper Body Dressing (QC): 5 Lower Body Dressing (QC): 4 On/Off Footwear (QC): 4 Toileting Hygiene (QC): 4 Toilet Transfer (QC): 4 Assessment/Plan Assessment and Plan Assess & Plan/Chief Complaint Assessment: Debility Colon cancer s/p resection 11/08/20 Urinary retention adkins cath in place CHF AF PPM HTN HLP DM Hypothyroidism Delirium with hallucinations 11/16/20 night Plan: IRF protocol Home meds Pain control Urology consult 11/15/20: Dr Ibarra appreciated Sleeps a lot 11/16/20: Cath DC Thursday for trial Sleeps a lot 11/17/20: Hallucinations noted Septic w/u negative 11/18/20: Another septic w/u was negative Patient lethargic and definitely has cognitive issues 11/19/20: Improved status Cognition issue is noted 11/20/20: Urinary retention management Appreciate Dr Ibarra 11/21/20: Monitor closely Fall risk Wean O2 Colostomy changes with (1) Colon cancer (2) Pacemaker (3) CAD (coronary artery disease) (4) A-fib (5) CHF (congestive heart failure) RIO HAWTHORNE DO November 21, 2020 05:45
[2020-11-21] MEDS: LEVOTHYROXINE 75 MCG (LEVOTHROID) TABLET PO SCH (06:26)
--- NOTE | 2020-11-21 06:50 | Progress Note - Urology ---
Progress Note-Urology Progress Notes/Assess & Plan Progress/Assessment & Plan STILL CARRIES PVR. TOLERATES INCREASE FLOMAX. PLAN START URECHOLINE Final Diagnosis URINE RETENTION DAVID VANG MD November 21, 2020 06:50
[2020-11-21 08:00] VITALS: BP 109/53
--- NOTE | 2020-11-21 08:16 | Occupational Ther Daily Note ---
OT Current Status-Daily Note Subjective Pt alert, sitting in recliner. Pt agrees to therapy. No c/o pain. Mental Status/Objective Patient Orientation: Person, Place, Time, Situation Attachments: Colostomy/Ileostomy, Oxygen ADL-Treatment Pt agrees to shower. Pt independent with set up and using regular utensils to eat. Sitting on shower bench, pt able to complete shower with SBA for safety while standing to cleanse buttocks/angeline area. After set up, pt able to complete upper/lower body dressing by self. Independent with oral care sitting at sink. Doffs socks by self, uses sock aide to don socks. Using LH shoehorn to don shoes, doffs shoes by self. After session, pt lying in bed with call light/phone in reach. All needs met in room. Therapy Code Descriptions/Definitions Functional [place] Measure: 0=Not Assessed/NA 4=Minimal Assistance 1=Total Assistance 5=Supervision or Setup 2=Maximal Assistance 6=Modified [place] 3=Moderate Assistance 7=Complete IndependenceSCALE: Activities may be completed with or without assistive devices. 9-Uuwpfsxbja-qpzavdx completes the activity by him/herself with no assistance from a helper. 5-Set-up or Clean-up Assistance-helper sets up or cleans up; patient completes activity. [place] assists only prior to or following the activity. 4-Supervision or Touching Assistance-helper provides verbal cues and/or touching/steadying and/or contact guard assistance as patient completes act ivity. Assistance may be provided throughout the activity or intermittently. 3-Partial/Moderate Assistance-helper does LESS THAN HALF the effort. [place] lifts, holds or supports trunk or limbs, but provides less than half the effort. 2-Substantial/Maximal Assistance-helper does MORE THAN HALF the effort. [place] lifts or holds trunk or limbs and provides more than half the effort. 2-Plrnghyvm-ycwlpd does ALL the effort. Patient does none of the effort to complete the activity. Or, the assistance of 2 or more helpers is required for the patient to complete the activity. If activity was not attempted, code reason: 7-Patient Refused. 9-Not Applicable-not attempted and the patient did not perform the activity before the current illness, exacerbation or injury. 10-Not Attempted due to Environmental Limitations-(lack of equipment, weather restraints, etc.). 88-Not Attempted due to Medical Conditions or Safety Concerns. Eating (QC): 6 Oral Hygiene (QC): 6 Shower/Bathe Self (QC): 4 Upper Body Dressing (QC): 5 Lower Body Dressing (QC): 5 On/Off Footwear: 5 OT Short Term Goals Short Term Goals Time Frame: November 21, 2020 Eatin Oral hygiene: 4 Toileting hygiene: 3 Shower/bathe self: 3 Upper body dressin Lower body dressin Putting on/taking off footwear: 3 OT Garment Alteration Examiner Goals [facility] Goals Time Frame: Nov 28, 2020 Eating (QC): 6 Oral Hygiene (QC): 5 Toileting Hygiene (QC): 6 Shower/Bathe Self (QC): 4 Upper Body Dressing (QC): 5 Lower Body Dressing (QC): 4 On/Off Footwear (QC): 4 Additional Goals: 1-Demonstrate ADL Tasks, 2-Verbalize Understanding, 3- ImproveStrength/Misha 1=Demonstrate adherence to instructed precautions during ADL tasks. 2=Patient will verbalize/demonstrate understanding of assistive devices/mod ifications for ADL. 3=Patient will improve strength/tolerance for activity to enable patient to perform ADL's. OT Education/Plan Problem List/Assessment Assessment: Decreased Activ Tolerance, Impaired Self-Care Skills Discharge Recommendations Plan/Recommendations: Continue POC Treatment Plan/Plan of Care Patient would benefit from OT for education, treatment and training to promote independence in ADL's, mobility, safety and/or upper extremity function for ADL's. Plan of Care: ADL Retraining, Functional Mobility, Group Exercise/Act as Ind, UE Funct Exercise/Act, UE Neuromus Re-Ed/Coord Treatment Duration: Nov 28, 2020 Frequency: At least 5 of 7 days/Wk (IRF) Estimated Hrs Per Day: 1.5 hours per day Agreement: Yes Rehab Potential: Fair Time/GCodes Start Time: 07:30 Stop Time: 08:30 Total Time Billed (hr/min): 60 Billed Treatment Time 1 visit-ADL 4 (60 min) ELKIN ESTRADA November 21, 2020 08:16
[2020-11-21] MEDS: SACUBITRIL/VALSARTAN 24/26 MG (ENTRESTO) TABLET PO SCH ×2 (08:42→17:33)
[2020-11-21] MEDS: SENNA W/DOCUSATE (SENOKOT S) TABLET PO SCH ×2 (08:43→21:23)
[2020-11-21] MEDS: DOCUSATE SODIUM 100 MG (COLACE) CAP PO SCH ×2 (08:43→21:23)
[2020-11-21] MEDS: VITAMIN D3 25 MCG (1,000 UNITS) TABLET PO SCH (08:43)
[2020-11-21] MEDS: BETHANECHOL 25 MG (URECHOLINE) TAB PO SCH ×4 (08:44→21:24)
[2020-11-21] MEDS: polyethylene glycoL POWDER 17 GM (MIRALAX) PACK PO SCH ×2 (08:44→21:20)
[2020-11-21] MEDS: metFORMIN 500 MG (GLUCOPHAGE) TAB PO SCH ×2 (08:44→17:33)
[2020-11-21] MEDS: ASCORBIC ACID (VIT C) 500 MG TABLET PO SCH (08:44)
[2020-11-21] MEDS: TAMSULOSIN 0.4 MG (FLOMAX) CAP PO SCH ×2 (08:44→21:23)
[2020-11-21] MEDS: PANTOPRAZOLE 40 MG (PROTONIX) TAB PO SCH ×2 (08:44→21:23)
--- NOTE | 2020-11-21 09:22 | Progress Note - Cardiology ---
Cardiology SOAP Progress Note Subjective: C/O fatigue C/O chronic SOB, unchanged NO c/o CP or palpitations Objective: I&O/Vital Signs 11/22/20 11/22/20 07:22 08:00 Temp 36.6 Pulse 60 Resp 18 B/P (MAP) 100/52 (68) Pulse Ox 96 O2 Delivery Nasal Cannula Nasal Cannula O2 Flow Rate 2.00 2.00 11/22/20 00:00 Intake Total 720 ml Output Total 850 ml Balance -130 ml Constitutional: AAO x 3, well-developed, well-nourished Respiratory: No accessory muscle use; other (good bilateral air entry) Cardiovascular: regular rate-rhythm, S1 and S2 Gastrointestional: No tender; audible bowel sounds, other (colostomy present to the L of the umbilicus) Extremities: No clubbing, No cyanosis, No significant edema Neurologic/Psychiatric: oriented x 3, other (moves all limbs equally) Skin: No rash on exposed areas, No ulcerations on exposed areas Results/Procedures: Labs Laboratory Tests 11/21/20 10:46: Glucometer 140H 11/21/20 15:29: Glucometer 148H 11/21/20 21:21: Glucometer 113H 11/22/20 06:00: Glucometer 146H Microbiology 11/17/20 Blood Culture - Preliminary, Resulted No growth A/P: Assessment: S/p robot-assisted anterior resection for rectal CA (early October 2020 at [facility]) SSS - s/p pacemaker, managed by his community facilitator Dr Kam in - treated chronically with amiodarone (apparently for maintenance of sinus rhythm) - stroke prophylaxis has only been with ASA (per his community facilitator, according to the patient) CAD - h/o a single cor stent in or around 2014 (details unknown to pt) DM II HL HTN H/o cardiomyopathy (details unknown to pt) - his records from [facility] state an EF of 40% Urinary retention - Dr. Ibarra managing Plan: * Monitor labs * Requested records from [facility] - still waiting on records JOSE GONZALEZ November 21, 2020 09:22
--- NOTE | 2020-11-21 10:10 | Physical Therapy Daily Note ---
PT Daily Note-Current Subjective Pt. in bed, eyes closed, nurse present to bladder scan, Pt. c/o he is so very tired . pt. agrees to Rx with rest breaks at his request Pain Location: No Pain Reported Mental Status Patient Orientation: Normal For Age Attachments: Oxygen Transfers SCALE: Activities may be completed with or without assistive devices. 0-Dpxrawvktu-rsfctnp completes the activity by him/herself with no assistance from a helper. 5-Set-up or Clean-up Assistance-helper sets up or cleans up; patient completes activity. [place] assists only prior to or following the activity. 4-Supervision or Touching Assistance-helper provides verbal cues and/or touching/steadying and/or contact guard assistance as patient completes activity. Assistance may be provided throughout the activity or intermittently. 3-Partial/Moderate Assistance-helper does LESS THAN HALF the effort. [place] lifts, holds or supports trunk or limbs, but provides less than half the effort. 2-Substantial/Maximal Assistance-helper does MORE THAN HALF the effort. [place] lifts or holds trunk or limbs and provides more than half the effort. 7-Wzbbstolw-deinwq does ALL the effort. Patient does none of the effort to complete the activity. Or, the assistance of 2 or more helpers is required for the patient to complete the activity. If activity was not attempted, code reason: 7-Patient Refused. 9-Not Applicable-not attempted and the patient did not perform the activity before the current illness, exacerbation or injury. 10-Not Attempted due to Environmental Limitations-(lack of equipment, weather restraints, etc.). 88-Not Attempted due to Medical Conditions or Safety Concerns. Roll Left & Right (QC): 6 Sit to Lying (QC): 6 Lying to Sitting/Side of Bed(Q: 6 Sit to Stand (QC): 5 Chair/Ysy-au-Iseev Xfer(QC): 5 Gait Training Does the Patient Walk?: Yes Walk 10 feet (QC): 5 Walk 50 ft with 2 Turns(QC): 5 Gait Persons Needed: 1 Gait Assistive Device: FWW pt. c/o increased fatigue today. gait dist decreased. bed to hallway where a w/c was placed 50ft x4 CGA to SBA with educ in managing O2 tubing for turns for safety Exercises Supine Ex: Ankle pumps, Quad Set, Rolling, Glut sets, Heel Slides, Short Arc Quads, Scooting, Straight leg raise, Hip abd/add Supine Reps: 15 Seated Therapy Exercises: Ankle pumps, Sit to stand, Long arc quads, Hip flexion, Hip abd/add Seated Reps: 10 Assessment Current Status: Good Progress Rx limited by fatigue this date. Pt. giving his best PT Short Term Goals Short Term Goals Time Frame: November 21, 2020 Roll Left & Right: 6 Sit to lyin Lying to sitting on side of be: 3 Sit to stand: 4 Chair/ogm-xj-gwapy transfer: 4 Walk 10 feet: 4 Walk 50 feet with two turns: 4 Walk 150 feet: 4 PT Group Home Goals Group Home Goals PT Group Home Goals Time Frame: Dec 05, 2020 Roll Left & Right (QC): 6 Sit to Lying (QC): 6 Lying-Sitting on Side/Bed(QC): 6 Sit to Stand (QC): 5 Chair/Ifi-bh-Wrwrd Xfer(QC): 5 Toilet Transfer (QC): 5 Car Transfer (QC): 4 Does the Patient Walk: Yes Walk 10 feet (QC): 5 Walk 50ft with 2 Turns (QC): 5 Walk 150 ft (QC): 5 Walking 10ft on Uneven Surface: 4 1 Step (curb) (QC): 4 4 Steps (QC): 4 12 Steps (QC): 88 Picking up an Object (QC): 4 Wheel 50 feet with 2 turns (QC: 9 Wheel 150 feet: 9 PT Plan Treatment/Plan Treatment Plan: Continue Plan of Care Treatment Plan: Bed Mobility, Education, Functional Activity Misha, Functional Strength, Group Therapy, Gait, Safety, Therapeutic Exercise, Transfers Treatment Duration: Dec 05, 2020 Frequency: At least 5 of 7 days/Wk (IRF) Estimated Hrs Per Day: 1.5 hours per day Patient and/or Family Agrees t: Yes Safety Risks/Education Patient Education: Gait Training, Transfer Techniques, Correct Positioning, Disease Process, Safety Issues Teaching Recipient: Patient Teaching Methods: Demonstration, Discussion Response to Teaching: Verbalize Understanding, Return Demonstration, Reinforcement Needed Time/GCodes Time In: 930 Time Out: 1015 Total Billed Treatment Time: 45 Total Billed Treatment 1,FA15m,EX15m,GT15m LEANN ART CLIENT SUPPORT ADMINISTRATOR November 21, 2020 10:10
--- NOTE | 2020-11-21 12:21 | Progress Note - Cardiology ---
Cardiology SOAP Progress Note Subjective: Malaise and weakness are improving No cp or palp or syncope Shortness of breath, mild, with exertion No n/v/d Objective: I&O/Vital Signs 11/21/20 11/21/20 08:00 09:00 Temp 36.6 Pulse 64 Resp 16 B/P (MAP) 109/53 (71) Pulse Ox 93 O2 Delivery Nasal Cannula Nasal Cannula O2 Flow Rate 2.00 2.00 11/21/20 00:00 Intake Total 840 ml Output Total 300 ml Balance 540 ml Constitutional: AAO x 3, well-developed, well-nourished Respiratory: No accessory muscle use; other (good bilateral air entry) Cardiovascular: regular rate-rhythm, S1 and S2 Gastrointestional: No tender; audible bowel sounds, other (colostomy present to the L of the umbilicus) Extremities: No clubbing, No cyanosis, No significant edema Neurologic/Psychiatric: oriented x 3, other (moves all limbs equally) Skin: No rash on exposed areas, No ulcerations on exposed areas Results/Procedures: Labs Laboratory Tests 11/20/20 15:44: Glucometer 109 11/20/20 20:12: Glucometer 118H 11/21/20 05:49: Glucometer 106 11/21/20 10:46: Glucometer 140H Microbiology 11/17/20 Blood Culture - Preliminary, Resulted No growth A/P: Assessment: S/p robot-assisted anterior resection for rectal CA (early October 2020 at [facility]) SSS - s/p pacemaker, managed by his circuit board assembler Dr Kam in - treated chronically with amiodarone (apparently for maintenance of sinus rhythm) - stroke prophylaxis has only been with ASA (per his circuit board assembler, according to the patient) CAD - h/o a single cor stent in or around 2014 (details unknown to pt) DM II HL HTN H/o cardiomyopathy (details unknown to pt) - his records from [facility] state an EF of 40% Urinary retention - Dr. Ibarra managing Plan: * Continue current regimen * Monitor labs ARSENIO BROOKE MD FACP [facility] November 21, 2020 12:21
--- NOTE | 2020-11-21 14:31 | Therapy Group Daily Note ---
Therapy Daily Group Note Patient Education Topic Other List Below (memory and strategies) Exercises LE Seated Exercise, UE Exercise Session Ratio (pt:therapist): 3:1 Goal of Session: Memory Strategies, UE/LE Strengthing Goal Met for this Session: Yes Pt Benefit of Group: Improved Cognition, Recognition of Peers, Socialization Other/Notes Pt. participated in group PT OT session this date. Pt. came ambulated to and from with SBA. Pts. introduced themselves sharing hometown and favorite restaurant. Pts. were educated in the importance of memory for safety and function as well as given life examples. Pts participated in memory game challenged remember images and match them as well as facilitating hand eye coord ination as pts threw thomas bags to choose their image etc. Pts also chose 4 words and were challenged to remember them for duration of memory image game. Pts all participated in seated U&L extremity exercises. Pt. to room after group with assist, call [place]away at hand Start Time: 13:00 Stop Time: 13:15 Total Billed Treatment Time: 75 Total Billed Treatment 1,GRP LEANN ART SHOP COOPER November 21, 2020 14:30
[2020-11-21] MEDS: KCL 20 MEQ TAB (K-DUR) PO SCH (17:33)
[2020-11-21 20:15] VITALS: BP 134/64
[2020-11-21] MEDS: SERTRALINE 50 MG (ZOLOFT) TABLET PO SCH (21:23)
[2020-11-21] MEDS: LATANOPROST 0.005% (XALATAN) OPHTH SOLN 2.5 ML OU SCH (21:24)
[2020-11-21] MEDS: ASPIRIN E.C. 81 MG (ECOTRIN) TAB PO SCH (21:26)
--- NOTE | 2020-11-22 06:06 | PM&R Progress Note ---
Subjective HPI/CC On Admission Date Seen by Provider: November 22, 2020 Time Seen by Provider: 11:00 Subjective/Events-last exam 11/22/20: Patient feels improved today Maintained on O2 Urinary retention is still an issue Dr Ibarra and I conferred Monitored closely 11/21/20: Pt very weak and frail, just chronically at baseline Had surgery November 08 but will take a long time for full recovery Worried about his colostomy Stool was finally in the colostomy after a day without it Requiring straight caths at times Urecholine added 11/20/20: Pt doing really well Walking with therapy Maintained on oxygen Eating better overall Not really voiding since catheter was removed and he did require in and out catheter to drain the urine Dr. Ibarra did increase his Flomax to BID Overall seems to be doing okay 11/19/20: Pt doing pretty well Oxygen maintained at 2 liters right now Walking pretty well Will heplock IV fluid and DC the catheter since the catheter was causing pain anyway Appreciate urology 11/18/20: Had an episode last evening he had gotten out of bed with all 4 rails up and was at the sink Zyprexa DC due to lethargy today Confused at night Ate bfast Labs ok again after did septic w/u 11/17/20: Patient doing well Hallucinated last night prompting septic w/u today and all was normal Met his and daughter at bedside today They report he had this issue at and I explained delirium and hospital stays can cause that Zyprexa ordered to try tonight Walked with PT and did well 11/16/20: Pt doing pretty well A little bit woozy today and BP systolic was 100 Will reach out to cardiology for BP medication changes Eating and drinking well Zofran given for nausea 11/15/20: Will hold Flexeril because it makes him drowsy Echocardiogram will be done today Pt doing very well and walking around pretty well Incision looks good Review of Systems General: Fatigue, Malaise Pulmonary: Dyspnea Objective Exam Vital Signs Vital Signs Date Time Temp Pulse Resp B/P (MAP) Pulse Ox O2 Delivery O2 Flow Rate FiO2 11/23/20 02:21 36.8 11/22/20 21:00 97 Nasal Cannula 2.00 11/22/20 20:00 62 16 135/61 (85) Capillary Refill : General Appearance: No Apparent Distress, WD/WN, Chronically ill, Obese HEENT: PERRL/EOMI, Normal ENT Inspection, Pharynx Normal Neck: Full Range of Motion, Normal Inspection, Non Tender, Supple, Carotid Bruit Respiratory: Chest Non Tender, Lungs Clear, Normal Breath Sounds, No Accessory Muscle Use, No Respiratory Distress Cardiovascular: Regular Rate, Rhythm, No Edema, No Gallop, No JVD, No Murmur, Normal Peripheral Pulses Gastrointestinal: Normal Bowel Sounds, No Organomegaly, No Pulsatile Mass, Soft, Tenderness Back: Normal Inspection, No CVA Tenderness, No Vertebral Tenderness Extremity: Normal Capillary Refill, Normal Inspection, Normal Range of Motion, Non Tender, No Calf Tenderness, No Pedal Edema Neurologic/Psychiatric: Alert, Oriented x3, No Motor/Sensory Deficits, pony edger II- XII Norm as 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 FIM Transfers Therapy Code Descriptions/Definitions Functional [place] Measure: 0=Not Assessed/NA 4=Minimal Assistance 1=Total Assistance 5=Supervision or Setup 2=Maximal Assistance 6=Modified [place] 3=Moderate Assistance 7=Complete IndependenceSCALE: Activities may be completed with or without assistive devices. 2-Eokegksagx-orhfcnm completes the activity by him/herself with no assistance from a helper. 5-Set-up or Clean-up Assistance-helper sets up or cleans up; patient completes activity. [place] assists only prior to or following the activity. 4-Supervision or Touching Assistance-helper provides verbal cues and/or touching/steadying and/or contact guard assistance as patient completes activity. Assistance may be provided throughout the activity or intermittently. 3-Partial/Moderate Assistance-helper does LESS THAN HALF the effort. [place] lifts, holds or supports trunk or limbs, but provides less than half the effort. 2-Substantial/Maximal Assistance-helper does MORE THAN HALF the effort. [place] lifts or holds trunk or limbs and provides more than half the effort. 9-Afmmpbrzp-bfehdu does ALL the effort. Patient does none of the effort to complete the activity. Or, the assistance of 2 or more helpers is required for the patient to complete the activity. If activity was not attempted, code reason: 7-Patient Refused. 9-Not Applicable-not attempted and the patient did not perform the activity before the current illness, exacerbation or injury. 10-Not Attempted due to Environmental Limitations-(lack of equipment, weather restraints, etc.). 88-Not Attempted due to Medical Conditions or Safety Concerns. Roll Left to Right (QC): 6 Sit to Lying (QC): 6 Sit to Stand (QC): 5 Chair/Cdp-dz-Jmuvo Xfer(QC): 5 Car Transfer (QC): 3 Gait Training Does the Patient Walk?: Yes Distance: 120'x2 Walk 10 feet (QC): 5 Walk 50 ft with 2 Turns(QC): 5 Walk 150 ft (QC): 4 Walking 10ft/uneven surface-QC: 3 Gait Persons Needed: 1 Gait Assistive Device: FWW Wheelchair Training Does the Pt Use a Wheelchair?: No Wheel 50 ft with 2 turns (QC): 9 Wheel 150 ft (QC): 9 Type of Wheelchair: N/A Stair Training Stair Training: Handrails/: 2 handrails #of Steps: 4 1 Step (curb) (QC): 4 4 Steps (QC): 4 12 Steps (QC): 88 Stairs: Pattern: Step to Balance Picking up an Object (QC): 88 ADL-Treatment Eating (QC): 6 Oral Hygiene (QC): 6 Shower/Bathe Self (QC): 4 Upper Body Dressing (QC): 5 Lower Body Dressing (QC): 5 On/Off Footwear (QC): 5 Toileting Hygiene (QC): 4 Toilet Transfer (QC): 4 Assessment/Plan Assessment and Plan Assess & Plan/Chief Complaint Assessment: Debility Colon cancer s/p resection 11/08/20 Urinary retention adkins cath in place CHF AF PPM HTN HLP DM Hypothyroidism Delirium with hallucinations 11/16/20 night Plan: IRF protocol Home meds Pain control Urology consult 11/15/20: Dr Ibarra appreciated Sleeps a lot 11/16/20: Cath DC Thursday for trial Sleeps a lot 11/17/20: Hallucinations noted Septic w/u negative 11/18/20: Another septic w/u was negative Patient lethargic and definitely has cognitive issues 11/19/20: Improved status Cognition issue is noted 11/20/20: Urinary retention management Appreciate Dr Ibarra 11/21/20: Monitor closely Fall risk Wean O2 Colostomy changes with 11/22/20: Urinary management O2 Monitor closely (1) Colon cancer (2) Pacemaker (3) CAD (coronary artery disease) (4) A-fib (5) CHF (congestive heart failure) RIO HAWTHORNE DO November 22, 2020 06:06
[2020-11-22] MEDS: BETHANECHOL 25 MG (URECHOLINE) TAB PO SCH ×4 (06:09→21:16)
[2020-11-22] MEDS: LEVOTHYROXINE 75 MCG (LEVOTHROID) TABLET PO SCH (06:09)
[2020-11-22 08:00] VITALS: BP 100/52
[2020-11-22] MEDS: ASCORBIC ACID (VIT C) 500 MG TABLET PO SCH (08:29)
[2020-11-22] MEDS: metFORMIN 500 MG (GLUCOPHAGE) TAB PO SCH ×2 (08:29→17:29)
[2020-11-22] MEDS: SACUBITRIL/VALSARTAN 24/26 MG (ENTRESTO) TABLET PO SCH ×2 (08:29→17:29)
[2020-11-22] MEDS: DOCUSATE SODIUM 100 MG (COLACE) CAP PO SCH ×2 (08:29→21:16)
[2020-11-22] MEDS: PANTOPRAZOLE 40 MG (PROTONIX) TAB PO SCH ×2 (08:29→21:15)
[2020-11-22] MEDS: SENNA W/DOCUSATE (SENOKOT S) TABLET PO SCH ×2 (08:29→21:16)
--- NOTE | 2020-11-22 08:29 | Occupational Ther Daily Note ---
OT Current Status-Daily Note Subjective Pt alert, sitting in recliner. Pt agrees to therapy. Pt c/o back pain, 01/05, with ambulation and movement pt states that pain has decreased. Mental Status/Objective Patient Orientation: Person, Place, Time, Situation Attachments: Oxygen (2L) ADL-Treatment Pt able to use bed rails to scoot self up in bed. Pt set up own meal and uses regular utensils to eat. Supine to sitting EOB mod I using bed rails and HOB raised. Mod I for sitting EOB to supine using bed rails. Pt declined shower, grooming, toileting and change of clothing. Pt donned/doffed shoes by self after set up. Pt takes increased time to complete tasks due to decreased activity tolerance, initial dizziness from supine to sitting to standing and back pain. Therapy Code Descriptions/Definitions Functional [place] Measure: 0=Not Assessed/NA 4=Minimal Assistance 1=Total Assistance 5=Supervision or Setup 2=Maximal Assistance 6=Modified [place] 3=Moderate Assistance 7=Complete IndependenceSCALE: Activities may be completed with or without assistive devices. 4-Qzqqutylfx-lhdvkdn completes the activity by him/herself with no assistance from a helper. 5-Set-up or Clean-up Assistance-helper sets up or cleans up; patient completes activity. [place] assists only prior to or following the activity. 4-Supervision or Touching Assistance-helper provides verbal cues and/or touching/steadying and/or contact guard assistance as patient completes activity. Assistance may be provided throughout the activity or intermittently. 3-Partial/Moderate Assistance-helper does LESS THAN HALF the effort. [place] lifts, holds or supports trunk or limbs, but provides less than half the effort. 2-Substantial/Maximal Assistance-helper does MORE THAN HALF the effort. [place] lifts or holds trunk or limbs and provides more than half the effort. 6-Adoarwtdp-wvnjxj does ALL the effort. Patient does none of the effort to complete the activity. Or, the assistance of 2 or more helpers is required for the patient to complete the activity. If activity was not attempted, code reason: 7-Patient Refused. 9-Not Applicable-not attempted and the patient did not perform the activity before the current illness, exacerbation or injury. 10-Not Attempted due to Environmental Limitations-(lack of equipment, weather restraints, etc.). 88-Not Attempted due to Medical Conditions or Safety Concerns. Eating (QC): 6 Oral Hygiene (QC): 7 Shower/Bathe Self (QC): 7 Upper Body Dressing (QC): 7 Lower Body Dressing (QC): 7 On/Off Footwear: 5 Toileting Hygiene (QC): 7 Toilet Transfer (QC): 7 Other Treatment Pt ambulating using FWW around ARU with multiple recovery breaks due to fatigue, dizziness and pain. As pt ambulated around ARU, pain and other symptoms decreased. Pt ambulated back to room using FWW. Pt sat in chair to complete B UE exercises against gravity, 1 set 10 reps of 3 exercises modified due to B shldr pain. After therapy, pt lying in bed with call light/phone in reach. All needs met in room. OT Short Term Goals Short Term Goals Time Frame: November 21, 2020 Eatin Oral hygiene: 4 Toileting hygiene: 3 Shower/bathe self: 3 Upper body dressin Lower body dressin Putting on/taking off footwear: 3 OT Steel Unloader Goals Fpc Goals Time Frame: Nov 28, 2020 Eating (QC): 6 Oral Hygiene (QC): 5 Toileting Hygiene (QC): 6 Shower/Bathe Self (QC): 4 Upper Body Dressing (QC): 5 Lower Body Dressing (QC): 4 On/Off Footwear (QC): 4 Additional Goals: 1-Demonstrate ADL Tasks, 2-Verbalize Understanding, 3- ImproveStrength/Misha 1=Demonstrate adherence to instructed precautions during ADL tasks. 2=Patient will verbalize/demonstrate understanding of assistive devices/modifications for ADL. 3=Patient will improve strength/tolerance for activity to enable patient to perform ADL's. OT Education/Plan Problem List/Assessment Assessment: Decreased Activ Tolerance, Decreased UE Strength, Impaired Funct Balance, Impaired Self-Care Skills, Restricted Funct UE ROM Discharge Recommendations Plan/Recommendations: Continue POC Treatment Plan/Plan of Care Patient would benefit from OT for education, treatment and training to promote independence in ADL's, mobility, safety and/or upper extremity function for ADL's. Plan of Care: ADL Retraining, Functional Mobility, Group Exercise/Act as Ind, UE Funct Exercise/Act, UE Neuromus Re-Ed/Coord Treatment Duration: Nov 28, 2020 Frequency: At least 5 of 7 days/Wk (IRF) Estimated Hrs Per Day: 1.5 hours per day Agreement: Yes Rehab Potential: Fair Time/GCodes Start Time: 07:00 Stop Time: 08:30 Total Time Billed (hr/min): 90 Billed Treatment Time 1 visit-ADL 3(45 min) FA 2 (25 min) EX 1(20 min) ELKIN ESTRADA November 22, 2020 08:29
[2020-11-22] MEDS: TAMSULOSIN 0.4 MG (FLOMAX) CAP PO SCH ×2 (08:31→21:15)
[2020-11-22] MEDS: VITAMIN D3 25 MCG (1,000 UNITS) TABLET PO SCH (08:34)
[2020-11-22] MEDS: polyethylene glycoL POWDER 17 GM (MIRALAX) PACK PO SCH ×2 (08:34→19:55)
--- NOTE | 2020-11-22 10:22 | Progress Note - Cardiology ---
Cardiology SOAP Progress Note Subjective: No cp or palp or syncope Shortness of breath better Gen malaise No n/v/d Objective: I&O/Vital Signs 11/22/20 11/22/20 11/22/20 07:22 08:00 09:02 Temp 36.6 Pulse 60 Resp 18 B/P (MAP) 100/52 (68) Pulse Ox 96 O2 Delivery Nasal Cannula Nasal Cannula Nasal Cannula O2 Flow Rate 2.00 2.00 2.00 11/22/20 00:00 Intake Total 720 ml Output Total 850 ml Balance -130 ml Constitutional: AAO x 3, well-developed, well-nourished Respiratory: No accessory muscle use; other (good bilateral air entry) Cardiovascular: regular rate-rhythm, S1 and S2 Gastrointestional: No tender; audible bowel sounds, other (colostomy present to the L of the umbilicus) Extremities: No clubbing, No cyanosis, No significant edema Neurologic/Psychiatric: oriented x 3, other (moves all limbs equally) Skin: No rash on exposed areas, No ulcerations on exposed areas Results/Procedures: Labs Laboratory Tests 11/21/20 10:46: Glucometer 140H 11/21/20 15:29: Glucometer 148H 11/21/20 21:21: Glucometer 113H 11/22/20 06:00: Glucometer 146H Microbiology 11/17/20 Blood Culture - Preliminary, Resulted No growth A/P: Assessment: S/p robot-assisted anterior resection for rectal CA (early October 2020 at [facility]) SSS - s/p pacemaker, managed by his grocery packer Dr Kam in - treated chronically with amiodarone (apparently for maintenance of sinus rhythm) - stroke prophylaxis has only been with ASA (per his grocery packer, according to the patient) CAD - h/o a single cor stent in or around 2014 (details unknown to pt) DM II HL HTN H/o cardiomyopathy (details unknown to pt) - his records from [facility] state an EF of 40% Urinary retention - Dr. Ibarra managing Plan: * Continue current regimen * Monitor labs ARSENIO BROOKE MD FACP [facility] November 22, 2020 10:22
--- NOTE | 2020-11-22 11:27 | Physical Therapy Daily Note ---
PT Daily Note-Current Subjective Pain in LB rated 7/10 upon arrival. Pain rated 5/10 in LB post therapy session. Pt declined request for pain med both before and after treatment. Pt agreeable and without complaint. Pt reports he is at 50% of his normal strength. Mental Status Patient Orientation: Person, Place, Situation Attachments: Colostomy/Ileostomy, Oxygen O2 at 2L/min port O2. O2 sats 98%. Transfers SCALE: Activities may be completed with or without assistive devices. 3-Wcvtlsfqkd-quvckzr completes the activity by him/herself with no assistance from a helper. 5-Set-up or Clean-up Assistance-helper sets up or cleans up; patient completes activity. [place] assists only prior to or following the activity. 4-Supervision or Touching Assistance-helper provides verbal cues and/or touching/steadying and/or contact guard assistance as patient completes activity. Assistance may be provided throughout the activity or intermittently. 3-Partial/Moderate Assistance-helper does LESS THAN HALF the effort. [place] lifts, holds or supports trunk or limbs, but provides less than half the effort. 2-Substantial/Maximal Assistance-helper does MORE THAN HALF the effort. [place] lifts or holds trunk or limbs and provides more than half the effort. 7-Igseerbqe-uuknkl does ALL the effort. Patient does none of the effort to complete the activity. Or, the assistance of 2 or more helpers is required for the patient to complete the activity. If activity was not attempted, code reason: 7-Patient Refused. 9-Not Applicable-not attempted and the patient did not perform the activity before the current illness, exacerbation or injury. 10-Not Attempted due to Environmental Limitations-(lack of equipment, weather restraints, etc.). 88-Not Attempted due to Medical Conditions or Safety Concerns. Mod (I) transfers all levels Gait Training Gait Assistive Device: FWW Pt amb with FWW at steady speed and O2 2L/min x 450ft Exercises Seated Therapy Exercises: Ankle pumps, Long arc quads, Hip flexion, Hip abd/add, Glut set Seated Reps: 20 NuStep Minutes: 10 NuStep Workload: 3 Assessment Current Status: Good Progress Pt debra well. Pt resting in recliner with call light and all needs met post therapy. O2 insitu, legs elevated. PT Short Term Goals Short Term Goals Time Frame: November 21, 2020 Roll Left & Right: 6 Sit to lyin Lying to sitting on side of be: 3 Sit to stand: 4 Chair/oqr-ki-cgaci transfer: 4 Walk 10 feet: 4 Walk 50 feet with two turns: 4 Walk 150 feet: 4 PT Caster Helper Goals Caster Helper Goals PT Caster Helper Goals Time Frame: Dec 05, 2020 Roll Left & Right (QC): 6 Sit to Lying (QC): 6 Lying-Sitting on Side/Bed(QC): 6 Sit to Stand (QC): 5 Chair/Ydo-yr-Diucp Xfer(QC): 5 Toilet Transfer (QC): 5 Car Transfer (QC): 4 Does the Patient Walk: Yes Walk 10 feet (QC): 5 Walk 50ft with 2 Turns (QC): 5 Walk 150 ft (QC): 5 Walking 10ft on Uneven Surface: 4 1 Step (curb) (QC): 4 4 Steps (QC): 4 12 Steps (QC): 88 Picking up an Object (QC): 4 Wheel 50 feet with 2 turns (QC: 9 Wheel 150 feet: 9 PT Plan Treatment/Plan Treatment Plan: Continue Plan of Care Treatment Plan: Bed Mobility, Education, Functional Activity Misha, Functional Strength, Group Therapy, Gait, Safety, Therapeutic Exercise, Transfers Treatment Duration: Dec 05, 2020 Frequency: At least 5 of 7 days/Wk (IRF) Estimated Hrs Per Day: 1.5 hours per day Patient and/or Family Agrees t: Yes Time/GCodes Time In: 1000 Time Out: 1100 Total Billed Treatment Time: 60 Total Billed Treatment 1, ther ex 30', gait 30' TRISTON GIRON CPTA November 22, 2020 11:27
--- NOTE | 2020-11-22 14:26 | Physical Therapy Daily Note ---
PT Daily Note-Current Subjective Pt agreeable. Pt denies pain. Pt says "I feel stronger". Mental Status Patient Orientation: Person, Place, Situation Transfers SCALE: Activities may be completed with or without assistive devices. 9-Lzlcrtmlsu-mgstkkq completes the activity by him/herself with no assistance from a helper. 5-Set-up or Clean-up Assistance-helper sets up or cleans up; patient completes activity. [place] assists only prior to or following the activity. 4-Supervision or Touching Assistance-helper provides verbal cues and/or touching/steadying and/or contact guard assistance as patient completes activity. Assistance may be provided throughout the activity or intermittently. 3-Partial/Moderate Assistance-helper does LESS THAN HALF the effort. [place] lifts, holds or supports trunk or limbs, but provides less than half the effort. 2-Substantial/Maximal Assistance-helper does MORE THAN HALF the effort. [place] lifts or holds trunk or limbs and provides more than half the effort. 5-Kznvmlbdx-puelrs does ALL the effort. Patient does none of the effort to complete the activity. Or, the assistance of 2 or more helpers is required for the patient to complete the activity. If activity was not attempted, code reason: 7-Patient Refused. 9-Not Applicable-not attempted and the patient did not perform the activity before the current illness, exacerbation or injury. 10-Not Attempted due to Environmental Limitations-(lack of equipment, weather restraints, etc.). 88-Not Attempted due to Medical Conditions or Safety Concerns. Pt transfers mod (I) all levels. Gait Training Gait Assistive Device: FWW Pt amb with FWW 1 x 450ft, 1 x 100ft with O2 at 2L/min and CGA Exercises NuStep Minutes: 12 NuStep Workload: 3 Assessment Current Status: Good Progress Pt responding favorably to PT by improved strength, endurance and functional mobility. Pt resting in bed with call light and all needs met post therapy. Daughter present. PT Short Term Goals Short Term Goals Time Frame: November 21, 2020 Roll Left & Right: 6 Sit to lyin Lying to sitting on side of be: 3 Sit to stand: 4 Chair/hac-dv-cwaja transfer: 4 Walk 10 feet: 4 Walk 50 feet with two turns: 4 Walk 150 feet: 4 PT Half-Way Goals Half-Way Goals PT Law Librarian Goals Time Frame: Dec 05, 2020 Roll Left & Right (QC): 6 Sit to Lying (QC): 6 Lying-Sitting on Side/Bed(QC): 6 Sit to Stand (QC): 5 Chair/Ozc-qd-Xjavu Xfer(QC): 5 Toilet Transfer (QC): 5 Car Transfer (QC): 4 Does the Patient Walk: Yes Walk 10 feet (QC): 5 Walk 50ft with 2 Turns (QC): 5 Walk 150 ft (QC): 5 Walking 10ft on Uneven Surface: 4 1 Step (curb) (QC): 4 4 Steps (QC): 4 12 Steps (QC): 88 Picking up an Object (QC): 4 Wheel 50 feet with 2 turns (QC: 9 Wheel 150 feet: 9 PT Plan Treatment/Plan Treatment Plan: Continue Plan of Care Treatment Plan: Bed Mobility, Education, Functional Activity Misha, Functional Strength, Group Therapy, Gait, Safety, Therapeutic Exercise, Transfers Treatment Duration: Dec 05, 2020 Frequency: At least 5 of 7 days/Wk (IRF) Estimated Hrs Per Day: 1.5 hours per day Patient and/or Family Agrees t: Yes Time/GCodes Time In: 1400 Time Out: 1430 Total Billed Treatment Time: 30 Total Billed Treatment 1, ther ex 12', Gait 18' TRISTON GIRON CPTA November 22, 2020 14:26
[2020-11-22] MEDS: KCL 20 MEQ TAB (K-DUR) PO SCH (17:29)
[2020-11-22 20:00] VITALS: BP 135/61
[2020-11-22] MEDS: LATANOPROST 0.005% (XALATAN) OPHTH SOLN 2.5 ML OU SCH (21:16)
[2020-11-22] MEDS: SERTRALINE 50 MG (ZOLOFT) TABLET PO SCH (21:16)
[2020-11-22] MEDS: ASPIRIN E.C. 81 MG (ECOTRIN) TAB PO SCH (21:16)
[2020-11-22] MEDS: MELATONIN 3 MG TABLET PO PRN (21:16)
[2020-11-23] MEDS: LEVOTHYROXINE 75 MCG (LEVOTHROID) TABLET PO SCH (06:14)
[2020-11-23] MEDS: BETHANECHOL 25 MG (URECHOLINE) TAB PO SCH ×4 (06:14→20:11)
--- NOTE | 2020-11-23 06:39 | PM&R Progress Note ---
Subjective HPI/CC On Admission Date Seen by Provider: November 23, 2020 Time Seen by Provider: 10:00 Subjective/Events-last exam 11/23/20: Pt doing very well Was very active today and now a little bit orthostatic and he does have weakness Increasing Urecholine to 50mg per Dr. Ibarra Really cant urinate, requiring straight caths Doing pretty well other than the weakness 11/22/20: Patient feels improved today Maintained on O2 Urinary retention is still an issue Dr Ibarra and I conferred Monitored closely 11/21/20: Pt very weak and frail, just chronically at baseline Had surgery November 08 but will take a long time for full recovery Worried about his colostomy Stool was finally in the colostomy after a day without it Requiring straight caths at times Urecholine added 11/20/20: Pt doing really well Walking with therapy Maintained on oxygen Eating better overall Not really voiding since catheter was removed and he did require in and out catheter to drain the urine Dr. Ibarra did increase his Flomax to BID Overall seems to be doing okay 11/19/20: Pt doing pretty well Oxygen maintained at 2 liters right now Walking pretty well Will heplock IV fluid and DC the catheter since the catheter was causing pain anyway Appreciate urology 11/18/20: Had an episode last evening he had gotten out of bed with all 4 rails up and was at the sink Zyprexa DC due to lethargy today Confused at night Ate bfast Labs ok again after did septic w/u 11/17/20: Patient doing well Hallucinated last night prompting septic w/u today and all was normal Met his and daughter at bedside today They report he had this issue at and I explained delirium and hospital stays can cause that Zyprexa ordered to try tonight Walked with PT and did well 11/16/20: Pt doing pretty well A little bit woozy today and BP systolic was 100 Will reach out to cardiology for BP medication changes Eating and drinking well Zofran given for nausea 11/15/20: Will hold Flexeril because it makes him drowsy Echocardiogram will be done today Pt doing very well and walking around pretty well Incision looks good Review of Systems General: Fatigue, Malaise Genitourinary: Dysuria Objective Exam Vital Signs Vital Signs Date Time Temp Pulse Resp B/P (MAP) Pulse Ox O2 Delivery O2 Flow Rate FiO2 11/23/20 21:00 97 Nasal Cannula 2.00 11/23/20 20:40 36.6 11/23/20 19:28 66 18 134/65 (88) Capillary Refill : General Appearance: No Apparent Distress, WD/WN, Chronically ill, Obese HEENT: PERRL/EOMI, Normal ENT Inspection, Pharynx Normal Neck: Full Range of Motion, Normal Inspection, Non Tender, Supple, Carotid Bruit Respiratory: Chest Non Tender, Lungs Clear, Normal Breath Sounds, No Accessory Muscle Use, No Respiratory Distress Cardiovascular: Regular Rate, Rhythm, No Edema, No Gallop, No JVD, No Murmur, Normal Peripheral Pulses Gastrointestinal: Normal Bowel Sounds, No Organomegaly, No Pulsatile Mass, Soft, Tenderness Back: Normal Inspection, No CVA Tenderness, No Vertebral Tenderness Extremity: Normal Capillary Refill, Normal Inspection, Normal Range of Motion, Non Tender, No Calf Tenderness, No Pedal Edema Neurologic/Psychiatric: Alert, Oriented x3, No Motor/Sensory Deficits, 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 FIM Transfers Therapy Code Descriptions/Definitions Functional [place] Measure: 0=Not Assessed/NA 4=Minimal Assistance 1=Total Assistance 5=Supervision or Setup 2=Maximal Assistance 6=Modified [place] 3=Moderate Assistance 7=Complete IndependenceSCALE: Activities may be completed with or without assistive devices. 1-Uctahosowb-ngczlkw completes the activity by him/herself with no assistance from a helper. 5-Set-up or Clean-up Assistance-helper sets up or cleans up; patient completes activity. [place] assists only prior to or following the activity. 4-Supervision or Touching Assistance-helper provides verbal cues and/or touching/steadying and/or contact guard assistance as patient completes activity. Assistance may be provided throughout the activity or intermittently. 3-Partial/Moderate Assistance-helper does LESS THAN HALF the effort. [place] lifts, holds or supports trunk or limbs, but provides less than half the effort. 2-Substantial/Maximal Assistance-helper does MORE THAN HALF the effort. [place] lifts or holds trunk or limbs and provides more than half the effort. 4-Fkgcmoxmd-bcazia does ALL the effort. Patient does none of the effort to complete the activity. Or, the assistance of 2 or more helpers is required for the patient to complete the activity. If activity was not attempted, code reason: 7-Patient Refused. 9-Not Applicable-not attempted and the patient did not perform the activity before the current illness, exacerbation or injury. 10-Not Attempted due to Environmental Limitations-(lack of equipment, weather restraints, etc.). 88-Not Attempted due to Medical Conditions or Safety Concerns. Roll Left to Right (QC): 6 Sit to Lying (QC): 6 Sit to Stand (QC): 5 Chair/Fep-kd-Cdewr Xfer(QC): 5 Car Transfer (QC): 3 Gait Training Does the Patient Walk?: Yes Distance: 120'x2 Walk 10 feet (QC): 5 Walk 50 ft with 2 Turns(QC): 5 Walk 150 ft (QC): 4 Walking 10ft/uneven surface-QC: 3 Gait Persons Needed: 1 Gait Assistive Device: FWW Wheelchair Training Does the Pt Use a Wheelchair?: No Wheel 50 ft with 2 turns (QC): 9 Wheel 150 ft (QC): 9 Type of Wheelchair: N/A Stair Training Stair Training: Handrails/: 2 handrails #of Steps: 4 1 Step (curb) (QC): 4 4 Steps (QC): 4 12 Steps (QC): 88 Stairs: Pattern: Step to Balance Picking up an Object (QC): 88 ADL-Treatment Eating (QC): 6 Oral Hygiene (QC): 7 Shower/Bathe Self (QC): 7 Upper Body Dressing (QC): 7 Lower Body Dressing (QC): 7 On/Off Footwear (QC): 5 Toileting Hygiene (QC): 7 Toilet Transfer (QC): 7 Assessment/Plan Assessment and Plan Assess & Plan/Chief Complaint Assessment: Debility Colon cancer s/p resection 11/08/20 Urinary retention adkins cath in place CHF AF PPM HTN HLP DM Hypothyroidism Delirium with hallucinations 11/16/20 night Plan: IRF protocol Home meds Pain control Urology consult 11/15/20: Dr Ibarra appreciated Sleeps a lot 11/16/20: Cath DC Thursday for trial Sleeps a lot 11/17/20: Hallucinations noted Septic w/u negative 11/18/20: Another septic w/u was negative Patient lethargic and definitely has cognitive issues 11/19/20: Improved status Cognition issue is noted 11/20/20: Urinary retention management Appreciate Dr Ibarra 11/21/20: Monitor closely Fall risk Wean O2 Colostomy changes with 11/22/20: Urinary management O2 Monitor closely 11/23/20: Monitor urination May need Adkins Urojet ordered by Dr Ibarra for burning (1) Colon cancer (2) Pacemaker (3) CAD (coronary artery disease) (4) A-fib (5) CHF (congestive heart failure) RIO HAWTHORNE DO November 23, 2020 06:39
[2020-11-23] MEDS: metFORMIN 500 MG (GLUCOPHAGE) TAB PO SCH ×2 (07:45→16:56)
[2020-11-23] MEDS: DOCUSATE SODIUM 100 MG (COLACE) CAP PO SCH ×2 (07:45→20:10)
[2020-11-23] MEDS: VITAMIN D3 25 MCG (1,000 UNITS) TABLET PO SCH (07:45)
[2020-11-23] MEDS: PANTOPRAZOLE 40 MG (PROTONIX) TAB PO SCH ×2 (07:45→20:10)
[2020-11-23] MEDS: SENNA W/DOCUSATE (SENOKOT S) TABLET PO SCH ×2 (07:45→20:10)
[2020-11-23] MEDS: ASCORBIC ACID (VIT C) 500 MG TABLET PO SCH (07:45)
[2020-11-23] MEDS: SACUBITRIL/VALSARTAN 24/26 MG (ENTRESTO) TABLET PO SCH ×2 (07:45→16:56)
[2020-11-23] MEDS: polyethylene glycoL POWDER 17 GM (MIRALAX) PACK PO SCH ×2 (07:46→19:27)
[2020-11-23] MEDS: TAMSULOSIN 0.4 MG (FLOMAX) CAP PO SCH ×2 (07:46→20:10)
[2020-11-23 08:24] VITALS: BP 104/63
--- NOTE | 2020-11-23 08:27 | Progress Note - Cardiology ---
Cardiology SOAP Progress Note Subjective: Continues to c/o fatigue Chronic SOB which is unchanged Objective: I&O/Vital Signs 11/23/20 11/23/20 11/23/20 02:21 08:24 09:05 Temp 36.8 36.6 Pulse 60 Resp 18 B/P (MAP) 104/63 (77) Pulse Ox 97 O2 Delivery Nasal Cannula Nasal Cannula O2 Flow Rate 2.00 2.00 11/23/20 00:00 Intake Total 1230 ml Output Total 400 ml Balance 830 ml Constitutional: AAO x 3, well-developed, well-nourished Respiratory: No accessory muscle use; other (good bilateral air entry) Cardiovascular: regular rate-rhythm, S1 and S2 Gastrointestional: No tender; audible bowel sounds, other (colostomy present to the L of the umbilicus) Extremities: No clubbing, No cyanosis, No significant edema Neurologic/Psychiatric: oriented x 3, other (moves all limbs equally) Skin: No rash on exposed areas, No ulcerations on exposed areas Results/Procedures: Labs Laboratory Tests 11/22/20 15:16: Glucometer 109 11/22/20 20:33: Glucometer 124H 11/23/20 05:39: Glucometer 105 11/23/20 11:28: Glucometer 111H Microbiology 11/17/20 Blood Culture - Final, Complete No growth A/P: Assessment: S/p robot-assisted anterior resection for rectal CA (early October 2020 at [facility]) SSS - s/p pacemaker, managed by his benefits officer Dr Kam in - treated chronically with amiodarone (apparently for maintenance of sinus rhythm) - stroke prophylaxis has only been with ASA (per his benefits officer, according to the patient) CAD - h/o a single cor stent in or around 2014 (details unknown to pt) DM II HLD HTN H/o cardiomyopathy (details unknown to pt) - his records from [facility] state an EF of 40% Urinary retention - Dr. Ibarra managing Plan: * Continue current regimen * Monitor labs JOSE GONZALEZ November 23, 2020 08:27
--- NOTE | 2020-11-23 09:00 | Occupational Ther Daily Note ---
OT Current Status-Daily Note Subjective [id number]: Pt AxO, agrees to tx. States fatigue as he was up on/off through night attempting to urinate. Pt denies pain. [id number]: Pt in bed upon entry, agrees to tx. Does not rate pain. Mental Status/Objective Patient Orientation: Person, Place, Situation ADL-Treatment Therapy Code Descriptions/Definitions Functional [place] Measure: 0=Not Assessed/NA 4=Minimal Assistance 1=Total Assistance 5=Supervision or Setup 2=Maximal Assistance 6=Modified [place] 3=Moderate Assistance 7=Complete IndependenceSCALE: Activities may be completed with or without assistive devices. 1-Edsnhuhlmx-ccbusfq completes the activity by him/herself with no assistance from a helper. 5-Set-up or Clean-up Assistance-helper sets up or cleans up; patient completes activity. [place] assists only prior to or following the activity. 4-Supervision or Touching Assistance-helper provides verbal cues and/or touching/steadying and/or contact guard assistance as patient completes activity. Assistance may be provided throughout the activity or intermittently. 3-Partial/Moderate Assistance-helper does LESS THAN HALF the effort. [place] lifts, holds or supports trunk or limbs, but provides less than half the effort. 2-Substantial/Maximal Assistance-helper does MORE THAN HALF the effort. [place] lifts or holds trunk or limbs and provides more than half the effort. 4-Jnfpjtkpn-glvaip does ALL the effort. Patient does none of the effort to comp lete the activity. Or, the assistance of 2 or more helpers is required for the patient to complete the activity. If activity was not attempted, code reason: 7-Patient Refused. 9-Not Applicable-not attempted and the patient did not perform the activity before the current illness, exacerbation or injury. 10-Not Attempted due to Environmental Limitations-(lack of equipment, weather restraints, etc.). 88-Not Attempted due to Medical Conditions or Safety Concerns. Eating (QC): 6 Bathing Location: L Arm, R Arm, L Upper Leg, R Upper Leg, L Lower Leg (including foot), R Lower Leg (including foot), Chest, Abdomen, Buttocks, Perineal Area Shower/Bathe Self (QC): 5 (s/u covering colostomy) Upper Body Dressing (QC): 4 (s/u and cues for 02 placement.) Lower Body Dressing (QC): 4 (SBA in sit/ stance) On/Off Footwear: 6 (completes IND without AD, increased time and rest breaks.) Toileting Hygiene (QC): 1 (Ot completes colostomy emptying. ) Toilet Transfer (QC): 4 (CGA with use of walker.) Other Treatment Sit to stands with SBA, pt expresses slight dizziness, ambulates when less dizzy. Pt completes showering/ dressing in shower as outlined, increased time due to decreased strength/ endurance. Cues for rest breaks. Educated on continued use of sock aide due to decreased endurance post showering/ energy conservation. Pt denies. Pt ambulates to chair upon end of session, in chair with all needs met, call light in reach, chair alarm on, denies needs. 2nd tx: Bed mob iwth increased time. Sit to stand SBA and ambulates to toilet. Toileting with SUP, completes oral care and hand hygiene with SUP. Returns to recliner.. Pt completes 2 sets of 10 of the following ex: shoulder flexion, shoulder abduction, and bicep curls. Pt denies needs, call light in reach, chair alarm on. Education OT Patient Education: Correct positioning, Energy conservation, Exercise program, Home exercise program, Modified ADL techniques, Progress toward Go al/Update tx plan, Purpose of tx/functional activities, Safety issues, Transfer techniques Teaching Recipient: Patient Teaching Methods: Demonstration, Discussion Response to Teaching: Verbalize Understanding, Return Demonstration OT Short Term Goals Short Term Goals Time Frame: November 21, 2020 Eatin Oral hygiene: 4 Toileting hygiene: 3 Shower/bathe self: 3 Upper body dressin Lower body dressin Putting on/taking off footwear: 3 OT Shelter Goals Record Librarian Goals Time Frame: Nov 28, 2020 Eating (QC): 6 Oral Hygiene (QC): 5 Toileting Hygiene (QC): 6 Shower/Bathe Self (QC): 4 Upper Body Dressing (QC): 5 Lower Body Dressing (QC): 4 On/Off Footwear (QC): 4 Additional Goals: 1-Demonstrate ADL Tasks, 2-Verbalize Understanding, 3- ImproveStrength/Misha 1=Demonstrate adherence to instructed precautions during ADL tasks. 2=Patient will verbalize/demonstrate understanding of assistive devices/modifications for ADL. 3=Patient will improve strength/tolerance for activity to enable patient to perform ADL's. OT Education/Plan Problem List/Assessment Assessment: Decreased Activ Tolerance, Decreased UE Strength, Dependent Transfers, Impaired Funct Balance, Impaired I ADL's, Impaired Self-Care Skills Discharge Recommendations Plan/Recommendations: Continue POC Therapy Discharge Recommendati: Home & Family, Post Acute OT Treatment Plan/Plan of Care Treatment,Training & Education: Yes Patient would benefit from OT for education, treatment and training to promote independence in ADL's, mobility, safety and/or upper extremity function for AD L's. Plan of Care: ADL Retraining, Functional Mobility, Group Exercise/Act as Ind, UE Funct Exercise/Act, UE Neuromus Re-Ed/Coord Treatment Duration: Nov 28, 2020 Frequency: At least 5 of 7 days/Wk (IRF) Estimated Hrs Per Day: 1.5 hours per day Agreement: Yes Rehab Potential: Fair Time/GCodes Start Time: 08:00 (1300) Stop Time: 09:00 (1330) Total Time Billed (hr/min): 90 Billed Treatment Time 1, ADL 4 (60) 1, ADL, EX (30) LIONEL PORTILLO OTR November 23, 2020 09:00
--- NOTE | 2020-11-23 10:52 | Physical Therapy Daily Note ---
PT Daily Note-Current Subjective Pt. 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 Pt. after on his feet for gait trials quickly changed in affect during gait and was barely able to share that he did not feel right and needed to sit quickly. See below Pain Location: No Pain Reported Mental Status Patient Orientation: Normal For Age Attachments: Oxygen (2L) Transfers SCALE: Activities may be completed with or without assistive devices. 3-Owzyltpriu-ncvednh completes the activity by him/herself with no assistance from a helper. 5-Set-up or Clean-up Assistance-helper sets up or cleans up; patient completes activity. [place] assists only prior to or following the activity. 4-Supervision or Touching Assistance-helper provides verbal cues and/or touching/steadying and/or contact guard assistance as patient completes activity. Assistance may be provided throughout the activity or intermittently. 3-Partial/Moderate Assistance-helper does LESS THAN HALF the effort. [place] lifts, holds or supports trunk or limbs, but provides less than half the effort. 2-Substantial/Maximal Assistance-helper does MORE THAN HALF the effort. [place] lifts or holds trunk or limbs and provides more than half the effort. 8-Xpkitvcnj-yjmppy does ALL the effort. Patient does none of the effort to complete the activity. Or, the assistance of 2 or more helpers is required for the patient to complete the activity. If activity was not attempted, code reason: 7-Patient Refused. 9-Not Applicable-not attempted and the patient did not perform the activity before the current illness, exacerbation or injury. 10-Not Attempted due to Environmental Limitations-(lack of equipment, weather restraints, etc.). 88-Not Attempted due to Medical Conditions or Safety Concerns. Sit to Stand (QC): 5 Chair/Bel-lz-Hqbgn Xfer(QC): 5 Gait Training Does the Patient Walk?: Yes Walk 10 feet (QC): 5 Walk 50 ft with 2 Turns(QC): 5 Gait Persons Needed: 1 Gait Assistive Device: FWW pt. may need O2 in home after DC . Gait with extended O2 tubing was trialed with instruction in safety and turns etc. At approx. 40 ft into walking 3 trials pt. c/o dizziness . Pt. was then sat in chair and rested. BPs were then checked in sit and stance, see under assessment below Exercises Seated Therapy Exercises: Ankle pumps, Sit to stand, Long arc quads, Hip flexion, Hip abd/add Seated Reps: 20 Standing: Heel/toe raises Standing Reps: 10 Treatments During gait trials pt. c/o dizziness at approx 40 ft , pt. was assisted last 5- 10 ft and sat to rest with vitals taken Assessment Current Status: Fair Progress sitting : 117/71, HR 60 BPM, O2 sats on 2L per NC 98% standing : 1st trial BP: 61/34, HR 64, O2 sat 98% 2nd trial: BP 84/47 HR 65 BPM, O2 sats 99% all findings reported to nursing, pt. left up in chair with call callaway at side Dr Askew visit during Rx with this info forwarded , communicated with nurse regarding cardiology consult etc PT Short Term Goals Short Term Goals Time Frame: November 21, 2020 Roll Left & Right: 6 Sit to lyin Lying to sitting on side of be: 3 Sit to stand: 4 Chair/epf-ve-mgthz transfer: 4 Walk 10 feet: 4 Walk 50 feet with two turns: 4 Walk 150 feet: 4 PT Magnet Maker Goals Magnet Maker Goals PT Alf Goals Time Frame: Dec 05, 2020 Roll Left & Right (QC): 6 Sit to Lying (QC): 6 Lying-Sitting on Side/Bed(QC): 6 Sit to Stand (QC): 5 Chair/Kpc-vn-Jkkcu Xfer(QC): 5 Toilet Transfer (QC): 5 Car Transfer (QC): 4 Does the Patient Walk: Yes Walk 10 feet (QC): 5 Walk 50ft with 2 Turns (QC): 5 Walk 150 ft (QC): 5 Walking 10ft on Uneven Surface: 4 1 Step (curb) (QC): 4 4 Steps (QC): 4 12 Steps (QC): 88 Picking up an Object (QC): 4 Wheel 50 feet with 2 turns (QC: 9 Wheel 150 feet: 9 PT Plan Treatment/Plan Treatment Plan: Continue Plan of Care Treatment Plan: Bed Mobility, Education, Functional Activity Misha, Functional Strength, Group Therapy, Gait, Safety, Therapeutic Exercise, Transfers Treatment Duration: Dec 05, 2020 Frequency: At least 5 of 7 days/Wk (IRF) Estimated Hrs Per Day: 1.5 hours per day Patient and/or Family Agrees t: Yes Safety Risks/Education Patient Education: Gait Training, Transfer Techniques, Correct Positioning, Disease Process, Safety Issues Teaching Recipient: Patient Teaching Methods: Demonstration, Discussion Response to Teaching: Verbalize Understanding, Return Demonstration, Reinforcement Needed Time/GCodes Time In: 930 Time Out: 1100 Total Billed Treatment Time: 90 Total Billed Treatment 1,EX25m,FA50m,GT15m 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
--- NOTE | 2020-11-23 11:10 | Progress Note - Cardiology ---
Cardiology SOAP Progress Note Subjective: No cp or palp or syncope or shortness of breath at rest Malaise and weakness are improving No n/v/d Objective: I&O/Vital Signs 11/23/20 11/23/20 11/23/20 02:21 08:24 09:05 Temp 36.8 36.6 Pulse 60 Resp 18 B/P (MAP) 104/63 (77) Pulse Ox 97 O2 Delivery Nasal Cannula Nasal Cannula O2 Flow Rate 2.00 2.00 11/22/20 23:59 Intake Total 1230 ml Output Total 400 ml Balance 830 ml Constitutional: AAO x 3, well-developed, well-nourished Respiratory: No accessory muscle use; other (good bilateral air entry) Cardiovascular: regular rate-rhythm, S1 and S2 Gastrointestional: No tender; audible bowel sounds, other (colostomy present to the L of the umbilicus) Extremities: No clubbing, No cyanosis, No significant edema Neurologic/Psychiatric: oriented x 3, other (moves all limbs equally) Skin: No rash on exposed areas, No ulcerations on exposed areas Results/Procedures: Labs Laboratory Tests 11/22/20 15:16: Glucometer 109 11/22/20 20:33: Glucometer 124H 11/23/20 05:39: Glucometer 105 Microbiology 11/17/20 Blood Culture - Final, Complete No growth A/P: Assessment: S/p robot-assisted anterior resection for rectal CA (early October 2020 at [facility]) SSS - s/p pacemaker, managed by his telegraph installer Dr Kam in - treated chronically with amiodarone (apparently for maintenance of sinus rhythm) - stroke prophylaxis has only been with ASA (per his telegraph installer, according to the patient) CAD - h/o a single cor stent in or around 2014 (details unknown to pt, records from [facility] unavailable despite request) DM II HLD HTN H/o cardiomyopathy (details unknown to pt) - his records from [facility] state an EF of 40% Urinary retention - Dr. Ibarra managing Plan: * Continue current regimen * Monitor labs ARSENIO BROOKE MD FACP [facility] November 23, 2020 11:10
[2020-11-23 15:03] VITALS: BP 122/61
[2020-11-23] MEDS: KCL 20 MEQ TAB (K-DUR) PO SCH (16:55)
[2020-11-23] MEDS ORDERED: LIDOCAINE UROJET 2% GEL 10 ML PKG TOP PRN (19:15)
[2020-11-23 19:28] VITALS: BP 134/65
[2020-11-23] MEDS: LATANOPROST 0.005% (XALATAN) OPHTH SOLN 2.5 ML OU SCH (20:09)
[2020-11-23] MEDS: SERTRALINE 50 MG (ZOLOFT) TABLET PO SCH (20:09)
[2020-11-23] MEDS: ASPIRIN E.C. 81 MG (ECOTRIN) TAB PO SCH (20:10)
[2020-11-23] MEDS: CYCLOBENZAPRINE 10 MG (FLEXERIL) TAB PO PRN (20:10)
[2020-11-23] MEDS: MELATONIN 3 MG TABLET PO PRN (20:11)
[2020-11-24] MEDS: LEVOTHYROXINE 75 MCG (LEVOTHROID) TABLET PO SCH (06:18)
[2020-11-24] MEDS: BETHANECHOL 25 MG (URECHOLINE) TAB PO SCH ×2 (06:18→11:15)
[2020-11-24 07:47] VITALS: BP 132/63
--- NOTE | 2020-11-24 08:07 | PM&R Progress Note ---
Subjective HPI/CC On Admission Date Seen by Provider: November 24, 2020 Time Seen by Provider: 13:00 Subjective/Events-last exam 11/24/2020: Adkins was placed back in due to inability to urinate after multiple days More comfortable now Bowel contents in the colostomy Feels much better overall Stool softeners maintained Much improved status 11/23/20: Pt doing very well Was very active today and now a little bit orthostatic and he does have weakness Increasing Urecholine to 50mg per Dr. Ibarra Really cant urinate, requiring straight caths Doing pretty well other than the weakness 11/22/20: Patient feels improved today Maintained on O2 Urinary retention is still an issue Dr Ibarra and I conferred Monitored closely 11/21/20: Pt very weak and frail, just chronically at baseline Had surgery November 08 but will take a long time for full recovery Worried about his colostomy Stool was finally in the colostomy after a day without it Requiring straight caths at times Urecholine added 11/20/20: Pt doing really well Walking with therapy Maintained on oxygen Eating better overall Not really voiding since catheter was removed and he did require in and out catheter to drain the urine Dr. Ibarra did increase his Flomax to BID Overall seems to be doing okay 11/19/20: Pt doing pretty well Oxygen maintained at 2 liters right now Walking pretty well Will heplock IV fluid and DC the catheter since the catheter was causing pain anyway Appreciate urology 11/18/20: Had an episode last evening he had gotten out of bed with all 4 rails up and was at the sink Zyprexa DC due to lethargy today Confused at night Ate bfast Labs ok again after did septic w/u 11/17/20: Patient doing well Hallucinated last night prompting septic w/u today and all was normal Met his and daughter at bedside today They report he had this issue at [facility] and I explained delirium and hospital stays can cause that Esau ordered to try tonight Walked with PT and did well 11/16/20: Pt doing pretty well A little bit woozy today and BP systolic was 100 Will reach out to cardiology for BP medication changes Eating and drinking well Zofran given for nausea 11/15/20: Will hold Flexeril because it makes him drowsy Echocardiogram will be done today Pt doing very well and walking around pretty well Incision looks good Review of Systems General: Fatigue, Malaise Genitourinary: Retention Objective Exam Vital Signs Vital Signs Date Time Temp Pulse Resp B/P (MAP) Pulse Ox O2 Delivery O2 Flow Rate FiO2 11/24/20 09:16 Nasal Cannula 2.00 11/24/20 07:47 36.6 66 18 132/63 (86) 95 Capillary Refill : General Appearance: No Apparent Distress, WD/WN, Chronically ill, Obese HEENT: PERRL/EOMI, Normal ENT Inspection, Pharynx Normal Neck: Full Range of Motion, Normal Inspection, Non Tender, Supple, Carotid Brui t Respiratory: Chest Non Tender, Lungs Clear, Normal Breath Sounds, No Accessory Muscle Use, No Respiratory Distress Cardiovascular: Regular Rate, Rhythm, No Edema, No Gallop, No JVD, No Murmur, Normal Peripheral Pulses Gastrointestinal: Normal Bowel Sounds, No Organomegaly, No Pulsatile Mass, Soft, Tenderness Back: Normal Inspection, No CVA Tenderness, No Vertebral Tenderness Extremity: Normal Capillary Refill, Normal Inspection, Normal Range of Motion, Non Tender, No Calf Tenderness, No Pedal Edema Neurologic/Psychiatric: Alert, Oriented x3, No Motor/Sensory Deficits, tunneller II- XII Norm as 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 FIM Transfers Therapy Code Descriptions/Definitions Functional [place] Measure: 0=Not Assessed/NA 4=Minimal Assistance 1=Total Assistance 5=Supervision or Setup 2=Maximal Assistance 6=Modified [place] 3=Moderate Assistance 7=Complete IndependenceSCALE: Activities may be completed with or without assistive devices. 5-Liwiltvrwu-rvjkltk completes the activity by him/herself with no assistance from a helper. 5-Set-up or Clean-up Assistance-helper sets up or cleans up; patient completes activity. [place] assists only prior to or following the activity. 4-Supervision or Touching Assistance-helper provides verbal cues and/or touching/steadying and/or contact guard assistance as patient completes activity. Assistance may be provided throughout the activity or intermittently. 3-Partial/Moderate Assistance-helper does LESS THAN HALF the effort. [place] lifts, holds or supports trunk or limbs, but provides less than half the effort. 2-Substantial/Maximal Assistance-helper does MORE THAN HALF the effort. [place] lifts or holds trunk or limbs and provides more than half the effort. 7-Oceyuisfw-hztgtb does ALL the effort. Patient does none of the effort to complete the activity. Or, the assistance of 2 or more helpers is required for the patient to complete the activity. If activity was not attempted, code reason: 7-Patient Refused. 9-Not Applicable-not attempted and the patient did not perform the activity before the current illness, exacerbation or injury. 10-Not Attempted due to Environmental Limitations-(lack of equipment, weather restraints, etc.). 88-Not Attempted due to Medical Conditions or Safety Concerns. Roll Left to Right (QC): 6 Sit to Lying (QC): 6 Sit to Stand (QC): 5 Chair/Jcj-fm-Iuytw Xfer(QC): 5 Car Transfer (QC): 3 Gait Training Does the Patient Walk?: Yes Distance: 120'x2 Walk 10 feet (QC): 5 Walk 50 ft with 2 Turns(QC): 5 Walk 150 ft (QC): 4 Walking 10ft/uneven surface-QC: 3 Gait Persons Needed: 1 Gait Assistive Device: FWW Wheelchair Training Does the Pt Use a Wheelchair?: No Wheel 50 ft with 2 turns (QC): 9 Wheel 150 ft (QC): 9 Type of Wheelchair: N/A Stair Training Stair Training: Handrails/: 2 handrails #of Steps: 4 1 Step (curb) (QC): 4 4 Steps (QC): 4 12 Steps (QC): 88 Stairs: Pattern: Step to Balance Picking up an Object (QC): 88 ADL-Treatment Eating (QC): 6 Oral Hygiene (QC): 7 Bathing Location: L Arm, R Arm, L Upper Leg, R Upper Leg, L Lower Leg (including foot), R Lower Leg (including foot), Chest, Abdomen, Buttocks, Perineal Area Shower/Bathe Self (QC): 5 (s/u covering colostomy) Upper Body Dressing (QC): 4 (s/u and cues for 02 placement.) Lower Body Dressing (QC): 4 (SBA in sit/ stance) On/Off Footwear (QC): 6 (completes IND without AD, increased time and rest breaks.) Toileting Hygiene (QC): 1 (Ot completes colostomy emptying. ) Toilet Transfer (QC): 4 (CGA with use of walker.) Assessment/Plan Assessment and Plan Assess & Plan/Chief Complaint Assessment: Debility Colon cancer s/p resection 11/08/20 Urinary retention adkins cath in place and failed in/out catheters so placed back Adkins catheter on 11/23/2020 CHF AF PPM HTN HLP DM Hypothyroidism Delirium with hallucinations 11/16/20 night Plan: IRF protocol Home meds Pain control Urology consult 11/15/20: Dr Ibarra appreciated Sleeps a lot 11/16/20: Cath DC Thursday for trial Sleeps a lot 11/17/20: Hallucinations noted Septic w/u negative 11/18/20: Another septic w/u was negative Patient lethargic and definitely has cognitive issues 11/19/20: Improved status Cognition issue is noted 11/20/20: Urinary retention management Appreciate Dr Ibarra 11/21/20: Monitor closely Fall risk Wean O2 Colostomy changes with 11/22/20: Urinary management O2 Monitor closely 11/23/20: Monitor urination May need Adkins Urojet ordered by Dr Ibarra for burning 11/24/2020: Adkins cath Maintain Urecholine Monitor closely (1) Colon cancer (2) Pacemaker (3) CAD (coronary artery disease) (4) A-fib (5) CHF (congestive heart failure) RIO HAWTHORNE DO November 24, 2020 08:07
--- NOTE | 2020-11-24 08:23 | Physical Therapy Daily Note ---
PT Daily Note-Current Subjective Pt. declines up in chair or gait at this time stating he is so fatigued and tired as he had a rough night, could not urinate and had a adkins catheter placed about midnight, Pt. agrees to bed exercises Pain Location: No Pain Reported Mental Status Patient Orientation: Eyes Open Attachments: Adkins Catheter Transfers SCALE: Activities may be completed with or without assistive devices. 3-Wccppqagqf-jlpmhbk completes the activity by him/herself with no assistance from a helper. 5-Set-up or Clean-up Assistance-helper sets up or cleans up; patient completes activity. [place] assists only prior to or following the activity. 4-Supervision or Touching Assistance-helper provides verbal cues and/or touching/steadying and/or contact guard assistance as patient completes activity. Assistance may be provided throughout the activity or intermittently. 3-Partial/Moderate Assistance-helper does LESS THAN HALF the effort. [place] lifts, holds or supports trunk or limbs, but provides less than half the effort. 2-Substantial/Maximal Assistance-helper does MORE THAN HALF the effort. [place] lifts or holds trunk or limbs and provides more than half the effort. 1-Zellowldf-ghyvah does ALL the effort. Patient does none of the effort to complete the activity. Or, the assistance of 2 or more helpers is required for the patient to complete the activity. If activity was not attempted, code reason: 7-Patient Refused. 9-Not Applicable-not attempted and the patient did not perform the activity before the current illness, exacerbation or injury. 10-Not Attempted due to Environmental Limitations-(lack of equipment, weather restraints, etc.). 88-Not Attempted due to Medical Conditions or Safety Concerns. Roll Left & Right (QC): 5 Exercises Supine Ex: Bridging, Ankle pumps, Quad Set, Rolling, Glut sets, Heel Slides, Short Arc Quads, Scooting, Straight leg raise, Hip abd/add Supine Reps: 15 Assessment Current Status: Fair Progress PT Short Term Goals Short Term Goals Time Frame: November 21, 2020 Roll Left & Right: 6 Sit to lyin Lying to sitting on side of be: 3 Sit to stand: 4 Chair/gcp-sg-ebbrh transfer: 4 Walk 10 feet: 4 Walk 50 feet with two turns: 4 Walk 150 feet: 4 PT Occup Ther Goals Occup Ther Goals PT Occup Ther Goals Time Frame: Dec 05, 2020 Roll Left & Right (QC): 6 Sit to Lying (QC): 6 Lying-Sitting on Side/Bed(QC): 6 Sit to Stand (QC): 5 Chair/Eju-sq-Mkbbi Xfer(QC): 5 Toilet Transfer (QC): 5 Car Transfer (QC): 4 Does the Patient Walk: Yes Walk 10 feet (QC): 5 Walk 50ft with 2 Turns (QC): 5 Walk 150 ft (QC): 5 Walking 10ft on Uneven Surface: 4 1 Step (curb) (QC): 4 4 Steps (QC): 4 12 Steps (QC): 88 Picking up an Object (QC): 4 Wheel 50 feet with 2 turns (QC: 9 Wheel 150 feet: 9 PT Plan Treatment/Plan Treatment Plan: Continue Plan of Care Treatment Plan: Bed Mobility, Education, Functional Activity Misha, Functional Strength, Group Therapy, Gait, Safety, Therapeutic Exercise, Transfers Treatment Duration: Dec 05, 2020 Frequency: At least 5 of 7 days/Wk (IRF) Estimated Hrs Per Day: 1.5 hours per day Patient and/or Family Agrees t: Yes Safety Risks/Education Patient Education: Correct Positioning Time/GCodes Time In: 745 Time Out: 800 Total Billed Treatment Time: 15 Total Billed Treatment 1,EX15m LEANN ART [employer]AR[employer]ER November 24, 2020 08:23
[2020-11-24] MEDS: SACUBITRIL/VALSARTAN 24/26 MG (ENTRESTO) TABLET PO SCH ×2 (08:40→17:15)
[2020-11-24] MEDS: VITAMIN D3 25 MCG (1,000 UNITS) TABLET PO SCH (08:40)
[2020-11-24] MEDS: metFORMIN 500 MG (GLUCOPHAGE) TAB PO SCH ×2 (08:40→17:15)
[2020-11-24] MEDS: SENNA W/DOCUSATE (SENOKOT S) TABLET PO SCH ×2 (08:40→20:16)
[2020-11-24] MEDS: TAMSULOSIN 0.4 MG (FLOMAX) CAP PO SCH (08:41)
[2020-11-24] MEDS: polyethylene glycoL POWDER 17 GM (MIRALAX) PACK PO SCH ×2 (08:41→21:00)
[2020-11-24] MEDS: DOCUSATE SODIUM 100 MG (COLACE) CAP PO SCH ×2 (08:41→20:16)
[2020-11-24] MEDS: PANTOPRAZOLE 40 MG (PROTONIX) TAB PO SCH ×2 (08:41→20:16)
[2020-11-24] MEDS: ASCORBIC ACID (VIT C) 500 MG TABLET PO SCH (08:41)
[2020-11-24] MEDS: KCL 20 MEQ TAB (K-DUR) PO SCH (17:15)
[2020-11-24 17:17] VITALS: BP 110/55
[2020-11-24 20:00] VITALS: BP 110/53
[2020-11-24] MEDS: ASPIRIN E.C. 81 MG (ECOTRIN) TAB PO SCH (20:16)
[2020-11-24] MEDS: MELATONIN 3 MG TABLET PO PRN (20:16)
[2020-11-24] MEDS: SERTRALINE 50 MG (ZOLOFT) TABLET PO SCH (20:16)
[2020-11-24] MEDS: LATANOPROST 0.005% (XALATAN) OPHTH SOLN 2.5 ML OU SCH (20:19)
[2020-11-25] MEDS: LEVOTHYROXINE 75 MCG (LEVOTHROID) TABLET PO SCH (06:09)
--- NOTE | 2020-11-25 06:56 | PM&R Progress Note ---
Subjective HPI/CC On Admission Date Seen by Provider: November 25, 2020 Time Seen by Provider: 11:30 Subjective/Events-last exam 11/25/2020: Patient doing pretty well Maintain on Adkins catheter Maintain on oxygen Feels like he is increasing his strength Denies any new issues Discontinued Flomax and Urecholine by urology recommendations Took a shower today Will need cystoscopy this week 11/24/2020: Akdins was placed back in due to inability to urinate after multiple days More comfortable now Bowel contents in the colostomy Feels much better overall Stool softeners maintained Much improved status 11/23/20: Pt doing very well Was very active today and now a little bit orthostatic and he does have weakness Increasing Urecholine to 50mg per Dr. Ibarra Really cant urinate, requiring straight caths Doing pretty well other than the weakness 11/22/20: Patient feels improved today Maintained on O2 Urinary retention is still an issue Dr Ibarra and I conferred Monitored closely 11/21/20: Pt very weak and frail, just chronically at baseline Had surgery November 08 but will take a long time for full recovery Worried about his colostomy Stool was finally in the colostomy after a day without it Requiring straight caths at times Urecholine added 11/20/20: Pt doing really well Walking with therapy Maintained on oxygen Eating better overall Not really voiding since catheter was removed and he did require in and out catheter to drain the urine Dr. Ibarra did increase his Flomax to BID Overall seems to be doing okay 11/19/20: Pt doing pretty well Oxygen maintained at 2 liters right now Walking pretty well Will heplock IV fluid and DC the catheter since the catheter was causing pain anyway Appreciate urology 11/18/20: Had an episode last evening he had gotten out of bed with all 4 rails up and was at the sink Zyprexa DC due to lethargy today Confused at night Ate bfast Labs ok again after did septic w/u 11/17/20: Patient doing well Hallucinated last night prompting septic w/u today and all was normal Met his and daughter at bedside today They report he had this issue at and I explained delirium and hospital stays can cause that Zyprexa ordered to try tonight Walked with PT and did well 11/16/20: Pt doing pretty well A little bit woozy today and BP systolic was 100 Will reach out to cardiology for BP medication changes Eating and drinking well Zofran given for nausea 11/15/20: Will hold Flexeril because it makes him drowsy Echocardiogram will be done today Pt doing very well and walking around pretty well Incision looks good Review of Systems General: Fatigue, Malaise Genitourinary: Retention Neurological: Weakness Objective Exam Vital Signs Vital Signs Date Time Temp Pulse Resp B/P (MAP) Pulse Ox O2 Delivery O2 Flow Rate FiO2 11/25/20 17:40 61 112/55 (74) 11/25/20 08:39 Nasal Cannula 2.00 11/25/20 07:46 36.7 20 96 Capillary Refill : General Appearance: No Apparent Distress, WD/WN, Chronically ill, Obese HEENT: PERRL/EOMI, Normal ENT Inspection, Pharynx Normal Neck: Full Range of Motion, Normal Inspection, Non Tender, Supple, Carotid Bruit Respiratory: Chest Non Tender, Lungs Clear, Normal Breath Sounds, No Accessory Muscle Use, No Respiratory Distress Cardiovascular: Regular Rate, Rhythm, No Edema, No Gallop, No JVD, No Murmur, Normal Peripheral Pulses Gastrointestinal: Normal Bowel Sounds, No Organomegaly, No Pulsatile Mass, Soft, Tenderness Back: Normal Inspection, No CVA Tenderness, No Vertebral Tenderness Extremity: Normal Capillary Refill, Normal Inspection, Normal Range of Motion, Non Tender, No Calf Tenderness, No Pedal Edema Neurologic/Psychiatric: Alert, Oriented x3, No Motor/Sensory Deficits, sports lawyer II- XII Norm as 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 FIM Transfers Therapy Code Descriptions/Definitions Functional [place] Measure: 0=Not Assessed/NA 4=Minimal Assistance 1=Total Assistance 5=Supervision or Setup 2=Maximal Assistance 6=Modified [place] 3=Moderate Assistance 7=Complete IndependenceSCALE: Activities may be completed with or without assistive devices. 6-Jflhvmdumj-kybqtfd completes the activity by him/herself with no assistance from a helper. 5-Set-up or Clean-up Assistance-helper sets up or cleans up; patient completes activity. [place] assists only prior to or following the activity. 4-Supervision or Touching Assistance-helper provides verbal cues and/or touching/steadying and/or contact guard assistance as patient completes activity. Assistance may be provided throughout the activity or intermittently. 3-Partial/Moderate Assistance-helper does LESS THAN HALF the effort. [place] lifts, holds or supports trunk or limbs, but provides less than half the effort. 2-Substantial/Maximal Assistance-helper does MORE THAN HALF the effort. [place] lifts or holds trunk or limbs and provides more than half the effort. 4-Yphhxakru-ipwhvn does ALL the effort. Patient does none of the effort to complete the activity. Or, the assistance of 2 or more helpers is required for the patient to complete the activity. If activity was not attempted, code reason: 7-Patient Refused. 9-Not Applicable-not attempted and the patient did not perform the activity before the current illness, exacerbation or injury. 10-Not Attempted due to Environmental Limitations-(lack of equipment, weather restraints, etc.). 88-Not Attempted due to Medical Conditions or Safety Concerns. Roll Left to Right (QC): 5 Sit to Lying (QC): 6 Sit to Stand (QC): 5 Chair/Ikb-zc-Kwuij Xfer(QC): 5 Car Transfer (QC): 3 Gait Training Does the Patient Walk?: Yes Distance: 120'x2 Walk 10 feet (QC): 5 Walk 50 ft with 2 Turns(QC): 5 Walk 150 ft (QC): 4 Walking 10ft/uneven surface-QC: 3 Gait Persons Needed: 1 Gait Assistive Device: FWW Wheelchair Training Does the Pt Use a Wheelchair?: No Wheel 50 ft with 2 turns (QC): 9 Wheel 150 ft (QC): 9 Type of Wheelchair: N/A Stair Training Stair Training: Handrails/: 2 handrails #of Steps: 4 1 Step (curb) (QC): 4 4 Steps (QC): 4 12 Steps (QC): 88 Stairs: Pattern: Step to Balance Picking up an Object (QC): 88 ADL-Treatment Eating (QC): 6 Oral Hygiene (QC): 7 Bathing Location: L Arm, R Arm, L Upper Leg, R Upper Leg, L Lower Leg (including foot), R Lower Leg (including foot), Chest, Abdomen, Buttocks, Perineal Area Shower/Bathe Self (QC): 5 (s/u covering colostomy) Upper Body Dressing (QC): 4 (s/u and cues for 02 placement.) Lower Body Dressing (QC): 4 (SBA in sit/ stance) On/Off Footwear (QC): 6 (completes IND without AD, increased time and rest breaks.) Toileting Hygiene (QC): 1 (Ot completes colostomy emptying. ) Toilet Transfer (QC): 4 (CGA with use of walker.) Assessment/Plan Assessment and Plan Assess & Plan/Chief Complaint Assessment: Debility Colon cancer s/p resection 11/08/20 Urinary retention adkins cath in place and failed in/out catheters so placed back Adkins catheter on 11/23/2020 CHF AF PPM HTN HLP DM Hypothyroidism Delirium with hallucinations 11/16/20 night Plan: IRF protocol Home meds Pain control Urology consult 11/15/20: Dr Ibarra appreciated Sleeps a lot 11/16/20: Cath DC Thursday for trial Sleeps a lot 11/17/20: Hallucinations noted Septic w/u negative 11/18/20: Another septic w/u was negative Patient lethargic and definitely has cognitive issues 11/19/20: Improved status Cognition issue is noted 11/20/20: Urinary retention management Appreciate Dr Ibarra 11/21/20: Monitor closely Fall risk Wean O2 Colostomy changes with 11/22/20: Urinary management O2 Monitor closely 11/23/20: Monitor urination May need Adkins Urojet ordered by Dr Ibarra for burning 11/24/2020: Adkins cath Maintain Urecholine Monitor closely 11/25/2020: Discontinue Flomax and Urecholine Monitor closely (1) Colon cancer (2) Pacemaker (3) CAD (coronary artery disease) (4) A-fib (5) CHF (congestive heart failure) RIO HAWTHORNE DO November 25, 2020 06:56
[2020-11-25 07:46] VITALS: BP 113/57
[2020-11-25] MEDS: ASCORBIC ACID (VIT C) 500 MG TABLET PO SCH (08:15)
[2020-11-25] MEDS: metFORMIN 500 MG (GLUCOPHAGE) TAB PO SCH ×2 (08:15→17:39)
[2020-11-25] MEDS: VITAMIN D3 25 MCG (1,000 UNITS) TABLET PO SCH (08:15)
[2020-11-25] MEDS: PANTOPRAZOLE 40 MG (PROTONIX) TAB PO SCH ×2 (08:15→21:05)
[2020-11-25] MEDS: SACUBITRIL/VALSARTAN 24/26 MG (ENTRESTO) TABLET PO SCH ×2 (08:17→17:39)
[2020-11-25] MEDS: SENNA W/DOCUSATE (SENOKOT S) TABLET PO SCH ×2 (08:18→21:08)
[2020-11-25] MEDS: DOCUSATE SODIUM 100 MG (COLACE) CAP PO SCH ×2 (08:18→21:04)
[2020-11-25] MEDS: polyethylene glycoL POWDER 17 GM (MIRALAX) PACK PO SCH ×2 (08:26→21:08)
[2020-11-25] MEDS: KCL 20 MEQ TAB (K-DUR) PO SCH (17:39)
[2020-11-25 17:40] VITALS: BP 112/55
[2020-11-25 19:41] VITALS: BP 119/59
[2020-11-25] MEDS: LATANOPROST 0.005% (XALATAN) OPHTH SOLN 2.5 ML OU SCH (21:03)
[2020-11-25] MEDS: ASPIRIN E.C. 81 MG (ECOTRIN) TAB PO SCH (21:04)
[2020-11-25] MEDS: MELATONIN 3 MG TABLET PO PRN (21:04)
[2020-11-25] MEDS: diphenhydrAMINE 25 MG TAB (BENADRYL) PO PRN (21:05)
[2020-11-25] MEDS: SERTRALINE 50 MG (ZOLOFT) TABLET PO SCH (21:05)
[2020-11-25] MEDS: ACETAMINOPHEN 500 MG TAB (TYLENOL) PO PRN (21:05)
[2020-11-26 05:44] LABS: BASOPHILS # (AUTO) 0.1 10^3/uL (0.0-0.1); BASOPHILS % (AUTO) 1 % (0-10); EOSINOPHILS # (AUTO) 0.5 10^3/uL (0.0-0.3); EOSINOPHILS % (AUTO) 6 % (0-10); HEMATOCRIT 36 % (40-54); LYMPHOCYTES # (AUTO) 0.9 10^3/uL (1.0-4.0); LYMPHOCYTES % (AUTO) 11 % (12-44); MEAN CORPUSCULAR HEMOGLOBIN 27 pg (25-34); MEAN CORPUSCULAR HGB CONC 31 g/dL (32-36); MEAN CORPUSCULAR VOLUME 87 fL (80-99); MEAN PLATELET VOLUME 8.5 fL (9.0-12.2); MONOCYTES % (AUTO) 12 % (0-12); NEUTROPHILS # (AUTO) 5.6 10^3/uL (1.8-7.8); NEUTROPHILS % (AUTO) 70 % (42-75); PLATELET COUNT 552 10^3/uL (130-400); WHITE BLOOD COUNT 8.1 10^3/uL (4.3-11.0)
[2020-11-26 05:55] LABS: ALBUMIN 3.1 GM/DL (3.2-4.5); CHLORIDE 103 MMOL/L (98-107); POTASSIUM 4.3 MMOL/L (3.6-5.0); SODIUM 139 MMOL/L (135-145)
[2020-11-26 05:56] LABS: CALCIUM 9.1 MG/DL (8.5-10.1)
[2020-11-26 05:57] LABS: GLUCOSE 112 MG/DL (70-105); TOTAL PROTEIN 6.1 GM/DL (6.4-8.2)
[2020-11-26 05:58] LABS: CARBON DIOXIDE 26 MMOL/L (21-32)
[2020-11-26 05:59] LABS: BILIRUBIN,TOTAL 0.2 MG/DL (0.1-1.0)
[2020-11-26 06:01] LABS: ALKALINE PHOSPHATASE 34 U/L (40-136); CREATININE SERUM 0.92 MG/DL (0.60-1.30); GFR ESTIMATED > 60
[2020-11-26 06:02] LABS: BUN/CREATININE RATIO 11
[2020-11-26 06:04] LABS: ALANINE AMINOTRANSFERASE 16 U/L (0-55)
[2020-11-26] MEDS: LEVOTHYROXINE 75 MCG (LEVOTHROID) TABLET PO SCH (06:27)
[2020-11-26 07:49] VITALS: BP 134/63
[2020-11-26] MEDS: SENNA W/DOCUSATE (SENOKOT S) TABLET PO SCH ×2 (08:10→20:11)
[2020-11-26] MEDS: SACUBITRIL/VALSARTAN 24/26 MG (ENTRESTO) TABLET PO SCH ×2 (08:10→17:03)
[2020-11-26] MEDS: PANTOPRAZOLE 40 MG (PROTONIX) TAB PO SCH ×2 (08:11→20:11)
[2020-11-26] MEDS: VITAMIN D3 25 MCG (1,000 UNITS) TABLET PO SCH (08:11)
[2020-11-26] MEDS: DOCUSATE SODIUM 100 MG (COLACE) CAP PO SCH ×2 (08:11→20:11)
[2020-11-26] MEDS: metFORMIN 500 MG (GLUCOPHAGE) TAB PO SCH ×2 (08:11→17:02)
[2020-11-26] MEDS: ASCORBIC ACID (VIT C) 500 MG TABLET PO SCH (08:11)
[2020-11-26] MEDS: polyethylene glycoL POWDER 17 GM (MIRALAX) PACK PO SCH ×2 (08:52→20:30)
--- NOTE | 2020-11-26 10:10 | Occupational Ther Daily Note ---
OT Current Status-Daily Note Subjective Pt alert, sitting in recliner. Pt agrees to therapy. Only c/o is of fatigue, no pain. Mental Status/Objective Patient Orientation: Person, Place, Time, Situation Attachments: Colostomy/Ileostomy, Horton Catheter, Oxygen ADL-Treatment Pt requests only to complete oral care and grooming. SBA to ambulate to bathroom using FWW. Sitting at sink, pt able to complete oral care independently. Therapy Code Descriptions/Definitions Functional [place] Measure: 0=Not Assessed/NA 4=Minimal Assistance 1=Total Assistance 5=Supervision or Setup 2=Maximal Assistance 6=Modified [place] 3=Moderate Assistance 7=Complete IndependenceSCALE: Activities may be completed with or without assistive devices. 2-Dwmmtnmjgv-qncybtq completes the activity by him/herself with no assistance from a helper. 5-Set-up or Clean-up Assistance-helper sets up or cleans up; patient completes activity. [place] assists only prior to or following the activity. 4-Supervision or Touching Assistance-helper provides verbal cues and/or touching/steadying and/or contact guard assistance as patient completes activity. Assistance may be provided throughout the activity or intermittently. 3-Partial/Moderate Assistance-helper does LESS THAN HALF the effort. [place] lifts, holds or supports trunk or limbs, but provides less than half the effort. 2-Substantial/Maximal Assistance-helper does MORE THAN HALF the effort. [place] lifts or holds trunk or limbs and provides more than half the effort. 3-Xnmgaqylm-mhbcik does ALL the effort. Patient does none of the effort to complete the activity. Or, the assistance of 2 or more helpers is required for the patient to complete the activity. If activity was not attempted, code reason: 7-Patient Refused. 9-Not Applicable-not attempted and the patient did not perform the activity before the current illness, exacerbation or injury. 10-Not Attempted due to Environmental Limitations-(lack of equipment, weather restraints, etc.). 88-Not Attempted due to Medical Conditions or Safety Concerns. Oral Hygiene (QC): 6 Other Treatment Using FWW, pt able to ambulate to therapy gym with one recovery break. Pt completes BUE exercises to increase strength and activity tolerance from daily functional tasks. Arm bike for 15 min at minimal resistance, 4 recovery breaks requires. Medium resistance theraputty task to increase pinch and formulation scientist strength for fine motor tasks. After therapy, pt sitting in ARU beginning group. All needs met. OT Short Term Goals Short Term Goals Time Frame: November 21, 2020 Eatin Oral hygiene: 4 Toileting hygiene: 3 Shower/bathe self: 3 Upper body dressin Lower body dressin Putting on/taking off footwear: 3 OT Product Owner Goals Product Owner Goals Time Frame: Nov 28, 2020 Eating (QC): 6 Oral Hygiene (QC): 5 Toileting Hygiene (QC): 6 Shower/Bathe Self (QC): 4 Upper Body Dressing (QC): 5 Lower Body Dressing (QC): 4 On/Off Footwear (QC): 4 Additional Goals: 1-Demonstrate ADL Tasks, 2-Verbalize Understanding, 3-ImproveStrength/Misha 1=Demonstrate adherence to instructed precautions during ADL tasks. 2=Patient will verbalize/demonstrate understanding of assistive devices/modifications for ADL. 3=Patient will improve strength/tolerance for activity to enable patient to perform ADL's. OT Education/Plan Problem List/Assessment Assessment: Decreased Activ Tolerance, Decreased UE Strength Discharge Recommendations Plan/Recommendations: Continue POC Treatment Plan/Plan of Care Patient would benefit from OT for education, treatment and training to promote independence in ADL's, mobility, safety and/or upper extremity function for ADL's. Plan of Care: ADL Retraining, Functional Mobility, Group Exercise/Act as Ind, UE Funct Exercise/Act, UE Neuromus Re-Ed/Coord Treatment Duration: Nov 28, 2020 Frequency: At least 5 of 7 days/Wk (IRF) Estimated Hrs Per Day: 1.5 hours per day Agreement: Yes Rehab Potential: Fair Time/GCodes Start Time: 10:00 Stop Time: 11:00 Total Time Billed (hr/min): 60 Billed Treatment Time 1 visit-ADL 2 (30 min) EX 2 (30 min) ELKIN ESTRADA November 26, 2020 10:10
--- NOTE | 2020-11-26 11:17 | Physical Therapy Daily Note ---
PT Daily Note-Current Subjective Pt up in chair, agreeable. Denies pain, reports "I am feeling pretty good". Denies feeling lightheaded or dizzy with mobility. Pain Numeric Pain Scale: 0-No Pain Location: No Pain Reported Mental Status Patient Orientation: Person, Place, Time, Situation Attachments: Oxygen, Horton Catheter Transfers SCALE: Activities may be completed with or without assistive devices. 1-Veptcngpvk-dldrjro completes the activity by him/herself with no assistance from a helper. 5-Set-up or Clean-up Assistance-helper sets up or cleans up; patient completes activity. [place] assists only prior to or following the activity. 4-Supervision or Touching Assistance-helper provides verbal cues and/or touching/steadying and/or contact guard assistance as patient completes activity. Assistance may be provided throughout the activity or intermittently. 3-Partial/Moderate Assistance-helper does LESS THAN HALF the effort. [place] l ifts, holds or supports trunk or limbs, but provides less than half the effort. 2-Substantial/Maximal Assistance-helper does MORE THAN HALF the effort. [place] lifts or holds trunk or limbs and provides more than half the effort. 5-Xdkhezhib-hajfyj does ALL the effort. Patient does none of the effort to complete the activity. Or, the assistance of 2 or more helpers is required for t he patient to complete the activity. If activity was not attempted, code reason: 7-Patient Refused. 9-Not Applicable-not attempted and the patient did not perform the activity before the current illness, exacerbation or injury. 10-Not Attempted due to Environmental Limitations-(lack of equipment, weather restraints, etc.). 88-Not Attempted due to Medical Conditions or Safety Concerns. Sit to Stand (QC): 5 Chair/Jfw-yy-Tmvbt Xfer(QC): 5 Weight Bearing Right Lower Extremity: Right Full Weight Bearing Left Lower Extremity: Left Full Weight Bearing Gait Training Does the Patient Walk?: Yes Distance: 250 Walk 10 feet (QC): 5 Walk 50 ft with 2 Turns(QC): 5 Walk 150 ft (QC): 5 Gait Persons Needed: 1 Gait Assistive Device: FWW Pt ambulated 100' x 1, 250' x 1 with FWW with SBA, assist with portable O2 tank. Flexed posture but safe gait with FWW. Wheelchair Training Does the Pt Use a Wheelchair?: No Type of Wheelchair: N/A Exercises Standing: Hamstring curls, Heel/toe raises, 3 way Ex=Flex, Abd, Ext, Marching Standing Reps: 15 NuStep Minutes: 10 NuStep Workload: 3 Treatments Ambulation with FWW, NuStep and standing LE ex for functional strengthening and activity tolerance. Returned to up in chair, O2 in situ with all needs met post treatment. Assessment Current Status: Good Progress Pt tolerated well. Improved functional activity tolerance this date. PT Short Term Goals Short Term Goals Time Frame: November 21, 2020 Roll Left & Right: 6 Sit to lyin Lying to sitting on side of be: 3 Sit to stand: 4 Chair/cmn-jf-ksyee transfer: 4 Walk 10 feet: 4 Walk 50 feet with two turns: 4 Walk 150 feet: 4 PT Medical Orderly Goals Medical Orderly Goals PT Medical Orderly Goals Time Frame: Dec 05, 2020 Roll Left & Right (QC): 6 Sit to Lying (QC): 6 Lying-Sitting on Side/Bed(QC): 6 Sit to Stand (QC): 5 Chair/Tql-vb-Gfadk Xfer(QC): 5 Toilet Transfer (QC): 5 Car Transfer (QC): 4 Does the Patient Walk: Yes Walk 10 feet (QC): 5 Walk 50ft with 2 Turns (QC): 5 Walk 150 ft (QC): 5 Walking 10ft on Uneven Surface: 4 1 Step (curb) (QC): 4 4 Steps (QC): 4 12 Steps (QC): 88 Picking up an Object (QC): 4 Wheel 50 feet with 2 turns (QC: 9 Wheel 150 feet: 9 PT Plan Problem List Problem List: Activity Tolerance, Functional Strength, Safety, Balance, Gait, Transfer, Bed Mobility Treatment/Plan Treatment Plan: Continue Plan of Care Treatment Plan: Bed Mobility, Education, Functional Activity Misha, Functional Strength, Group Therapy, Gait, Safety, Therapeutic Exercise, Transfers Treatment Duration: Dec 05, 2020 Frequency: At least 5 of 7 days/Wk (IRF) Estimated Hrs Per Day: 1.5 hours per day Patient and/or Family Agrees t: Yes Time/GCodes Time In: 0825 Time Out: 0915 Total Billed Treatment Time: 50 Total Billed Treatment 1, GT x 15', Ex x 35' MATTHEW GRUBER DPSherlyn November 26, 2020 11:17
--- NOTE | 2020-11-26 11:36 | PM&R Progress Note ---
Subjective HPI/CC On Admission Date Seen by Provider: November 26, 2020 Time Seen by Provider: 11:45 Subjective/Events-last exam 11/26/2020: Patient dramatically improved Hemoglobin 11 Change colostomy bag today No major issues 11/25/2020: Patient doing pretty well Maintain on Adkins catheter Maintain on oxygen Feels like he is increasing his strength Denies any new issues Discontinued Flomax and Urecholine by urology recommendations Took a shower today Will need cystoscopy this week 11/24/2020: Adkins was placed back in due to inability to urinate after multiple days More comfortable now Bowel contents in the colostomy Feels much better overall Stool softeners maintained Much improved status 11/23/20: Pt doing very well Was very active today and now a little bit orthostatic and he does have weakness Increasing Urecholine to 50mg per Dr. Ibarra Really cant urinate, requiring straight caths Doing pretty well other than the weakness 11/22/20: Patient feels improved today Maintained on O2 Urinary retention is still an issue Dr Ibarra and I conferred Monitored closely 11/21/20: Pt very weak and frail, just chronically at baseline Had surgery November 08 but will take a long time for full recovery Worried about his colostomy Stool was finally in the colostomy after a day without it Requiring straight caths at times Urecholine added 11/20/20: Pt doing really well Walking with therapy Maintained on oxygen Eating better overall Not really voiding since catheter was removed and he did require in and out catheter to drain the urine Dr. Ibarra did increase his Flomax to BID Overall seems to be doing okay 11/19/20: Pt doing pretty well Oxygen maintained at 2 liters right now Walking pretty well Will heplock IV fluid and DC the catheter since the catheter was causing pain anyway Appreciate urology 11/18/20: Had an episode last evening he had gotten out of bed with all 4 rails up and was at the sink Esau DC due to lethargy today Confused at night Ate bfast Labs ok again after did septic w/u 11/17/20: Patient doing well Hallucinated last night prompting septic w/u today and all was normal Met his and daughter at bedside today They report he had this issue at and I explained delirium and hospital stays can cause that Esau ordered to try tonight Walked with PT and did well 11/16/20: Pt doing pretty well A little bit woozy today and BP systolic was 100 Will reach out to cardiology for BP medication changes Eating and drinking well Zofran given for nausea 11/15/20: Will hold Flexeril because it makes him drowsy Echocardiogram will be done today Pt doing very well and walking around pretty well Incision looks good Review of Systems General: Fatigue, Malaise Pulmonary: Dyspnea Objective Exam Vital Signs Vital Signs Date Time Temp Pulse Resp B/P (MAP) Pulse Ox O2 Delivery O2 Flow Rate FiO2 11/26/20 17:05 68 146/68 (94) 11/26/20 09:28 Nasal Cannula 2.00 11/26/20 07:49 36.2 16 95 Capillary Refill : General Appearance: No Apparent Distress, WD/WN, Chronically ill, Obese HEENT: PERRL/EOMI, Normal ENT Inspection, Pharynx Normal Neck: Full Range of Motion, Normal Inspection, Non Tender, Supple, Carotid Bruit Respiratory: Chest Non Tender, Lungs Clear, Normal Breath Sounds, No Accessory Muscle Use, No Respiratory Distress Cardiovascular: Regular Rate, Rhythm, No Edema, No Gallop, No JVD, No Murmur, Normal Peripheral Pulses Gastrointestinal: Normal Bowel Sounds, No Organomegaly, No Pulsatile Mass, Soft, Tenderness Back: Normal Inspection, No CVA Tenderness, No Vertebral Tenderness Extremity: Normal Capillary Refill, Normal Inspection, Normal Range of Motion, Non Tender, No Calf Tenderness, No Pedal Edema Neurologic/Psychiatric: Alert, Oriented x3, No Motor/Sensory Deficits, bobbin washer II- XII Norm as Tested, Abnormal Gait, Depressed Affect, Motor Weakness (generalized) Skin: Normal Color, Warm/Dry Lymphatic: No Adenopathy Results/Procedures Lab Laboratory Tests 11/26/20 05:15 Patient resulted labs reviewed. FIM Transfers Therapy Code Descriptions/Definitions Functional [place] Measure: 0=Not Assessed/NA 4=Minimal Assistance 1=Total Assistance 5=Supervision or Setup 2=Maximal Assistance 6=Modified [place] 3=Moderate Assistance 7=Complete IndependenceSCALE: Activities may be completed with or without assistive devices. 0-Ompuurqpdj-gahswdx completes the activity by him/herself with no assistance fr om a helper. 5-Set-up or Clean-up Assistance-helper sets up or cleans up; patient completes activity. [place] assists only prior to or following the activity. 4-Supervision or Touching Assistance-helper provides verbal cues and/or touching/steadying and/or contact guard assistance as patient completes activity. Assistance may be provided throughout the activity or intermittently. 3-Partial/Moderate Assistance-helper does LESS THAN HALF the effort. [place] lifts, holds or supports trunk or limbs, but provides less than half the effort. 2-Substantial/Maximal Assistance-helper does MORE THAN HALF the effort. [place] lifts or holds trunk or limbs and provides more than half the effort. 8-Wqdglgrnb-mzbjem does ALL the effort. Patient does none of the effort to complete the activity. Or, the assistance of 2 or more helpers is required for the patient to complete the activity. If activity was not attempted, code reason: 7-Patient Refused. 9-Not Applicable-not attempted and the patient did not perform the activity before the current illness, exacerbation or injury. 10-Not Attempted due to Environmental Limitations-(lack of equipment, weather restraints, etc.). 88-Not Attempted due to Medical Conditions or Safety Concerns. Roll Left to Right (QC): 5 Sit to Lying (QC): 6 Sit to Stand (QC): 5 Chair/Bjl-ui-Nssom Xfer(QC): 5 Car Transfer (QC): 3 Gait Training Does the Patient Walk?: Yes Distance: 250 Walk 10 feet (QC): 5 Walk 50 ft with 2 Turns(QC): 5 Walk 150 ft (QC): 5 Walking 10ft/uneven surface-QC: 3 Gait Persons Needed: 1 Gait Assistive Device: FWW Wheelchair Training Does the Pt Use a Wheelchair?: No Wheel 50 ft with 2 turns (QC): 9 Wheel 150 ft (QC): 9 Type of Wheelchair: N/A Stair Training Stair Training: Handrails/: 2 handrails #of Steps: 4 1 Step (curb) (QC): 4 4 Steps (QC): 4 12 Steps (QC): 88 Stairs: Pattern: Step to Balance Picking up an Object (QC): 88 ADL-Treatment Eating (QC): 6 Oral Hygiene (QC): 6 Bathing Location: L Arm, R Arm, L Upper Leg, R Upper Leg, L Lower Leg (including foot), R Lower Leg (including foot), Chest, Abdomen, Buttocks, Perineal Area Shower/Bathe Self (QC): 5 (s/u covering colostomy) Upper Body Dressing (QC): 4 (s/u and cues for 02 placement.) Lower Body Dressing (QC): 4 (SBA in sit/ stance) On/Off Footwear (QC): 6 (completes IND without AD, increased time and rest breaks.) Toileting Hygiene (QC): 1 (Ot completes colostomy emptying. ) Toilet Transfer (QC): 4 (CGA with use of walker.) Assessment/Plan Assessment and Plan Assess & Plan/Chief Complaint Assessment: Debility Colon cancer s/p resection 11/08/20 Urinary retention adkins cath in place and failed in/out catheters so placed back Adkins catheter on 11/23/2020 CHF AF PPM HTN HLP DM Hypothyroidism Delirium with hallucinations 11/16/20 night Plan: IRF protocol Home meds Pain control Urology consult 11/15/20: Dr Ibarra appreciated Sleeps a lot 11/16/20: Cath DC Thursday for trial Sleeps a lot 11/17/20: Hallucinations noted Septic w/u negative 11/18/20: Another septic w/u was negative Patient lethargic and definitely has cognitive issues 11/19/20: Improved status Cognition issue is noted 11/20/20: Urinary retention management Appreciate Dr Ibarra 11/21/20: Monitor closely Fall risk Wean O2 Colostomy changes with 11/22/20: Urinary management O2 Monitor closely 11/23/20: Monitor urination May need Adkins Urojet ordered by Dr Ibarra for burning 11/24/2020: Adkins cath Maintain Urecholine Monitor closely 11/25/2020: Discontinue Flomax and Urecholine Monitor closely 11/26/2020: Supportive care Urology will likely do cystoscopy this week Maintain oxygen will needed at home Maintain Adkins catheter (1) Colon cancer (2) Pacemaker (3) CAD (coronary artery disease) (4) A-fib (5) CHF (congestive heart failure) RIO HAWTHORNE DO November 26, 2020 11:36
--- NOTE | 2020-11-26 12:17 | Therapy Group Daily Note ---
Therapy Daily Group Note Patient Education Topic Home Safety, Exercises Exercises LE Seated Exercise, UE Exercise Session Ratio (pt:therapist): 4:1 Goal of Session: Home Safety Strategies, UE/LE Strengthing Goal Met for this Session: Yes Pt Benefit of Group: Contributions to Others, F/U Use of Strategies @Home, Increased Functional Safety, Increased Functional Strength, Improved Cognition, Recognition of Peers, Socialization Other/Notes Pt in therapy gym after OT session waiting for group session. Group consisted of introduction (name,place living, roll a question ice breaker game), socialization, B UE/LE seated exercises, home safety trivia game and home safety education. Pt introduced self appropriately and actively listened to peers. Pt able to tolerate exercises well without modifications. Pt acknowledged understanding of educational topic by giving own personal strategies and answering trivia correctly. Pt ambulated back to room using FWW. Pt's lunch in room. Pt requested to sit in recliner to eat lunch. Pt transferred with SBA for safety. Pt able to set up own meal and use regular utensils to eat. Call light/phone in reach. All needs met in room. Start Time: 11:00 Stop Time: 12:10 Total Billed Treatment Time: 70 Total Billed Treatment 1-ELKIN CURRAN November 26, 2020 12:17
[2020-11-26] MEDS: KCL 20 MEQ TAB (K-DUR) PO SCH (17:03)
[2020-11-26 17:05] VITALS: BP 146/68
[2020-11-26] MEDS: LATANOPROST 0.005% (XALATAN) OPHTH SOLN 2.5 ML OU SCH (20:10)
[2020-11-26] MEDS: diphenhydrAMINE 25 MG TAB (BENADRYL) PO PRN (20:11)
[2020-11-26] MEDS: MELATONIN 3 MG TABLET PO PRN (20:11)
[2020-11-26] MEDS: SERTRALINE 50 MG (ZOLOFT) TABLET PO SCH (20:11)
[2020-11-26] MEDS: ASPIRIN E.C. 81 MG (ECOTRIN) TAB PO SCH (20:11)
[2020-11-26 20:20] VITALS: BP 133/63
[2020-11-27] MEDS: LEVOTHYROXINE 75 MCG (LEVOTHROID) TABLET PO SCH (05:56)
--- NOTE | 2020-11-27 06:05 | PM&R Progress Note ---
Subjective HPI/CC On Admission Date Seen by Provider: Nov 27, 2020 Time Seen by Provider: 11:00 Subjective/Events-last exam 11/27/20: Pt doing really well Family education for the colostomy changes will be initiated Cystoscopy will be done tomorrow by Dr. Ibarra Adkins catheter maintained 11/26/2020: Patient dramatically improved Hemoglobin 11 Change colostomy bag today No major issues 11/25/2020: Patient doing pretty well Maintain on Adkins catheter Maintain on oxygen Feels like he is increasing his strength Denies any new issues Discontinued Flomax and Urecholine by urology recommendations Took a shower today Will need cystoscopy this week 11/24/2020: Adkins was placed back in due to inability to urinate after multiple days More comfortable now Bowel contents in the colostomy Feels much better overall Stool softeners maintained Much improved status 11/23/20: Pt doing very well Was very active today and now a little bit orthostatic and he does have weakness Increasing Urecholine to 50mg per Dr. Ibarra Really cant urinate, requiring straight caths Doing pretty well other than the weakness 11/22/20: Patient feels improved today Maintained on O2 Urinary retention is still an issue Dr Ibarra and I conferred Monitored closely 11/21/20: Pt very weak and frail, just chronically at baseline Had surgery November 08 but will take a long time for full recovery Worried about his colostomy Stool was finally in the colostomy after a day without it Requiring straight caths at times Urecholine added 11/20/20: Pt doing really well Walking with therapy Maintained on oxygen Eating better overall Not really voiding since catheter was removed and he did require in and out catheter to drain the urine Dr. Ibarra did increase his Flomax to BID Overall seems to be doing okay 11/19/20: Pt doing pretty well Oxygen maintained at 2 liters right now Walking pretty well Will heplock IV fluid and DC the catheter since the catheter was causing pain anyway Appreciate urology 11/18/20: Had an episode last evening he had gotten out of bed with all 4 rails up and was at the sink Zyprexa DC due to lethargy today Confused at night Ate bfast Labs ok again after did septic w/u 11/17/20: Patient doing well Hallucinated last night prompting septic w/u today and all was normal Met his and daughter at bedside today They report he had this issue at [employer] and I explained delirium and hospital stays can cause that Zyprexa ordered to try tonight Walked with PT and did well 11/16/20: Pt doing pretty well A little bit woozy today and BP systolic was 100 Will reach out to cardiology for BP medication changes Eating and drinking well Zofran given for nausea 11/15/20: Will hold Flexeril because it makes him drowsy Echocardiogram will be done today Pt doing very well and walking around pretty well Incision looks good Review of Systems General: Fatigue Genitourinary: Retention Objective Exam Vital Signs Vital Signs Date Time Temp Pulse Resp B/P (MAP) Pulse Ox O2 Delivery O2 Flow Rate FiO2 11/27/20 21:00 Nasal Cannula 2.00 11/27/20 20:00 36.6 65 17 144/61 (88) 96 Capillary Refill : General Appearance: No Apparent Distress, WD/WN, Chronically ill, Obese HEENT: PERRL/EOMI, Normal ENT Inspection, Pharynx Normal Neck: Full Range of Motion, Normal Inspection, Non Tender, Supple, Carotid Bru it Respiratory: Chest Non Tender, Lungs Clear, Normal Breath Sounds, No Accessory Muscle Use, No Respiratory Distress Cardiovascular: Regular Rate, Rhythm, No Edema, No Gallop, No JVD, No Murmur, Normal Peripheral Pulses Gastrointestinal: Normal Bowel Sounds, No Organomegaly, No Pulsatile Mass, Soft, Tenderness Back: Normal Inspection, No CVA Tenderness, No Vertebral Tenderness Extremity: Normal Capillary Refill, Normal Inspection, Normal Range of Motion, Non Tender, No Calf Tenderness, No Pedal Edema Neurologic/Psychiatric: Alert, Oriented x3, No Motor/Sensory Deficits, transportation aide II- XII Norm as 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 FIM Transfers Therapy Code Descriptions/Definitions Functional [place] Measure: 0=Not Assessed/NA 4=Minimal Assistance 1=Total Assistance 5=Supervision or Setup 2=Maximal Assistance 6=Modified [place] 3=Moderate Assistance 7=Complete IndependenceSCALE: Activities may be completed with or without assistive devices. 8-Fiezjrmryr-hdqanji completes the activity by him/herself with no assistance from a helper. 5-Set-up or Clean-up Assistance-helper sets up or cleans up; patient completes activity. [place] assists only prior to or following the activity. 4-Supervision or Touching Assistance-helper provides verbal cues and/or touching/steadying and/or contact guard assistance as patient completes activity. Assistance may be provided throughout the activity or intermittently. 3-Partial/Moderate Assistance-helper does LESS THAN HALF the effort. [place] lifts, holds or supports trunk or limbs, but provides less than half the effort. 2-Substantial/Maximal Assistance-helper does MORE THAN HALF the effort. [place] lifts or holds trunk or limbs and provides more than half the effort. 0-Hdebgtvvu-ykuhvj does ALL the effort. Patient does none of the effort to complete the activity. Or, the assistance of 2 or more helpers is required for the patient to complete the activity. If activity was not attempted, code reason: 7-Patient Refused. 9-Not Applicable-not attempted and the patient did not perform the activity before the current illness, exacerbation or injury. 10-Not Attempted due to Environmental Limitations-(lack of equipment, weather restraints, etc.). 88-Not Attempted due to Medical Conditions or Safety Concerns. Roll Left to Right (QC): 5 Sit to Lying (QC): 6 Sit to Stand (QC): 5 Chair/Iwb-xg-Ajxlw Xfer(QC): 5 Car Transfer (QC): 3 Gait Training Does the Patient Walk?: Yes Distance: 250 Walk 10 feet (QC): 5 Walk 50 ft with 2 Turns(QC): 5 Walk 150 ft (QC): 5 Walking 10ft/uneven surface-QC: 3 Gait Persons Needed: 1 Gait Assistive Device: FWW Wheelchair Training Does the Pt Use a Wheelchair?: No Wheel 50 ft with 2 turns (QC): 9 Wheel 150 ft (QC): 9 Type of Wheelchair: N/A Stair Training Stair Training: Handrails/: 2 handrails #of Steps: 4 1 Step (curb) (QC): 4 4 Steps (QC): 4 12 Steps (QC): 88 Stairs: Pattern: Step to Balance Picking up an Object (QC): 88 ADL-Treatment Eating (QC): 6 Oral Hygiene (QC): 6 Bathing Location: L Arm, R Arm, L Upper Leg, R Upper Leg, L Lower Leg (including foot), R Lower Leg (including foot), Chest, Abdomen, Buttocks, Perineal Area Shower/Bathe Self (QC): 5 (s/u covering colostomy) Upper Body Dressing (QC): 4 (s/u and cues for 02 placement.) Lower Body Dressing (QC): 4 (SBA in sit/ stance) On/Off Footwear (QC): 6 (completes IND without AD, increased time and rest b reaks.) Toileting Hygiene (QC): 1 (Ot completes colostomy emptying. ) Toilet Transfer (QC): 4 (CGA with use of walker.) Assessment/Plan Assessment and Plan Assess & Plan/Chief Complaint Assessment: Debility Colon cancer s/p resection 11/08/20 Urinary retention adkins cath in place and failed in/out catheters so placed back Adkins catheter on 11/23/2020 CHF AF PPM HTN HLP DM Hypothyroidism Delirium with hallucinations 11/16/20 night Plan: IRF protocol Home meds Pain control Urology consult 11/15/20: Dr Ibarra appreciated Sleeps a lot 11/16/20: Cath DC Thursday for trial Sleeps a lot 11/17/20: Hallucinations noted Septic w/u negative 11/18/20: Another septic w/u was negative Patient lethargic and definitely has cognitive issues 11/19/20: Improved status Cognition issue is noted 11/20/20: Urinary retention management Appreciate Dr Ibarra 11/21/20: Monitor closely Fall risk Wean O2 Colostomy changes with 11/22/20: Urinary management O2 Monitor closely 11/23/20: Monitor urination May need Adkins Urojet ordered by Dr Ibarra for burning 11/24/2020: Adkins cath Maintain Urecholine Monitor closely 11/25/2020: Discontinue Flomax and Urecholine Monitor closely 11/26/2020: Supportive care Urology will likely do cystoscopy this week Maintain oxygen will needed at home Maintain Adkins catheter 11/27/20: Cysto tomorrow Monitor closely Family education for colostomy changes (1) Colon cancer (2) Pacemaker (3) CAD (coronary artery disease) (4) A-fib (5) CHF (congestive heart failure) RIO HAWTHORNE DO Nov 27, 2020 06:05
[2020-11-27 08:00] VITALS: BP 120/57
--- NOTE | 2020-11-27 08:16 | Occupational Ther Daily Note ---
OT Current Status-Daily Note Subjective Pt alert, sitting in recliner. Pt agrees to therapy. No c/o pain only fatigue. Mental Status/Objective Patient Orientation: Person, Place, Time, Situation Attachments: Colostomy/Ileostomy, Oxygen ADL-Treatment Pt able to set up own meal and uses regular utensils to eat. Pt agrees to shower. Pt takes increased time to complete all tasks requiring multiple lengthy recovery breaks due to fatigue and SOA. Assist to cover colostomy for shower. Sitting on shower bench, pt able to complete shower independently using hand held shower and grabbars. After set up and assist to thread [place], pt able to complete upper body and lower body dressing by self. Using sock aide pt able to don socks, doffed socks by self. Pt able to don/doff shoes by self after set up. Sitting at sink, pt completes grooming/oral care independently. Therapy Code Descriptions/Definitions Functional [place] Measure: 0=Not Assessed/NA 4=Minimal Assistance 1=Total Assistance 5=Supervision or Setup 2=Maximal Assistance 6=Modified [place] 3=Moderate Assistance 7=Complete IndependenceSCALE: Activities may be completed with or without assistive devices. 0-Gdnkvyojta-oldvoun completes the activity by him/herself with no assistance from a helper. 5-Set-up or Clean-up Assistance-helper sets up or cleans up; patient completes activity. [place] assists only prior to or following the activity. 4-Supervision or Touching Assistance-helper provides verbal cues and/or touching/steadying and/or contact guard assistance as patient completes activity . Assistance may be provided throughout the activity or intermittently. 3-Partial/Moderate Assistance-helper does LESS THAN HALF the effort. [place] lifts, holds or supports trunk or limbs, but provides less than half the effort. 2-Substantial/Maximal Assistance-helper does MORE THAN HALF the effort. [place] lifts or holds trunk or limbs and provides more than half the effort. 7-Vhytsphlc-ctsjsp does ALL the effort. Patient does none of the effort to complete the activity. Or, the assistance of 2 or more helpers is required for the patient to complete the activity. If activity was not attempted, code reason: 7-Patient Refused. 9-Not Applicable-not attempted and the patient did not perform the activity before the current illness, exacerbation or injury. 10-Not Attempted due to Environmental Limitations-(lack of equipment, weather restraints, etc.). 88-Not Attempted due to Medical Conditions or Safety Concerns. Eating (QC): 6 Oral Hygiene (QC): 6 Shower/Bathe Self (QC): 6 Upper Body Dressing (QC): 5 Lower Body Dressing (QC): 5 On/Off Footwear: 5 Other Treatment Pt given HEP and medium resistance theraband. Pt educated on proper technique for B UE theraband exercises to increase strength and activity tolerance. Pt completed 5 exercises 2 sets 10 reps each with recovery breaks between each set. After therapy, pt sitting in recliner with call light/phone in reach. Pt requires verbal/physical cues to complete exercises with correct UE position. Safety measures in place. All needs met in room. Education OT Patient Education: Home exercise program Teaching Recipient: Patient Teaching Methods: Demonstration, Discussion Response to Teaching: Verbalize Understanding, Return Demonstration, Reinforcement Needed OT Short Term Goals Short Term Goals Time Frame: November 21, 2020 Eatin Oral hygiene: 4 Toileting hygiene: 3 Shower/bathe self: 3 Upper body dressin Lower body dressin Putting on/taking off footwear: 3 OT Product Safety Engineer Goals Product Safety Engineer Goals Time Frame: Nov 28, 2020 Eating (QC): 6 (met) Oral Hygiene (QC): 5 (met) Toileting Hygiene (QC): 6 Shower/Bathe Self (QC): 4 (met) Upper Body Dressing (QC): 5 (met) Lower Body Dressing (QC): 4 (met) On/Off Footwear (QC): 4 (met) Additional Goals: 1-Demonstrate ADL Tasks, 2-Verbalize Understanding, 3- ImproveStrength/Misha 1=Demonstrate adherence to instructed precautions during ADL tasks. 2=Patient will verbalize/demonstrate understanding of assistive devices/modifications for ADL. 3=Patient will improve strength/tolerance for activity to enable patient to perform ADL's. OT Education/Plan Problem List/Assessment Assessment: Decreased Activ Tolerance, Decreased UE Strength, Impaired Self- Care Skills Discharge Recommendations Plan/Recommendations: Continue POC Treatment Plan/Plan of Care Patient would benefit from OT for education, treatment and training to promote independence in ADL's, mobility, safety and/or upper extremity function for ADL's. Plan of Care: ADL Retraining, Functional Mobility, Group Exercise/Act as Ind, UE Funct Exercise/Act, UE Neuromus Re-Ed/Coord Treatment Duration: Nov 28, 2020 Frequency: At least 5 of 7 days/Wk (IRF) Estimated Hrs Per Day: 1.5 hours per day Agreement: Yes Rehab Potential: Fair Time/GCodes Start Time: 07:30 Stop Time: 09:00 Total Time Billed (hr/min): 90 Billed Treatment Time 1 visit-ADL 4 (60 min) EX 2 (30 min) ELKIN ESTRADA Nov 27, 2020 08:16
[2020-11-27] MEDS: VITAMIN D3 25 MCG (1,000 UNITS) TABLET PO SCH (09:09)
[2020-11-27] MEDS: metFORMIN 500 MG (GLUCOPHAGE) TAB PO SCH ×2 (09:09→17:48)
[2020-11-27] MEDS: PANTOPRAZOLE 40 MG (PROTONIX) TAB PO SCH ×2 (09:09→20:10)
[2020-11-27] MEDS: SACUBITRIL/VALSARTAN 24/26 MG (ENTRESTO) TABLET PO SCH ×2 (09:09→17:57)
[2020-11-27] MEDS: DOCUSATE SODIUM 100 MG (COLACE) CAP PO SCH ×2 (09:09→20:10)
[2020-11-27] MEDS: SENNA W/DOCUSATE (SENOKOT S) TABLET PO SCH ×2 (09:10→20:10)
[2020-11-27] MEDS: ASCORBIC ACID (VIT C) 500 MG TABLET PO SCH (09:10)
[2020-11-27] MEDS: polyethylene glycoL POWDER 17 GM (MIRALAX) PACK PO SCH ×2 (10:12→21:00)
--- NOTE | 2020-11-27 11:15 | Progress Note - Urology ---
Progress Note-Urology Progress Notes/Assess & Plan Progress/Assessment & Plan PLAN CYSOSCOPY TOMORROW BEDSIDE Final Diagnosis URINE RETENTION DAVID VANG MD Nov 27, 2020 11:15
--- NOTE | 2020-11-27 11:24 | Physical Therapy Daily Note ---
PT Daily Note-Current Subjective Patient in recliner pre tx, agrees to PT, has no complaints of pain. Appearance Patient in bed post tx with nurse call, phone, tray, all needs met. Bed alarm on. Mental Status Patient Orientation: Person, Place, Situation Attachments: Oxygen Transfers SCALE: Activities may be completed with or without assistive devices. 3-Pzseozojyc-egoefej completes the activity by him/herself with no assistance from a helper. 5-Set-up or Clean-up Assistance-helper sets up or cleans up; patient completes activity. [place] assists only prior to or following the activity. 4-Supervision or Touching Assistance-helper provides verbal cues and/or touching/steadying and/or contact guard assistance as patient completes activit y. Assistance may be provided throughout the activity or intermittently. 3-Partial/Moderate Assistance-helper does LESS THAN HALF the effort. [place] lifts, holds or supports trunk or limbs, but provides less than half the effort. 2-Substantial/Maximal Assistance-helper does MORE THAN HALF the effort. [place] lifts or holds trunk or limbs and provides more than half the effort. 7-Gfhusbimi-gqlvxz does ALL the effort. Patient does none of the effort to complete the activity. Or, the assistance of 2 or more helpers is required for the patient to complete the activity. If activity was not attempted, code reason: 7-Patient Refused. 9-Not Applicable-not attempted and the patient did not perform the activity before the current illness, exacerbation or injury. 10-Not Attempted due to Environmental Limitations-(lack of equipment, weather restraints, etc.). 88-Not Attempted due to Medical Conditions or Safety Concerns. Roll Left & Right (QC): 6 Sit to Lying (QC): 6 Lying to Sitting/Side of Bed(Q: 3 Sit to Stand (QC): 4 Chair/Nfs-gy-Jpncy Xfer(QC): 4 Weight Bearing Right Lower Extremity: Right Full Weight Bearing Left Lower Extremity: Left Full Weight Bearing Gait Training Does the Patient Walk?: Yes Distance: 300', 120' Walk 10 feet (QC): 4 Walk 50 ft with 2 Turns(QC): 4 Walk 150 ft (QC): 4 Gait Persons Needed: 1 Gait Assistive Device: FWW slow but steady ambulation, SBA Exercises Supine Ex: Ankle pumps, Quad Set, Glut sets, Heel Slides, Short Arc Quads, Straight leg raise, Hip abd/add Supine Reps: 20 Standing: Hip Abduction, Heel/toe raises, Marching, Mini squats, Step-ups (x10 each side) LAQ alternating for 5 min with 2# ankle weights NuStep Minutes: 15 NuStep Workload: 4 Treatments bed mobility and transfers, ambulation, LE strengthening Assessment Current Status: Fair Progress overall progressing slowly with functional mobility PT Short Term Goals Short Term Goals Time Frame: November 21, 2020 Roll Left & Right: 6 Sit to lyin Lying to sitting on side of be: 3 Sit to stand: 4 Chair/imf-mc-ghnvj transfer: 4 Walk 10 feet: 4 Walk 50 feet with two turns: 4 Walk 150 feet: 4 PT Editor [employer] Goals Mcc Goals PT Mcc Goals Time Frame: Dec 05, 2020 Roll Left & Right (QC): 6 Sit to Lying (QC): 6 Lying-Sitting on Side/Bed(QC): 6 Sit to Stand (QC): 5 Chair/Brv-nl-Xgkiz Xfer(QC): 5 Toilet Transfer (QC): 5 Car Transfer (QC): 4 Does the Patient Walk: Yes Walk 10 feet (QC): 5 Walk 50ft with 2 Turns (QC): 5 Walk 150 ft (QC): 5 Walking 10ft on Uneven Surface: 4 1 Step (curb) (QC): 4 4 Steps (QC): 4 12 Steps (QC): 88 Picking up an Object (QC): 4 Wheel 50 feet with 2 turns (QC: 9 Wheel 150 feet: 9 PT Plan Problem List Problem List: Activity Tolerance, Functional Strength, Safety, Balance, Gait, Transfer, Bed Mobility, ROM Treatment/Plan Treatment Plan: Continue Plan of Care Treatment Plan: Bed Mobility, Education, Functional Activity Misha, Functional Strength, Group Therapy, Gait, Safety, Therapeutic Exercise, Transfers Treatment Duration: Dec 05, 2020 Frequency: At least 5 of 7 days/Wk (IRF) Estimated Hrs Per Day: 1.5 hours per day Patient and/or Family Agrees t: Yes Safety Risks/Education Patient Education: Gait Training, Transfer Techniques, Correct Positioning, Safety Issues Teaching Recipient: Patient Teaching Methods: Demonstration, Discussion Response to Teaching: Reinforcement Needed Time/GCodes Time In: 1000 Time Out: 1130 Total Billed Treatment Time: 90 Total Billed Treatment 1 visit EX 60' FA 30' VIRGEN DAVIS PT Nov 27, 2020 11:24
[2020-11-27] MEDS: KCL 20 MEQ TAB (K-DUR) PO SCH (17:48)
[2020-11-27 20:00] VITALS: BP 144/61
[2020-11-27] MEDS: ASPIRIN E.C. 81 MG (ECOTRIN) TAB PO SCH (20:10)
[2020-11-27] MEDS: diphenhydrAMINE 25 MG TAB (BENADRYL) PO PRN (20:10)
[2020-11-27] MEDS: SERTRALINE 50 MG (ZOLOFT) TABLET PO SCH (20:10)
[2020-11-27] MEDS: MELATONIN 3 MG TABLET PO PRN (20:10)
[2020-11-27] MEDS: LATANOPROST 0.005% (XALATAN) OPHTH SOLN 2.5 ML OU SCH (20:11)
--- NOTE | 2020-11-28 06:28 | PM&R Progress Note ---
Subjective HPI/CC On Admission Date Seen by Provider: Nov 28, 2020 Time Seen by Provider: 11:45 Subjective/Events-last exam 11/28/20: Pt doing pretty well S/P Cystoscopy, he may need a TURP DC on Thursday DC catheter to see if he can void Flomax was increased to 0.8 daily 11/27/20: Pt doing really well Family education for the colostomy changes will be initiated Cystoscopy will be done tomorrow by Dr. Ibarra Adkins catheter maintained 11/26/2020: Patient dramatically improved Hemoglobin 11 Change colostomy bag today No major issues 11/25/2020: Patient doing pretty well Maintain on Adkins catheter Maintain on oxygen Feels like he is increasing his strength Denies any new issues Discontinued Flomax and Urecholine by urology recommendations Took a shower today Will need cystoscopy this week 11/24/2020: Adkins was placed back in due to inability to urinate after multiple days More comfortable now Bowel contents in the colostomy Feels much better overall Stool softeners maintained Much improved status 11/23/20: Pt doing very well Was very active today and now a little bit orthostatic and he does have weakness Increasing Urecholine to 50mg per Dr. Ibarra Really cant urinate, requiring straight caths Doing pretty well other than the weakness 11/22/20: Patient feels improved today Maintained on O2 Urinary retention is still an issue Dr Ibarra and I conferred Monitored closely 11/21/20: Pt very weak and frail, just chronically at baseline Had surgery November 08 but will take a long time for full recovery Worried about his colostomy Stool was finally in the colostomy after a day without it Requiring straight caths at times Urecholine added 11/20/20: Pt doing really well Walking with therapy Maintained on oxygen Eating better overall Not really voiding since catheter was removed and he did require in and out catheter to drain the urine Dr. Ibarra did increase his Flomax to BID Overall seems to be doing okay 11/19/20: Pt doing pretty well Oxygen maintained at 2 liters right now Walking pretty well Will heplock IV fluid and DC the catheter since the catheter was causing pain anyway Appreciate urology 11/18/20: Had an episode last evening he had gotten out of bed with all 4 rails up and was at the sink [facility] DC due to lethargy today Confused at night Ate bfast Labs ok again after did septic w/u 11/17/20: Patient doing well Hallucinated last night prompting septic w/u today and all was normal Met his and daughter at bedside today They report he had this issue at and I explained delirium and hospital stays can cause that Esau ordered to try tonight Walked with PT and did well 11/16/20: Pt doing pretty well A little bit woozy today and BP systolic was 100 Will reach out to cardiology for BP medication changes Eating and drinking well Zofran given for nausea 11/15/20: Will hold Flexeril because it makes him drowsy Echocardiogram will be done today Pt doing very well and walking around pretty well Incision looks good Review of Systems General: Fatigue, Malaise Genitourinary: Retention Neurological: Weakness Objective Exam Vital Signs Vital Signs Date Time Temp Pulse Resp B/P (MAP) Pulse Ox O2 Delivery O2 Flow Rate FiO2 11/28/20 12:38 131/68 (89) 97 Room Air 11/28/20 08:00 36.4 71 20 11/28/20 07:33 2.00 Capillary Refill : General Appearance: No Apparent Distress, WD/WN, Chronically ill, Obese HEENT: PERRL/EOMI, Normal ENT Inspection, Pharynx Normal Neck: Full Range of Motion, Normal Inspection, Non Tender, Supple, Carotid Bruit Respiratory: Chest Non Tender, Lungs Clear, Normal Breath Sounds, No Accessory Muscle Use, No Respiratory Distress Cardiovascular: Regular Rate, Rhythm, No Edema, No Gallop, No JVD, No Murmur, Normal Peripheral Pulses Gastrointestinal: Normal Bowel Sounds, No Organomegaly, No Pulsatile Mass, Soft, Tenderness Back: Normal Inspection, No CVA Tenderness, No Vertebral Tenderness Extremity: Normal Capillary Refill, Normal Inspection, Normal Range of Motion, Non Tender, No Calf Tenderness, No Pedal Edema Neurologic/Psychiatric: Alert, Oriented x3, No 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 FIM Transfers Therapy Code Descriptions/Definitions Functional [place] Measure: 0=Not Assessed/NA 4=Minimal Assistance 1=Total Assistance 5=Supervision or Setup 2=Maximal Assistance 6=Modified [place] 3=Moderate Assistance 7=Complete IndependenceSCALE: Activities may be completed with or without assistive devices. 2-Ahmqblpdjl-mwwzkgn completes the activity by him/herself with no assistance from a helper. 5-Set-up or Clean-up Assistance-helper sets up or cleans up; patient completes activity. [place] assists only prior to or following the activity. 4-Supervision or Touching Assistance-helper provides verbal cues and/or touching/steadying and/or contact guard assistance as patient completes acti vity. Assistance may be provided throughout the activity or intermittently. 3-Partial/Moderate Assistance-helper does LESS THAN HALF the effort. [place] lifts, holds or supports trunk or limbs, but provides less than half the effort. 2-Substantial/Maximal Assistance-helper does MORE THAN HALF the effort. [place] lifts or holds trunk or limbs and provides more than half the effort. 5-Ulqcqoiyv-rwmamj does ALL the effort. Patient does none of the effort to complete the activity. Or, the assistance of 2 or more helpers is required for the patient to complete the activity. If activity was not attempted, code reason: 7-Patient Refused. 9-Not Applicable-not attempted and the patient did not perform the activity before the current illness, exacerbation or injury. 10-Not Attempted due to Environmental Limitations-(lack of equipment, weather restraints, etc.). 88-Not Attempted due to Medical Conditions or Safety Concerns. Roll Left to Right (QC): 6 Sit to Lying (QC): 6 Sit to Stand (QC): 4 Chair/Wie-zy-Hsdbr Xfer(QC): 4 Car Transfer (QC): 3 Gait Training Does the Patient Walk?: Yes Distance: 300', 120' Walk 10 feet (QC): 4 Walk 50 ft with 2 Turns(QC): 4 Walk 150 ft (QC): 4 Walking 10ft/uneven surface-QC: 3 Gait Persons Needed: 1 Gait Assistive Device: FWW Wheelchair Training Does the Pt Use a Wheelchair?: No Wheel 50 ft with 2 turns (QC): 9 Wheel 150 ft (QC): 9 Type of Wheelchair: N/A Stair Training Stair Training: Handrails/: 2 handrails #of Steps: 4 1 Step (curb) (QC): 4 4 Steps (QC): 4 12 Steps (QC): 88 Stairs: Pattern: Step to Balance Picking up an Object (QC): 88 ADL-Treatment Eating (QC): 6 Oral Hygiene (QC): 6 Bathing Location: L Arm, R Arm, L Upper Leg, R Upper Leg, L Lower Leg (including foot), R Lower Leg (including foot), Chest, Abdomen, Buttocks, Perineal Area Shower/Bathe Self (QC): 6 Upper Body Dressing (QC): 5 Lower Body Dressing (QC): 5 On/Off Footwear (QC): 5 Toileting Hygiene (QC): 1 (Ot completes colostomy emptying. ) Toilet Transfer (QC): 4 (CGA with use of walker.) Assessment/Plan Assessment and Plan Assess & Plan/Chief Complaint Assessment: Debility Colon cancer s/p resection 11/08/20 Urinary retention adkins cath in place and failed in/out catheters so placed back Adkins catheter on 11/23/2020 CHF AF PPM HTN HLP DM Hypothyroidism Delirium with hallucinations 11/16/20 night Plan: IRF protocol Home meds Pain control Urology consult 11/15/20: Dr Ibarra appreciated Sleeps a lot 11/16/20: Cath DC Thursday for trial Sleeps a lot 11/17/20: Hallucinations noted Septic w/u negative 11/18/20: Another septic w/u was negative Patient lethargic and definitely has cognitive issues 11/19/20: Improved status Cognition issue is noted 11/20/20: Urinary retention management Appreciate Dr Ibarra 11/21/20: Monitor closely Fall risk Wean O2 Colostomy changes with 11/22/20: Urinary management O2 Monitor closely 11/23/20: Monitor urination May need Adkins Urojet ordered by Dr Ibarra for burning 11/24/2020: Adkins cath Maintain Urecholine Monitor closely 11/25/2020: Discontinue Flomax and Urecholine Monitor closely 11/26/2020: Supportive care Urology will likely do cystoscopy this week Maintain oxygen will needed at home Maintain Adkins catheter 11/27/20: Cysto tomorrow Monitor closely Family education for colostomy changes 11/28/20: Adkins out for trial Monitor closely DC Thursday The patient has a mobility limitation that significantly impairs his/her ability to do one or more mobility-related activities of daily living in customary locations in the home. The patients mobility limitation is one that: 1. Prevents the patient from accomplishing the mobility-related activity entirely, or 2. Places the patient at reasonably determined heightened risk of morbidity or mortality secondary to the attempts to perform the mobility-related activity, or 3. Prevents the patient from completing the mobility-related activity within a reasonable time frame. The patient is safely able to use the walker as demonstrated during skilled rehabilitation. The functional mobility deficit can be sufficiently resolved with use of a walker. (1) Colon cancer (2) Pacemaker (3) CAD (coronary artery disease) (4) A-fib (5) CHF (congestive heart failure) RIO HAWTHORNE DO Nov 28, 2020 06:28
[2020-11-28] MEDS: LEVOTHYROXINE 75 MCG (LEVOTHROID) TABLET PO SCH (06:34)
[2020-11-28 08:00] VITALS: BP 120/60
[2020-11-28] MEDS: polyethylene glycoL POWDER 17 GM (MIRALAX) PACK PO SCH ×2 (08:44→21:56)
[2020-11-28] MEDS: ASCORBIC ACID (VIT C) 500 MG TABLET PO SCH (08:45)
[2020-11-28] MEDS: PANTOPRAZOLE 40 MG (PROTONIX) TAB PO SCH ×2 (08:45→21:57)
[2020-11-28] MEDS: SACUBITRIL/VALSARTAN 24/26 MG (ENTRESTO) TABLET PO SCH ×2 (08:45→18:37)
[2020-11-28] MEDS: VITAMIN D3 25 MCG (1,000 UNITS) TABLET PO SCH (08:45)
[2020-11-28] MEDS: SENNA W/DOCUSATE (SENOKOT S) TABLET PO SCH ×2 (08:45→21:57)
[2020-11-28] MEDS: metFORMIN 500 MG (GLUCOPHAGE) TAB PO SCH ×2 (08:45→18:36)
[2020-11-28] MEDS: DOCUSATE SODIUM 100 MG (COLACE) CAP PO SCH ×2 (08:45→21:56)
--- NOTE | 2020-11-28 08:58 | Occupational Ther Daily Note ---
OT Current Status-Daily Note Subjective Pt alert, sitting in recliner. Pt agrees to therapy. No c/o pain at this time. Mental Status/Objective Patient Orientation: Person, Place, Time, Situation Attachments: Colostomy/Ileostomy, [place] Catheter ADL-Treatment Pt declines shower or sponge bath. Pt agrees to complete oral care and grooming sitting at sink, independently. During therapy, pt had discharge that soiled pants. Pt agrees to change clothing. Pt gathered clothing from counter using FWW. Assist only to thread catheter through pant leg. Pt able to complete dressing by self. After therapy, pt sitting in recliner with call light/phone in reach. Nrsg in room. All needs met in room. Therapy Code Descriptions/Definitions Functional [place] Measure: 0=Not Assessed/NA 4=Minimal Assistance 1=Total Assistance 5=Supervision or Setup 2=Maximal Assistance 6=Modified [place] 3=Moderate Assistance 7=Complete IndependenceSCALE: Activities may be completed with or without assistive devices. 5-Jnfbdtdveu-huuqlka completes the activity by him/herself with no assistance from a helper. 5-Set-up or Clean-up Assistance-helper sets up or cleans up; patient completes activity. [place] assists only prior to or following the activity. 4-Supervision or Touching Assistance-helper provides verbal cues and/or touching/steadying and/or contact guard assistance as patient completes activity. Assistance may be provided throughout the activity or intermittently. 3-Partial/Moderate Assistance-helper does LESS THAN HALF the effort. [place] lifts, holds or supports trunk or limbs, but provides less than half the effort. 2-Substantial/Maximal Assistance-helper does MORE THAN HALF the effort. [place] lifts or holds trunk or limbs and provides more than half the effort. 6-Ryjrxxwat-gbbfsz does ALL the effort. Patient does none of the effort to complete the activity. Or, the assistance of 2 or more helpers is required for the patient to complete the activity. If activity was not attempted, code reason: 7-Patient Refused. 9-Not Applicable-not attempted and the patient did not perform the activity before the current illness, exacerbation or injury. 10-Not Attempted due to Environmental Limitations-(lack of equipment, weather restraints, etc.). 88-Not Attempted due to Medical Conditions or Safety Concerns. Eating (QC): 6 Oral Hygiene (QC): 6 Upper Body Dressing (QC): 6 Lower Body Dressing (QC): 5 Other Treatment Pt ambulated to therapy gym using FWW with one recovery break. Pt completed arm bike in segments, 8 min sitting then 3x's of 2 min standing with minimal resistance to increase activity tolerance for daily functional tasks. Pt took lengthy recovery breaks between each segment. Pt stayed at 96% and above throughout session. OT Short Term Goals Short Term Goals Time Frame: November 21, 2020 Eatin Oral hygiene: 4 Toileting hygiene: 3 Shower/bathe self: 3 Upper body dressin Lower body dressin Putting on/taking off footwear: 3 OT Senior Living Goals Club Manager Goals Time Frame: Nov 28, 2020 Eating (QC): 6 (met) Oral Hygiene (QC): 5 (met) Toileting Hygiene (QC): 6 Shower/Bathe Self (QC): 4 (met) Upper Body Dressing (QC): 5 (met) Lower Body Dressing (QC): 4 (met) On/Off Footwear (QC): 4 (met) Additional Goals: 1-Demonstrate ADL Tasks, 2-Verbalize Understanding, 3- ImproveStrength/Misha 1=Demonstrate adherence to instructed precautions during ADL tasks. 2=Patient will verbalize/demonstrate understanding of assistive d evices/modifications for ADL. 3=Patient will improve strength/tolerance for activity to enable patient to perform ADL's. OT Education/Plan Problem List/Assessment Assessment: Decreased Activ Tolerance, Decreased UE Strength Discharge Recommendations Plan/Recommendations: Continue POC Treatment Plan/Plan of Care Patient would benefit from OT for education, treatment and training to promote independence in ADL's, mobility, safety and/or upper extremity function for ADL's. Plan of Care: ADL Retraining, Functional Mobility, Group Exercise/Act as Ind, UE Funct Exercise/Act, UE Neuromus Re-Ed/Coord Treatment Duration: Nov 28, 2020 Frequency: At least 5 of 7 days/Wk (IRF) Estimated Hrs Per Day: 1.5 hours per day Agreement: Yes Rehab Potential: Fair Time/GCodes Start Time: 07:30 Stop Time: 09:00 Total Time Billed (hr/min): 90 Billed Treatment Time 1 visit-ADL 4 (60 min) EX 2 (30 min) ELKIN ESTRADA Nov 28, 2020 08:58
--- NOTE | 2020-11-28 11:21 | Physical Therapy Daily Note ---
PT Daily Note-Current Subjective Patient in bed pre tx, agrees to PT reluctantly, has some soreness in both thighs. During tx patient's vitals are taken due to drowsiness and he says he has been light headed. O2 was 97%, HR was 69bpm, and BP was 100/57, nurse notified. Appearance Patient in bed post tx with nurse call, phone, tray, bed alarm on. Mental Status Patient Orientation: Person, Place, Situation Transfers SCALE: Activities may be completed with or without assistive devices. 7-Tasmdqealn-rjwocjs completes the activity by him/herself with no assistance from a helper. 5-Set-up or Clean-up Assistance-helper sets up or cleans up; patient completes activity. [place] assists only prior to or following the activity. 4-Supervision or Touching Assistance-helper provides verbal cues and/or touching/steadying and/or contact guard assistance as patient completes activity. Assistance may be provided throughout the activity or intermittently. 3-Partial/Moderate Assistance-helper does LESS THAN HALF the effort. [place] lifts, holds or supports trunk or limbs, but provides less than half the effort. 2-Substantial/Maximal Assistance-helper does MORE THAN HALF the effort. [place] lifts or holds trunk or limbs and provides more than half the effort. 0-[place]onyzouxp-[place] does ALL the effort. Patient does none of the effort to complete the activity. Or, the assistance of 2 or more helpers is required for the patient to complete the activity. If activity was not attempted, code reason: 7-Patient Refused. 9-Not Applicable-not attempted and the patient did not perform the activity before the current illness, exacerbation or injury. 10-Not Attempted due to Environmental Limitations-(lack of equipment, weather restraints, etc.). 88-Not Attempted due to Medical Conditions or Safety Concerns. Roll Left & Right (QC): 6 Sit to Lying (QC): 4 Lying to Sitting/Side of Bed(Q: 3 Sit to Stand (QC): 4 Chair/Mgx-rn-Kiobp Xfer(QC): 4 Weight Bearing Right Lower Extremity: Right Full Weight Bearing Left Lower Extremity: Left Full Weight Bearing Gait Training Distance: 120'x2 Walk 10 feet (QC): 4 Walk 50 ft with 2 Turns(QC): 4 Gait Persons Needed: 1 Gait Assistive Device: FWW slow but steady ambulation, SBA Exercises Supine Ex: Ankle pumps, Quad Set, Glut sets, Heel Slides, Hip abd/add Supine Reps: 20 Seated Therapy Exercises: Hip flexion, Hamstring Curls (RTB), Hip abd/add (with ball and RTB) Seated Reps: 20 LAQ alternating for 5 min with 2# ankle weights NuStep Minutes: 15 NuStep Workload: 4 Treatments bed mobility and transfers, ambulation, functional strengthening Assessment Current Status: Poor Progress Patient very drowsy, fatigued, light headed. He initially tried to refuse PT but agreed eventually with encouragement. Patient performed everything very slow, needed more and longer rest breaks. PT Short Term Goals Short Term Goals Time Frame: November 21, 2020 Roll Left & Right: 6 Sit to lyin Lying to sitting on side of be: 3 Sit to stand: 4 Chair/oct-kq-mlmyu transfer: 4 Walk 10 feet: 4 Walk 50 feet with two turns: 4 Walk 150 feet: 4 PT Fdc Goals Fdc Goals PT Conference Center Manager Goals Time Frame: Dec 05, 2020 Roll Left & Right (QC): 6 Sit to Lying (QC): 6 Lying-Sitting on Side/Bed(QC): 6 Sit to Stand (QC): 5 Chair/Ons-ys-Fvemp Xfer(QC): 5 Toilet Transfer (QC): 5 Car Transfer (QC): 4 Does the Patient Walk: Yes Walk 10 feet (QC): 5 Walk 50ft with 2 Turns (QC): 5 Walk 150 ft (QC): 5 Walking 10ft on Uneven Surface: 4 1 Step (curb) (QC): 4 4 Steps (QC): 4 12 Steps (QC): 88 Picking up an Object (QC): 4 Wheel 50 feet with 2 turns (QC: 9 Wheel 150 feet: 9 PT Plan Problem List Problem List: Activity Tolerance, Functional Strength, Safety, Balance, Gait, Transfer, Bed Mobility, ROM Treatment/Plan Treatment Plan: Continue Plan of Care Treatment Plan: Bed Mobility, Education, Functional Activity Misha, Functional Strength, Group Therapy, Gait, Safety, Therapeutic Exercise, Transfers Treatment Duration: Dec 05, 2020 Frequency: At least 5 of 7 days/Wk (IRF) Estimated Hrs Per Day: 1.5 hours per day Patient and/or Family Agrees t: Yes Safety Risks/Education Patient Education: Gait Training, Transfer Techniques, Correct Positioning, Safety Issues Teaching Recipient: Patient Teaching Methods: Demonstration, Discussion Response to Teaching: Reinforcement Needed Time/GCodes Time In: 1000 Time Out: 1130 Total Billed Treatment Time: 90 Total Billed Treatment 1 visit EX 45' FA 45' VIRGEN DAVIS PT Nov 28, 2020 11:21
[2020-11-28 12:38] VITALS: BP 131/68
[2020-11-28] MEDS ORDERED: TAMSULOSIN 0.4 MG (FLOMAX) CAP PO NR (12:40)
[2020-11-28] MEDS: KCL 20 MEQ TAB (K-DUR) PO SCH (18:36)
[2020-11-28] MEDS: TAMSULOSIN 0.4 MG (FLOMAX) CAP PO SCH (18:37)
[2020-11-28 20:30] VITALS: BP 120/61
[2020-11-28] MEDS: MELATONIN 3 MG TABLET PO PRN (21:57)
[2020-11-28] MEDS: CYCLOBENZAPRINE 10 MG (FLEXERIL) TAB PO PRN (21:57)
[2020-11-28] MEDS: SERTRALINE 50 MG (ZOLOFT) TABLET PO SCH (21:57)
[2020-11-28] MEDS: ASPIRIN E.C. 81 MG (ECOTRIN) TAB PO SCH (21:57)
[2020-11-28] MEDS: LATANOPROST 0.005% (XALATAN) OPHTH SOLN 2.5 ML OU SCH (21:59)
--- NOTE | 2020-11-29 05:33 | PM&R Progress Note ---
Subjective HPI/CC On Admission Date Seen by Provider: Nov 29, 2020 Time Seen by Provider: 12:30 Subjective/Events-last exam 11/29/2020: Patient doing really well Ready for discharge tomorrow May need in and out catheters Colostomy functioning well Spoke with urology 11/28/20: Pt doing pretty well S/P Cystoscopy, he may need a TURP DC on Thursday DC catheter to see if he can void Flomax was increased to 0.8 daily 11/27/20: Pt doing really well Family education for the colostomy changes will be initiated Cystoscopy will be done tomorrow by Dr. Ibarra Adkins catheter maintained 11/26/2020: Patient dramatically improved Hemoglobin 11 Change colostomy bag today No major issues 11/25/2020: Patient doing pretty well Maintain on Adkins catheter Maintain on oxygen Feels like he is increasing his strength Denies any new issues Discontinued Flomax and Urecholine by urology recommendations Took a shower today Will need cystoscopy this week 11/24/2020: Adkins was placed back in due to inability to urinate after multiple days More comfortable now Bowel contents in the colostomy Feels much better overall Stool softeners maintained Much improved status 11/23/20: Pt doing very well Was very active today and now a little bit orthostatic and he does have weakness Increasing Urecholine to 50mg per Dr. Ibarra Really cant urinate, requiring straight caths Doing pretty well other than the weakness 11/22/20: Patient feels improved today Maintained on O2 Urinary retention is still an issue Dr Ibarra and I conferred Monitored closely 11/21/20: Pt very weak and frail, just chronically at baseline Had surgery November 08 but will take a long time for full recovery Worried about his colostomy Stool was finally in the colostomy after a day without it Requiring straight caths at times Urecholine added 11/20/20: Pt doing really well Walking with therapy Maintained on oxygen Eating better overall Not really voiding since catheter was removed and he did require in and out catheter to drain the urine Dr. Ibarra did increase his Flomax to BID Overall seems to be doing okay 11/19/20: Pt doing pretty well Oxygen maintained at 2 liters right now Walking pretty well Will heplock IV fluid and DC the catheter since the catheter was causing pain anyway Appreciate urology 11/18/20: Had an episode last evening he had gotten out of bed with all 4 rails up and was at the sink Esau BRADLEY due to lethargy today Confused at night Ate bfast Labs ok again after did septic w/u 11/17/20: Patient doing well Hallucinated last night prompting septic w/u today and all was normal Met his and daughter at bedside today They report he had this issue at [facility] and I explained delirium and hospital stays can cause that Nickoalejandraghazal ordered to try tonight Walked with PT and did well 11/16/20: Pt doing pretty well A little bit woozy today and BP systolic was 100 Will reach out to cardiology for BP medication changes Eating and drinking well Zofran given for nausea 11/15/20: Will hold Flexeril because it makes him drowsy Echocardiogram will be done today Pt doing very well and walking around pretty well Incision looks good Review of Systems General: Fatigue, Malaise Genitourinary: Retention Neurological: Weakness Objective Exam Vital Signs Vital Signs Date Time Temp Pulse Resp B/P (MAP) Pulse Ox O2 Delivery O2 Flow Rate FiO2 11/29/20 20:30 97 Room Air 11/29/20 20:29 36.6 65 18 146/65 (92) 11/28/20 07:33 2.00 Capillary Refill : General Appearance: No Apparent Distress, WD/WN, Chronically ill, Obese HEENT: PERRL/EOMI, Normal ENT Inspection, Pharynx Normal Neck: Full Range of Motion, Normal Inspection, Non Tender, Supple, Carotid Bruit Respiratory: Chest Non Tender, Lungs Clear, Normal Breath Sounds, No Accessory Muscle Use, No Respiratory Distress Cardiovascular: Regular Rate, Rhythm, No Edema, No Gallop, No JVD, No Murmur, Normal Peripheral Pulses Gastrointestinal: Normal Bowel Sounds, No Organomegaly, No Pulsatile Mass, Soft, Tenderness Back: Normal Inspection, No CVA Tenderness, No Vertebral Tenderness Extremity: Normal Capillary Refill, Normal Inspection, Normal Range of Motion, Non Tender, No Calf Tenderness, No Pedal Edema Neurologic/Psychiatric: Alert, Oriented x3, No Motor/Sensory Deficits, 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 FIM Transfers Therapy Code Descriptions/Definitions Functional [place] Measure: 0=Not Assessed/NA 4=Minimal Assistance 1=Total Assistance 5=Supervision or Setup 2=Maximal Assistance 6=Modified [place] 3=Moderate Assistance 7=Complete IndependenceSCALE: Activities may be completed with or without assistive devices. 9-Zkcckssvun-rwnahmq completes the activity by him/herself with no assistance from a helper. 5-Set-up or Clean-up Assistance-helper sets up or cleans up; patient completes activity. [place] assists only prior to or following the activity. 4-Supervision or Touching Assistance-helper provides verbal cues and/or touching/steadying and/or contact guard assistance as patient completes activity. Assistance may be provided throughout the activity or intermittently. 3-Partial/Moderate Assistance-helper does LESS THAN HALF the effort. [place] lifts, holds or supports trunk or limbs, but provides less than half the effort. 2-Substantial/Maximal Assistance-helper does MORE THAN HALF the effort. [place] lifts or holds trunk or limbs and provides more than half the effort. 7-Xspoxfyaw-tzwuho does ALL the effort. Patient does none of the effort to complete the activity. Or, the assistance of 2 or more helpers is required for the patient to complete the activity. If activity was not attempted, code reason: 7-Patient Refused. 9-Not Applicable-not attempted and the patient did not perform the activity before the current illness, exacerbation or injury. 10-Not Attempted due to Environmental Limitations-(lack of equipment, weather restraints, etc.). 88-Not Attempted due to Medical Conditions or Safety Concerns. Roll Left to Right (QC): 6 Sit to Lying (QC): 4 Sit to Stand (QC): 4 Chair/Jol-xu-Ljzki Xfer(QC): 4 Car Transfer (QC): 3 Gait Training Does the Patient Walk?: Yes Distance: 120'x2 Walk 10 feet (QC): 4 Walk 50 ft with 2 Turns(QC): 4 Walk 150 ft (QC): 4 Walking 10ft/uneven surface-QC: 3 Gait Persons Needed: 1 Gait Assistive Device: FWW Wheelchair Training Does the Pt Use a Wheelchair?: No Wheel 50 ft with 2 turns (QC): 9 Wheel 150 ft (QC): 9 Type of Wheelchair: N/A Stair Training Stair Training: Handrails/: 2 handrails #of Steps: 4 1 Step (curb) (QC): 4 4 Steps (QC): 4 12 Steps (QC): 88 Stairs: Pattern: Step to Balance Picking up an Object (QC): 88 ADL-Treatment Eating (QC): 6 Oral Hygiene (QC): 6 Bathing Location: L Arm, R Arm, L Upper Leg, R Upper Leg, L Lower Leg (including foot), R Lower Leg (including foot), Chest, Abdomen, Buttocks, Perineal Area Shower/Bathe Self (QC): 6 Upper Body Dressing (QC): 6 Lower Body Dressing (QC): 5 On/Off Footwear (QC): 5 Toileting Hygiene (QC): 1 (Ot completes colostomy emptying. ) Toilet Transfer (QC): 4 (CGA with use of walker.) Assessment/Plan Assessment and Plan Assess & Plan/Chief Complaint Assessment: Debility Colon cancer s/p resection 11/08/20 Urinary retention adkins cath in place and failed in/out catheters so placed back Adkins catheter on 11/23/2020 CHF AF PPM HTN HLP DM Hypothyroidism Delirium with hallucinations 11/16/20 night Plan: IRF protocol Home meds Pain control Urology consult 11/15/20: Dr Ibarra appreciated Sleeps a lot 11/16/20: Cath DC Thursday for trial Sleeps a lot 11/17/20: Hallucinations noted Septic w/u negative 11/18/20: Another septic w/u was negative Patient lethargic and definitely has cognitive issues 11/19/20: Improved status Cognition issue is noted 11/20/20: Urinary retention management Appreciate Dr Ibarra 11/21/20: Monitor closely Fall risk Wean O2 Colostomy changes with 11/22/20: Urinary management O2 Monitor closely 11/23/20: Monitor urination May need Adkins Urojet ordered by Dr Ibarra for burning 11/24/2020: Adkins cath Maintain Urecholine Monitor closely 11/25/2020: Discontinue Flomax and Urecholine Monitor closely 11/26/2020: Supportive care Urology will likely do cystoscopy this week Maintain oxygen will needed at home Maintain Adkins catheter 11/27/20: Cysto tomorrow Monitor closely Family education for colostomy changes 11/28/20: Adkins out for trial Monitor closely DC Thursday The patient has a mobility limitation that significantly impairs his/her ability to do one or more mobility-related activities of daily living in customary locations in the home. The patients mobility limitation is one that: 1. Prevents the patient from accomplishing the mobility-related activity entirely, or 2. Places the patient at reasonably determined heightened risk of morbidity or mortality secondary to the attempts to perform the mobility-related activity, or 3. Prevents the patient from completing the mobility-related activity within a reasonable time frame. The patient is safely able to use the walker as demonstrated during skilled rehabilitation. The functional mobility deficit can be sufficiently resolved with use of a walker. 11/29/2020: Discharge plan for tomorrow May need in and out caths (1) Colon cancer (2) Pacemaker (3) CAD (coronary artery disease) (4) A-fib (5) CHF (congestive heart failure) RIO HAWTHORNE DO Nov 29, 2020 05:33
[2020-11-29] MEDS: LEVOTHYROXINE 75 MCG (LEVOTHROID) TABLET PO SCH (06:24)
--- NOTE | 2020-11-29 07:24 | Occupational Ther Daily Note ---
OT Current Status-Daily Note Subjective Pt alert, sitting in recliner. Pt agrees to therapy. Pt c/o bladder pain, 02/05, nrsg brought medications. Mental Status/Objective Patient Orientation: Person, Place, Time, Situation Attachments: Colostomy/Ileostomy ADL-Treatment Pt able to set up own meal and use regular utensils to eat. Pt requested to use bathroom, using FWW pt able to ambulate to bathroom independently. Pt transferred to toilet and completed toilet hygiene/clothing manipulation using FWW, BSC and grabbars with mod I. Pt washed hands and ambulated back to room to finish breakfast and take morning medications. Then pt retrieved clothing from bed, placed on FWW to carry and transported to bathroom. Sitting in chair, pt undressed getting ready to shower. Sitting on shower bench, pt bathed self using hand held shower and grabbars. Transferred out of shower and dressed self sitting on chair. Pt ambulated using FWW to sink to complete grooming, declined oral care at this time due to fatigue (during 11/28/2020 session pt able to stand at sink and complete oral care independently). Pt utilized sock aide to don socks, doffs independently. Doffs/dons shoes independently. After session, pt sitting in recliner with call light/phone in reach. All needs met in room. Therapy Code Descriptions/Definitions Functional [place] Measure: 0=Not Assessed/NA 4=Minimal Assistance 1=Total Assistance 5=Supervision or Setup 2=Maximal Assistance 6=Modified [place] 3=Moderate Assistance 7=Complete IndependenceSCALE: Activities may be completed with or without assistive devices. 6-Hkszdqvyly-slchpvx completes the activity by him/herself with no assistance from a helper. 5-Set-up or Clean-up Assistance-helper sets up or cleans up; patient completes activity. [place] assists only prior to or following the activity. 4-Supervision or Touching Assistance-helper provides verbal cues and/or touching/steadying and/or contact guard assistance as patient completes activity. Assistance may be provided throughout the activity or intermittently. 3-Partial/Moderate Assistance-helper does LESS THAN HALF the effort. [place] lifts, holds or supports trunk or limbs, but provides less than half the effort. 2-Substantial/Maximal Assistance-helper does MORE THAN HALF the effort. [place] lifts or holds trunk or limbs and provides more than half the effort. 4-Rmorzunpi-bafnkt does ALL the effort. Patient does none of the effort to complete the activity. Or, the assistance of 2 or more helpers is required for the patient to complete the activity. If activity was not attempted, code reason: 7-Patient Refused. 9-Not Applicable-not attempted and the patient did not perform the activity before the current illness, exacerbation or injury. 10-Not Attempted due to Environmental Limitations-(lack of equipment, weather restraints, etc.). 88-Not Attempted due to Medical Conditions or Safety Concerns. Eating (QC): 6 Oral Hygiene (QC): 6 Shower/Bathe Self (QC): 5 (Set up only to cover colostomy prior to shower. I ndependent with shower.) Upper Body Dressing (QC): 6 Lower Body Dressing (QC): 6 On/Off Footwear: 6 Toileting Hygiene (QC): 6 (Independent for voiding and clothing manipulation. Pt continues to have colostomy education. ) Toilet Transfer (QC): 6 OT Short Term Goals Short Term Goals Time Frame: November 21, 2020 Eatin Oral hygiene: 4 Toileting hygiene: 3 Shower/bathe self: 3 Upper body dressin Lower body dressin Putting on/taking off footwear: 3 OT Implementation Manager Goals Retirement Goals Time Frame: Nov 28, 2020 Eating (QC): 6 (met) Oral Hygiene (QC): 5 (met) Toileting Hygiene (QC): 6 (not met due to pt requires assist for colostomy care) Shower/Bathe Self (QC): 4 (met) Upper Body Dressing (QC): 5 (met) Lower Body Dressing (QC): 4 (met) On/Off Footwear (QC): 4 (met) Additional Goals: 1-Demonstrate ADL Tasks, 2-Verbalize Understanding, 3- ImproveStrength/Misha 1=Demonstrate adherence to instructed precautions during ADL tasks. 2=Patient will verbalize/demonstrate understanding of assistive dev ices/modifications for ADL. 3=Patient will improve strength/tolerance for activity to enable patient to perform ADL's. OT Education/Plan Problem List/Assessment Assessment: Decreased Activ Tolerance, Decreased UE Strength, Impaired I ADL's Discharge Recommendations Plan/Recommendations: Continue POC Treatment Plan/Plan of Care Patient would benefit from OT for education, treatment and training to promote independence in ADL's, mobility, safety and/or upper extremity function for ADL's. Plan of Care: ADL Retraining, Functional Mobility, Group Exercise/Act as Ind, UE Funct Exercise/Act, UE Neuromus Re-Ed/Coord Treatment Duration: Nov 28, 2020 Frequency: At least 5 of 7 days/Wk (IRF) Estimated Hrs Per Day: 1.5 hours per day Agreement: Yes Rehab Potential: Fair Time/GCodes Start Time: 07:15 Stop Time: 08:45 Total Time Billed (hr/min): 90 Billed Treatment Time 1 visit-ADL 6 (90 min) ELKIN ESTRADA Nov 29, 2020 07:24
[2020-11-29] MEDS: ASCORBIC ACID (VIT C) 500 MG TABLET PO SCH (07:34)
[2020-11-29] MEDS: SACUBITRIL/VALSARTAN 24/26 MG (ENTRESTO) TABLET PO SCH ×2 (07:34→17:56)
[2020-11-29] MEDS: VITAMIN D3 25 MCG (1,000 UNITS) TABLET PO SCH (07:34)
[2020-11-29] MEDS: PANTOPRAZOLE 40 MG (PROTONIX) TAB PO SCH ×2 (07:35→21:57)
[2020-11-29] MEDS: metFORMIN 500 MG (GLUCOPHAGE) TAB PO SCH ×2 (07:35→17:55)
[2020-11-29] MEDS: DOCUSATE SODIUM 100 MG (COLACE) CAP PO SCH ×2 (07:35→21:57)
[2020-11-29] MEDS: SENNA W/DOCUSATE (SENOKOT S) TABLET PO SCH ×2 (07:35→21:57)
[2020-11-29] MEDS: polyethylene glycoL POWDER 17 GM (MIRALAX) PACK PO SCH ×2 (07:46→21:55)
[2020-11-29 07:51] VITALS: BP 113/58
--- NOTE | 2020-11-29 11:57 | Physical Therapy Daily Note ---
PT Daily Note-Current Subjective Pt c/o inability to completly empty bladder. Pain level 5-6/10. Pt able to urinate "a little" and reports pain level 5/10 post void. Mental Status Patient Orientation: Person, Place, Situation Transfers SCALE: Activities may be completed with or without assistive devices. 3-Xrzipnwelb-vmwhwch completes the activity by him/herself with no assistance from a helper. 5-Set-up or Clean-up Assistance-helper sets up or cleans up; patient completes activity. [place] assists only prior to or following the activity. 4-Supervision or Touching Assistance-helper provides verbal cues and/or touching/steadying and/or contact guard assistance as patient completes activity. Assistance may be provided throughout the activity or intermittently. 3-Partial/Moderate Assistance-helper does LESS THAN HALF the effort. [place] lifts, holds or supports trunk or limbs, but provides less than half the effort. 2-Substantial/Maximal Assistance-helper does MORE THAN HALF the effort. [place] lifts or holds trunk or limbs and provides more than half the effort. 2-Bqbizwvnb-cekbnj does ALL the effort. Patient does none of the effort to complete the activity. Or, the assistance of 2 or more helpers is required for the patient to complete the activity. If activity was not attempted, code reason: 7-Patient Refused. 9-Not Applicable-not attempted and the patient did not perform the activity before the current illness, exacerbation or injury. 10-Not Attempted due to Environmental Limitations-(lack of equipment, weather restraints, etc.). 88-Not Attempted due to Medical Conditions or Safety Concerns. Roll Left & Right (QC): 6 Sit to Lying (QC): 6 Lying to Sitting/Side of Bed(Q: 6 Sit to Stand (QC): 6 Chair/Umn-ff-Zxvvy Xfer(QC): 6 Toilet Transfer (QC): 6 Car Transfer (QC): 6 Weight Bearing Right Lower Extremity: Right Full Weight Bearing Left Lower Extremity: Left Full Weight Bearing Gait Training Walk 10 feet (QC): 6 Walk 50 ft with 2 Turns(QC): 6 Walk 150 ft (QC): 6 Walking 10ft/uneven surface-QC: 6 Gait Persons Needed: 1 Gait Assistive Device: FWW Pt amb with FWW and CGA-SBA x 250ft, x 100ft at slow steady speed Wheelchair Training Does the Pt Use a Wheelchair?: No Wheel 50 ft with 2 turns (QC): 9 Wheel 150 ft (QC): 9 Type of Wheelchair: N/A Stair Training Stair Training: Handrails/: 2 handrails #of Steps: 12 1 Step (curb) (QC): 6 4 Steps (QC): 6 12 Steps (QC): 6 Stairs: Pattern: Reciprocal slow to ascend/descend but steady Balance Picking up an Object (QC): 6 Exercises Seated Therapy Exercises: Ankle pumps, Long arc quads, Hip flexion, Hip abd/add Seated Reps: 20 NuStep Minutes: 2 NuStep Workload: 10 Assessment Current Status: Good Progress Pt fatigues easily. Pt presents as low energy, head down unless answering or conversing. Pt debra well with rest breaks as needed. Pt back to bedside chair with call light and all needs met. PT Short Term Goals Short Term Goals Time Frame: November 21, 2020 Roll Left & Right: 6 Sit to lyin Lying to sitting on side of be: 3 Sit to stand: 4 Chair/gai-dp-afcft transfer: 4 Walk 10 feet: 4 Walk 50 feet with two turns: 4 Walk 150 feet: 4 PT Poured Wall Foreman Goals Poured Wall Foreman Goals PT Poured Wall Foreman Goals Time Frame: Dec 05, 2020 Roll Left & Right (QC): 6 Sit to Lying (QC): 6 Lying-Sitting on Side/Bed(QC): 6 Sit to Stand (QC): 5 Chair/Yav-qc-Pgtzx Xfer(QC): 5 Toilet Transfer (QC): 5 Car Transfer (QC): 4 Does the Patient Walk: Yes Walk 10 feet (QC): 5 Walk 50ft with 2 Turns (QC): 5 Walk 150 ft (QC): 5 Walking 10ft on Uneven Surface: 4 1 Step (curb) (QC): 4 4 Steps (QC): 4 12 Steps (QC): 88 Picking up an Object (QC): 4 Wheel 50 feet with 2 turns (QC: 9 Wheel 150 feet: 9 PT Plan Treatment/Plan Treatment Plan: Continue Plan of Care Treatment Plan: Bed Mobility, Education, Functional Activity Misha, Functional Strength, Group Therapy, Gait, Safety, Therapeutic Exercise, Transfers Treatment Duration: Dec 05, 2020 Frequency: At least 5 of 7 days/Wk (IRF) Estimated Hrs Per Day: 1.5 hours per day Patient and/or Family Agrees t: Yes Time/GCodes Time In: 1100 Time Out: 1200 Total Billed Treatment Time: 60 Total Billed Treatment 1, ther ex 45', gait 15' TRISTON GIRON CPTA Nov 29, 2020 11:56
--- NOTE | 2020-11-29 12:11 | Progress Note - Urology ---
Progress Note-Urology Progress Notes/Assess & Plan Progress/Assessment & Plan VOIDING SMALL AMOUNTS. NEEDED CATH X1. KEEP SAME PLAN. HOME TOMORROW AND FOLLOW UP WITH ME AT OFFICE. LAURA ON DISCHARGE DEPENDS ON VOIDING TODAY Final Diagnosis RETENTION DAVID VANG MD Nov 29, 2020 12:11
--- NOTE | 2020-11-29 13:53 | Physical Therapy Daily Note ---
PT Daily Note-Current Subjective Agrees to PT. Anxious to go home tomorrow. Mental Status Patient Orientation: Person, Place, Time, Situation Transfers SCALE: Activities may be completed with or without assistive devices. 4-Qcjlgbhhmu-xpougsj completes the activity by him/herself with no assistance from a helper. 5-Set-up or Clean-up Assistance-helper sets up or cleans up; patient completes activity. [place] assists only prior to or following the activity. 4-Supervision or Touching Assistance-helper provides verbal cues and/or touching/steadying and/or contact guard assistance as patient completes activity. Assistance may be provided throughout the activity or intermittently. 3-Partial/Moderate Assistance-helper does LESS THAN HALF the effort. [place] lifts, holds or supports trunk or limbs, but provides less than half the effort. 2-Substantial/Maximal Assistance-helper does MORE THAN HALF the effort. [place] lifts or holds trunk or limbs and provides more than half the effort. 7-Uubyefzmb-udrcye does ALL the effort. Patient does none of the effort to complete the activity. Or, the assistance of 2 or more helpers is required for the patient to complete the activity. If activity was not attempted, code reason: 7-Patient Refused. 9-Not Applicable-not attempted and the patient did not perform the activity before the current illness, exacerbation or injury. 10-Not Attempted due to Environmental Limitations-(lack of equipment, weather restraints, etc.). 88-Not Attempted due to Medical Conditions or Safety Concerns. Sit to Stand (QC): 6 Weight Bearing Right Lower Extremity: Right Full Weight Bearing Left Lower Extremity: Left Full Weight Bearing Gait Training Walk 150 ft (QC): 6 Gait Assistive Device: FWW Pt toileted mod indep and stood at sink indep to wash his hands. Pt ambulated 400 ft x 2 with FWw mod indep; safe and steady without LOB. Treatments Reviewed safety with all mobility and plans for [facility] at discharge. Assessment Current Status: Excellent Progress Meeting goals. Excellent progress noted. PT Short Term Goals Short Term Goals Time Frame: November 21, 2020 Roll Left & Right: 6 Sit to lyin Lying to sitting on side of be: 3 Sit to stand: 4 Chair/lnk-lf-ogqbn transfer: 4 Walk 10 feet: 4 Walk 50 feet with two turns: 4 Walk 150 feet: 4 PT [facility]entiary Goals Senior Manager Asset Protection Goals PT Penitentiary Goals Time Frame: Dec 05, 2020 Roll Left & Right (QC): 6 (met) Sit to Lying (QC): 6 (met) Lying-Sitting on Side/Bed(QC): 6 (met) Sit to Stand (QC): 5 (exceeded) Chair/Kam-hx-Pzuiz Xfer(QC): 5 (exceeded) Toilet Transfer (QC): 5 (exceeded) Car Transfer (QC): 4 (exceeded) Does the Patient Walk: Yes Walk 10 feet (QC): 5 (exceeed) Walk 50ft with 2 Turns (QC): 5 (exceeded) Walk 150 ft (QC): 5 (exceeded) Walking 10ft on Uneven Surface: 4 (exceeded) 1 Step (curb) (QC): 4 (exceeded) 4 Steps (QC): 4 (exceeded) 12 Steps (QC): 88 Picking up an Object (QC): 4 (met) Wheel 50 feet with 2 turns (QC: 9 Wheel 150 feet: 9 PT Plan Problem List Problem List: Activity Tolerance, Functional Strength, Safety Treatment/Plan Treatment Plan: Continue Plan of Care (dc tomorrow) Treatment Plan: Bed Mobility, Education, Functional Activity Misha, Functional Strength, Group Therapy, Gait, Safety, Therapeutic Exercise, Transfers Treatment Duration: Dec 05, 2020 Frequency: At least 5 of 7 days/Wk (IRF) Estimated Hrs Per Day: 1.5 hours per day Patient and/or Family Agrees t: Yes Safety Risks/Education Patient Education: Safety Issues Teaching Recipient: Patient Teaching Methods: Discussion Response to Teaching: Return Demonstration Discharge Recommendations Therapy Discharge Recommendati: Post Acute PT ([facility]HC PT) Time/GCodes Time In: 1320 Time Out: 1350 Total Billed Treatment Time: 30 Total Billed Treatment visit GT 30 ELKIN RICE PT Nov 29, 2020 13:53
--- NOTE | 2020-11-29 17:05 | Progress Note - Cardiology ---
Cardiology SOAP Progress Note Subjective: No cp or palp or syncope Gen weakness and malaise are improving No n/v/d Objective: I&O/Vital Signs 11/29/20 11/29/20 07:51 08:46 Temp 36.6 Pulse 70 Resp 18 B/P (MAP) 113/58 (76) Pulse Ox 97 O2 Delivery Room Air Room Air 11/29/20 00:00 Intake Total 1375 ml Output Total 1005 ml Balance 370 ml Constitutional: AAO x 3, well-developed, well-nourished Respiratory: No accessory muscle use; other (good bilateral air entry) Cardiovascular: regular rate-rhythm, S1 and S2 Gastrointestional: No tender; audible bowel sounds, other (colostomy present to the L of the umbilicus) Extremities: No clubbing, No cyanosis, No significant edema Neurologic/Psychiatric: oriented x 3, other (moves all limbs equally) Skin: No rash on exposed areas, No ulcerations on exposed areas Results/Procedures: Labs Laboratory Tests 11/28/20 17:16: Glucometer 111H 11/28/20 21:53: Glucometer 129H 11/29/20 06:26: Glucometer 115H 11/29/20 12:45: Glucometer 102 11/29/20 16:25: Glucometer 144H Microbiology 11/27/20 MRSA Screen - Final, Complete MRSA not isolated 11/17/20 Blood Culture - Final, Complete No growth A/P: Assessment: S/p robot-assisted anterior resection for rectal CA (early October 2020 at [facility]) SSS - s/p pacemaker, managed by his environmental health safety engineer Dr Kam in - treated chronically with amiodarone (apparently for maintenance of sinus rhythm) - stroke prophylaxis has only been with ASA (per his environmental health safety engineer, according to the patient) CAD - h/o a single cor stent in or around 2014 (details unknown to pt, records from [facility] unavailable despite request) DM II HLD HTN H/o cardiomyopathy (details unknown to pt) - his records from [facility] state an EF of 40% Urinary retention - Dr. Ibarra managing Plan: * Continue current regimen * Monitor labs ARSENIO BROOKE MD FACP [facility] Nov 29, 2020 17:05
[2020-11-29] MEDS: KCL 20 MEQ TAB (K-DUR) PO SCH (17:55)
[2020-11-29] MEDS: TAMSULOSIN 0.4 MG (FLOMAX) CAP PO SCH (17:56)
[2020-11-29 20:29] VITALS: BP 146/65
[2020-11-29] MEDS: LATANOPROST 0.005% (XALATAN) OPHTH SOLN 2.5 ML OU SCH (21:55)
[2020-11-29] MEDS: CYCLOBENZAPRINE 10 MG (FLEXERIL) TAB PO PRN (21:55)
[2020-11-29] MEDS: ASPIRIN E.C. 81 MG (ECOTRIN) TAB PO SCH (21:55)
[2020-11-29] MEDS: SERTRALINE 50 MG (ZOLOFT) TABLET PO SCH (21:57)
[2020-11-30] MEDS ORDERED: TMSL.4C PO (06:28)
[2020-11-30] MEDS ORDERED: CYCL10TA9 PO (06:28)
[2020-11-30] MEDS ORDERED: TRM50T PO (06:28)
--- NOTE | 2020-11-30 06:30 | Discharge Summary ---
Diagnosis/Chief Complaint Date of Admission November 14, 2020 at 13:30 Date of Discharge Discharge Date: Nov 30, 2020 Discharge Diagnosis Assessment: Debility Colon cancer s/p resection 11/08/20 Urinary retention adkins cath in place and failed in/out catheters so placed back Adkins catheter on 11/23/2020 CHF AF PPM HTN HLP DM Hypothyroidism Delirium with hallucinations 11/16/20 night Plan: IRF protocol Home meds Pain control Urology consult 11/15/20: Dr Ibarra appreciated Sleeps a lot 11/16/20: Cath DC Thursday for trial Sleeps a lot 11/17/20: Hallucinations noted Septic w/u negative 11/18/20: Another septic w/u was negative Patient lethargic and definitely has cognitive issues 11/19/20: Improved status Cognition issue is noted 11/20/20: Urinary retention management Appreciate Dr Ibarra 11/21/20: Monitor closely Fall risk Wean O2 Colostomy changes with 11/22/20: Urinary management O2 Monitor closely 11/23/20: Monitor urination May need Adkins Urojet ordered by Dr Ibrara for burning 11/24/2020: Adkins cath Maintain Urecholine Monitor closely 11/25/2020: Discontinue Flomax and Urecholine Monitor closely 11/26/2020: Supportive care Urology will likely do cystoscopy this week Maintain oxygen will needed at home Maintain Dakins catheter 11/27/20: Cysto tomorrow Monitor closely Family education for colostomy changes 11/28/20: Adkins out for trial Monitor closely DC Thursday The patient has a mobility limitation that significantly impairs his/her ability to do one or more mobility-related activities of daily living in customary locations in the home. The patients mobility limitation is one that: 1. Prevents the patient from accomplishing the mobility-related activity entirely, or 2. Places the patient at reasonably determined heightened risk of morbidity or mortality secondary to the attempts to perform the mobility-related activity, or 3. Prevents the patient from completing the mobility-related activity within a reasonable time frame. The patient is safely able to use the walker as demonstrated during skilled rehabilitation. The functional mobility deficit can be sufficiently resolved with use of a walker. 11/29/2020: Discharge plan for tomorrow May need in and out caths (1) Colon cancer (2) Pacemaker (3) CAD (coronary artery disease) (4) A-fib (5) CHF (congestive heart failure) Discharge Summary Discharge Physical Examination Allergies: Coded Allergies: lisinopril (Verified Allergy, Unknown, 11/14/20) zolpidem (Verified Allergy, Unknown, 11/14/20) Vitals & I&Os Vital Signs Date Time Temp Pulse Resp B/P (MAP) Pulse Ox O2 Delivery O2 Flow Rate FiO2 11/30/20 12:41 36.9 66 14 121/56 93 Room Air 2.00 General Appearance: Alert, Oriented X3, Cooperative Respiratory: Clear to Auscultation Cardiovascular: Regular Rate Neuro: Normal Gait, Normal Speech, Strength at 5/5 X4 Ext Psych/Mental Status: Mental Status NL Hospital Course Was the Problem List Reviewed?: Yes Hospital course: Patient had a lengthy but productive hospital course after he was admitted from after: Cancer resection and colostomy but did have urinary retention which prompted urology consultation and cystoscopy revealing large prostate. Patient had no significant decompensation during hospital stay. He did receive close cardiology management due to history of significant cardiac dysfunction. Patient's labs remained stable as did his vital signs and overall he progressed nicely after a very slow recovery at the beginning and was deemed stable for discharge after participating in all therapies and regaining enough function with ADLs and ambulation to return home with his family. Urinary retention did continue prompting the catheter placement and will see Dr. Ibarra on Thursday and establish his care with me on Thursday. Labs (last 24 hrs) Laboratory Tests 11/14/20 16:49: Glucometer 131H 11/14/20 20:59: Glucometer 135H 11/15/20 05:16: White Blood Count 8.2, Red Blood Count 4.03L, Hemoglobin 11.1L, Hematocrit 35L, Mean Corpuscular Volume 86, Mean Corpuscular Hemoglobin 28, Mean Corpuscular Hemoglobin Concent 32, Red Cell Distribution Width 15.1H, Platelet Count 312, Mean Platelet Volume 9.1, Immature Granulocyte % (Auto) 1, Neutrophils (%) (Auto) 77H, Lymphocytes (%) (Auto) 7L, Monocytes (%) (Auto) 11, Eosinophils (%) (Auto) 3, Basophils (%) (Auto) 0, Neutrophils # (Auto) 6.3, Lymphocytes # (Auto) 0.6L, Monocytes # (Auto) 0.9, Eosinophils # (Auto) 0.3, Basophils # (Auto) 0.0, Immature Granulocyte # (Auto) 0.1, Neutrophils % (Manual) 82, Lymphocytes % (Manual) 7, Monocytes % (Manual) 8, Eosinophils % (Manual) 2, Band Neutrophils 1, Blood Morphology Comment NORMAL, Sodium Level 137, Potassium Level 4.1, Chloride Level 103, Carbon Dioxide Level 27, Anion Gap 7, Blood Urea Nitrogen 13, Creatinine 0.85, Estimat Glomerular Filtration Rate > 60, BUN/Creatinine Ratio 15, Glucose Level 131H, Calcium Level 8.9, Corrected Calcium 9.7, Total Bilirubin 0.4, Aspartate Amino Transf (AST/SGOT) 30, Alanine Aminotransferase (ALT/SGPT) 33, Alkaline Phosphatase 31L, Total Protein 6.1L, Albumin 3.0L 11/15/20 10:46: Glucometer 134H 11/15/20 15:41: Glucometer 116H 11/15/20 20:33: Glucometer 110 11/16/20 05:10: Glucometer 114H 11/16/20 10:49: Glucometer 170H 11/16/20 16:07: Glucometer 130H 11/16/20 20:13: Glucometer 126H 11/17/20 06:17: Glucometer 134H 11/17/20 07:07: White Blood Count 9.5, Red Blood Count 4.20L, Hemoglobin 11.6L, Hematocrit 37L, Mean Corpuscular Volume 87, Mean Corpuscular Hemoglobin 28, Mean Corpuscular Hemoglobin Concent 32, Red Cell Distribution Width 15.0H, Platelet Count 416H, Mean Platelet Volume 8.9L, Immature Granulocyte % (Auto) 2, Neutrophils (%) (Auto) 80H, Lymphocytes (%) (Auto) 7L, Monocytes (%) (Auto) 8, Eosinophils (%) (Auto) 3, Basophils (%) (Auto) 1, Neutrophils # (Auto) 7.6, Lymphocytes # (Auto) 0.6L, Monocytes # (Auto) 0.8, Eosinophils # (Auto) 0.3, Basophils # (Auto) 0.1, Immature Granulocyte # (Auto) 0.2H, Sodium Level 138, Potassium Level 4.4, Chloride Level 102, Carbon Dioxide Level 27, Anion Gap 9, Blood Urea Nitrogen 12, Creatinine 1.04, Estimat Glomerular Filtration Rate > 60, BUN/Creatinine Ratio 12, Glucose Level 129H, Lactic Acid Level 1.13, Calcium Level 9.5, Corrected Calcium 10.1, Total Bilirubin 0.4, Aspartate Amino Transf (AST/SGOT) 49H, Alanine Aminotransferase (ALT/SGPT) 52, Alkaline Phosphatase 45, Total Protein 6.4, Albumin 3.2, Procalcitonin 0.09 11/17/20 10:50: Glucometer 130H 11/17/20 13:50: Urine Color YELLOW, Urine Clarity SL CLOUDY, Urine pH 5.5, Urine Specific [place] >=1.030, Urine Protein 1+H, Urine Glucose (UA) NEGATIVE, Urine Ketones NEGATIVE, Urine Nitrite NEGATIVE, Urine Bilirubin NEGATIVE, Urine Urobilinogen 0.2, Urine Leukocyte Esterase TRACEH, Urine RBC (Auto) 2+H, Urine RBC 2-5H, Urine WBC 2-5, Urine Squamous Epithelial Cells RARE, Urine Crystals NONE, Urine Bacteria FEWH, Urine Casts PRESENT, Urine Hyaline Casts 0-2H, Urine Mucus MODERATEH, Urine Culture Indicated NO 11/17/20 15:37: Glucometer 92 11/17/20 21:11: Glucometer 121H 11/18/20 06:07: Glucometer 120H 11/18/20 10:47: Glucometer 137H 11/18/20 11:45: White Blood Count 10.0, Red Blood Count 3.76L, Hemoglobin 10.4L, Hematocrit 33L, Mean Corpuscular Volume 88, Mean Corpuscular Hemoglobin 28, Mean Corpuscular Hemoglobin Concent 31L, Red Cell Distribution Width 15.0H, Platelet Count 443H, Mean Platelet Volume 9.0, Immature Granulocyte % (Auto) 2, Neutrophils (%) (Auto) 79H, Lymphocytes (%) (Auto) 7L, Monocytes (%) (Auto) 8, Eosinophils (%) (Auto) 3, Basophils (%) (Auto) 1, Neutrophils # (Auto) 7.8, Lymphocytes # (Auto) 0.7L, Monocytes # (Auto) 0.8, Eosinophils # (Auto) 0.3, Basophils # (Auto) 0.1, Immature Granulocyte # (Auto) 0.2H, Sodium Level 139, Potassium Level 4.5, Chloride Level 103, Carbon Dioxide Level 26, Anion Gap 10, Blood Urea Nitrogen 13, Creatinine 0.98, Estimat Glomerular Filtration Rate > 60, BUN/Creatinine Ratio 13, Glucose Level 136H, Lactic Acid Level 1.35, Calcium Level 8.9, Corrected Calcium 9.8, Total Bilirubin 0.3, Aspartate Amino Transf (AST/SGOT) 37H, Alanine Aminotransferase (ALT/SGPT) 45, Alkaline Phosphatase 40, Total Protein 5.7L, Albumin 2.9L, Procalcitonin 0.07 11/18/20 15:24: Glucometer 123H 11/18/20 20:12: Glucometer 129H 11/19/20 05:30: White Blood Count 10.9, Red Blood Count 3.97L, Hemoglobin 10.8L, Hematocrit 35L, Mean Corpuscular Volume 87, Mean Corpuscular Hemoglobin 27, Mean Corpuscular Hemoglobin Concent 31L, Red Cell Distribution Width 14.8H, Platelet Count 478H, Mean Platelet Volume 8.8L, Immature Granulocyte % (Auto) 1, Neutrophils (%) (Auto) 82H, Lymphocytes (%) (Auto) 6L, Monocytes (%) (Auto) 7, Eosinophils (%) (Auto) 4, Basophils (%) (Auto) 1, Neutrophils # (Auto) 8.9H, Lymphocytes # (Auto) 0.6L, Monocytes # (Auto) 0.8, Eosinophils # (Auto) 0.4H, Basophils # (Auto) 0.1, Immature Granulocyte # (Auto) 0.2H, Sodium Level 139, Potassium Level 4.5, Chloride Level 107, Carbon Dioxide Level 24, Anion Gap 8, Blood Urea Nitrogen 11, Creatinine 0.84, Estimat Glomerular Filtration Rate > 60, B UN/Creatinine Ratio 13, Glucose Level 129H, Calcium Level 8.5, Corrected Calcium 9.4, Total Bilirubin 0.3, Aspartate Amino Transf (AST/SGOT) 29, Alanine Aminotransferase (ALT/SGPT) 40, Alkaline Phosphatase 40, B-Type Natriuretic Peptide 42.8, Total Protein 5.9L, Albumin 2.9L 11/19/20 11:04: Glucometer 120H 11/19/20 15:50: Glucometer 114H 11/19/20 20:28: Glucometer 118H 11/20/20 05:24: Glucometer 100 11/20/20 10:43: Glucometer 120H 11/20/20 15:44: Glucometer 109 11/20/20 20:12: Glucometer 118H 11/21/20 05:49: Glucometer 106 11/21/20 10:46: Glucometer 140H 11/21/20 15:29: Glucometer 148H 11/21/20 21:21: Glucometer 113H 11/22/20 06:00: Glucometer 146H 11/22/20 10:52: Glucometer 129H 11/22/20 15:16: Glucometer 109 11/22/20 20:33: Glucometer 124H 11/23/20 05:39: Glucometer 105 11/23/20 11:28: Glucometer 111H 11/23/20 15:36: Glucometer 123H 11/23/20 20:09: Glucometer 129H 11/24/20 05:42: Glucometer 117H 11/24/20 11:07: Glucometer 164H 11/24/20 16:05: Glucometer 109 11/24/20 20:14: Glucometer 132H 11/25/20 06:03: Glucometer 90 11/25/20 10:52: Glucometer 120H 11/25/20 15:13: Glucometer 122H 11/25/20 19:52: Glucometer 136H 11/26/20 05:15: White Blood Count 8.1, Red Blood Count 4.11L, Hemoglobin 11.0L, Hematocrit 36L, Mean Corpuscular Volume 87, Mean Corpuscular Hemoglobin 27, Mean Corpuscular Hemoglobin Concent 31L, Red Cell Distribution Width 14.6H, Platelet Count 552H, Mean Platelet Volume 8.5L, Immature Granulocyte % (Auto) 1, Neutrophils (%) ( Auto) 70, Lymphocytes (%) (Auto) 11L, Monocytes (%) (Auto) 12, Eosinophils (%) (Auto) 6, Basophils (%) (Auto) 1, Neutrophils # (Auto) 5.6, Lymphocytes # (Auto) 0.9L, Monocytes # (Auto) 1.0, Eosinophils # (Auto) 0.5H, Basophils # (Auto) 0.1, Immature Granulocyte # (Auto) 0.1, Sodium Level 139, Potassium Level 4.3, Chlori de Level 103, Carbon Dioxide Level 26, Anion Gap 10, Blood Urea Nitrogen 10, Creatinine 0.92, Estimat Glomerular Filtration Rate > 60, BUN/Creatinine Ratio 11, Glucose Level 112H, Calcium Level 9.1, Corrected Calcium 9.8, Total Bilirub in 0.2, Aspartate Amino Transf (AST/SGOT) 18, Alanine Aminotransferase (ALT/SGPT) 16, Alkaline Phosphatase 34L, Total Protein 6.1L, Albumin 3.1L 11/26/20 05:33: Glucometer 101 11/26/20 10:56: Glucometer 172H 11/26/20 16:14: Glucometer 111H 11/26/20 20:08: Glucometer 158H 11/27/20 05:54: Glucometer 112H 11/27/20 12:12: Glucometer 114H 11/27/20 17:23: Glucometer 159H 11/27/20 20:07: Glucometer 119H 11/28/20 05:59: Glucometer 105 11/28/20 12:28: Glucometer 106 11/28/20 17:16: Glucometer 111H 11/28/20 21:53: Glucometer 129H 11/29/20 06:26: Glucometer 115H 11/29/20 12:45: Glucometer 102 11/29/20 16:25: Glucometer 144H Microbiology 11/27/20 MRSA Screen - Final, Complete MRSA not isolated 11/17/20 Blood Culture - Final, Complete No growth Pending Labs Microbiology Date/Time Source Procedure Growth Status 11/27/20 17:20 Nasal MRSA Screen - Final MRSA not isolated Complete 11/17/20 07:18 Peripheral Rt Hand Blood Culture - Final No growth Complete 11/17/20 07:07 Peripheral Rt Ac Blood Culture - Final No growth Complete Laboratory Tests 11/14/20 16:49: Glucometer 131 11/14/20 20:59: Glucometer 135 11/15/20 05:16: White Blood Count 8.2, Red Blood Count 4.03, Hemoglobin 11.1, Hematocrit 35, Mean Corpuscular Volume 86, Mean Corpuscular Hemoglobin 28, Mean Corpuscular Hemoglobin Concent 32, Red Cell Distribution Width 15.1, Platelet Count 312, Mean Platelet Volume 9.1, Immature Granulocyte % (Auto) 1, Neutrophils (%) (Auto) 77, Lymphocytes (%) (Auto) 7, Monocytes (%) (Auto) 11, Eosinophils (%) (Auto) 3, Basophils (%) (Auto) 0, Neutrophils # (Auto) 6.3, Lymphocytes # (Auto) 0.6, Monocytes # (Auto) 0.9, Eosinophils # (Auto) 0.3, Basophils # (Auto) 0.0, Immature Granulocyte # (Auto) 0.1, Neutrophils % (Manual) 82, Lymphocytes % (Manual) 7, Monocytes % (Manual) 8, Eosinophils % (Manual) 2, Band Neutrophils 1, Blood Morphology Comment NORMAL, Sodium Level 137, Potassium Level 4.1, Chloride Level 103, Carbon Dioxide Level 27, Anion Gap 7, Blood Urea Nitrogen 13, Creatinine 0.85, Estimat Glomerular Filtration Rate > 60, BUN/Creatinine Ratio 15, Glucose Level 131, Calcium Level 8.9, Corrected Calcium 9.7, Total Bilirubin 0.4, Aspartate Amino Transf (AST/SGOT) 30, Alanine Aminotransferase (ALT/SGPT) 33, Alkaline Phosphatase 31, Total Protein 6.1, Albumin 3.0 11/15/20 10:46: Glucometer 134 11/15/20 15:41: Glucometer 116 11/15/20 20:33: Glucometer 110 11/16/20 05:10: Glucometer 114 11/16/20 10:49: Glucometer 170 11/16/20 16:07: Glucometer 130 11/16/20 20:13: Glucometer 126 11/17/20 06:17: Glucometer 134 11/17/20 07:07: White Blood Count 9.5, Red Blood Count 4.20, Hemoglobin 11.6, Hematocrit 37, M roel Corpuscular Volume 87, Mean Corpuscular Hemoglobin 28, Mean Corpuscular Hemoglobin Concent 32, Red Cell Distribution Width 15.0, Platelet Count 416, Mean Platelet Volume 8.9, Immature Granulocyte % (Auto) 2, Neutrophils (%) (Auto) 80, Lymphocytes (%) (Auto) 7, Monocytes (%) (Auto) 8, Eosinophils (%) (Auto) 3, Basophils (%) (Auto) 1, Neutrophils # (Auto) 7.6, Lymphocytes # (Auto) 0.6, Monocytes # (Auto) 0.8, Eosinophils # (Auto) 0.3, Basophils # (Auto) 0.1, Immature Granulocyte # (Auto) 0.2, Sodium Level 138, Potassium Level 4.4, Chloride Level 102, Carbon Dioxide Level 27, Anion Gap 9, Blood Urea Nitrogen 12, Creatinine 1.04, Estimat Glomerular Filtration Rate > 60, BUN/Creatinine Ratio 12, Glucose Level 129, Lactic Acid Level 1.13, Calcium Level 9.5, Co rrected Calcium 10.1, Total Bilirubin 0.4, Aspartate Amino Transf (AST/SGOT) 49, Alanine Aminotransferase (ALT/SGPT) 52, Alkaline Phosphatase 45, Total Protein 6.4, Albumin 3.2, Procalcitonin 0.09 11/17/20 10:50: Glucometer 130 11/17/20 13:50: Urine Color YELLOW, Urine Clarity SL CLOUDY, Urine pH 5.5, Urine Specific [place] >=1.030, Urine Protein 1+, Urine Glucose (UA) NEGATIVE, Urine Ketones NEGATIVE, Urine Nitrite NEGATIVE, Urine Bilirubin NEGATIVE, Urine Urobilinogen 0.2, Urine Leukocyte Esterase TRACE, Urine RBC (Auto) 2+, Urine RBC 2-5, Urine WBC 2-5, Urine Squamous Epithelial Cells RARE, Urine Crystals NONE, Urine Bacteria FEW, Urine Casts PRESENT, Urine Hyaline Casts 0-2, Urine Mucus MODERATE, Urine Culture Indicated NO 11/17/20 15:37: Glucometer 92 11/17/20 21:11: Glucometer 121 11/18/20 06:07: Glucometer 120 11/18/20 10:47: Glucometer 137 11/18/20 11:45: White Blood Count 10.0, Red Blood Count 3.76, Hemoglobin 10.4, Hematocrit 33, Mean Corpuscular Volume 88, Mean Corpuscular Hemoglobin 28, Mean Corpuscular Hemoglobin Concent 31, Red Cell Distribution Width 15.0, Platelet Count 443, Mean Platelet Volume 9.0, Immature Granulocyte % (Auto) 2, Neutrophils (%) (Auto) 79, Lymphocytes (%) (Auto) 7, Monocytes (%) (Auto) 8, Eosinophils (%) (Auto) 3, Basophils (%) (Auto) 1, Neutrophils # (Auto) 7.8, Lymphocytes # (Auto) 0.7, Monocytes # (Auto) 0.8, Eosinophils # (Auto) 0.3, Basophils # (Auto) 0.1, Immature Granulocyte # (Auto) 0.2, Sodium Level 139, Potassium Level 4.5, Chloride Level 103, Carbon Dioxide Level 26, Anion Gap 10, Blood Urea Nitrogen 13, Creatinine 0.98, Estimat Glomerular Filtration Rate > 60, BUN/Creatinine Ratio 13, Glucose Level 136, Lactic Acid Level 1.35, Calcium Level 8.9, Corrected Calcium 9.8, Total Bilirubin 0.3, Aspartate Amino Transf (AST/SGOT) 37, Alanine Aminotransferase (ALT/SGPT) 45, Alkaline Phosphatase 40, Total Protein 5.7, Albumin 2.9, Procalcitonin 0.07 11/18/20 15:24: Glucometer 123 11/18/20 20:12: Glucometer 129 11/19/20 05:30: White Blood Count 10.9, Red Blood Count 3.97, Hemoglobin 10.8, Hematocrit 35, Mean Corpuscular Volume 87, Mean Corpuscular Hemoglobin 27, Mean Corpuscular Hemoglobin Concent 31, Red Cell Distribution Width 14.8, Platelet Count 478, Mean Platelet Volume 8.8, Immature Granulocyte % (Auto) 1, Neutrophils (%) (Auto) 82, Lymphocytes (%) (Auto) 6, Monocytes (%) (Auto) 7, Eosinophils (%) (Auto) 4, Basophils (%) (Auto) 1, Neutrophils # (Auto) 8.9, Lymphocytes # (Auto) 0.6, Monocytes # (Auto) 0.8, Eosinophils # (Auto) 0.4, Basophils # (Auto) 0.1, Immature Granulocyte # (Auto) 0.2, Sodium Level 139, Potassium Level 4.5, Chloride Level 107, Carbon Dioxide Level 24, Anion Gap 8, Blood Urea Nitrogen 11, Creatinine 0.84, Estimat Glomerular Filtration Rate > 60, BUN/Creatinine Ratio 13, Glucose Level 129, Calcium Level 8.5, Corrected Calcium 9.4, Total Bilirubin 0.3, Aspartate Amino Transf (AST/SGOT) 29, Alanine Aminotransferase (ALT/SGPT) 40, Alkaline Phosphatase 40, B-Type Natriuretic Peptide 42.8, Total Protein 5.9, Albumin 2.9 11/19/20 11:04: Glucometer 120 11/19/20 15:50: Glucometer 114 11/19/20 20:28: Glucometer 118 11/20/20 05:24: Glucometer 100 11/20/20 10:43: Glucometer 120 11/20/20 15:44: Glucometer 109 11/20/20 20:12: Glucometer 118 11/21/20 05:49: Glucometer 106 11/21/20 10:46: Glucometer 140 11/21/20 15:29: Glucometer 148 11/21/20 21:21: Glucometer 113 11/22/20 06:00: Glucometer 146 11/22/20 10:52: Glucometer 129 11/22/20 15:16: Glucometer 109 11/22/20 20:33: Glucometer 124 11/23/20 05:39: Glucometer 105 11/23/20 11:28: Glucometer 111 11/23/20 15:36: Glucometer 123 11/23/20 20:09: Glucometer 129 11/24/20 05:42: Glucometer 117 11/24/20 11:07: Glucometer 164 11/24/20 16:05: Glucometer 109 11/24/20 20:14: Glucometer 132 11/25/20 06:03: Glucometer 90 11/25/20 10:52: Glucometer 120 11/25/20 15:13: Glucometer 122 11/25/20 19:52: Glucometer 136 11/26/20 05:15: White Blood Count 8.1, Red Blood Count 4.11, Hemoglobin 11.0, Hematocrit 36, Mean Corpuscular Volume 87, Mean Corpuscular Hemoglobin 27, Mean Corpuscular Hemoglobin Concent 31, Red Cell Distribution Width 14.6, Platelet Count 552, Mean Platelet Volume 8.5, Immature Granulocyte % (Auto) 1, Neutrophils (%) (Auto) 70, Lymphocytes (%) (Auto) 11, Monocytes (%) (Auto) 12, Eosinophils (%) (Auto) 6, Basophils (%) (Auto) 1, Neutrophils # (Auto) 5.6, Lymphocytes # (Auto) 0.9, Monocytes # (Auto) 1.0, Eosinophils # (Auto) 0.5, Basophils # (Auto) 0.1, Immature Granulocyte # (Auto) 0.1, Sodium Level 139, Potassium Level 4.3, Chloride Level 103, Carbon Dioxide Level 26, Anion Gap 10, Blood Urea Nitrogen 10, Creatinine 0.92, Estimat Glomerular Filtration Rate > 60, BUN/Creatinine Ratio 11, Glucose Level 112, Calcium Level 9.1, Corrected Calcium 9.8, Total Bilirubin 0.2, Aspartate Amino Transf (AST/SGOT) 18, Alanine Aminotransferase (ALT/SGPT) 16, Alkaline Phosphatase 34, Total Protein 6.1, Albumin 3.1 11/26/20 05:33: Glucometer 101 11/26/20 10:56: Glucometer 172 11/26/20 16:14: Glucometer 111 11/26/20 20:08: Glucometer 158 11/27/20 05:54: Glucometer 112 11/27/20 12:12: Glucometer 114 11/27/20 17:23: Glucometer 159 11/27/20 20:07: Glucometer 119 11/28/20 05:59: Glucometer 105 11/28/20 12:28: Glucometer 106 11/28/20 17:16: Glucometer 111 11/28/20 21:53: Glucometer 129 11/29/20 06:26: Glucometer 115 11/29/20 12:45: Glucometer 102 11/29/20 16:25: Glucometer 144 Discharge Home Medications: Active Scripts Active Lidocaine HCl Viscous (Lidocaine HCl) 15 Ml Solution 15 Ml MM QID PRN Tramadol HCl 50 Mg Tablet 50 Mg PO Q6H PRN Cyclobenzaprine HCl 10 Mg Tablet 5 Mg PO BID PRN Flomax (Tamsulosin HCl) 0.4 Mg Cap 0.8 Mg PO DAILY@1800 Reported Ozempic (Semaglutide) 0.25 Mg/0.2 Ml Pen.injctr 0.5 Mg SQ TUE Spironolactone 25 Mg Tablet 25 Mg PO DAILY W/FOOD Sertraline HCl 50 Mg Tablet 50 Mg PO HS K-Tab ER (Potassium Chloride) 20 Meq Tablet.er 20 Meq PO DAILY W/MEAL Pantoprazole Sodium 40 Mg Tablet.dr 40 Mg PO BID Ondansetron Odt (Ondansetron) 4 Mg Tab.rapdis 4 Mg PO Q4H PRN Metoprolol Succinate 25 Mg Tab.er.24h 12.5 Mg PO HS TAKES OF A 25MG HOLD FOR SYSTOLIC BLOOD PRESSURE LESS THAN 90 Metformin HCl 500 Mg Tablet 500 Mg PO BID Levothyroxine Sodium 75 Mcg Tablet 75 Mcg PO DAILY Entresto 49 mg-51 mg Tablet (Sacubitril/Valsartan) 1 Each Tablet 2 Tab PO 1800 TAKES 2 (49/51MG) TABS Entresto 49 mg-51 mg Tablet (Sacubitril/Valsartan) 1 Each Tablet 1 Tab PO DAILY Acetaminophen Pm Geltab (Acetaminophen/Diphenhydramine) 1 Each Tablet 1 Each PO HS PRN Vitamin D3 (Cholecalciferol (Vitamin D3)) 25 Mcg Capsule 25 Mcg PO DAILY Lumigan (Bimatoprost) 2.5 Ml Drops 1 Drop OU HS Atorvastatin Calcium 40 Mg Tablet 20 Mg PO DAILY TAKES OF A 40MG TAB Vitamin C (Ascorbate Calcium) 500 Mg Tablet 500 Mg PO DAILY Amiodarone HCl 200 Mg Tablet 200 Mg PO SUN,FRI,SAT TAKE WITH FOOD Amiodarone HCl 200 Mg Tablet 100 Mg PO ,THU,,THU TAKE WITH FOOD TAKES OF A 200MG TAB Instructions to patient/family Please see electronic discharge instructions given to patient. Diagnosis/Problems Diagnosis/Problems (1) Colon cancer (2) Pacemaker (3) CAD (coronary artery disease) (4) A-fib (5) CHF (congestive heart failure) RIO HAWTHORNE DO Nov 30, 2020 06:30
--- NOTE | 2020-11-30 06:30 | D/C HH Face to Face Order ---
D/C Face to Face Orders Reconcile Patient Problems Problems Reviewed?: Yes Instructions for Patient [facility] [place] Patient Instructions/FollowUp: Dr Askew on 12/04/20 at 245pm [facility] Dr Ibarra 12/03/20 Physician to follow Patient: Jamilah Discharge Diet for Home: No Restrictions Patient Problems: Colon cancer with colostomy Debility CHF Patient Data-Allergies,Ht & Wt Patient Allergies: Coded Allergies: lisinopril (Verified Allergy, Unknown, 11/14/20) zolpidem (Verified Allergy, Unknown, 11/14/20) Home Health Need/Face to Face Date of Face to Face: Nov 30, 2020 Clinical Findings: Generalized weakness and fatigue, Instability, Muscle weakness, Shortness of breath, Unsteady gait I have seen Pt [id number]: Yes Discharged To: Home Diagnosis/Conditions: Colon cancer with colostomy Debility CHF Patient is Homebound due to: Muscle weakness, Shortness of breath/distress Homebound Status Due to the above stated illness, injury or surgical procedure (medical condition or diagnosis) and associated clinical findings, the patient is homebound because of his/her inability to leave home except with aid of a supportive device and/or person AND leaving the home requires a considerable and taxing effort or is medically contraindicated. Pt req the following assistanc: Walker Home Health Nursing Orders Home Health Services Order: Nursing Services, [facility] [employer]r-Evaluate & Treat, Physical Therapy-Evaluate & Treat Certify Stmt I certify that this patient is under my care and that I, a nurse practitioner or a physician; a purchasing assistant working with me, had a face to face encounter that - meets the physician face to face encounter requirements with this patient as dated. RIO ASKEW DO Nov 30, 2020 06:30
[2020-11-30] MEDS: LEVOTHYROXINE 75 MCG (LEVOTHROID) TABLET PO SCH (06:34)
[2020-11-30 08:00] VITALS: BP 121/56
[2020-11-30] MEDS: SACUBITRIL/VALSARTAN 24/26 MG (ENTRESTO) TABLET PO SCH (08:10)
[2020-11-30] MEDS: DOCUSATE SODIUM 100 MG (COLACE) CAP PO SCH (08:10)
[2020-11-30] MEDS: SENNA W/DOCUSATE (SENOKOT S) TABLET PO SCH (08:10)
[2020-11-30] MEDS: metFORMIN 500 MG (GLUCOPHAGE) TAB PO SCH (08:10)
[2020-11-30] MEDS: PANTOPRAZOLE 40 MG (PROTONIX) TAB PO SCH (08:10)
[2020-11-30] MEDS: ASCORBIC ACID (VIT C) 500 MG TABLET PO SCH (08:10)
[2020-11-30] MEDS: VITAMIN D3 25 MCG (1,000 UNITS) TABLET PO SCH (08:10)
[2020-11-30] MEDS: polyethylene glycoL POWDER 17 GM (MIRALAX) PACK PO SCH (08:10)
--- NOTE | 2020-11-30 12:26 | Progress Note - Cardiology ---
Cardiology SOAP Progress Note Subjective: No cp or palp or syncope or shortness of breath Malaise and weakness continue to improve No n/v/d Objective: I&O/Vital Signs 11/30/20 11/30/20 08:00 09:00 Temp 36.9 Pulse 66 Resp 14 B/P (MAP) 121/56 (77) Pulse Ox 93 O2 Delivery Room Air Room Air 11/30/20 00:00 Intake Total 1160 ml Output Total 975 ml Balance 185 ml Constitutional: AAO x 3, well-developed, well-nourished Respiratory: No accessory muscle use; other (good bilateral air entry) Cardiovascular: regular rate-rhythm, S1 and S2 Gastrointestional: No tender; audible bowel sounds, other (colostomy present to the L of the umbilicus) Extremities: No clubbing, No cyanosis, No significant edema Neurologic/Psychiatric: oriented x 3, other (moves all limbs equally) Skin: No rash on exposed areas, No ulcerations on exposed areas Results/Procedures: Labs Laboratory Tests 11/29/20 12:45: Glucometer 102 11/29/20 16:25: Glucometer 144H Microbiology 11/27/20 MRSA Screen - Final, Complete MRSA not isolated 11/17/20 Blood Culture - Final, Complete No growth A/P: Assessment: S/p robot-assisted anterior resection for rectal CA (early October 2020 at [facility]) SSS - s/p pacemaker, managed by his psychiatric assistant Dr Kam in - treated chronically with amiodarone (apparently for maintenance of sinus rhythm) - stroke prophylaxis has only been with ASA (per his psychiatric assistant, according to the patient) CAD - h/o a single cor stent in or around 2014 (details unknown to pt, records from [facility] unavailable despite request) DM II HLD HTN H/o cardiomyopathy (details unknown to pt) - his records from [facility] state an EF of 40% Urinary retention - Dr. Ibarra managing Plan: * Continue current regimen * Monitor labs ARSENIO BROOKE MD FACP [facility] CCDS Nov 30, 2020 12:26
[2020-11-30] MEDS ORDERED: LIDO20SO23 MM (12:40)
[2020-11-30 12:41] VITALS: BP 121/56
--- NOTE | 2020-11-30 15:44 | Therapy Team Discharge Summary ---
Therapy Discharge Summary Discharge Recommendations Date of Discharge Nov 30, 2020 at 12:47 Physical Therapy Patient came to rehab with Colon resection/Colon CA. Upon evaluation patient performed bed mobility with independence, supine <-> sit mod assist, sit <-> stand min assist, transfers min assist, car transfer mod assist, ambulated 50' with a rolling walker with min assist (including 50' with at least 2 turns of 90 degrees but needs mod assist to ambulate 10' over an uneven surface), and went up and down 1 step using a rolling walker with min assist. Patient has been performing bed mobility and transfer training, balance and endurance training, functional strengthening, stair training, gait training, and education. Patient has made good progress and has met all of his residential goals. Now, patient performs bed mobility and transfers with independence, car transfer independent, ambulates 250' with a rolling walker with independence (including 50' with at least 2 turns of 90 degrees and 10' over an uneven surface), he can orange picker an object from the floor with independence, and can go up and down 12 steps using 2 handrails with independence. Patient was discharged from this facility today and will be discharged from PT at this time. Occupational Therapy Decreased Activ Tolerance, Decreased UE Strength, Impaired I ADL's PT [employer] Specialist Goals Retirement Goals PT Retirement Goals Time Frame: Dec 05, 2020 Roll Left to Right (QC): 6 (met) Sit to Lying (QC): 6 (met) Lying-Sitting on Side/Bed(QC): 6 (met) Sit to Stand (QC): 5 (exceeded) Chair/Ubk-kb-Hrptq Xfer(QC): 5 (exceeded) Car Transfer (QC): 4 (exceeded) Does the Patient Walk: Yes Walk 10 feet (QC): 5 (exceeed) Walk 10ft-Uneven Surface(QC): 4 (exceeded) Walk 50ft with 2 Turns (QC): 5 (exceeded) Walk 150 ft (QC): 5 (exceeded) Wheel 50 feet with 2 turns (QC: 9 1 Step (curb) (QC): 4 (exceeded) 4 Steps (QC): 4 (exceeded) 12 Steps (QC): 88 Picking up an Object (QC): 4 (met) OT [employer] Specialist Goals Retirement Goals Time Frame: Nov 28, 2020 Eating (QC): 6 (met) Oral Hygiene (QC): 5 (met) Shower/Bathe Self (QC): 4 (met) Upper Body Dressing (QC): 5 (met) Lower Body Dressing (QC): 4 (met) On/Off Footwear (QC): 4 (met) Toileting Hygiene (QC): 6 (not met due to pt requires assist for colostomy care) Toilet/Commode Transfer (QC): 5 (exceeded) Additional Goals: 1-Demonstrate ADL Tasks, 2-Verbalize Understanding, 3- ImproveStrength/Misha 1=Demonstrate adherence to instructed precautions during ADL tasks. 2=Patient will verbalize/demonstrate understanding of assistive devices/modifications for ADL. 3=Patient will improve strength/tolerance for activity to enable patient to perform ADL's. VIRGEN DAVIS PT Nov 30, 2020 15:44
--- NOTE | 2020-12-03 08:30 | Therapy Team Discharge Summary ---
Therapy Discharge Summary Discharge Recommendations Date of Discharge Nov 30, 2020 at 12:47 Therapy D/C Recommendations: Home w/ Family Support Occupational Therapy Pt. seen in inpatient rehab to increase overall strength and independence with daily skills. Pt. met all goals, with set up only needed to cover colostomy before shower. Pt. discharged home with family support to continue with strengthening in home environment. No further OT warranted at this time. Decreased Activ Tolerance PT Infrastructure Director Goals [facility] Goals PT Infrastructure Director Goals Time Frame: Dec 05, 2020 Roll Left to Right (QC): 6 (met) Sit to Lying (QC): 6 (met) Lying-Sitting on Side/Bed(QC): 6 (met) Sit to Stand (QC): 5 (exceeded) Chair/Bor-cs-Lorap Xfer(QC): 5 (exceeded) Car Transfer (QC): 4 (exceeded) Does the Patient Walk: Yes Walk 10 feet (QC): 5 (exceeed) Walk 10ft-Uneven Surface(QC): 4 (exceeded) Walk 50ft with 2 Turns (QC): 5 (exceeded) Walk 150 ft (QC): 5 (exceeded) Wheel 50 feet with 2 turns (QC: 9 1 Step (curb) (QC): 4 (exceeded) 4 Steps (QC): 4 (exceeded) 12 Steps (QC): 88 Picking up an Object (QC): 4 (met) OT [facility] Goals Infrastructure Director Goals Time Frame: Nov 28, 2020 Eating (QC): 6 (met) Oral Hygiene (QC): 5 (met) Shower/Bathe Self (QC): 4 (met) Upper Body Dressing (QC): 5 (met) Lower Body Dressing (QC): 4 (met) On/Off Footwear (QC): 4 (met) Toileting Hygiene (QC): 6 (not met due to pt requires assist for colostomy care) Toilet/Commode Transfer (QC): 5 (exceeded) Additional Goals: 1-Demonstrate ADL Tasks, 2-Verbalize Understanding, 3- ImproveStrength/Misha 1=Demonstrate adherence to instructed precautions during ADL tasks. 2=Patient will verbalize/demonstrate understanding of assistive devices/modifications for ADL. 3=Patient will improve strength/tolerance for activity to enable patient to perform ADL's. ALLEY EMERY OT Dec 03, 2020 08:30
== END 2020-11-30 12:47 | disposition home health service (06) | DRG 949 ==
PROVIDERS: ADMIT Internal Medicine; ATTEND Internal Medicine
DX: Z48.3 Aftercare following surgery for neoplasm (principal); I50.20 Unspecified systolic (congestive) heart failure; I42.9 Cardiomyopathy, unspecified; R44.3 Hallucinations, unspecified; Z85.048 Personal history of other malignant neoplasm of rectum, rectosigmoid junction, and anus; I11.0 Hypertensive heart disease with heart failure; I49.5 Sick sinus syndrome; I48.91 Unspecified atrial fibrillation; N40.1 Benign prostatic hyperplasia with lower urinary tract symptoms; R41.0 Disorientation, unspecified; R33.8 Other retention of urine; E11.9 Type 2 diabetes mellitus without complications; I25.10 Atherosclerotic heart disease of native coronary artery without angina pectoris; I27.20 Pulmonary hypertension, unspecified; E78.00 Pure hypercholesterolemia, unspecified; E03.9 Hypothyroidism, unspecified; F32.9 Major depressive disorder, single episode, unspecified; Z95.0 Presence of cardiac pacemaker; Z95.5 Presence of coronary angioplasty implant and graft; Z87.01 Personal history of pneumonia (recurrent); Z79.84 Long term (current) use of oral hypoglycemic drugs; Z79.82 Long term (current) use of aspirin
CPT/HCPCS: 36415; 71045; 80053; 81000; 82947; 83605; 83880; 84145; 85007; 85025; 85027; 87040; 87081; 93005; 93306; 94760

== ENCOUNTER → 2020-11-28 | Day surgery (SDC) | payer MEDICARE ==
[~2020-11-28] MED LIST changes: -ACETAMINOPHEN 325 MG TABLET PO PRN; -ALPRAZolam 0.25 MG (XANAX) TAB PO PRN; -BISACODYL 10 MG SUPP (DULCOLAX) PR PRN; -CALCIUM CARBONATE 500 MG (TUMS) TAB.CHEW PO PRN; -DOCUSATE SODIUM 100 MG (COLACE) CAP PO PRN; -FLEET ENEMA ADULT 1 EA BTL PR PRN; -LACTULOSE SYRUP 10GM/15ML (ENULOSE) 30ML UDC PO PRN; +LIDO20SO23 MM; +LIDOCAINE UROJET 2% GEL 10 ML PKG ONE; -LOPERAMIDE 2 MG (IMODIUM) TABLET PO PRN; -ONDANSETRON 4 MG (ZOFRAN) ORAL DISSOLVE TAB PO PRN; +TMSL.4C PO; +TRM50T PO; -diphenhydrAMINE 25 MG TAB (BENADRYL) PO PRN; -guaiFENesin/CODEINE (ROBITUSSIN AC) 10ML UDC PO PRN
--- NOTE | 2020-11-28 07:04 | Progress Note-Pre Operative ---
Pre-Operative Progress Note H&P Reviewed The H&P was reviewed, patient examined and no changes noted. Date Seen by Provider: Nov 28, 2020 Time Seen by Provider: 07:03 Date H&P Reviewed: Nov 28, 2020 Time H&P Reviewed: 07:03 Pre-Operative Diagnosis: URINE RETENTION DAVID VANG MD Nov 28, 2020 07:04
--- NOTE | 2020-11-28 07:45 | Progress Note-Post Operative ---
Post-Operative Progess Note Surgeon (s)/Education Director (s) Surgeon DAVID VANG MD Education Director: NONE Pre-Operative Diagnosis URINE RETENTION Post-Operative Diagnosis SAME Procedure & Operative Findings Date of Procedure 11/28/20 Procedure Performed/Findings CYSTOSCOPY Anesthesia Type LOCAL Estimated Blood Loss Estimated blood loss (mL): NONE Specimens/Packing Specimens Removed NONE Packing: NONE DAVID VANG MD Nov 28, 2020 07:45
--- NOTE | 2020-11-28 14:15 | OPERATIVE REPORT ---
DATE OF SERVICE: 11/28/2020 PREOPERATIVE DIAGNOSIS: Urinary retention. POSTOPERATIVE DIAGNOSIS: Urinary retention. OPERATION PERFORMED: Cystoscopy. SURGEON: John Vang MD ANESTHESIA: Local. COMPLICATIONS: None. DESCRIPTION OF PROCEDURE: With the patient supine in his bed after removing the Horton catheter, genitalia were prepped and draped in the usual sterile fashion. Urethra was infiltrated with lidocaine jelly and a penile clamp was applied. This was then removed and a flexible cystoscope was introduced under vision. The anterior urethra was normal. The prostate was enlarged lateral lobe meeting in the midline causing complete bladder neck obstruction. The bladder was examined and has trabeculations. No foreign body, bladder tumor or stone visualized. Ureteric orifices with clear effluxes. Cystoscopy was confirmed in an antegrade fashion and the cystoscope was removed. The patient tolerated the procedure and anesthesia well, remained in his bed in stable condition. PLAN: 1. Flomax 0.4 mg 2 daily starting now. 2. No bethanechol. 3. Trial of voiding. Reinsert Horton catheter if unable to void or postvoid residual more than 400. If that happens, then the patient is going to need a transurethral resection of the prostate when medically feasible. Job ID: [id number] DocumentID: [id number] Dictated Date: 11/28/2020 10:00:40 Cargo Trimmer Date: 11/28/2020 14:14:18 Dictated By: JOHN VANG MD
== END ==
LOC: SDC 06:27
PROVIDERS: ATTEND Urology
DX: N40.1 Benign prostatic hyperplasia with lower urinary tract symptoms (principal); N13.8 Other obstructive and reflux uropathy; R33.8 Other retention of urine; N32.89 Other specified disorders of bladder; E11.9 Type 2 diabetes mellitus without complications; I25.10 Atherosclerotic heart disease of native coronary artery without angina pectoris; I27.20 Pulmonary hypertension, unspecified; I48.91 Unspecified atrial fibrillation; I11.0 Hypertensive heart disease with heart failure; I50.9 Heart failure, unspecified; E78.5 Hyperlipidemia, unspecified; I49.5 Sick sinus syndrome; I42.9 Cardiomyopathy, unspecified; E78.00 Pure hypercholesterolemia, unspecified; M19.90 Unspecified osteoarthritis, unspecified site; E03.9 Hypothyroidism, unspecified; Z95.0 Presence of cardiac pacemaker; Z85.038 Personal history of other malignant neoplasm of large intestine; Z88.8 Allergy status to other drugs, medicaments and biological substances; Z85.048 Personal history of other malignant neoplasm of rectum, rectosigmoid junction, and anus; Z79.82 Long term (current) use of aspirin; Z79.890 Hormone replacement therapy; Z79.84 Long term (current) use of oral hypoglycemic drugs; Z79.891 Long term (current) use of opiate analgesic; Z90.49 Acquired absence of other specified parts of digestive tract

== ENCOUNTER 2020-12-14 05:42 | Outpatient (CLI) | payer MEDICARE ==
[~2020-12-14] VITALS: Ht 170 cm; Wt 95.5 kg
[~2020-12-14 05:42] MED LIST changes: -LIDOCAINE UROJET 2% GEL 10 ML PKG ONE
== END 2020-12-14 12:53 | disposition home or self-care (01) ==
LOC: PREOP 05:42
PROVIDERS: ATTEND Urology
DX: Z01.818 Encounter for other preprocedural examination (principal); N40.1 Benign prostatic hyperplasia with lower urinary tract symptoms

== ENCOUNTER 2020-12-17 06:09 | Day surgery (SDC) | payer MEDICARE ==
[~2020-12-17] VITALS: Ht 170 cm; Wt 95.5 kg
[2020-12-17] VITALS (11 sets, daily range): BP systolic 95–144; BP diastolic 52–86
[2020-12-17] MEDS ORDERED: cefTRIAXone 1,000 MG in WATER (STERILE) FOR INJECTION 10 ML IV ONE (06:15)
[2020-12-17] MEDS ORDERED: LACTATED RINGERS 1,000 ML IV PRN (06:15)
[2020-12-17] MEDS ORDERED: POLY17PO6 PO (07:13)
[2020-12-17] MEDS ORDERED: SENN1TAB93 PO (07:13)
[2020-12-17] MEDS ORDERED: MIRT7.5T8 PO (07:13)
[2020-12-17] MEDS ORDERED: BUPIVACAINE 0.5% 30 ML (SENSORCAINE) VIAL ONE (07:17)
--- NOTE | 2020-12-17 07:17 | Progress Note-Post Operative ---
Post-Operative Progess Note Surgeon (s)/Registered Nurse (s) Surgeon DAVID VANG MD Registered Nurse: NONE Pre-Operative Diagnosis BPH WITH RETENTION Post-Operative Diagnosis SAME Procedure & Operative Findings Date of Procedure 12/17/20 Procedure Performed/Findings TURP Anesthesia Type SPINAL Estimated Blood Loss Estimated blood loss (mL): 100CC Specimens/Packing Specimens Removed PROSTATE CHIPS Packing: NONE DAVID VAGN MD Dec 17, 2020 07:17
--- NOTE | 2020-12-17 07:17 | Progress Note-Pre Operative ---
Pre-Operative Progress Note H&P Reviewed The H&P was reviewed, patient examined and no changes noted. Date Seen by Provider: Dec 17, 2020 Time Seen by Provider: 07:16 Date H&P Reviewed: Dec 17, 2020 Time H&P Reviewed: 07:16 Pre-Operative Diagnosis: BPH WITH RETENTION DAVID VANG MD Dec 17, 2020 07:17
[2020-12-17] MEDS ORDERED: fentaNYL INJ 100 MCG/2 ML AMP ONE (07:18)
[2020-12-17] MEDS ORDERED: PROPOFOL INJECTION 50 ML IV ONE (07:19)
[2020-12-17] MEDS ORDERED: MILK OF MAGNESIA 400 MG/5 ML 30 ML UDC PO PRN (07:30)
[2020-12-17] MEDS ORDERED: BELLADONNA ALK/OPIUM (B & O) 30 MG SUPP PR PRN (07:30)
[2020-12-17] MEDS: LACTATED RINGERS 1,000 ML IV SCH ×6 (08:49→22:35)
[2020-12-17] MEDS: DOCUSATE SODIUM 100 MG (COLACE) CAP PO SCH ×2 (09:59→20:10)
--- NOTE | 2020-12-17 10:13 | Consultation ---
HPI History of Present Illness: HPI/Chief Complaint Chief complaint: Status post TURP uncomplicated History of present illness: This is an 80-year-old white male new clinic patient of mine since November 27 weeks in inpatient rehab following Colon Cancer resection surgery at then a brief MedSurg then swing bed stay at [facility] due to UTI and dehydration and poor ostomy output presents to [address] room 423 following an uncomplicated TURP procedure. Patient had struggle with urinary retention requiring indwelling Adkins catheter and the decision was made to get the patient strong enough to undergo TURP. At this current time patient denies any pain and his family is at the bedside. Source: patient, family, RN/MD, old records Exam Limitations: no limitations Date Seen 12/17/20 Attending Physician John Ibarra MD PCP Katt Hawthorne DO Referring Physician Date of Admission Home Medications & Allergies Home Medications Reviewed patient Home Medication Reconciliation performed by pharmacy medication reconciliations gear technician and/or nursing. Patients Allergies have been reviewed. Allergies Allergies Coded Allergies lisinopril (Verified Allergy, Unknown, 11/14/20) zolpidem (Verified Allergy, Unknown, 11/14/20) Past Ccftrid-Jkgcwk-Pbdlmy Hx Past Med/Social Hx: Reviewed Nursing Past Med/Soc Hx, Reviewed and Corrections made Patient Social History Marrital Status: Employed/Student: retired Alcohol Use: Denies Use Recreational Drug Use: No Smoking Status: Never a Smoker Recent Foreign Travel: No Contact w/other who traveled: No Recent Hopitalizations: Yes (colon resection) Immunizations Up To Date Date of Influenza Vaccine: Apr 17, 2020 Seasonal Allergies Seasonal Allergies: No Past Medical History Surgeries: Pacemaker Respiratory: Pneumonia Cardiac: Atrial Fibrillation, Cardiomyopathy, Chronic Edema/Swelling, Coronary Artery Disease, High Cholesterol, Hypertension Genitourinary: Benign Prostatic Hyperpl Musculoskeletal: Arthritis Endocrine: Hypothyroidsim, Diabetes, Non-Insulin dep Cancer: Colon Did You Recieve Any Treatments: Yes What Type of Treatment Did You: Surgical Intervention History of Blood Disorders: No Review of Systems Constitutional: see HPI, weakness Physical Exam Physical Exam Vital Signs Vital Signs - First Documented 12/17/20 06:30 Temp 36.7 Pulse 60 Resp 18 B/P (MAP) 118/52 (74) Pulse Ox 98 O2 Delivery Room Air Capillary Refill : Height, Weight, BMI Height: '" Weight: lbs. oz. kg; 33.04 BMI Method: General Appearance: No Apparent Distress, WD/WN, Chronically ill Eyes: Bilateral Eye Normal Inspection, Bilateral Eye PERRL HEENT: PERRL/EOMI, Normal ENT Inspection, Pharynx Normal Neck: Full Range of Motion, Normal Inspection, Non Tender, Supple, Carotid Bruit Respiratory: Chest Non Tender, Lungs Clear, Normal Breath Sounds, No Accessory Muscle Use, No Respiratory Distress Cardiovascular: Regular Rate, Rhythm, No Edema, No Gallop, No JVD, No Murmur, Normal Peripheral Pulses Gastrointestinal: Normal Bowel Sounds, No Organomegaly, No Pulsatile Mass, Non Tender, Soft Back: Normal Inspection, No CVA Tenderness, No Vertebral Tenderness Extremity: Normal Capillary Refill, Normal Inspection, Normal Range of Motion ( limited ROM legs due to spinal), Non Tender, No Calf Tenderness, No Pedal Edema Neurologic/Psychiatric: Alert, Oriented x3, No Motor/Sensory Deficits, Normal Mood/Affect Skin: Normal Color, Warm/Dry Lymphatic: No Adenopathy Results Results/Procedures Labs Patient resulted labs reviewed. Assessment/Plan Assessment and Plan Assess & Plan/Chief Complaint Assessment: s/p TURP POD # [address] Ibarra Debility chronic Colon cancer s/p resection 11/08/20 [facility] Urinary retention adkins cath in place and failed in/out catheters so placed back Adkins catheter on 11/23/2020 resulting in TURP CHF AF PPM HTN HLP DM Hypothyroidism Delirium with hallucinations in hospital Plan: Gentle IVF and DC tomorrow to prevent overload Monitor labs PT OT soon Home meds Diagnosis/Problems Diagnosis/Problems (1) S/P TURP (2) Urine retention (3) BPH (benign prostatic hyperplasia) (4) Pacemaker (5) A-fib (6) Colon cancer (7) CHF (congestive heart failure) (8) CAD (coronary artery disease) KATT HAWTHORNE DO Dec 17, 2020 10:13
--- NOTE | 2020-12-17 13:32 | OPERATIVE REPORT ---
DATE OF SERVICE: 12/17/2020 PREOPERATIVE DIAGNOSIS: Benign prostatic hyperplasia with prostatism and retention. POSTOPERATIVE DIAGNOSIS: Benign prostatic hyperplasia with prostatism and retention. OPERATION PERFORMED: Transurethral resection of the prostate. SURGEON: David Vang MD. ANESTHESIA: Spinal. COMPLICATIONS: None. DESCRIPTION OF PROCEDURE: Under satisfactory spinal anesthesia, the patient in lithotomy position, genitalia were prepped and draped in the usual sterile fashion. Urethra was dilated with Reginaldo sound after removing the Horton catheter and the patient had received Rocephin 1 gram and Levaquin 500 mg IV preoperatively. Dilated the urethra with Reginaldo sound to #30 Colombian easily. A 27-Colombian [employer] resectoscope was introduced and resection was started first on the median bar that was leveled. Then, the roof from 11 to 1 o'clock position, then the lateral lobes to 6 o'clock position and apical tissue. Capsule was visualized in many points. Bleeders were cauterized as the resection was proceeding. The prostatic chips were evacuated and cystoscopy confirmed intact ureteric orifices veru and sphincter with good reflex. The resectoscope was then removed and a 22-Colombian 30 mL balloon catheter was inserted into the bladder, balloon inflated to 60 mL, put on some traction, connected to continuous bladder irrigation with normal saline the return of which was clear. Estimated blood loss was 100 mL, none of which was replaced. The patient tolerated the procedure and anesthesia well and was sent to recovery room in stable condition. Job ID: [id number] DocumentID: [id number] Dictated Date: 12/17/2020 08:51:33 Imaging Science Professor Date: 12/17/2020 13:32:00 Dictated By: DAVID VANG MD [facility]
[2020-12-17] MEDS ORDERED: NON-FORMULARY MEDICATION 1 EA EA (Potassium Chloride (K-Tab ER) 20 MEQ) PO SCH (18:00)
[2020-12-17] MEDS ORDERED: ONDANSETRON 4 MG (ZOFRAN) ORAL DISSOLVE TAB PO PRN (18:00)
[2020-12-17] MEDS ORDERED: [UNRECOGNIZED DRUG - OTHER] PO SCH (18:00)
[2020-12-17] MEDS ORDERED: VALSARTAN PO SCH (18:00)
[2020-12-17] MEDS ORDERED: RX-CYCLOBENZAPRINE 10 MG (FLEXERIL) TAB PPK#3 PO PRN (18:00)
[2020-12-17] MEDS ORDERED: SACUBITRIL PO SCH (18:00)
[2020-12-17] MEDS ORDERED: CYCLOBENZAPRINE 10 MG (FLEXERIL) TAB PO PRN (18:15)
[2020-12-17] MEDS ORDERED: diphenhydrAMINE 25 MG TAB (BENADRYL) PO PRN (18:15)
[2020-12-17] MEDS ORDERED: ACETAMINOPHEN 500 MG TAB (TYLENOL) PO PRN (18:15)
[2020-12-17] MEDS: SACUBITRIL/VALSARTAN 24/26 MG (ENTRESTO) TABLET PO SCH (18:29)
[2020-12-17] MEDS: metFORMIN 500 MG (GLUCOPHAGE) TAB PO SCH (18:30)
[2020-12-17] MEDS: TAMSULOSIN 0.4 MG (FLOMAX) CAP PO SCH (18:30)
[2020-12-17] MEDS: KCL 20 MEQ TAB (K-DUR) PO SCH (18:30)
[2020-12-17] MEDS: SENNA W/DOCUSATE (SENOKOT S) TABLET PO SCH (20:10)
[2020-12-17] MEDS: PANTOPRAZOLE 40 MG (PROTONIX) TAB PO SCH (20:11)
[2020-12-17] MEDS: MIRTAZAPINE 15 MG (REMERON) TAB PO SCH (20:11)
[2020-12-17] MEDS: LATANOPROST 0.005% (XALATAN) OPHTH SOLN 2.5 ML OU SCH (20:23)
[2020-12-17] MEDS ORDERED: NON-FORMULARY MEDICATION 1 EA EA (Mirtazapine 7.5 MG) PO SCH (21:00)
[2020-12-17] MEDS ORDERED: NON-FORMULARY MEDICATION 1 EA EA (Bimatoprost (Lumigan) 1 DROP) OU SCH (21:00)
[2020-12-18 00:02] VITALS: BP 121/51
[2020-12-18 04:15] VITALS: BP 110/49
[2020-12-18] MEDS: VENlafaxine XR 75 MG (EFFEXOR XR) CAP PO SCH (06:18)
[2020-12-18] MEDS: LEVOTHYROXINE 75 MCG (LEVOTHROID) TABLET PO SCH (06:18)
[2020-12-18] MEDS: SACUBITRIL/VALSARTAN 24/26 MG (ENTRESTO) TABLET PO SCH ×2 (06:18→18:07)
[2020-12-18 06:22] LABS: BASOPHILS # (AUTO) 0.1 10^3/uL (0.0-0.1); BASOPHILS % (AUTO) 1 % (0-10); EOSINOPHILS # (AUTO) 0.4 10^3/uL (0.0-0.3); EOSINOPHILS % (AUTO) 4 % (0-10); HEMATOCRIT 31 % (40-54); HEMOGLOBIN 9.7 g/dL (13.3-17.7); LYMPHOCYTES # (AUTO) 0.9 10^3/uL (1.0-4.0); LYMPHOCYTES % (AUTO) 8 % (12-44); MEAN CORPUSCULAR HEMOGLOBIN 27 pg (25-34); MEAN CORPUSCULAR HGB CONC 31 g/dL (32-36); MEAN CORPUSCULAR VOLUME 85 fL (80-99); MEAN PLATELET VOLUME 9.3 fL (9.0-12.2); MONOCYTES % (AUTO) 9 % (0-12); NEUTROPHILS # (AUTO) 8.9 10^3/uL (1.8-7.8); NEUTROPHILS % (AUTO) 79 % (42-75); PLATELET COUNT 368 10^3/uL (130-400); WHITE BLOOD COUNT 11.3 10^3/uL (4.3-11.0)
[2020-12-18 06:36] LABS: ALANINE AMINOTRANSFERASE 11 U/L (0-55); ALBUMIN 2.9 GM/DL (3.2-4.5); ALKALINE PHOSPHATASE 44 U/L (40-136); BILIRUBIN,TOTAL 0.2 MG/DL (0.1-1.0); BUN/CREATININE RATIO 12; CALCIUM 8.8 MG/DL (8.5-10.1); CARBON DIOXIDE 26 MMOL/L (21-32); CHLORIDE 105 MMOL/L (98-107); CREATININE SERUM 0.86 MG/DL (0.60-1.30); GFR ESTIMATED > 60; GLUCOSE 135 MG/DL (70-105); POTASSIUM 4.3 MMOL/L (3.6-5.0); SODIUM 138 MMOL/L (135-145); TOTAL PROTEIN 5.6 GM/DL (6.4-8.2)
[2020-12-18 06:57] LABS: EOSINOPHILS % (MANUAL) 1 %; LYMPHOCYTES % (MANUAL) 7 %; MONOCYTES % (MANUAL) 10 %; NEUTROPHILS % (MANUAL) 82 %; RBC MORPH NORMAL
[2020-12-18 07:30] VITALS: BP 115/66
[2020-12-18] MEDS: ASCORBIC ACID (VIT C) 500 MG TABLET PO SCH (09:00)
[2020-12-18] MEDS ORDERED: NON-FORMULARY MEDICATION 1 EA EA (Cholecalciferol (Vitamin D3) (Vitamin D3) 25 MCG) PO SCH (09:00)
[2020-12-18] MEDS: SPIRONOLACTONE 25 MG (ALDACTONE) TAB PO SCH (09:00)
[2020-12-18] MEDS: SENNA W/DOCUSATE (SENOKOT S) TABLET PO SCH ×2 (09:00→20:10)
[2020-12-18] MEDS ORDERED: NON-FORMULARY MEDICATION 1 EA EA (Sacubitril/Valsartan (Entresto 49 mg-51 mg Tablet) 1 TAB PO SCH (09:00)
[2020-12-18] MEDS ORDERED: NON-FORMULARY MEDICATION 1 EA EA (Ascorbate Calcium (Vitamin C) 500 MG) PO SCH (09:00)
[2020-12-18] MEDS: metFORMIN 500 MG (GLUCOPHAGE) TAB PO SCH ×2 (09:00→18:07)
[2020-12-18] MEDS: VITAMIN D3 25 MCG (1,000 UNITS) TABLET PO SCH (09:00)
[2020-12-18] MEDS: PANTOPRAZOLE 40 MG (PROTONIX) TAB PO SCH ×2 (09:01→20:10)
[2020-12-18] MEDS: DOCUSATE SODIUM 100 MG (COLACE) CAP PO SCH ×2 (09:01→20:10)
[2020-12-18] MEDS: AMIODARONE 200 MG (CORDARONE) TAB PO SCH (09:01)
[2020-12-18] MEDS: polyethylene glycoL POWDER 17 GM (MIRALAX) PACK PO SCH (09:01)
--- NOTE | 2020-12-18 09:01 | Progress Note - Urology ---
Progress Note-Urology Progress Notes/Assess & Plan Progress/Assessment & Plan AFEBRILE, VSS. FEELS GOOD. URINE CRYSTAL CLEAR. DC LAURA Final Diagnosis BPH WITH RETENTION DAVID VANG MD Dec 18, 2020 09:01
--- NOTE | 2020-12-18 09:55 | Progress Note ---
Subjective Date Seen by a Provider: Dec 18, 2020 Time Seen by a Provider: 09:00 Subjective/Events-last exam Patient doing pretty well Catheter removed and unable to void just yet because they just removed it 3 cup test will be performed by nurses on every void to monitor hematuria PT and OT will be started Daughter at the bedside Appears to be doing really well otherwise We will discharge tomorrow Conferred with urology Review of Systems General: Fatigue Genitourinary: Hematuria Objective Exam Last Set of Vital Signs Vital Signs Date Time Temp Pulse Resp B/P (MAP) Pulse Ox O2 Delivery O2 Flow Rate FiO2 12/18/20 07:30 36.6 60 18 115/66 (82) 94 Room Air Capillary Refill : I&O Intake and Output 12/18/20 00:00 Intake Total 1950 ml Output Total 1595 ml Balance 355 ml Intake Oral 890 ml IV Total 1060 ml Output Urine Total 1595 ml General: Alert, Oriented X3, Cooperative, No Acute Distress Lungs: Clear to Auscultation, Normal Air Movement Heart: Regular Rate, Normal S1, Normal S2, No Murmurs Neuro: Normal Gait, Normal Speech, Strength at 5/5 X4 Ext, Normal Tone Psych/Mental Status: Mental Status NL, Mood NL Results Lab Laboratory Tests 12/18/20 05:10: White Blood Count 11.3H, Red Blood Count 3.65L, Hemoglobin 9.7L, Hematocrit 31L, Mean Corpuscular Volume 85, Mean Corpuscular Hemoglobin 27, Mean Corpuscular Hemoglobin Concent 31L, Red Cell Distribution Width 15.1H, Platelet Count 368, M roel Platelet Volume 9.3, Immature Granulocyte % (Auto) 1, Neutrophils (%) (Auto) 79H, Lymphocytes (%) (Auto) 8L, Monocytes (%) (Auto) 9, Eosinophils (%) (Auto) 4, Basophils (%) (Auto) 1, Neutrophils # (Auto) 8.9H, Lymphocytes # (Auto) 0.9L, Monocytes # (Auto) 1.0, Eosinophils # (Auto) 0.4H, Basophils # (Auto) 0.1, Immature Granulocyte # (Auto) 0.1, Neutrophils % (Manual) 82, Lymphocytes % (Manual) 7, Monocytes % (Manual) 10, Eosinophils % (Manual) 1, Blood Morphology Comment NORMAL, Sodium Level 138, Potassium Level 4.3, Chloride Level 105, Carbon Dioxide Level 26, Anion Gap 7, Blood Urea Nitrogen 10, Creatinine 0.86, Estimat Glomerular Filtration Rate > 60, BUN/Creatinine Ratio 12, Glucose Level 135H, Calcium Level 8.8, Corrected Calcium 9.7, Total Bilirubin 0.2, Aspartate Amino Transf (AST/SGOT) 13, Alanine Aminotransferase (ALT/SGPT) 11, Alkaline Phosphatase 44, Total Protein 5.6L, Albumin 2.9L Microbiology 12/17/20 MRSA Screen - Final, Complete MRSA not isolated Assessment/Plan Assessment/Plan Assess & Plan/Chief Complaint Assessment: s/p TURP POD # [address] Ibarra Debility chronic Colon cancer s/p resection 11/08/20 [facility] Urinary retention adkins cath in place and failed in/out catheters so placed back Adkins catheter on 11/23/2020 resulting in TURP CHF AF PPM HTN HLP DM Hypothyroidism Delirium with hallucinations in hospital Plan: Gentle IVF and DC tomorrow to prevent overload Monitor labs PT OT soon Home meds 12/18/2020: DC Adkins Monitor hematuria PT and OT Discharge tomorrow Diagnosis/Problems Diagnosis/Problems (1) S/P TURP (2) Urine retention (3) BPH (benign prostatic hyperplasia) (4) Pacemaker (5) A-fib (6) Colon cancer (7) CHF (congestive heart failure) (8) CAD (coronary artery disease) RIO HAWTHORNE DO Dec 18, 2020 09:55
[2020-12-18 11:11] VITALS: BP 163/76
--- NOTE | 2020-12-18 11:40 | Physical Therapy Evaluation ---
PT Evaluation-General Medical Diagnosis Admission Date December 18, 2020 Medical Diagnosis: urinary retention Onset Date: Dec 18, 2020 Therapy Diagnosis Therapy Diagnosis: debility Precautions Precautions/Isolations: Standard Precautions Referral Physician: Jamilah Reason for Referral: Evaluation/Treatment Medical History Pertinent Medical History: Atrial Fib, CAD, HTN Current History s/p TURP Reviewed History: Yes Social History Home: Single Level Current Living Status: Alone Entry Into Home: Stairs With Railing PT Steps Into Home: 4 Prior Prior Level of Function SCALE: Activities may be completed with or without assistive devices. 7-Xgocthulkg-advzefk completes the activity by him/herself with no assistance from a helper. 5-Set-up or Clean-up Assistance-helper sets up or cleans up; patient completes activity. [place] assists only prior to or following the activity. 4-Supervision or Touching Assistance-helper provides verbal cues and/or touching/steadying and/or contact guard assistance as patient completes activity. Assistance may be provided throughout the activity or intermittently. 3-Partial/Moderate Assistance-helper does LESS THAN HALF the effort. [place] lifts, holds or supports trunk or limbs, but provides less than half the effort. 2-Substantial/Maximal Assistance-helper does MORE THAN HALF the effort. [place] lifts or holds trunk or limbs and provides more than half the effort. 2-Tvxiqwser-yxqcpr does ALL the effort. Patient does none of the effort to complete the activity. Or, the assistance of 2 or more helpers is required for the patient to complete the activity. If activity was not attempted, code reason: 7-Patient Refused. 9-Not Applicable-not attempted and the patient did not perform the activity before the current illness, exacerbation or injury. 10-Not Attempted due to Environmental Limitations-(lack of equipment, weather restraints, etc.). 88-Not Attempted due to Medical Conditions or Safety Concerns. Bed Mobility: 6 Transfers (B,C,W/C): 6 Gait: 6 Stairs: 6 Indoor Mobility (Ambulation): Independent Stairs: Independent Prior Devices Use: Walker PT Evaluation-Current Subjective Patient agrees to PT. Family present. Objective Patient Orientation: Normal For Age ROM/Strength ROM Lower Extremities bilateral LE WFL Strength Lower Extremities 4/5 grossly bilateral LE Integumentary/Posture Bowel Incontinence: No Bladder Incontinence: No Posture WFL Neuromuscular (Tone, Coordination, Reflexes) grossly intact Sensory Vision: Functional Hearing: Functional Transfers Sit to Lying (QC): 6 Lying to Sitting/Side of Bed(Q: 6 Sit to Stand (QC): 4 (SBA for initial assessment) Chair/Zlv-sy-Nnoow Xfer(QC): 4 (SBA for initial assessment) Gait Does the Patient Walk?: Yes Mode of Locomotion: Walk Anticipated Mode of Locomotion: Walk Walk 10 feet (QC): 4 Walk 50 ft with 2 Turns(QC): 4 Walk 150 ft (QC): 4 Distance: 500' Gait Assistive Device: FWW Comments/Gait Description steady, functional gait sequence Balance Sitting Static: Normal Sitting Dynamic: Normal Standing Static: Normal Standing Dynamic: Normal Picking up an Object (QC): 6 (seated position) Assessment/Needs 80 y.o. male, will be seen short term by skilled PT to address functional strength and mobility to ensure safe return to home at maximum LOF. Rehab Potential: Fair PT Short Term Goals Short Term Goals Time Frame: Dec 21, 2020 Roll Left & Right: 6 Sit to lyin Lying to sitting on side of be: 6 Sit to stand: 6 Chair/pso-rg-tmyax transfer: 6 Toilet transfer: 6 Walk 10 feet: 6 Walk 50 feet with two turns: 6 Walk 150 feet: 6 1 step (curb): 6 4 steps: 6 PT Plan Treatment/Plan Treatment Plan: Continue Plan of Care Treatment Plan: Education, Functional Activity Misha, Functional Strength, Gait, Safety, Therapeutic Exercise, Transfers Treatment Duration: Dec 21, 2020 Frequency: 4 times per week Estimated Hrs Per Day: .25 hour per day Patient and/or Family Agrees t: Yes Discharge Recommendations Therapy Discharge Recommendati: Home & Family Time/GCodes Time In: 1103 Time Out: 1120 Total Billed Treatment Time: 17 Total Billed Treatment 1 visit EVModC 17 min STANTON AGUIRRE PT Dec 18, 2020 11:40
--- NOTE | 2020-12-18 12:09 | Anesthesia-General Post-Op ---
General Patient Condition Mental Status/LOC: Same as Preop Cardiovascular: Satisfactory Nausea/Vomiting: Absent Respiratory: Satisfactory Pain: Controlled Complications: Absent Post Op Complications Complications None Follow Up Care/Instructions Patient Instructions None needed. Anesthesia/Patient Condition Patient Condition Patient is doing well, no complaints, stable vital signs, no apparent adverse anesthesia problems. No complications reported per nursing. RAS CAMPOS CRNA Dec 18, 2020 12:09
--- NOTE | 2020-12-18 15:11 | Occupational Therapy Eval ---
OT Evaluation-General/PLF Medical Diagnosis Admission Date 12/17/2020 Medical Diagnosis: urinary retention Onset Date: Dec 18, 2020 Therapy Diagnosis Therapy Diagnosis: decr self care, decr activity tolerance, decr funct mobility Precautions Precautions/Isolations: Standard Precautions Referral Physician: Jamilah Lucia Reason: Evaluation/Treatment Medical History Pertinent Medical History: Atrial Fib, Arthritis, CAD, DM (non insulin dependent), Heart Failure, HTN, Hypothroidism Additional Medical History Pacemaker. Pneumonia. Cardiomyopathy, chronic edema. CHF. BPH. Delirium with hallucinations Current History Has been hospitalized several times in last month, including [facility], [facility], acute care, [facility]. Had colon resection with colostomy at . Now admitted for TURP. Reviewed History: Yes Social History Home: Single Level Current Living Status: Spouse Entry Into Home: Stairs With Railing Steps Into Home: 4 ADL-Prior Level of Function SCALE: Activities may be completed with or without assistive devices. 1-Nmwinrtgun-irwxmum completes the activity by him/herself with no assistance from a helper. 5-Set-up or Clean-up Assistance-helper sets up or cleans up; patient completes activity. [place] assists only prior to or following the activity. 4-Supervision or Touching Assistance-helper provides verbal cues and/or t ouching/steadying and/or contact guard assistance as patient completes activity. Assistance may be provided throughout the activity or intermittently. 3-Partial/Moderate Assistance-helper does LESS THAN HALF the effort. [place] lifts, holds or supports trunk or limbs, but provides less than half the effort. 2-Substantial/Maximal Assistance-helper does MORE THAN HALF the effort. [place] lifts or holds trunk or limbs and provides more than half the effort. 6-Rmmbkfkkx-qwowpd does ALL the effort. Patient does none of the effort to complete the activity. Or, the assistance of 2 or more helpers is required for the patient to complete the activity. If activity was not attempted, code reason: 7-Patient Refused. 9-Not Applicable-not attempted and the patient did not perform the activity before the current illness, exacerbation or injury. 10-Not Attempted due to Environmental Limitations-(lack of equipment, weather restraints, etc.). 88-Not Attempted due to Medical Conditions or Safety Concerns. ADL PLOF Comments Pt reported that he was previously independent in all basic self care and still drove. He had a walker but didn't use it. 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 Self Care: Independent DME/Equipment: Bath Chair, Tub/Shower OT Current Status Subjective Pt seen in room, up in bed, agreeable to OT. Pain reported 0/10 unless he is trying to urinate Appearance Alert, cooperative Mental Status/Objective Attachments: IV Current Glasses/Contacts: Yes Hearing Aids: No Dentures/Partials: No Upper Extremity ROM Grossly WFL bilat except L shoulder has been limited for many years Upper Extremity Sensation Pt denies problems with sensation Upper Extremity Strength Grossly 4/5 bilat ADL-Treatment ADL-Current Pt reported that he has been able to feed himself with no help. He also said that he could put on his socks, which he couldn't do when he first started his hospital journey. He transferred SBA with PT and walked 500' with FWW. His main problem he said now is urinary retention. 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 2=Patient will verbalize/demonstrate understanding of assistive devices/modifications for ADL. 3=Patient will improve strength/tolerance for activity to enable patient to perform ADL's. OT Education/Plan Problem List/Assessment Assessment: Decreased Activ Tolerance, Dependent Transfers, Impaired Self-Care Skills Pt would benefit from skilled OT to increase his independence with basic self care to allow him to safely return home Discharge Recommendations Plan/Recommendations: Continue POC Treatment Plan/Plan of Care Treatment,Training & Education: Yes Patient would benefit from OT for education, treatment and training to promote independence in ADL's, mobility, safety and/or upper extremity function for ADL's. Plan of Care: ADL Retraining, Functional Mobility, UE Funct Exercise/Act Treatment Duration: Dec 21, 2020 Frequency: 4 times per week Estimated Hrs Per Day: .25 hour per day Agreement: Yes Rehab Potential: Fair Time/GCodes Start Time: 14:46 Stop Time: 15:00 Total Time Billed (hr/min): 14 Billed Treatment Time visit, 14 minutes evaluation low intensity CARMITA FIGUEREDO OT Dec 18, 2020 15:11
[2020-12-18 15:47] VITALS: BP 146/70
[2020-12-18] MEDS: TAMSULOSIN 0.4 MG (FLOMAX) CAP PO SCH (18:07)
[2020-12-18] MEDS: KCL 20 MEQ TAB (K-DUR) PO SCH (18:07)
[2020-12-18 19:24] VITALS: BP 137/66
[2020-12-18] MEDS: MIRTAZAPINE 15 MG (REMERON) TAB PO SCH (20:10)
[2020-12-18] MEDS: LATANOPROST 0.005% (XALATAN) OPHTH SOLN 2.5 ML OU SCH (20:12)
[2020-12-19 00:18] VITALS: BP 132/73
[2020-12-19 04:00] VITALS: BP 143/73
[2020-12-19] MEDS: LEVOTHYROXINE 75 MCG (LEVOTHROID) TABLET PO SCH (06:21)
[2020-12-19] MEDS: SACUBITRIL/VALSARTAN 24/26 MG (ENTRESTO) TABLET PO SCH (06:21)
[2020-12-19] MEDS: VENlafaxine XR 75 MG (EFFEXOR XR) CAP PO SCH (06:21)
[2020-12-19 07:20] VITALS: BP 126/66
[2020-12-19] MEDS: DOCUSATE SODIUM 100 MG (COLACE) CAP PO SCH (08:43)
[2020-12-19] MEDS: PANTOPRAZOLE 40 MG (PROTONIX) TAB PO SCH (08:43)
[2020-12-19] MEDS: polyethylene glycoL POWDER 17 GM (MIRALAX) PACK PO SCH (08:43)
[2020-12-19] MEDS: SENNA W/DOCUSATE (SENOKOT S) TABLET PO SCH (08:43)
[2020-12-19] MEDS: SPIRONOLACTONE 25 MG (ALDACTONE) TAB PO SCH (08:44)
[2020-12-19] MEDS: VITAMIN D3 25 MCG (1,000 UNITS) TABLET PO SCH (08:44)
[2020-12-19] MEDS: AMIODARONE 200 MG (CORDARONE) TAB PO SCH (08:44)
[2020-12-19] MEDS: ASCORBIC ACID (VIT C) 500 MG TABLET PO SCH (08:44)
[2020-12-19] MEDS: metFORMIN 500 MG (GLUCOPHAGE) TAB PO SCH (08:44)
--- NOTE | 2020-12-19 08:50 | Progress Note - Urology ---
Progress Note-Urology Progress Notes/Assess & Plan Progress/Assessment & Plan DOING AND FEELING WELL. VOIDING WELL. URINE TINGED. HOME WITH INSTRUCTIONS Final Diagnosis BPH WITH RETENTION DAVID VANG MD Dec 19, 2020 08:50
--- NOTE | 2020-12-19 08:54 | Discharge Inst-Urology ---
Discharge Inst-Urology Reconcile Patient Problems Problems Reviewed?: Yes Final Diagnosis BPH WITH RETENTION Patient Instructions/Follow Up Plan/Assessment/Instructions Please make appointment to been seen in office in 2 weeks. Rest till then Notify Dr Askew of discharge Keep bowels soft and moving Rx for Cipro 500 bid for 5 days please call to patient's pharmacy Increase oral fluids for 48 hours and then as needed. Diet as tolerated. If questions or concerns contact your physician Or seek help at emergency department. DAVID VANG MD Dec 19, 2020 08:54
--- NOTE | 2020-12-19 09:23 | Physical Therapy Daily Note ---
PT Daily Note-Current Subjective Patient in bed pre tx, agrees to PT, has no complaints of pain. Appearance Patient in recliner post tx with nurse call, phone, tray, all needs met. Mental Status Patient Orientation: Person, Place, Situation Transfers SCALE: Activities may be completed with or without assistive devices. 5-Gvamukjlqm-vzmigpz completes the activity by him/herself with no assistance from a helper. 5-Set-up or Clean-up Assistance-helper sets up or cleans up; patient completes activity. [place] assists only prior to or following the activity. 4-Supervision or Touching Assistance-helper provides verbal cues and/or touching /steadying and/or contact guard assistance as patient completes activity. Assistance may be provided throughout the activity or intermittently. 3-Partial/Moderate Assistance-helper does LESS THAN HALF the effort. [place] lifts, holds or supports trunk or limbs, but provides less than half the effort. 2-Substantial/Maximal Assistance-helper does MORE THAN HALF the effort. [place] lifts or holds trunk or limbs and provides more than half the effort. 5-Umpzfajbt-lxkkjr does ALL the effort. Patient does none of the effort to complete the activity. Or, the assistance of 2 or more helpers is required for the patient to complete the activity. If activity was not attempted, code reason: 7-Patient Refused. 9-Not Applicable-not attempted and the patient did not perform the activity before the current illness, exacerbation or injury. 10-Not Attempted due to Environmental Limitations-(lack of equipment, weather restraints, etc.). 88-Not Attempted due to Medical Conditions or Safety Concerns. Roll Left & Right (QC): 6 Lying to Sitting/Side of Bed(Q: 6 Sit to Stand (QC): 4 Chair/Ejm-kp-Bjvov Xfer(QC): 4 Gait Training Distance: 600' Walk 10 feet (QC): 4 Walk 50 ft with 2 Turns(QC): 4 Walk 150 ft (QC): 4 Gait Persons Needed: 1 Gait Assistive Device: FWW SBA, slow but steady ambulation, one standing rest break Exercises Seated Therapy Exercises: Ankle pumps Seated Reps: 20 Treatments bed mobility and transfers, ambulation Assessment Current Status: Fair Progress improving strength PT Short Term Goals Short Term Goals Time Frame: Dec 21, 2020 Roll Left & Right: 6 Sit to lyin Lying to sitting on side of be: 6 Sit to stand: 6 Chair/xwf-qq-lmcry transfer: 6 Toilet transfer: 6 Walk 10 feet: 6 Walk 50 feet with two turns: 6 Walk 150 feet: 6 1 step (curb): 6 4 steps: 6 PT Plan Problem List Problem List: Activity Tolerance, Functional Strength, Safety, Balance, Gait, Transfer Treatment/Plan Treatment Plan: Continue Plan of Care Treatment Plan: Education, Functional Activity Misha, Functional Strength, Gait, Safety, Therapeutic Exercise, Transfers Treatment Duration: Dec 21, 2020 Frequency: 4 times per week Estimated Hrs Per Day: .25 hour per day Patient and/or Family Agrees t: Yes Safety Risks/Education Patient Education: Gait Training, Transfer Techniques, Correct Positioning, Safety Issues Teaching Recipient: Patient Teaching Methods: Demonstration, Discussion Response to Teaching: Reinforcement Needed Time/GCodes Time In: 0844 Time Out: 0857 Total Billed Treatment Time: 13 Total Billed Treatment 1 visit GT 13' VIRGEN DAVIS PT Dec 19, 2020 09:23
[2020-12-19] MEDS ORDERED: VENL75CA93 PO (09:26)
[2020-12-19 09:44] LABS: BASOPHILS # (AUTO) 0.1 10^3/uL (0.0-0.1); BASOPHILS % (AUTO) 1 % (0-10); EOSINOPHILS # (AUTO) 0.5 10^3/uL (0.0-0.3); EOSINOPHILS % (AUTO) 5 % (0-10); HEMATOCRIT 37 % (40-54); HEMOGLOBIN 11.3 g/dL (13.3-17.7); LYMPHOCYTES % (AUTO) 9 % (12-44); MEAN CORPUSCULAR HEMOGLOBIN 26 pg (25-34); MEAN CORPUSCULAR HGB CONC 30 g/dL (32-36); MEAN CORPUSCULAR VOLUME 86 fL (80-99); MEAN PLATELET VOLUME 8.8 fL (9.0-12.2); MONOCYTES # (AUTO) 0.9 10^3/uL (0.0-1.0); MONOCYTES % (AUTO) 8 % (0-12); NEUTROPHILS # (AUTO) 8.8 10^3/uL (1.8-7.8); NEUTROPHILS % (AUTO) 77 % (42-75); PLATELET COUNT 391 10^3/uL (130-400); WHITE BLOOD COUNT 11.4 10^3/uL (4.3-11.0)
--- NOTE | 2020-12-19 09:44 | Discharge Summary ---
Diagnosis/Chief Complaint Date of Admission Date of Discharge Discharge Date: Dec 19, 2020 Discharge Diagnosis Assessment: s/p TURP POD # [address] Ibarra Debility chronic Colon cancer s/p resection 11/08/20 [facility] Urinary retention adkins cath in place and failed in/out catheters so placed back Adkins catheter on 11/23/2020 resulting in TURP CHF AF PPM HTN HLP DM Hypothyroidism Delirium with hallucinations in hospital Plan: Gentle IVF and DC tomorrow to prevent overload Monitor labs PT OT soon Home meds 12/18/2020: DC Adkins Monitor hematuria PT and OT Discharge tomorrow Discharge Summary Discharge Physical Examination Allergies: Coded Allergies: lisinopril (Verified Allergy, Unknown, 11/14/20) zolpidem (Verified Allergy, Unknown, 11/14/20) Vitals & I&Os Vital Signs Date Time Temp Pulse Resp B/P (MAP) Pulse Ox O2 Delivery O2 Flow Rate FiO2 12/19/20 11:30 12/19/20 09:00 Room Air 12/19/20 07:20 36.3 62 18 93 General Appearance: Alert, Oriented X3, Cooperative Respiratory: Clear to Auscultation Cardiovascular: Regular Rate Neuro: Normal Gait, Normal Speech, Strength at 5/5 X4 Ext Psych/Mental Status: Mental Status NL Hospital Course Was the Problem List Reviewed?: Yes Hospital course Pt had an uncomplicated hospital course after undergoing uncomplicated TURP by Dr. Ibarra. Pt had no significant problems. The hematuria actually improved the more times he voided. Pt had no significant complaints. At the time of discharge his labs were stable. His ostomy was slow to recover, but he was receiving Miralax, Lactulose, and Senna. Pt will have a close f/u with me on Thursday and a close f/u with Dr. Ibarra. Pt will resume [facility] with close monitoring and continue therapy at home. Labs (last 24 hrs) Laboratory Tests 12/17/20 06:36: Glucometer 107 12/18/20 05:10: White Blood Count 11.3H, Red Blood Count 3.65L, Hemoglobin 9.7L, Hematocrit 31L, Mean Corpuscular Volume 85, Mean Corpuscular Hemoglobin 27, Mean Corpuscular Hemoglobin Concent 31L, Red Cell Distribution Width 15.1H, Platelet Count 368, Mean Platelet Volume 9.3, Immature Granulocyte % (Auto) 1, Neutrophils (%) (Auto) 79H, Lymphocytes (%) (Auto) 8L, Monocytes (%) (Auto) 9, Eosinophils (%) (Auto) 4, Basophils (%) (Auto) 1, Neutrophils # (Auto) 8.9H, Lymphocytes # (Auto) 0.9L, Monocytes # (Auto) 1.0, Eosinophils # (Auto) 0.4H, Basophils # (Au to) 0.1, Immature Granulocyte # (Auto) 0.1, Neutrophils % (Manual) 82, Lymphocytes % (Manual) 7, Monocytes % (Manual) 10, Eosinophils % (Manual) 1, Blood Morphology Comment NORMAL, Sodium Level 138, Potassium Level 4.3, Chloride Level 105, Carbon Dioxide Level 26, Anion Gap 7, Blood Urea Nitrogen 10, Creatinine 0.86, Estimat Glomerular Filtration Rate > 60, BUN/Creatinine Ratio 12, Glucose Level 135H, Calcium Level 8.8, Corrected Calcium 9.7, Total Bilirubin 0.2, Aspartate Amino Transf (AST/SGOT) 13, Alanine Aminotransferase (ALT/SGPT) 11, Alkaline Phosphatase 44, Total Protein 5.6L, Albumin 2.9L 12/19/20 09:35: White Blood Count 11.4H, Red Blood Count 4.31, Hemoglobin 11.3L, Hematocrit 37L, Mean Corpuscular Volume 86, Mean Corpuscular Hemoglobin 26, Mean Corpuscular He moglobin Concent 30L, Red Cell Distribution Width 15.1H, Platelet Count 391, Mean Platelet Volume 8.8L, Immature Granulocyte % (Auto) 1, Neutrophils (%) (Auto) 77H, Lymphocytes (%) (Auto) 9L, Monocytes (%) (Auto) 8, Eosinophils (%) (Auto) 5, Basophils (%) (Auto) 1, Neutrophils # (Auto) 8.8H, Lymphocytes # (Auto) 1.0, Monocytes # (Auto) 0.9, Eosinophils # (Auto) 0.5H, Basophils # (Auto) 0.1, Immature Granulocyte # (Auto) 0.1, Sodium Level 138, Potassium Level 4.4, Chloride Level 102, Carbon Dioxide Level 25, Anion Gap 11, Blood Urea Nitrogen 10, Creatinine 0.98, Estimat Glomerular Filtration Rate > 60, BUN/Creatinine Ratio 10, Glucose Level 157H, Calcium Level 9.4, Corrected Calcium 9.8, Total Bilirubin 0.2, Aspartate Amino Transf (AST/SGOT) 13, Alanine Aminotransferase (ALT/SGPT) 12, Alkaline Phosphatase 51, Total Protein 6.9, Albumin 3.5 Microbiology 12/17/20 MRSA Screen - Final, Complete MRSA not isolated Pending Labs Microbiology Date/Time Source Procedure Growth Status 12/17/20 06:40 Nasal MRSA Screen - Final MRSA not isolated Complete Laboratory Tests 12/17/20 06:36: Glucometer 107 12/18/20 05:10: White Blood Count 11.3, Red Blood Count 3.65, Hemoglobin 9.7, Hematocrit 31, Mean Corpuscular Volume 85, Mean Corpuscular Hemoglobin 27, Mean Corpuscular Hemoglobin Concent 31, Red Cell Distribution Width 15.1, Platelet Count 368, Mean Platelet Volume 9.3, Immature Granulocyte % (Auto) 1, Neutrophils (%) (Auto) 79, Lymphocytes (%) (Auto) 8, Monocytes (%) (Auto) 9, Eosinophils (%) (Auto) 4, Basophils (%) (Auto) 1, Neutrophils # (Auto) 8.9, Lymphocytes # (Auto) 0.9, Monocytes # (Auto) 1.0, Eosinophils # (Auto) 0.4, Basophils # (Auto) 0.1, Immature Granulocyte # (Auto) 0.1, Neutrophils % (Manual) 82, Lymphocytes % (Manual) 7, Monocytes % (Manual) 10, Eosinophils % (Manual) 1, Blood Morphology Comment NORMAL, Sodium Level 138, Potassium Level 4.3, Chloride Level 105, Ca rbon Dioxide Level 26, Anion Gap 7, Blood Urea Nitrogen 10, Creatinine 0.86, Estimat Glomerular Filtration Rate > 60, BUN/Creatinine Ratio 12, Glucose Level 135, Calcium Level 8.8, Corrected Calcium 9.7, Total Bilirubin 0.2, Aspartate Amino Transf (AST/SGOT) 13, Alanine Aminotransferase (ALT/SGPT) 11, Alkaline Phosphatase 44, Total Protein 5.6, Albumin 2.9 12/19/20 09:35: White Blood Count 11.4, Red Blood Count 4.31, Hemoglobin 11.3, Hematocrit 37, Mean Corpuscular Volume 86, Mean Corpuscular Hemoglobin 26, Mean Corpuscular Hemoglobin Concent 30, Red Cell Distribution Width 15.1, Platelet Count 391, Mean Platelet Volume 8.8, Immature Granulocyte % (Auto) 1, Neutrophils (%) (Auto) 77, Lymphocytes (%) (Auto) 9, Monocytes (%) (Auto) 8, Eosinophils (%) (Auto) 5, Basophils (%) (Auto) 1, Neutrophils # (Auto) 8.8, Lymphocytes # (Auto) 1.0, Monocytes # (Auto) 0.9, Eosinophils # (Auto) 0.5, Basophils # (Auto) 0.1, Immature Granulocyte # (Auto) 0.1, Sodium Level 138, Potassium Level 4.4, Chloride Level 102, Carbon Dioxide Level 25, Anion Gap 11, Blood Urea Nitrogen 10, Creatinine 0.98, Estimat Glomerular Filtration Rate > 60, BUN/Creatinine Ratio 10, Glucose Level 157, Calcium Level 9.4, Corrected Calcium 9.8, Total Bilirubin 0.2, Aspartate Amino Transf (AST/SGOT) 13, Alanine Aminotransferase (ALT/SGPT) 12, Alkaline Phosphatase 51, Total Protein 6.9, Albumin 3.5 Discharge Home Medications: Active Scripts Active Venlafaxine HCl ER (Venlafaxine HCl) 75 Mg Cap.er.24h 75 Mg PO DAILY@0700 365 Days Cyclobenzaprine HCl 10 Mg Tablet 5 Mg PO BID PRN Flomax (Tamsulosin HCl) 0.4 Mg Cap 0.8 Mg PO DAILY@1800 Reported Mirtazapine 7.5 Mg Tablet 7.5 Mg PO HS Miralax (Polyethylene Glycol 3350) 17 Gm Powd.pack 17 Gm PO DAILY Senna-Docusate Sodium Tablet (Sennosides/Docusate Sodium) 1 Each Tablet 1 Each PO BID Spironolactone 25 Mg Tablet 25 Mg PO DAILY W/FOOD K-Tab ER (Potassium Chloride) 20 Meq Tablet.er 20 Meq PO DAILY W/MEAL Pantoprazole Sodium 40 Mg Tablet.dr 40 Mg PO BID Ondansetron Odt (Ondansetron) 4 Mg Tab.rapdis 4 Mg PO Q4H PRN Metoprolol Succinate 25 Mg Tab.er.24h 12.5 Mg PO HS TAKES OF A 25MG HOLD FOR SYSTOLIC BLOOD PRESSURE LESS THAN 90 Metformin HCl 500 Mg Tablet 500 Mg PO BID Levothyroxine Sodium 75 Mcg Tablet 75 Mcg PO DAILY Entresto 49 mg-51 mg Tablet (Sacubitril/Valsartan) 1 Each Tablet 2 Tab PO 1800 TAKES 2 (49/51MG) TABS Entresto 49 mg-51 mg Tablet (Sacubitril/Valsartan) 1 Each Tablet 1 Tab PO DAILY Acetaminophen Pm Geltab (Acetaminophen/Diphenhydramine) 1 Each Tablet 1 Each PO HS PRN Vitamin D3 (Cholecalciferol (Vitamin D3)) 25 Mcg Capsule 25 Mcg PO DAILY Lumigan (Bimatoprost) 2.5 Ml Drops 1 Drop OU HS Atorvastatin Calcium 40 Mg Tablet 20 Mg PO DAILY TAKES OF A 40MG TAB Vitamin C (Ascorbate Calcium) 500 Mg Tablet 500 Mg PO DAILY Amiodarone HCl 200 Mg Tablet 200 Mg PO SUN,FRI,SAT TAKE WITH FOOD Amiodarone HCl 200 Mg Tablet 100 Mg PO ,THU,,KEITH TAKE WITH FOOD TAKES OF A 200MG TAB Instructions to patient/family Please see electronic discharge instructions given to patient. Diagnosis/Problems Diagnosis/Problems (1) S/P TURP (2) Urine retention (3) BPH (benign prostatic hyperplasia) (4) Pacemaker (5) A-fib (6) Colon cancer (7) CHF (congestive heart failure) (8) CAD (coronary artery disease) RIO HAWTHORNE DO Dec 19, 2020 09:44
[2020-12-19 10:02] LABS: ALANINE AMINOTRANSFERASE 12 U/L (0-55); ALBUMIN 3.5 GM/DL (3.2-4.5); ALKALINE PHOSPHATASE 51 U/L (40-136); BILIRUBIN,TOTAL 0.2 MG/DL (0.1-1.0); BUN/CREATININE RATIO 10; CALCIUM 9.4 MG/DL (8.5-10.1); CARBON DIOXIDE 25 MMOL/L (21-32); CHLORIDE 102 MMOL/L (98-107); CREATININE SERUM 0.98 MG/DL (0.60-1.30); GFR ESTIMATED > 60; GLUCOSE 157 MG/DL (70-105); POTASSIUM 4.4 MMOL/L (3.6-5.0); SODIUM 138 MMOL/L (135-145); TOTAL PROTEIN 6.9 GM/DL (6.4-8.2)
--- NOTE | 2020-12-19 11:18 | Occ Therapy Progress Note ---
Therapy Progress Note OT visited with pt who states he is discharging today from facility. He has no concerns with his ability to complete ADLs at this time, and feels like he is at PLOF. DC from pt from OT services, as pt is at his PLOF and IND with ADLs. 1, visit 110 MINDY PEREZ OT Dec 19, 2020 11:17
--- NOTE | 2020-12-19 12:04 | D/C HH Face to Face Order ---
D/C Face to Face Orders Reconcile Patient Problems Problems Reviewed?: Yes Instructions for Patient [facility] Home Health Patient Instructions/FollowUp: Dr Ibarra as scheduled Dr Askew Lorie, 12/25/20 at 400pm [facility] Physician to follow Patient: Jamilah Discharge Diet for Home: ADA Diet Patient Problems: s/p TURP Patient Data-Allergies,Ht & Wt Patient Allergies: Coded Allergies: lisinopril (Verified Allergy, Unknown, 11/14/20) zolpidem (Verified Allergy, Unknown, 11/14/20) Home Health Need/Face to Face Date of Face to Face: Dec 19, 2020 Clinical Findings: Generalized weakness and fatigue, Instability, Muscle weak ness, Shortness of breath, Unsteady gait I have seen Pt heoh-ay-qapx: Yes Discharged To: Home Diagnosis/Conditions: TURP Patient is Homebound due to: [place]ijay fall risk due to instabilty, Muscle weakness Homebound Status Due to the above stated illness, injury or surgical procedure (medical condition or diagnosis) and associated clinical findings, the patient is homebound because of his/her inability to leave home except with aid of a supportive device and/or person AND leaving the home requires a considerable and taxing effort or is medically contraindicated. Pt req the following assistanc: Walker Home Health Nursing Orders Home Health Services Order: Nursing Services, [employer]-Evaluate & Treat, Physical Therapy-Evaluate & Treat Home Health Infusion Therapy Line Start Date: Dec 17, 2020 Certify Stmt I certify that this patient is under my care and that I, a nurse practitioner or a physician; a teacher assistant working with me, had a face to face encounter that - meets the physician face to face encounter requirements with this patient as dated. RIO ASKEW DO Dec 19, 2020 12:04
[2020-12-21] MEDS ORDERED: AMIODARONE 200 MG (CORDARONE) TAB PO SCH (08:00)
== END 2020-12-19 11:40 | disposition home or self-care (01) ==
LOC: SDC 06:09 → 4TH 09:25 → SDC 12-19 11:40
PROVIDERS: ATTEND Urology
DX: N40.1 Benign prostatic hyperplasia with lower urinary tract symptoms (principal); R33.8 Other retention of urine; I48.91 Unspecified atrial fibrillation; I42.8 Other cardiomyopathies; I25.10 Atherosclerotic heart disease of native coronary artery without angina pectoris; E78.00 Pure hypercholesterolemia, unspecified; I10 Essential (primary) hypertension; M19.90 Unspecified osteoarthritis, unspecified site; E03.9 Hypothyroidism, unspecified; E11.9 Type 2 diabetes mellitus without complications; E78.5 Hyperlipidemia, unspecified; C18.9 Malignant neoplasm of colon, unspecified; K21.9 Gastro-esophageal reflux disease without esophagitis; J40 Bronchitis, not specified as acute or chronic; I50.9 Heart failure, unspecified; R41.0 Disorientation, unspecified; Z79.899 Other long term (current) drug therapy; Z95.0 Presence of cardiac pacemaker; Z79.84 Long term (current) use of oral hypoglycemic drugs; Z79.890 Hormone replacement therapy
CPT/HCPCS: 36415; 80053; 82947; 85025; 86850; 86900; 86901; 87081; 88305; 94664